=== PATIENT | female | born 1930 | race Caucasian/White ===

== ENCOUNTER 2016-11-05 11:21 | Inpatient (IN) | payer MEDICARE, OTHER ==
[~2016-11-05] VITALS: Ht 157.5 cm; Wt 109.0 kg
[~2016-11-05 11:21] MED LIST: AMLO5TAB2 PO; CITA10TA8 PO; CRESTOR20 MG PO; ETHO250C PO; FERR159T3 PO; FURO-68 PO; GLIP5TAB10 PO; HYDR25TA9 PO; LAMO100T5 PO; LEVE500T56 PO; LEVO250T7 PO; LISI-338 PO; METO50TA2 PO; SERT50TA8 PO
[2016-11-05] MEDS ORDERED: IV NORMAL SALINE 1000ML BAG 1,000 ML IV SCH (11:35)
--- NOTE | 2016-11-05 11:49 | PHYS DOC ---
Past Medical History Past Medical History: High Cholesterol, Hypertension, Other Past Surgical History: Appendectomy, Cholecystectomy, Hysterectomy, Knee Replacement Additional Past Surgical Histo: bilateral knee Alcohol Use: None Drug Use: None Adult General Chief Complaint Chief Complaint: WEAKNESS/GENERALIZED HPI HPI Patient is a 86 year old female who is brought from home by EMS with the complaint of altered mental status and generalized weakness. Patient is not really able to contribute to the history reliably. She states she has been sick since Friday, unclear how reliable that is. She was not able to really offer any specific complaints. Family arrived and stated that the patient had a seizure on Friday before she started getting sick. She does have seizures every few months. PCP Review of Systems Review of Systems Unable to obtain review of systems due to patient's altered level of consciousness. Current Medications Current Medications Current Medications Medications (Trade) Dose Ordered Sig/Malcom Start Time Stop Time Status Last Admin Dose Admin Sodium Chloride (Iv Sodium Chloride 0.9% 1000ml Bag) 1,000 ml @ 200 mls/hr Q5H 11/05/16 11:35 11/05/16 16:34 11/05/16 12:25 200 MLS/HR Allergies Allergies Allergies Coded Allergies Type Severity Reaction Last Updated Verified neomycin Allergy Intermediate 08/07/16 Yes morphine Adverse Reaction Severe 08/07/16 Yes Physical Exam Physical Exam Constitutional: Obese, appears dyspneic, coughing up a thick yellowish swenson sputum, answers to verbal but mostly with one word answers such as "yes", pulse ox on room air 86%, temp 100.1 HENT: Normocephalic, atraumatic, bilateral external ears normal, oral mucous membranes dry but she is mouth breathing, nose normal. [] Eyes: conjunctiva normal, no discharge. [] Neck: Normal range of motion, no stridor. [] Cardiovascular:Heart rate regular mildly tachycardic, no murmur [] Lungs & Thorax: Decreased breath sounds due to effort, wheezy crackles throughout Abdomen: Obese, Bowel sounds normal, soft, no tenderness, no masses, no pulsatile masses. [] Skin: Warm, dry, no erythema, no rash. [] Extremities: No tenderness, no cyanosis, no clubbing, ROM intact, chronic- appearing bilateral lower extremity edema without clinical evidence of cellulitis Neurologic: Level of consciousness is slightly decreased, she sits with her eyes closed but does respond to verbal with 1 or 2 words, she is handling her secretions, coughing and asking for a Kleenex, normal motor function, normal sensory function, no focal deficits noted. [] Current Patient Data Vital Signs Vital Signs Date Time Temp Pulse Resp B/P Pulse Ox O2 Delivery O2 Flow Rate FiO2 11/05/16 12:10 96 24 172/71 92 11/05/16 11:39 Nasal Cannula 2.5 11/05/16 11:25 100.1 100.1 Lab Values Laboratory Tests Test 11/05/16 11:35 11/05/16 12:20 Influenza Type A Antigen Positive (NEGATIVE) Influenza Type B Antigen Negative (NEGATIVE) White Blood Count 9.7x10^3/uL (4.0-11.0) Red Blood Count 3.99x10^6/uL (3.50-5.40) Hemoglobin 12.7g/dL (12.0-15.5) Hematocrit 38.0% (36.0-47.0) Mean Corpuscular Volume 95fL (79-100) Mean Corpuscular Hemoglobin 32pg (25-35) Mean Corpuscular Hemoglobin Concent 33g/dL (31-37) Red Cell Distribution Width 15.9% (11.5-14.5) H Platelet Count 202x10^3/uL (140-400) Neutrophils (%) (Auto) 87% (31-73) H Lymphocytes (%) (Auto) 2% (24-48) L Monocytes (%) (Auto) 10% (0-9) H Eosinophils (%) (Auto) 0% (0-3) Basophils (%) (Auto) 1% (0-3) Neutrophils # (Auto) 8.4x10^3uL (1.8-7.7) H Lymphocytes # (Auto) 0.2x10^3/uL (1.0-4.8) L Monocytes # (Auto) 0.9x10^3/uL (0.0-1.1) Eosinophils # (Auto) 0.0x10^3/uL (0.0-0.7) Basophils # (Auto) 0.0x10^3/uL (0.0-0.2) Segmented Neutrophils % 85% (35-66) H Band Neutrophils % 7% (0-9) Monocytes % 8% (0-10) Platelet Estimate Adequate (ADEQUATE) Prothrombin Time 14.1SEC (11.7-14.0) H Prothrombin Time INR 1.2 (0.8-1.1) H PTT 28SEC (24-38) Sodium Level 141mmol/L (136-145) Potassium Level 2.8mmol/L (3.5-5.1) *L Chloride Level 94mmol/L (98-107) L Carbon Dioxide Level 41mmol/L (21-32) H Anion Gap 6 (6-14) Blood Urea Nitrogen 64mg/dL (7-20) H Creatinine 2.7mg/dL (0.6-1.0) H Estimated GFR (Cockcroft-Gault) 16.8 BUN/Creatinine Ratio 24 (6-20) H Glucose Level 227mg/dL (70-99) H Lactic Acid Level 1.9mmol/L (0.4-2.0) Calcium Level 9.8mg/dL (8.5-10.1) Total Bilirubin 0.6mg/dL (0.2-1.0) Aspartate Amino Transferase (AST) 38U/L (15-37) H Alanine Aminotransferase (ALT) 29U/L (14-59) Alkaline Phosphatase 39U/L (46-116) L Total Protein 8.1g/dL (6.4-8.2) Albumin 3.9g/dL (3.4-5.0) Albumin/Globulin Ratio 0.9 (1.0-1.7) L Laboratory Tests 11/05/16 12:20 Laboratory Tests 11/05/16 12:20 EKG EKG 12-lead EKG read by me. Heart rate 99. Sinus rhythm with PACs and sinus arrhythmia. There are no acute ST or T wave changes indicative of ischemia or infarction. No STEMI. 1156 [] Radiology/Procedures Radiology/Procedures Portable chest x-ray read by the radiologist. No definite infiltrate but there are prominent interstitial markings. [] Course & Med Decision Making Course & Med Decision Making Pertinent Labs and Imaging studies reviewed. (See chart for details) 86-year-old female who is sick with altered mental status, positive for influenza. I started her on Tamiflu. She also reportedly had a seizure right before her symptoms started and has swenson thick sputum, I believe she may have aspiration pneumonia, I started her on antibiotics for that as well. I spoke with Dr. Still who will admit the patient. I wrote bridge orders. [] Dragon Disclaimer Dragon Disclaimer This electronic medical record was generated, in whole or in part, using a voice recognition dictation system. Departure Departure Impression: Primary Impression: Aspiration pneumonia Additional Impression: Influenza Disposition: 09 ADMITTED INPATIENT Admitting Physician: Shayne Melgar Condition: GUARDED Referrals: BAY GALINDO MD (PCP) Problem Qualifiers GASTON SUE MD Nov 05, 2016 11:49
--- NOTE | 2016-11-05 12:02 | RAD ---
INDICATION: fever COMPARISON: 08/09/2016 FINDINGS: Single view of chest obtained. Cardiac silhouette is enlarged. Prominent interstitial markings are again seen bilaterally without a definite new lobar infiltrate. Surgical clips left axillary region. IMPRESSION: No definite new region of focal airspace consolidation. Cardiac silhouette is again enlarged.
[2016-11-05 12:04] LABS: OBC FLU VALID
[2016-11-05] MEDS ORDERED: OSELTAMIVIR 75 MG CAPSULE PO SCH (12:30)
[2016-11-05 12:36] LABS: BASO % 1 % (0-3); EOS % 0 % (0-3); HEMOGLOBIN 12.7 g/dL (12.0-15.5); LYMPH # 0.2 x10^3/uL (1.0-4.8); LYMPH % 2 % (24-48); MEAN CORPUSCULAR HEMOGLOBIN 32 pg (25-35); MEAN CORPUSCULAR HGB CONC 33 g/dL (31-37); MEAN CORPUSCULAR VOLUME 95 fL (79-100); MONO % 10 % (0-9); NEUT % 87 % (31-73); PLATELET COUNT 202 x10^3/uL (140-400); RED BLOOD COUNT 3.99 x10^6/uL (3.50-5.40); RED CELL DISTRIBUTION WIDTH 15.9 % (11.5-14.5); WHITE BLOOD COUNT 9.7 x10^3/uL (4.0-11.0)
[2016-11-05] MEDS ORDERED: PIPERACILLIN/TAZOBACTAM 3.375 GM in IV NORMAL SALINE 50ML 50 ML IV ONE (12:45)
[2016-11-05 12:49] LABS: ALBUMIN 3.9 g/dL (3.4-5.0); ALBUMIN/GLOBULIN RATIO 0.9 (1.0-1.7); CALCIUM 9.8 mg/dL (8.5-10.1); CREATININE 2.7 mg/dL (0.6-1.0); GFR 16.8; TOTAL BILIRUBIN 0.6 mg/dL (0.2-1.0); TOTAL PROTEIN 8.1 g/dL (6.4-8.2)
--- NOTE | 2016-11-05 12:50 | EKG ---
[facility] [address] [place] [address] Test Date: 2016-11-05 Test Time: 11:56:22 Pat Name: YADIRA RAUSCH Department: Room: Gender: F [employer] Station Manager: HILDA : 1930 Requested By: GASTON SUE Order Number: [id number] Reading MD: James Vazquez Measurements Intervals Couch Rate: 99 P: 90 ND: 76 QRS: -10 QRSD: 92 T: 29 QT: 358 QTc: 465 Interpretive Statements SINUS ARRHYTHMIA LEFTWARD AXIS R-S TRANSITION ZONE IN V LEADS DISPLACED TO THE LEFT QRS(T) CONTOUR ABNORMALITY CONSISTENT WITH INFERIOR INFARCT PROBABLY OLD ABNORMAL ECG Electronically Signed On 11-21-2016 14:35:46 [employer] MANAGER by James Vazquez
[2016-11-05 12:51] LABS: BILIRUBIN,URINE NEGATIVE (NEG); GLUCOSE,URINE NEGATIVE (NEG); NITRITE,URINE NEGATIVE (NEG); PH,URINE 5.5; PROTEIN,URINE 100 mg/dL (NEG-TRACE); UROBILINOGEN,URINE 0.2 mg/dL (0.2 mg/dL)
[2016-11-05 12:51] LABS: INR 1.2 (0.8-1.1); PROTHROMBIN TIME PATIENT 14.1 SEC (11.7-14.0)
[2016-11-05 12:55] LABS: POTASSIUM 2.8 mmol/L (3.5-5.1)
[2016-11-05 13:15] LABS: BACTERIA,URINE 0 /HPF (0-FEW); RBC,URINE 0 /HPF (0-2); SQUAMOUS EPITHELIAL CELL,UR MOD /LPF; WBC,URINE 0 /HPF (0-4)
[2016-11-05] MEDS ORDERED: POTASSIUM CHLORIDE 20 MEQ/15 ML ORAL LIQUID. PO ONE (13:15)
[2016-11-05 13:36] LABS: PLT ESTIMATE ADEQUATE (ADEQUATE)
[2016-11-05 15:00] VITALS: BP 150/64
--- NOTE | 2016-11-05 16:00 | ACF ---
Admission Forms Criteria PNEUMONIA DUE TO ASPIRATION Clinical Indications for Admission to Inpatient Care (Place 'X' for any and all applicable criteria): Admission is indicated for ANY ONE of the following(1)(2)(3): [ ]I. Respiratory abnormalities [ ]II. Hemodynamic instability [X]III. Aspiration pneumonitis associated with an acute event (eg, neurologic change, massive emesis, drug overdose) [ ]IV. Patient receives chronic care in a setting (eg, long-term care, [place] [facility] facility) where care for the aspiration has failed or cannot be provided (eg, patient is clinically unstable, and aggressive medical care is desired) (4) Extended stay beyond goal length of stay may be needed for(1)(6): [ ]a) Continued aspiration [ ]b) Empyema, atelectasis, large pleural effusion or lung abscess [ ]c) Severe hypoxemia or respiratory failure [ ]d) Comorbid clinically significant electrolyte disorder or acute renal injury (eg, hypernatremia, hyponatremia) [ ]e) Need for parenteral or tube (enteral) feedings (eg, severe malnutrition) [ ]f) Active comorbidities (eg, heart failure, COPD, renal failure) [ ]g) Comorbid severe neurologic problems(2)(17) The original [employer] content created by [employer] has been revised. The portions of the content which have been revised are identified through the use of italic text or in bold, and [facility] has neither reviewed nor approved the modified material. All other unmodified content is copyright [employer]. Please see references footnoted in the original [facility] edition 2016 Admission Criteria Met?: Yes AYANA RAMIREZ Nov 05, 2016 16:00
[2016-11-05] MEDS ORDERED: DEXTROSE 50% 25 GM / 50ML DISP.SYRIN. IV PRN (16:15)
[2016-11-05] MEDS ORDERED: hydrALAZINE 20 MG/ML VIAL. IVP PRN (16:15)
[2016-11-05] MEDS ORDERED: ALBUTEROL SULFATE 2.5 MG/3 ML NEBU. NEB PRN (16:15)
[2016-11-05] MEDS ORDERED: POTASSIUM CL 20MEQ D5-0.9%NACL 1,000 ML IV SCH (16:15)
[2016-11-05] MEDS ORDERED: ONDANSETRON PF 4 MG/2 ML VIAL. IV PRN (16:15)
--- NOTE | 2016-11-05 16:18 | PDOC1 ---
History and Physical Date of Admission Date of Admission 11/05/16 Identification/Chief Complaint Chief Complaint sob Problems: Source Source: Chart review, Patient History of Present Illness History of Present Illness HPI HPI Patient is a 86 year old female who is brought from home by EMS with the complaint of altered mental status and generalized weakness. Pt is lethargic to me now, only say yes or no when i ask her if she has cough or sob, she said yes. squeeze my hand weak, but not willing to move her body. as per ERP, pt got a seizure on Friday before she started getting sick. She does have seizures every few months. pt denies fever, chills. + flu in ER. Past Medical History Cardiovascular: CAD, CHF, HTN, Hyperlipidemia CENTRAL NERVOUS SYSTEM: Seizure GI: GERD Psych: Depression Renal/: Chronic renal insuff Endocrine: Diabetes Past Surgical History Past Surgical History: Appendectomy, Cholecystectomy, Hysterectomy, Other Family History Family History: Hypertension Social History Smoke: No ALCOHOL: none Drugs: None Current Problem List Problem List Problems Medical Problems: (1) Aspiration pneumonia Status: Acute (2) Aspiration pneumonia Status: Acute (3) Hypoxia Status: Acute (4) Influenza Status: Acute (5) Influenza Status: Acute Current Medications Current Medications Current Medications Medications (Trade) Dose Ordered Sig/Malcom Start Time Stop Time Status Last Admin Dose Admin Oseltamivir Phosphate (Tamiflu) 30 mg BID 11/05/16 21:00 11/10/16 20:59 Oseltamivir Phosphate 75 mg 75 mg DAILY 11/05/16 12:30 11/05/16 12:30 DC 11/05/16 12:24 75 MG Piperacillin Sod/ Tazobactam Sod/ Sodium Chloride (Zosyn/Iv Sodium Chloride 0.9% 50ml) 50 ml @ 100 mls/hr 1X ONCE 11/05/16 12:45 11/05/16 13:14 DC 11/05/16 12:39 100 MLS/HR Potassium Chloride (KCl Oral Soln) 40 meq 1X ONCE 11/05/16 13:15 11/05/16 13:16 DC 11/05/16 13:49 40 MEQ Sodium Chloride (Iv Sodium Chloride 0.9% 1000ml Bag) 1,000 ml @ 200 mls/hr Q5H 11/05/16 11:35 11/05/16 16:34 2/14/17 12:25 200 MLS/HR Allergies Allergies Allergies Coded Allergies Type Severity Reaction Last Updated Verified neomycin Allergy Intermediate 08/07/16 Yes morphine Adverse Reaction Severe 08/07/16 Yes ROS Review of System CONSTITUTIONAL: No fever or chills EYES: No recent changes SKIN: No rash or itching CARDIOVASCULAR: No chest pain, syncope, palpitations, or edema RESPIRATORY: No SOB or cough GASTROINTESTINAL: No nausea, vomiting or abdominal pain NEUROLOGICAL: No headaches or weakness ENDOCRINE: No cold or heat intolerance GENITOURINARY: No urgency or frequency of urination MUSCULOSKELETAL: No back pain or joint pain LYMPHATICS: No enlarged lymph nodes PSYCHIATRIC: No anxiety or depression Physical Exam Physical Exam GEN.: No apparent distress. lethargic, arousable, but fall asleep again HEENT: Head is normocephalic, atraumatic NECK: Supple. LUNGS: Clear to auscultation. HEART: RRR, S1, S2 present. Peripheral pulses intact ABDOMEN: Soft, nontender. Positive bowel sounds. EXTREMITIES: Without any cyanosis. NEUROLOGIC: Normal speech, normal tone PSYCHIATRIC: Normal affect, normal mood. SKIN: No ulcerations Vitals Vitals Vital Signs Date Time Temp Pulse Resp B/P Pulse Ox O2 Delivery O2 Flow Rate FiO2 11/05/16 15:00 100.8 96 22 150/64 94 Nasal Cannula 2.0 100.8 Labs Labs Laboratory Tests Test 11/05/16 11:35 11/05/16 12:20 11/05/16 12:35 Influenza Type A Antigen Positive (NEGATIVE) Influenza Type B Antigen Negative (NEGATIVE) White Blood Count 9.7x10^3/uL (4.0-11.0) Red Blood Count 3.99x10^6/uL (3.50-5.40) Hemoglobin 12.7g/dL (12.0-15.5) Hematocrit 38.0% (36.0-47.0) Mean Corpuscular Volume 95fL (79-100) Mean Corpuscular Hemoglobin 32pg (25-35) Mean Corpuscular Hemoglobin Concent 33g/dL (31-37) Red Cell Distribution Width 15.9% (11.5-14.5) Platelet Count 202x10^3/uL (140-400) Neutrophils (%) (Auto) 87% (31-73) Lymphocytes (%) (Auto) 2% (24-48) Monocytes (%) (Auto) 10% (0-9) Eosinophils (%) (Auto) 0% (0-3) Basophils (%) (Auto) 1% (0-3) Neutrophils # (Auto) 8.4x10^3uL (1.8-7.7) Lymphocytes # (Auto) 0.2x10^3/uL (1.0-4.8) Monocytes # (Auto) 0.9x10^3/uL (0.0-1.1) Eosinophils # (Auto) 0.0x10^3/uL (0.0-0.7) Basophils # (Auto) 0.0x10^3/uL (0.0-0.2) Segmented Neutrophils % 85% (35-66) Band Neutrophils % 7% (0-9) Monocytes % 8% (0-10) Platelet Estimate Adequate (ADEQUATE) Prothrombin Time 14.1SEC (11.7-14.0) Prothromb Time International Ratio 1.2 (0.8-1.1) Activated Partial Thromboplast Time 28SEC (24-38) Sodium Level 141mmol/L (136-145) Potassium Level 2.8mmol/L (3.5-5.1) Chloride Level 94mmol/L (98-107) Carbon Dioxide Level 41mmol/L (21-32) Anion Gap 6 (6-14) Blood Urea Nitrogen 64mg/dL (7-20) Creatinine 2.7mg/dL (0.6-1.0) Estimated GFR (Cockcroft-Gault) 16.8 BUN/Creatinine Ratio 24 (6-20) Glucose Level 227mg/dL (70-99) Lactic Acid Level 1.9mmol/L (0.4-2.0) Calcium Level 9.8mg/dL (8.5-10.1) Total Bilirubin 0.6mg/dL (0.2-1.0) Aspartate Amino Transf (AST/SGOT) 38U/L (15-37) Alanine Aminotransferase (ALT/SGPT) 29U/L (14-59) Alkaline Phosphatase 39U/L (46-116) Total Protein 8.1g/dL (6.4-8.2) Albumin 3.9g/dL (3.4-5.0) Albumin/Globulin Ratio 0.9 (1.0-1.7) Urine Collection Type U cath Urine Color Yellow Urine Clarity Cloudy Urine pH 5.5 Urine Specific [place] 1.015 Urine Protein 100mg/dL (NEG-TRACE) Urine Glucose (UA) Negativemg/dL (NEG) Urine Ketones (Stick) Negativemg/dL (NEG) Urine Blood Large (NEG) Urine Nitrite Negative (NEG) Urine Bilirubin Negative (NEG) Urine Urobilinogen Dipstick 0.2mg/dL (0.2 mg/dL) Urine Leukocyte Esterase Negative (NEG) Urine RBC 0/HPF (0-2) Urine WBC 0/HPF (0-4) Urine Squamous Epithelial Cells Mod/LPF Urine Amorphous Sediment Present/HPF Urine Bacteria 0/HPF (0-FEW) Laboratory Tests Test 11/05/16 11:35 11/05/16 12:20 11/05/16 12:35 Influenza Type A Antigen Positive (NEGATIVE) Influenza Type B Antigen Negative (NEGATIVE) White Blood Count 9.7x10^3/uL (4.0-11.0) Red Blood Count 3.99x10^6/uL (3.50-5.40) Hemoglobin 12.7g/dL (12.0-15.5) Hematocrit 38.0% (36.0-47.0) Mean Corpuscular Volume 95fL (79-100) Mean Corpuscular Hemoglobin 32pg (25-35) Mean Corpuscular Hemoglobin Concent 33g/dL (31-37) Red Cell Distribution Width 15.9% (11.5-14.5) Platelet Count 202x10^3/uL (140-400) Neutrophils (%) (Auto) 87% (31-73) Lymphocytes (%) (Auto) 2% (24-48) Monocytes (%) (Auto) 10% (0-9) Eosinophils (%) (Auto) 0% (0-3) Basophils (%) (Auto) 1% (0-3) Neutrophils # (Auto) 8.4x10^3uL (1.8-7.7) Lymphocytes # (Auto) 0.2x10^3/uL (1.0-4.8) Monocytes # (Auto) 0.9x10^3/uL (0.0-1.1) Eosinophils # (Auto) 0.0x10^3/uL (0.0-0.7) Basophils # (Auto) 0.0x10^3/uL (0.0-0.2) Segmented Neutrophils % 85% (35-66) Band Neutrophils % 7% (0-9) Monocytes % 8% (0-10) Platelet Estimate Adequate (ADEQUATE) Prothrombin Time 14.1SEC (11.7-14.0) Prothromb Time International Ratio 1.2 (0.8-1.1) Activated Partial Thromboplast Time 28SEC (24-38) Sodium Level 141mmol/L (136-145) Potassium Level 2.8mmol/L (3.5-5.1) Chloride Level 94mmol/L (98-107) Carbon Dioxide Level 41mmol/L (21-32) Anion Gap 6 (6-14) Blood Urea Nitrogen 64mg/dL (7-20) Creatinine 2.7mg/dL (0.6-1.0) Estimated GFR (Cockcroft-Gault) 16.8 BUN/Creatinine Ratio 24 (6-20) Glucose Level 227mg/dL (70-99) Lactic Acid Level 1.9mmol/L (0.4-2.0) Calcium Level 9.8mg/dL (8.5-10.1) Total Bilirubin 0.6mg/dL (0.2-1.0) Aspartate Amino Transf (AST/SGOT) 38U/L (15-37) Alanine Aminotransferase (ALT/SGPT) 29U/L (14-59) Alkaline Phosphatase 39U/L (46-116) Total Protein 8.1g/dL (6.4-8.2) Albumin 3.9g/dL (3.4-5.0) Albumin/Globulin Ratio 0.9 (1.0-1.7) Urine Collection Type U cath Urine Color Yellow Urine Clarity Cloudy Urine pH 5.5 Urine Specific [place] 1.015 Urine Protein 100mg/dL (NEG-TRACE) Urine Glucose (UA) Negativemg/dL (NEG) Urine Ketones (Stick) Negativemg/dL (NEG) Urine Blood Large (NEG) Urine Nitrite Negative (NEG) Urine Bilirubin Negative (NEG) Urine Urobilinogen Dipstick 0.2mg/dL (0.2 mg/dL) Urine Leukocyte Esterase Negative (NEG) Urine RBC 0/HPF (0-2) Urine WBC 0/HPF (0-4) Urine Squamous Epithelial Cells Mod/LPF Urine Amorphous Sediment Present/HPF Urine Bacteria 0/HPF (0-FEW) VTE Prophylaxis Ordered VTE Prophylaxis Devices: Yes VTE Pharmacological Prophylaxi: Yes Assessment/Plan Assessment/Plan 1. acute on chronic resp failure, home o2 2L 2. flu + 3. seizure disorder 4. htn 5. dm2 6. copd 7. h/o CHF 8. hld 9. hypokalemia 10 sheyla on ckd3 11. AMS, metabolic encephalopathy with flu,SHEYLA, VS. post ictal plan: 1. npo for now, swallow eval 2. check ckmb, abg stat 3. cont tamiflu 4. need to verify home meds ivf replete k 5. pulm, neuro consult SSI duoneb repeat CXR TMR ativan prn dvt ppx ptot JOANIE DE LUNA MD Nov 05, 2016 16:18
[2016-11-05 16:43] LABS: CKMB INDEX 0.2 % (0-4); CKMB MASS 0.8 ng/mL (0.0-3.6)
[2016-11-05 16:53] LABS: HCO3 ABG 39 mmol/L (21-28); PCO2 ABG 58 mmHg (35-46); PH ABG 7.44 (7.35-7.45); PO2 ABG 64 mmHg (65-108)
[2016-11-05] MEDS: INSULIN ASPART 300 UNITS/3 ML INSULN.PEN SQ SCH (17:00)
--- NOTE | 2016-11-05 17:29 | PDOC2 ---
NEUROLOGY CONSULT Date of Admission Date of Admission DATE: 11/05/16 TIME: 17:15 Reason for Consult Reason for Consult: seizure Referring Physician Referring Physician: Dr. Still Source Source: Chart review, Patient History of Present Illness History of Present Illness The patient is an 84-year-old right-handed female who presents with altered mental status. She is unable to provide history; I saw her 16 months ago and obtained a history that she sees Dr. Sullivan for episodic loss of consciousness with tremulousness, but without tongue biting, incontinence, convulsive activity , or postictal confusion. She has these every 3 weeks. She is on lamotrigine and levetiracetam. She has been found to have influenza positive and is thought to perhaps have aspiration pneumonia. I tried to reach family members, and was unsuccessful. Past Medical History Cardiovascular: CAD, CHF, HTN, Hyperlipidemia Pulmonary: Other (sleep apnea) CENTRAL NERVOUS SYSTEM: Seizure GI: GERD Heme/Onc: Anemia NOS, Cancer (breast) Psych: Depression Musculoskeletal: Osteoarthritis Renal/: Chronic renal insuff, UTI, Urinary Incontinence Endocrine: Diabetes Past Surgical History Past Surgical History: Cholecystectomy, Total knee replacement, Hysterectomy, Other (breast lumps) Family History Family History: Cancer Social History Social History lives alone, denies alcohol or tobacco Current Medications Current Medications Current Medications Sodium Chloride (Iv Sodium Chloride 0.9% 1000ml Bag) 1,000 ml @ 200 mls/hr Q5H IV Last administered on 11/05/16 12:25; Start 11/05/16 at 11:35; Stop at 16:34; Status DC Oseltamivir Phosphate 75 mg 75 mg DAILY PO Last administered on 11/05/16 12:24 ; Start 11/05/16 at 12:30; Stop 11/05/16 at 12:30; Status DC Piperacillin Sod/ Tazobactam Sod/ Sodium Chloride (Zosyn/Iv Sodium Chloride 0.9 % 50ml) 50 ml @ 100 mls/hr 1X ONCE IV Last administered on 11/05/16 12:39; Start 11/05/16 at 12:45; Stop 11/05/16 at 13:14; Status DC Oseltamivir Phosphate (Tamiflu) 30 mg BID PO ; Start 11/05/16 at 21:00; Stop at 20:59 Potassium Chloride (KCl Oral Soln) 40 meq 1X ONCE PO Last administered on 11/05t 13:49; Start 11/05/16 at 13:15; Stop 11/05/16 at 13:16; Status DC Amlodipine Besylate (Norvasc) 5 mg DAILY PO ; Start 11/06/16 at 09:00 Glipizide (Glucotrol) 5 mg DAILY PO ; Start 11/06/16 at 09:00 Lamotrigine (LaMICtal) 100 mg BID PO ; Start 11/05/16 at 21:00 Levetiracetam (Keppra) 250 mg HS PO ; Start 11/05/16 at 21:00 Atorvastatin Calcium (Lipitor) 80 mg QHS PO ; Start 11/05/16 at 21:00 Acetaminophen (Tylenol) 650 mg PRN Q6HRS PRN PO MILD PAIN / TEMP; Start at 16:15 Ondansetron HCl 4 mg 4 mg PRN Q6HRS PRN IV NAUSEA/VOMITING; Start 11/05/16 at 16:15 Potassium Chloride/Dextrose/ Sod Cl (KCl 20 Meq In D5W-NS) 1,000 ml @ 75 mls/ hr [id number] IV ; Start 11/05/16 at 16:15; Stop 11/05/16 at 16:15; Status DC Insulin Aspart (Novolog) 0-9 UNITS TIDWMEALS SQ ; Start 11/05/16 at 17:00 Dextrose 12.5 gm PRN Q15MIN PRN IV SEE COMMENTS; Start 11/05/16 at 16:15 Heparin Sodium (Porcine) 5,000 unit Q8HRS SQ ; Start 11/05/16 at 22:00 Hydralazine HCl (Apresoline) 10 mg PRN Q4HRS PRN IVP ELEVATED BP, SEE COMMENTS ; Start 11/05/16 at 16:15 Albuterol/ Ipratropium (Duoneb) 3 ml RTQID NEB ; Start 11/05/16 at 20:00 Albuterol Sulfate 2.5 mg 2.5 mg PRN Q4HRS PRN NEB SHORTNESS OF BREATH; Start at 16:15 Potassium Chloride/Sodium Chloride (KCl 20 Meq-NS 1,000 ml Iv Soln) 1,000 ml @ 75 mls/hr [id number] IV ; Start 11/05/16 at 17:00 Active Scripts Active Glipizide 5 Mg Tablet 5 Mg PO DAILY Take one-half a tablet daily. Lasix (Furosemide) 40 Mg Tablet 40 Mg PO DAILY Reported Levofloxacin 250 Mg Tablet 250 Mg PO DAILY Amlodipine Besylate 5 Mg Tablet 5 Mg PO DAILY Keppra (Levetiracetam) 500 Mg Tablet 250 Mg PO HS Crestor (Rosuvastatin Calcium) 20 Mg Tablet 20 Mg PO HS Lamictal (Lamotrigine) 100 Mg Tablet 100 Mg PO BID Allergies Allergies: Coded Allergies: neomycin (Verified Allergy, Intermediate, 08/07/16) morphine (Verified Adverse Reaction, Severe, 08/07/16) Pt states that she became severely drowsy with morphine and "woke up in ICU." Doesn't know if she was given too large of dose. Physical Exam Physical Examination PHYSICAL EXAMINATION: Vital signs: see above. General appearance is normal and in no acute distress. HEENT: Normocephalic and nontraumatic. Eyes, nose, ears, and throat are unremarkable. Neck is supple. No lymphadenopathy. No bruits are heard over the carotid artery. No crepitus. NEUROLOGICAL EXAMINATION: Mental Status Examination: Somnolent awakens easily, follows commands, knows location, not date, very poor historian. Pupils are equal round and reactive to light and accommodation. Extraocular movements are intact. Visual field exam shows no defect on the direct confrontation. No motor or sensory deficits on the facial exam. Uvula in the midline and the soft palate elevated symmetrically. No deviation of the tongue to any direction. Gross hearing is normal. Shoulder shrug normal. Muscle tone is normal. Muscle strength is 4/ 5. Deep tendon reflexes are 1+ all around. Plantar reflex is with flexion response bilaterally. Alternative movements are accurate. Gait not tested. Sensory exam shows stocking loss. No cerebellar signs are elicited. Vitals VITALS Vital Signs Date Time Temp Pulse Resp B/P Pulse Ox O2 Delivery O2 Flow Rate FiO2 11/05/16 15:00 100.8 96 22 150/64 94 Nasal Cannula 2.0 100.8 Labs Labs Laboratory Tests Test 11/05/16 11:35 11/05/16 12:20 11/05/16 12:35 11/05/16 16:45 Influenza Type A Antigen Positive (NEGATIVE) Influenza Type B Antigen Negative (NEGATIVE) White Blood Count 9.7x10^3/uL (4.0-11.0) Red Blood Count 3.99x10^6/uL (3.50-5.40) Hemoglobin 12.7g/dL (12.0-15.5) Hematocrit 38.0% (36.0-47.0) Mean Corpuscular Volume 95fL (79-100) Mean Corpuscular Hemoglobin 32pg (25-35) Mean Corpuscular Hemoglobin Concent 33g/dL (31-37) Red Cell Distribution Width 15.9% (11.5-14.5) Platelet Count 202x10^3/uL (140-400) Neutrophils (%) (Auto) 87% (31-73) Lymphocytes (%) (Auto) 2% (24-48) Monocytes (%) (Auto) 10% (0-9) Eosinophils (%) (Auto) 0% (0-3) Basophils (%) (Auto) 1% (0-3) Neutrophils # (Auto) 8.4x10^3uL (1.8-7.7) Lymphocytes # (Auto) 0.2x10^3/uL (1.0-4.8) Monocytes # (Auto) 0.9x10^3/uL (0.0-1.1) Eosinophils # (Auto) 0.0x10^3/uL (0.0-0.7) Basophils # (Auto) 0.0x10^3/uL (0.0-0.2) Segmented Neutrophils % 85% (35-66) Band Neutrophils % 7% (0-9) Monocytes % 8% (0-10) Platelet Estimate Adequate (ADEQUATE) Prothrombin Time 14.1SEC (11.7-14.0) Prothromb Time International Ratio 1.2 (0.8-1.1) Activated Partial Thromboplast Time 28SEC (24-38) Sodium Level 141mmol/L (136-145) Potassium Level 2.8mmol/L (3.5-5.1) Chloride Level 94mmol/L (98-107) Carbon Dioxide Level 41mmol/L (21-32) Anion Gap 6 (6-14) Blood Urea Nitrogen 64mg/dL (7-20) Creatinine 2.7mg/dL (0.6-1.0) Estimated GFR (Cockcroft-Gault) 16.8 BUN/Creatinine Ratio 24 (6-20) Glucose Level 227mg/dL (70-99) Lactic Acid Level 1.9mmol/L (0.4-2.0) Calcium Level 9.8mg/dL (8.5-10.1) Magnesium Level 2.0mg/dL (1.8-2.4) Total Bilirubin 0.6mg/dL (0.2-1.0) Aspartate Amino Transf (AST/SGOT) 38U/L (15-37) Alanine Aminotransferase (ALT/SGPT) 29U/L (14-59) Alkaline Phosphatase 39U/L (46-116) Creatine Kinase 359U/L (26-192) Creatine Kinase MB (Mass) 0.8ng/mL (0.0-3.6) Creatine Kinase MB Relative Index 0.2% (0-4) Total Protein 8.1g/dL (6.4-8.2) Albumin 3.9g/dL (3.4-5.0) Albumin/Globulin Ratio 0.9 (1.0-1.7) Urine Collection Type U cath Urine Color Yellow Urine Clarity Cloudy Urine pH 5.5 Urine Specific [place] 1.015 Urine Protein 100mg/dL (NEG-TRACE) Urine Glucose (UA) Negativemg/dL (NEG) Urine Ketones (Stick) Negativemg/dL (NEG) Urine Blood Large (NEG) Urine Nitrite Negative (NEG) Urine Bilirubin Negative (NEG) Urine Urobilinogen Dipstick 0.2mg/dL (0.2 mg/dL) Urine Leukocyte Esterase Negative (NEG) Urine RBC 0/HPF (0-2) Urine WBC 0/HPF (0-4) Urine Squamous Epithelial Cells Mod/LPF Urine Amorphous Sediment Present/HPF Urine Bacteria 0/HPF (0-FEW) O2 Saturation % (92-99) Arterial Blood pH 7.44 (7.35-7.45) Arterial Blood pCO2 at Patient Temp 58mmHg (35-46) Arterial Blood pO2 at Patient Temp 64mmHg (65-108) Arterial Blood HCO3 39mmol/L (21-28) Arterial Blood Base Excess 12mmol/L (-3-3) FiO2 2 lpm nc Laboratory Tests Test 11/05/16 11:35 11/05/16 12:20 11/05/16 12:35 11/05/16 16:45 Influenza Type A Antigen Positive (NEGATIVE) Influenza Type B Antigen Negative (NEGATIVE) White Blood Count 9.7x10^3/uL (4.0-11.0) Red Blood Count 3.99x10^6/uL (3.50-5.40) Hemoglobin 12.7g/dL (12.0-15.5) Hematocrit 38.0% (36.0-47.0) Mean Corpuscular Volume 95fL (79-100) Mean Corpuscular Hemoglobin 32pg (25-35) Mean Corpuscular Hemoglobin Concent 33g/dL (31-37) Red Cell Distribution Width 15.9% (11.5-14.5) Platelet Count 202x10^3/uL (140-400) Neutrophils (%) (Auto) 87% (31-73) Lymphocytes (%) (Auto) 2% (24-48) Monocytes (%) (Auto) 10% (0-9) Eosinophils (%) (Auto) 0% (0-3) Basophils (%) (Auto) 1% (0-3) Neutrophils # (Auto) 8.4x10^3uL (1.8-7.7) Lymphocytes # (Auto) 0.2x10^3/uL (1.0-4.8) Monocytes # (Auto) 0.9x10^3/uL (0.0-1.1) Eosinophils # (Auto) 0.0x10^3/uL (0.0-0.7) Basophils # (Auto) 0.0x10^3/uL (0.0-0.2) Segmented Neutrophils % 85% (35-66) Band Neutrophils % 7% (0-9) Monocytes % 8% (0-10) Platelet Estimate Adequate (ADEQUATE) Prothrombin Time 14.1SEC (11.7-14.0) Prothromb Time International Ratio 1.2 (0.8-1.1) Activated Partial Thromboplast Time 28SEC (24-38) Sodium Level 141mmol/L (136-145) Potassium Level 2.8mmol/L (3.5-5.1) Chloride Level 94mmol/L (98-107) Carbon Dioxide Level 41mmol/L (21-32) Anion Gap 6 (6-14) Blood Urea Nitrogen 64mg/dL (7-20) Creatinine 2.7mg/dL (0.6-1.0) Estimated GFR (Cockcroft-Gault) 16.8 BUN/Creatinine Ratio 24 (6-20) Glucose Level 227mg/dL (70-99) Lactic Acid Level 1.9mmol/L (0.4-2.0) Calcium Level 9.8mg/dL (8.5-10.1) Magnesium Level 2.0mg/dL (1.8-2.4) Total Bilirubin 0.6mg/dL (0.2-1.0) Aspartate Amino Transf (AST/SGOT) 38U/L (15-37) Alanine Aminotransferase (ALT/SGPT) 29U/L (14-59) Alkaline Phosphatase 39U/L (46-116) Creatine Kinase 359U/L (26-192) Creatine Kinase MB (Mass) 0.8ng/mL (0.0-3.6) Creatine Kinase MB Relative Index 0.2% (0-4) Total Protein 8.1g/dL (6.4-8.2) Albumin 3.9g/dL (3.4-5.0) Albumin/Globulin Ratio 0.9 (1.0-1.7) Urine Collection Type U cath Urine Color Yellow Urine Clarity Cloudy Urine pH 5.5 Urine Specific [place] 1.015 Urine Protein 100mg/dL (NEG-TRACE) Urine Glucose (UA) Negativemg/dL (NEG) Urine Ketones (Stick) Negativemg/dL (NEG) Urine Blood Large (NEG) Urine Nitrite Negative (NEG) Urine Bilirubin Negative (NEG) Urine Urobilinogen Dipstick 0.2mg/dL (0.2 mg/dL) Urine Leukocyte Esterase Negative (NEG) Urine RBC 0/HPF (0-2) Urine WBC 0/HPF (0-4) Urine Squamous Epithelial Cells Mod/LPF Urine Amorphous Sediment Present/HPF Urine Bacteria 0/HPF (0-FEW) O2 Saturation % (92-99) Arterial Blood pH 7.44 (7.35-7.45) Arterial Blood pCO2 at Patient Temp 58mmHg (35-46) Arterial Blood pO2 at Patient Temp 64mmHg (65-108) Arterial Blood HCO3 39mmol/L (21-28) Arterial Blood Base Excess 12mmol/L (-3-3) FiO2 2 lpm nc Assessment/Plan Assessment/Plan Impression: Metabolic encephalopathy History of seizures, but when I last saw her I wondered that she may have nonepileptic seizures or vasovagal syncope. She continues to have frequent seizures despite 2 anticonvulsants. Possible aspiration pneumonia Recommendations: CT of the head I don't see a need to repeat EEG studies, of which she has had several in the past. Continue current anticonvulsants although once a day levetiracetam is unusual. Thank you for letting me help with the patient's care. ALBARO DUKE MD Nov 05, 2016 17:29
--- NOTE | 2016-11-05 18:36 | RAD ---
PROCEDURE CT head without intravenous contrast. HISTORY Altered mental status. TECHNIQUE Axial images are obtained of the head from the skull base through the vertex without IV contrast Exposure: One or more of the following individualized dose reduction techniques were utilized for this examination: 1. Automated exposure control. 2. Adjustment of the mA and/or kV according to patient size. 3. Use of iterative reconstruction technique. COMPARISON CT head May 15, 2015. FINDINGS There is motion artifact at several levels which could obscure subtle abnormalities. Variant anatomy with cavum septi pellucidi et vergae is present. Moderate-severe nonspecific white matter low attenuation is seen, probably from chronic microvascular ischemic disease. The ventricles are appropriate in size, shape, and location for the patient's age.No obvious intracranial mass, mass-effect, midline shift, hemorrhage or obvious acute infarction is identified.Basilar cisterns are patent. Bone windows demonstrate no acute calvarial abnormality.The visualized paranasal sinuses appear clear. IMPRESSION 1. No acute intracranial process. Please note that CT can be relatively insensitive to acute ischemic infarction for up to 24 hours after symptom onset. 2. Nonspecific white matter changes, probably from chronic microvascular ischemic disease. Electronically signed by: Pedro Pablo Covarrubias MD (Nov 05, 2016 18:34:43)
[2016-11-05 19:58] VITALS: BP 144/65
[2016-11-05] MEDS: IPRATRPIUM/ALBUTEROL 0.5/2.5MG 3 ML NEBU. NEB SCH (20:17)
[2016-11-05] MEDS: OSELTAMIVIR 30 MG CAPSULE PO SCH (20:18)
[2016-11-05] MEDS: ATORVASTATIN CALCIUM 40 MG TABLET. PO SCH (20:19)
[2016-11-05] MEDS: lamoTRIgine 100 MG TABLET. PO SCH (20:19)
[2016-11-05] MEDS: HEPARIN PF for SUB-Q USE 5,000 UNIT/0.5 ML VIAL. SQ SCH (20:34)
[2016-11-05] MEDS ORDERED: LEVETIRACETAM 500 MG TABLET PO SCH (21:00)
[2016-11-05 23:55] VITALS: BP 122/50
[2016-11-06 03:58] VITALS: BP 138/55
[2016-11-06] MEDS: HEPARIN PF for SUB-Q USE 5,000 UNIT/0.5 ML VIAL. SQ SCH ×3 (05:28→20:44)
[2016-11-06 07:00] VITALS: BP 142/58
[2016-11-06] MEDS: INSULIN ASPART 300 UNITS/3 ML INSULN.PEN SQ SCH ×3 (08:00→16:47)
[2016-11-06] MEDS: IPRATRPIUM/ALBUTEROL 0.5/2.5MG 3 ML NEBU. NEB SCH ×4 (08:41→20:20)
--- NOTE | 2016-11-06 09:21 | RAD ---
INDICATION: pna COMPARISON: 11/05/2016 FINDINGS: Single view of chest obtained. Enlarged cardiac silhouette. Mild linear opacity right upper lung, likely atelectasis. No new region of airspace consolidation. Surgical clips left axillary region. IMPRESSION: Mild linear opacity right upper lung could be from atelectasis. No definite new infiltrate.
[2016-11-06] MEDS: OSELTAMIVIR 30 MG CAPSULE PO SCH ×2 (09:27→20:43)
[2016-11-06] MEDS: GLIPIZIDE 5 MG TABLET PO SCH (09:28)
[2016-11-06] MEDS: AMLODIPINE BESYLATE 5 MG TABLET PO SCH (09:28)
[2016-11-06] MEDS: lamoTRIgine 100 MG TABLET. PO SCH ×2 (09:28→20:42)
[2016-11-06 09:53] LABS: BASO % 1 % (0-3); EOS % 0 % (0-3); HEMATOCRIT 36.8 % (36.0-47.0); HEMOGLOBIN 12.4 g/dL (12.0-15.5); LYMPH # 0.6 x10^3/uL (1.0-4.8); LYMPH % 11 % (24-48); MEAN CORPUSCULAR HEMOGLOBIN 32 pg (25-35); MEAN CORPUSCULAR HGB CONC 34 g/dL (31-37); MEAN CORPUSCULAR VOLUME 94 fL (79-100); MONO % 15 % (0-9); NEUT % 74 % (31-73); PLATELET COUNT 176 x10^3/uL (140-400); RED BLOOD COUNT 3.91 x10^6/uL (3.50-5.40); RED CELL DISTRIBUTION WIDTH 16.3 % (11.5-14.5); WHITE BLOOD COUNT 5.9 x10^3/uL (4.0-11.0)
[2016-11-06 10:15] LABS: CREATININE 1.9 mg/dL (0.6-1.0); GFR 25.2; POTASSIUM 3.2 mmol/L (3.5-5.1)
--- NOTE | 2016-11-06 10:18 | PDOC ---
PROGRESS NOTES Assessment Problems Medical Problems: (1) Aspiration pneumonia Status: Acute (2) Aspiration pneumonia Status: Acute (3) Hypoxia Status: Acute (4) Influenza Status: Acute (5) Influenza Status: Acute Metabolic encephalopathy History of seizures, but when I last saw her I wondered that she may have nonepileptic seizures or vasovagal syncope. She continues to have frequent seizures despite 2 anticonvulsants. Possible aspiration pneumonia Plan I don't see a need to repeat EEG studies, of which she has had several in the past. Continue current anticonvulsants although once a day levetiracetam is unusual. I left a message with the patient's daughter yesterday Subjective No complaints Objective Vital Signs Date Time Temp Pulse Resp B/P Pulse Ox O2 Delivery O2 Flow Rate FiO2 11/06/16 09:28 83 142/58 11/06/16 08:43 94 Nasal Cannula 3.0 11/06/16 07:00 98.9 20 98.9 Intake and Output 11/06/16 07:00 Intake Total 333 ml Balance 333 ml Intake Oral 0 ml IV Total 50 ml Other 283 ml # Voids 3 PHYSICAL EXAM Alert. Oriented to "Friday," place and person. PERRL. EOMI. CN: no focal findings. Muscle tone: normal. Muscle strength: 4/5 DTR: 1+ Plantar reflex: flexor Gait: not examined in bed. Sensory exam: no abnormal findings. No cerebellar signs elicited. Review of Relevant I have reviewed the following items lucy (where applicable) has been applied. Labs Laboratory Tests Test 11/05/16 11:35 11/05/16 12:20 11/05/16 12:35 11/05/16 16:45 Influenza Type A Antigen Positive (NEGATIVE) Influenza Type B Antigen Negative (NEGATIVE) White Blood Count 9.7x10^3/uL (4.0-11.0) Red Blood Count 3.99x10^6/uL (3.50-5.40) Hemoglobin 12.7g/dL (12.0-15.5) Hematocrit 38.0% (36.0-47.0) Mean Corpuscular Volume 95fL (79-100) Mean Corpuscular Hemoglobin 32pg (25-35) Mean Corpuscular Hemoglobin Concent 33g/dL (31-37) Red Cell Distribution Width 15.9% (11.5-14.5) Platelet Count 202x10^3/uL (140-400) Neutrophils (%) (Auto) 87% (31-73) Lymphocytes (%) (Auto) 2% (24-48) Monocytes (%) (Auto) 10% (0-9) Eosinophils (%) (Auto) 0% (0-3) Basophils (%) (Auto) 1% (0-3) Neutrophils # (Auto) 8.4x10^3uL (1.8-7.7) Lymphocytes # (Auto) 0.2x10^3/uL (1.0-4.8) Monocytes # (Auto) 0.9x10^3/uL (0.0-1.1) Eosinophils # (Auto) 0.0x10^3/uL (0.0-0.7) Basophils # (Auto) 0.0x10^3/uL (0.0-0.2) Segmented Neutrophils % 85% (35-66) Band Neutrophils % 7% (0-9) Monocytes % 8% (0-10) Platelet Estimate Adequate (ADEQUATE) Prothrombin Time 14.1SEC (11.7-14.0) Prothromb Time International Ratio 1.2 (0.8-1.1) Activated Partial Thromboplast Time 28SEC (24-38) Sodium Level 141mmol/L (136-145) Potassium Level 2.8mmol/L (3.5-5.1) Chloride Level 94mmol/L (98-107) Carbon Dioxide Level 41mmol/L (21-32) Anion Gap 6 (6-14) Blood Urea Nitrogen 64mg/dL (7-20) Creatinine 2.7mg/dL (0.6-1.0) Estimated GFR (Cockcroft-Gault) 16.8 BUN/Creatinine Ratio 24 (6-20) Glucose Level 227mg/dL (70-99) Lactic Acid Level 1.9mmol/L (0.4-2.0) Calcium Level 9.8mg/dL (8.5-10.1) Magnesium Level 2.0mg/dL (1.8-2.4) Total Bilirubin 0.6mg/dL (0.2-1.0) Aspartate Amino Transf (AST/SGOT) 38U/L (15-37) Alanine Aminotransferase (ALT/SGPT) 29U/L (14-59) Alkaline Phosphatase 39U/L (46-116) Creatine Kinase 359U/L (26-192) Creatine Kinase MB (Mass) 0.8ng/mL (0.0-3.6) Creatine Kinase MB Relative Index 0.2% (0-4) Total Protein 8.1g/dL (6.4-8.2) Albumin 3.9g/dL (3.4-5.0) Albumin/Globulin Ratio 0.9 (1.0-1.7) Urine Collection Type U cath Urine Color Yellow Urine Clarity Cloudy Urine pH 5.5 Urine Specific [place] 1.015 Urine Protein 100mg/dL (NEG-TRACE) Urine Glucose (UA) Negativemg/dL (NEG) Urine Ketones (Stick) Negativemg/dL (NEG) Urine Blood Large (NEG) Urine Nitrite Negative (NEG) Urine Bilirubin Negative (NEG) Urine Urobilinogen Dipstick 0.2mg/dL (0.2 mg/dL) Urine Leukocyte Esterase Negative (NEG) Urine RBC 0/HPF (0-2) Urine WBC 0/HPF (0-4) Urine Squamous Epithelial Cells Mod/LPF Urine Amorphous Sediment Present/HPF Urine Bacteria 0/HPF (0-FEW) O2 Saturation % (92-99) Arterial Blood pH 7.44 (7.35-7.45) Arterial Blood pCO2 at Patient Temp 58mmHg (35-46) Arterial Blood pO2 at Patient Temp 64mmHg (65-108) Arterial Blood HCO3 39mmol/L (21-28) Arterial Blood Base Excess 12mmol/L (-3-3) FiO2 2 lpm nc Test 11/05/16 21:14 11/06/16 07:39 11/06/16 09:45 Glucose (Fingerstick) 207mg/dL (70-99) 150mg/dL (70-99) White Blood Count 5.9x10^3/uL (4.0-11.0) Red Blood Count 3.91x10^6/uL (3.50-5.40) Hemoglobin 12.4g/dL (12.0-15.5) Hematocrit 36.8% (36.0-47.0) Mean Corpuscular Volume 94fL (79-100) Mean Corpuscular Hemoglobin 32pg (25-35) Mean Corpuscular Hemoglobin Concent 34g/dL (31-37) Red Cell Distribution Width 16.3% (11.5-14.5) Platelet Count 176x10^3/uL (140-400) Neutrophils (%) (Auto) 74% (31-73) Lymphocytes (%) (Auto) 11% (24-48) Monocytes (%) (Auto) 15% (0-9) Eosinophils (%) (Auto) 0% (0-3) Basophils (%) (Auto) 1% (0-3) Neutrophils # (Auto) 4.4x10^3uL (1.8-7.7) Lymphocytes # (Auto) 0.6x10^3/uL (1.0-4.8) Monocytes # (Auto) 0.9x10^3/uL (0.0-1.1) Eosinophils # (Auto) 0.0x10^3/uL (0.0-0.7) Basophils # (Auto) 0.0x10^3/uL (0.0-0.2) Laboratory Tests Test 11/05/16 11:35 11/05/16 12:20 11/05/16 12:35 11/05/16 16:45 Influenza Type A Antigen Positive (NEGATIVE) Influenza Type B Antigen Negative (NEGATIVE) White Blood Count 9.7x10^3/uL (4.0-11.0) Red Blood Count 3.99x10^6/uL (3.50-5.40) Hemoglobin 12.7g/dL (12.0-15.5) Hematocrit 38.0% (36.0-47.0) Mean Corpuscular Volume 95fL (79-100) Mean Corpuscular Hemoglobin 32pg (25-35) Mean Corpuscular Hemoglobin Concent 33g/dL (31-37) Red Cell Distribution Width 15.9% (11.5-14.5) Platelet Count 202x10^3/uL (140-400) Neutrophils (%) (Auto) 87% (31-73) Lymphocytes (%) (Auto) 2% (24-48) Monocytes (%) (Auto) 10% (0-9) Eosinophils (%) (Auto) 0% (0-3) Basophils (%) (Auto) 1% (0-3) Neutrophils # (Auto) 8.4x10^3uL (1.8-7.7) Lymphocytes # (Auto) 0.2x10^3/uL (1.0-4.8) Monocytes # (Auto) 0.9x10^3/uL (0.0-1.1) Eosinophils # (Auto) 0.0x10^3/uL (0.0-0.7) Basophils # (Auto) 0.0x10^3/uL (0.0-0.2) Segmented Neutrophils % 85% (35-66) Band Neutrophils % 7% (0-9) Monocytes % 8% (0-10) Platelet Estimate Adequate (ADEQUATE) Prothrombin Time 14.1SEC (11.7-14.0) Prothromb Time International Ratio 1.2 (0.8-1.1) Activated Partial Thromboplast Time 28SEC (24-38) Sodium Level 141mmol/L (136-145) Potassium Level 2.8mmol/L (3.5-5.1) Chloride Level 94mmol/L (98-107) Carbon Dioxide Level 41mmol/L (21-32) Anion Gap 6 (6-14) Blood Urea Nitrogen 64mg/dL (7-20) Creatinine 2.7mg/dL (0.6-1.0) Estimated GFR (Cockcroft-Gault) 16.8 BUN/Creatinine Ratio 24 (6-20) Glucose Level 227mg/dL (70-99) Lactic Acid Level 1.9mmol/L (0.4-2.0) Calcium Level 9.8mg/dL (8.5-10.1) Magnesium Level 2.0mg/dL (1.8-2.4) Total Bilirubin 0.6mg/dL (0.2-1.0) Aspartate Amino Transf (AST/SGOT) 38U/L (15-37) Alanine Aminotransferase (ALT/SGPT) 29U/L (14-59) Alkaline Phosphatase 39U/L (46-116) Creatine Kinase 359U/L (26-192) Creatine Kinase MB (Mass) 0.8ng/mL (0.0-3.6) Creatine Kinase MB Relative Index 0.2% (0-4) Total Protein 8.1g/dL (6.4-8.2) Albumin 3.9g/dL (3.4-5.0) Albumin/Globulin Ratio 0.9 (1.0-1.7) Urine Collection Type U cath Urine Color Yellow Urine Clarity Cloudy Urine pH 5.5 Urine Specific [place] 1.015 Urine Protein 100mg/dL (NEG-TRACE) Urine Glucose (UA) Negativemg/dL (NEG) Urine Ketones (Stick) Negativemg/dL (NEG) Urine Blood Large (NEG) Urine Nitrite Negative (NEG) Urine Bilirubin Negative (NEG) Urine Urobilinogen Dipstick 0.2mg/dL (0.2 mg/dL) Urine Leukocyte Esterase Negative (NEG) Urine RBC 0/HPF (0-2) Urine WBC 0/HPF (0-4) Urine Squamous Epithelial Cells Mod/LPF Urine Amorphous Sediment Present/HPF Urine Bacteria 0/HPF (0-FEW) O2 Saturation % (92-99) Arterial Blood pH 7.44 (7.35-7.45) Arterial Blood pCO2 at Patient Temp 58mmHg (35-46) Arterial Blood pO2 at Patient Temp 64mmHg (65-108) Arterial Blood HCO3 39mmol/L (21-28) Arterial Blood Base Excess 12mmol/L (-3-3) FiO2 2 lpm nc Test 11/05/16 21:14 11/06/16 07:39 11/06/16 09:45 Glucose (Fingerstick) 207mg/dL (70-99) 150mg/dL (70-99) White Blood Count 5.9x10^3/uL (4.0-11.0) Red Blood Count 3.91x10^6/uL (3.50-5.40) Hemoglobin 12.4g/dL (12.0-15.5) Hematocrit 36.8% (36.0-47.0) Mean Corpuscular Volume 94fL (79-100) Mean Corpuscular Hemoglobin 32pg (25-35) Mean Corpuscular Hemoglobin Concent 34g/dL (31-37) Red Cell Distribution Width 16.3% (11.5-14.5) Platelet Count 176x10^3/uL (140-400) Neutrophils (%) (Auto) 74% (31-73) Lymphocytes (%) (Auto) 11% (24-48) Monocytes (%) (Auto) 15% (0-9) Eosinophils (%) (Auto) 0% (0-3) Basophils (%) (Auto) 1% (0-3) Neutrophils # (Auto) 4.4x10^3uL (1.8-7.7) Lymphocytes # (Auto) 0.6x10^3/uL (1.0-4.8) Monocytes # (Auto) 0.9x10^3/uL (0.0-1.1) Eosinophils # (Auto) 0.0x10^3/uL (0.0-0.7) Basophils # (Auto) 0.0x10^3/uL (0.0-0.2) Medications Current Medications Sodium Chloride (Iv Sodium Chloride 0.9% 1000ml Bag) 1,000 ml @ 200 mls/hr Q5H IV Last administered on 11/05/16 12:25; Start 11/05/16 at 11:35; Stop at 16:34; Status DC Oseltamivir Phosphate 75 mg 75 mg DAILY PO Last administered on 11/05/16 12:24 ; Start 11/05/16 at 12:30; Stop 11/05/16 at 12:30; Status DC Piperacillin Sod/ Tazobactam Sod/ Sodium Chloride (Zosyn/Iv Sodium Chloride 0.9 % 50ml) 50 ml @ 100 mls/hr 1X ONCE IV Last administered on 11/05/16 12:39; Start 11/05/16 at 12:45; Stop 11/05/16 at 13:14; Status DC Oseltamivir Phosphate (Tamiflu) 30 mg BID PO Last administered on 11/06/16 09: 27; Start 11/05/16 at 21:00; Stop 11/10/16 at 20:59 Potassium Chloride (KCl Oral Soln) 40 meq 1X ONCE PO Last administered on 11/05 13:49; Start 11/05/16 at 13:15; Stop 11/05/16 at 13:16; Status DC Amlodipine Besylate (Norvasc) 5 mg DAILY PO Last administered on 11/06/16 09: 28; Start 11/06/16 at 09:00 Glipizide (Glucotrol) 5 mg DAILY PO Last administered on 11/06/16 09:28; Start 11/06/16 at 09:00 Lamotrigine (LaMICtal) 100 mg BID PO Last administered on 11/06/16 09:28; Start 11/05/16 at 21:00 Levetiracetam (Keppra) 250 mg HS PO Last administered on 11/05/16 20:19; Start 11/05/16 at 21:00 Atorvastatin Calcium (Lipitor) 80 mg QHS PO Last administered on 11/05/16 20: 19; Start 11/05/16 at 21:00 Acetaminophen (Tylenol) 650 mg PRN Q6HRS PRN PO MILD PAIN / TEMP; Start at 16:15 Ondansetron HCl 4 mg 4 mg PRN Q6HRS PRN IV NAUSEA/VOMITING; Start 11/05/16 at 16:15 Potassium Chloride/Dextrose/ Sod Cl (KCl 20 Meq In D5W-NS) 1,000 ml @ 75 mls/ hr [id number] IV ; Start 11/05/16 at 16:15; Stop 11/05/16 at 16:15; Status DC Insulin Aspart (Novolog) 0-9 UNITS TIDWMEALS SQ ; Start 11/05/16 at 17:00 Dextrose 12.5 gm PRN Q15MIN PRN IV SEE COMMENTS; Start 11/05/16 at 16:15 Heparin Sodium (Porcine) 5,000 unit Q8HRS SQ Last administered on 11/06/16 05: 28; Start 11/05/16 at 22:00 Hydralazine HCl (Apresoline) 10 mg PRN Q4HRS PRN IVP ELEVATED BP, SEE COMMENTS ; Start 11/05/16 at 16:15 Albuterol/ Ipratropium (Duoneb) 3 ml RTQID NEB Last administered on 11/06/16 08:41; Start 11/05/16 at 20:00 Albuterol Sulfate 2.5 mg 2.5 mg PRN Q4HRS PRN NEB SHORTNESS OF BREATH; Start at 16:15 Potassium Chloride/Sodium Chloride (KCl 20 Meq-NS 1,000 ml Iv Soln) 1,000 ml @ 75 mls/hr [id number] IV Last administered on 11/05/16 20:20; Start 11/05/16 at 17 :00 Active Scripts Active Glipizide 5 Mg Tablet 5 Mg PO DAILY Take one-half a tablet daily. Lasix (Furosemide) 40 Mg Tablet 40 Mg PO DAILY Reported Levofloxacin 250 Mg Tablet 250 Mg PO DAILY Amlodipine Besylate 5 Mg Tablet 5 Mg PO DAILY Keppra (Levetiracetam) 500 Mg Tablet 250 Mg PO HS Crestor (Rosuvastatin Calcium) 20 Mg Tablet 20 Mg PO HS Lamictal (Lamotrigine) 100 Mg Tablet 100 Mg PO BID Vitals/I & O Vital Sign - Last 24 Hours 11/05/16 11/05/16 11/05/16 11/05/16 11:25 11:39 12:10 12:39 Temp 100.1 100.1 Pulse 111 98 96 96 Resp 24 24 20 B/P 190/73 178/70 172/71 184/79 Pulse Ox 93 92 92 93 O2 Delivery Nasal Cannula Nasal Cannula O2 Flow Rate 2.5 2.5 11/05/16 11/05/16 11/05/16 11/05/16 13:09 13:39 14:09 14:30 Pulse 96 94 96 Resp 24 B/P 186/85 187/80 172/74 Pulse Ox 93 94 94 O2 Delivery Nasal Cannula O2 Flow Rate 2.5 2.0 11/05/16 11/05/16 11/05/16 11/05/16 14:51 15:00 19:58 20:00 Temp 100.8 101.1 100.8 101.1 Pulse 96 97 Resp 20 B/P 150/64 144/65 Pulse Ox 94 94 O2 Delivery Nasal Cannula Nasal Cannula Nasal Cannula O2 Flow Rate 2.0 2.0 2.0 2.0 11/05/16 11/05/16 11/06/16 11/06/16 20:18 23:55 03:58 07:00 Temp 100.2 99.8 98.9 100.2 99.8 98.9 Pulse 91 87 83 Resp 20 20 B/P 122/50 138/55 142/58 Pulse Ox 95 91 93 O2 Delivery Nasal Cannula Nasal Cannula Nasal Cannula Nasal Cannula O2 Flow Rate 2.0 2.0 3.0 3.0 11/06/16 11/06/16 08:43 09:28 Pulse 83 B/P 142/58 Pulse Ox 94 O2 Delivery Nasal Cannula O2 Flow Rate 3.0 Intake and Output 11/05/16 11/05/16 11/06/16 15:00 23:00 07:00 Intake Total 50 ml 0 ml 283 ml Balance 50 ml 0 ml [address]: 1. No acute intracranial process. Please note that CT can be relatively insensitive to acute ischemic infarction for up to 24 hours after symptom onset. 2. Nonspecific white matter changes, probably from chronic microvascular ischemic disease. ALBARO DUKE MD Nov 06, 2016 10:18
[2016-11-06 11:06] VITALS: BP 129/63
--- NOTE | 2016-11-06 11:54 | PDOC ---
PULMONARY PROGRESS NOTES Vitals Vital Signs Date Time Temp Pulse Resp B/P Pulse Ox O2 Delivery O2 Flow Rate FiO2 11/06/16 11:06 99.9 80 22 129/63 96 Nasal Cannula 3.0 99.9 General: Alert, Oriented X4, No acute distress Lungs: Clear, Crackles Cardiovascular: S1, S2 Abdomen: Soft, Non-tender Extremities: Other Labs Laboratory Tests Test 11/05/16 11:35 11/05/16 12:20 11/05/16 12:35 11/05/16 16:45 Influenza Type A Antigen Positive (NEGATIVE) Influenza Type B Antigen Negative (NEGATIVE) White Blood Count 9.7x10^3/uL (4.0-11.0) Red Blood Count 3.99x10^6/uL (3.50-5.40) Hemoglobin 12.7g/dL (12.0-15.5) Hematocrit 38.0% (36.0-47.0) Mean Corpuscular Volume 95fL (79-100) Mean Corpuscular Hemoglobin 32pg (25-35) Mean Corpuscular Hemoglobin Concent 33g/dL (31-37) Red Cell Distribution Width 15.9% (11.5-14.5) Platelet Count 202x10^3/uL (140-400) Neutrophils (%) (Auto) 87% (31-73) Lymphocytes (%) (Auto) 2% (24-48) Monocytes (%) (Auto) 10% (0-9) Eosinophils (%) (Auto) 0% (0-3) Basophils (%) (Auto) 1% (0-3) Neutrophils # (Auto) 8.4x10^3uL (1.8-7.7) Lymphocytes # (Auto) 0.2x10^3/uL (1.0-4.8) Monocytes # (Auto) 0.9x10^3/uL (0.0-1.1) Eosinophils # (Auto) 0.0x10^3/uL (0.0-0.7) Basophils # (Auto) 0.0x10^3/uL (0.0-0.2) Segmented Neutrophils % 85% (35-66) Band Neutrophils % 7% (0-9) Monocytes % 8% (0-10) Platelet Estimate Adequate (ADEQUATE) Prothrombin Time 14.1SEC (11.7-14.0) Prothromb Time International Ratio 1.2 (0.8-1.1) Activated Partial Thromboplast Time 28SEC (24-38) Sodium Level 141mmol/L (136-145) Potassium Level 2.8mmol/L (3.5-5.1) Chloride Level 94mmol/L (98-107) Carbon Dioxide Level 41mmol/L (21-32) Anion Gap 6 (6-14) Blood Urea Nitrogen 64mg/dL (7-20) Creatinine 2.7mg/dL (0.6-1.0) Estimated GFR (Cockcroft-Gault) 16.8 BUN/Creatinine Ratio 24 (6-20) Glucose Level 227mg/dL (70-99) Lactic Acid Level 1.9mmol/L (0.4-2.0) Calcium Level 9.8mg/dL (8.5-10.1) Magnesium Level 2.0mg/dL (1.8-2.4) Total Bilirubin 0.6mg/dL (0.2-1.0) Aspartate Amino Transf (AST/SGOT) 38U/L (15-37) Alanine Aminotransferase (ALT/SGPT) 29U/L (14-59) Alkaline Phosphatase 39U/L (46-116) Creatine Kinase 359U/L (26-192) Creatine Kinase MB (Mass) 0.8ng/mL (0.0-3.6) Creatine Kinase MB Relative Index 0.2% (0-4) Total Protein 8.1g/dL (6.4-8.2) Albumin 3.9g/dL (3.4-5.0) Albumin/Globulin Ratio 0.9 (1.0-1.7) Urine Collection Type U cath Urine Color Yellow Urine Clarity Cloudy Urine pH 5.5 Urine Specific [place] 1.015 Urine Protein 100mg/dL (NEG-TRACE) Urine Glucose (UA) Negativemg/dL (NEG) Urine Ketones (Stick) Negativemg/dL (NEG) Urine Blood Large (NEG) Urine Nitrite Negative (NEG) Urine Bilirubin Negative (NEG) Urine Urobilinogen Dipstick 0.2mg/dL (0.2 mg/dL) Urine Leukocyte Esterase Negative (NEG) Urine RBC 0/HPF (0-2) Urine WBC 0/HPF (0-4) Urine Squamous Epithelial Cells Mod/LPF Urine Amorphous Sediment Present/HPF Urine Bacteria 0/HPF (0-FEW) O2 Saturation % (92-99) Arterial Blood pH 7.44 (7.35-7.45) Arterial Blood pCO2 at Patient Temp 58mmHg (35-46) Arterial Blood pO2 at Patient Temp 64mmHg (65-108) Arterial Blood HCO3 39mmol/L (21-28) Arterial Blood Base Excess 12mmol/L (-3-3) FiO2 2 lpm nc Test 11/05/16 21:14 11/06/16 07:39 11/06/16 09:45 11/06/16 11:27 Glucose (Fingerstick) 207mg/dL (70-99) 150mg/dL (70-99) 149mg/dL (70-99) White Blood Count 5.9x10^3/uL (4.0-11.0) Red Blood Count 3.91x10^6/uL (3.50-5.40) Hemoglobin 12.4g/dL (12.0-15.5) Hematocrit 36.8% (36.0-47.0) Mean Corpuscular Volume 94fL (79-100) Mean Corpuscular Hemoglobin 32pg (25-35) Mean Corpuscular Hemoglobin Concent 34g/dL (31-37) Red Cell Distribution Width 16.3% (11.5-14.5) Platelet Count 176x10^3/uL (140-400) Neutrophils (%) (Auto) 74% (31-73) Lymphocytes (%) (Auto) 11% (24-48) Monocytes (%) (Auto) 15% (0-9) Eosinophils (%) (Auto) 0% (0-3) Basophils (%) (Auto) 1% (0-3) Neutrophils # (Auto) 4.4x10^3uL (1.8-7.7) Lymphocytes # (Auto) 0.6x10^3/uL (1.0-4.8) Monocytes # (Auto) 0.9x10^3/uL (0.0-1.1) Eosinophils # (Auto) 0.0x10^3/uL (0.0-0.7) Basophils # (Auto) 0.0x10^3/uL (0.0-0.2) Sodium Level 145mmol/L (136-145) Potassium Level 3.2mmol/L (3.5-5.1) Chloride Level 102mmol/L (98-107) Carbon Dioxide Level 40mmol/L (21-32) Anion Gap 3 (6-14) Blood Urea Nitrogen 39mg/dL (7-20) Creatinine 1.9mg/dL (0.6-1.0) Estimated GFR (Cockcroft-Gault) 25.2 Glucose Level 169mg/dL (70-99) Calcium Level 9.0mg/dL (8.5-10.1) Laboratory Tests Test 11/05/16 12:20 11/05/16 12:35 11/05/16 16:45 11/05/16 21:14 White Blood Count 9.7x10^3/uL (4.0-11.0) Red Blood Count 3.99x10^6/uL (3.50-5.40) Hemoglobin 12.7g/dL (12.0-15.5) Hematocrit 38.0% (36.0-47.0) Mean Corpuscular Volume 95fL (79-100) Mean Corpuscular Hemoglobin 32pg (25-35) Mean Corpuscular Hemoglobin Concent 33g/dL (31-37) Red Cell Distribution Width 15.9% (11.5-14.5) Platelet Count 202x10^3/uL (140-400) Neutrophils (%) (Auto) 87% (31-73) Lymphocytes (%) (Auto) 2% (24-48) Monocytes (%) (Auto) 10% (0-9) Eosinophils (%) (Auto) 0% (0-3) Basophils (%) (Auto) 1% (0-3) Neutrophils # (Auto) 8.4x10^3uL (1.8-7.7) Lymphocytes # (Auto) 0.2x10^3/uL (1.0-4.8) Monocytes # (Auto) 0.9x10^3/uL (0.0-1.1) Eosinophils # (Auto) 0.0x10^3/uL (0.0-0.7) Basophils # (Auto) 0.0x10^3/uL (0.0-0.2) Segmented Neutrophils % 85% (35-66) Band Neutrophils % 7% (0-9) Monocytes % 8% (0-10) Platelet Estimate Adequate (ADEQUATE) Prothrombin Time 14.1SEC (11.7-14.0) Prothromb Time International Ratio 1.2 (0.8-1.1) Activated Partial Thromboplast Time 28SEC (24-38) Sodium Level 141mmol/L (136-145) Potassium Level 2.8mmol/L (3.5-5.1) Chloride Level 94mmol/L (98-107) Carbon Dioxide Level 41mmol/L (21-32) Anion Gap 6 (6-14) Blood Urea Nitrogen 64mg/dL (7-20) Creatinine 2.7mg/dL (0.6-1.0) Estimated GFR (Cockcroft-Gault) 16.8 BUN/Creatinine Ratio 24 (6-20) Glucose Level 227mg/dL (70-99) Lactic Acid Level 1.9mmol/L (0.4-2.0) Calcium Level 9.8mg/dL (8.5-10.1) Magnesium Level 2.0mg/dL (1.8-2.4) Total Bilirubin 0.6mg/dL (0.2-1.0) Aspartate Amino Transf (AST/SGOT) 38U/L (15-37) Alanine Aminotransferase (ALT/SGPT) 29U/L (14-59) Alkaline Phosphatase 39U/L (46-116) Creatine Kinase 359U/L (26-192) Creatine Kinase MB (Mass) 0.8ng/mL (0.0-3.6) Creatine Kinase MB Relative Index 0.2% (0-4) Total Protein 8.1g/dL (6.4-8.2) Albumin 3.9g/dL (3.4-5.0) Albumin/Globulin Ratio 0.9 (1.0-1.7) Urine Collection Type U cath Urine Color Yellow Urine Clarity Cloudy Urine pH 5.5 Urine Specific [place] 1.015 Urine Protein 100mg/dL (NEG-TRACE) Urine Glucose (UA) Negativemg/dL (NEG) Urine Ketones (Stick) Negativemg/dL (NEG) Urine Blood Large (NEG) Urine Nitrite Negative (NEG) Urine Bilirubin Negative (NEG) Urine Urobilinogen Dipstick 0.2mg/dL (0.2 mg/dL) Urine Leukocyte Esterase Negative (NEG) Urine RBC 0/HPF (0-2) Urine WBC 0/HPF (0-4) Urine Squamous Epithelial Cells Mod/LPF Urine Amorphous Sediment Present/HPF Urine Bacteria 0/HPF (0-FEW) O2 Saturation % (92-99) Arterial Blood pH 7.44 (7.35-7.45) Arterial Blood pCO2 at Patient Temp 58mmHg (35-46) Arterial Blood pO2 at Patient Temp 64mmHg (65-108) Arterial Blood HCO3 39mmol/L (21-28) Arterial Blood Base Excess 12mmol/L (-3-3) FiO2 2 lpm nc Glucose (Fingerstick) 207mg/dL (70-99) Test 11/06/16 07:39 11/06/16 09:45 11/06/16 11:27 Glucose (Fingerstick) 150mg/dL (70-99) 149mg/dL (70-99) White Blood Count 5.9x10^3/uL (4.0-11.0) Red Blood Count 3.91x10^6/uL (3.50-5.40) Hemoglobin 12.4g/dL (12.0-15.5) Hematocrit 36.8% (36.0-47.0) Mean Corpuscular Volume 94fL (79-100) Mean Corpuscular Hemoglobin 32pg (25-35) Mean Corpuscular Hemoglobin Concent 34g/dL (31-37) Red Cell Distribution Width 16.3% (11.5-14.5) Platelet Count 176x10^3/uL (140-400) Neutrophils (%) (Auto) 74% (31-73) Lymphocytes (%) (Auto) 11% (24-48) Monocytes (%) (Auto) 15% (0-9) Eosinophils (%) (Auto) 0% (0-3) Basophils (%) (Auto) 1% (0-3) Neutrophils # (Auto) 4.4x10^3uL (1.8-7.7) Lymphocytes # (Auto) 0.6x10^3/uL (1.0-4.8) Monocytes # (Auto) 0.9x10^3/uL (0.0-1.1) Eosinophils # (Auto) 0.0x10^3/uL (0.0-0.7) Basophils # (Auto) 0.0x10^3/uL (0.0-0.2) Sodium Level 145mmol/L (136-145) Potassium Level 3.2mmol/L (3.5-5.1) Chloride Level 102mmol/L (98-107) Carbon Dioxide Level 40mmol/L (21-32) Anion Gap 3 (6-14) Blood Urea Nitrogen 39mg/dL (7-20) Creatinine 1.9mg/dL (0.6-1.0) Estimated GFR (Cockcroft-Gault) 25.2 Glucose Level 169mg/dL (70-99) Calcium Level 9.0mg/dL (8.5-10.1) Medications Active Scripts Medications Dose Route/Sig Days Date Category Dose Instructions Levofloxacin 250 Mg Tablet 250 Mg PO DAILY 08/11/16 Reported Amlodipine Besylate 5 Mg Tablet 5 Mg PO DAILY 08/11/16 Reported Keppra (Levetiracetam) 500 Mg Tablet 250 Mg PO HS 08/08/16 Reported Glipizide 5 Mg Tablet 5 Mg PO DAILY 12/22/13 Rx Take one-half a tablet daily. Lasix (Furosemide) 40 Mg Tablet 40 Mg PO DAILY 12/22/13 Rx Crestor (Rosuvastatin Calcium) 20 Mg Tablet 20 Mg PO HS 10/24/13 Reported Lamictal (Lamotrigine) 100 Mg Tablet 100 Mg PO BID 10/24/13 Reported Impression . [id number] ASPIRATION PNEUMONIA RESP FAILURE SEC TO ABOVE NPO FOR NOW SEE ORDERS THANKS SUPA KURTZ MD Nov 06, 2016 11:54
--- NOTE | 2016-11-06 12:51 | PDOC ---
PROGRESS NOTES Chief Complaint Chief Complaint Sepsis, fever, tachycardia, tachypnea 1. acute on chronic resp failure, home o2 2L 2. flu + 3. seizure disorder 4. htn 5. dm2 6. copd 7. h/o CHF 8. hld 9. hypokalemia 10 sheyla on ckd3 11. AMS, metabolic encephalopathy with flu,SHEYLA, VS. post ictal duoneb repeat CXR TMR ativan prn dvt ppx ptot History of Present Illness History of Present Illness npo , swallow eval tamiflu IV fluid, nutrition consult Vitals Vitals Vital Signs Date Time Temp Pulse Resp B/P Pulse Ox O2 Delivery O2 Flow Rate FiO2 11/06/16 12:00 Nasal Cannula 3.0 11/06/16 11:06 99.9 80 22 129/63 96 99.9 Physical Exam General: Alert, Cooperative, mild distress, Other (lethargic, some confusion, verbal responses) Heart: Regular rate Lungs: Clear, Crackles Abdomen: Normal bowel sounds, Soft (obese) Extremities: No clubbing, No cyanosis, No edema Skin: No rashes Labs LABS Laboratory Tests Test 11/05/16 16:45 11/05/16 21:14 11/06/16 07:39 11/06/16 09:45 O2 Saturation % (92-99) Arterial Blood pH 7.44 (7.35-7.45) Arterial Blood pCO2 at Patient Temp 58mmHg (35-46) Arterial Blood pO2 at Patient Temp 64mmHg (65-108) Arterial Blood HCO3 39mmol/L (21-28) Arterial Blood Base Excess 12mmol/L (-3-3) FiO2 2 lpm nc Glucose (Fingerstick) 207mg/dL (70-99) 150mg/dL (70-99) White Blood Count 5.9x10^3/uL (4.0-11.0) Red Blood Count 3.91x10^6/uL (3.50-5.40) Hemoglobin 12.4g/dL (12.0-15.5) Hematocrit 36.8% (36.0-47.0) Mean Corpuscular Volume 94fL (79-100) Mean Corpuscular Hemoglobin 32pg (25-35) Mean Corpuscular Hemoglobin Concent 34g/dL (31-37) Red Cell Distribution Width 16.3% (11.5-14.5) Platelet Count 176x10^3/uL (140-400) Neutrophils (%) (Auto) 74% (31-73) Lymphocytes (%) (Auto) 11% (24-48) Monocytes (%) (Auto) 15% (0-9) Eosinophils (%) (Auto) 0% (0-3) Basophils (%) (Auto) 1% (0-3) Neutrophils # (Auto) 4.4x10^3uL (1.8-7.7) Lymphocytes # (Auto) 0.6x10^3/uL (1.0-4.8) Monocytes # (Auto) 0.9x10^3/uL (0.0-1.1) Eosinophils # (Auto) 0.0x10^3/uL (0.0-0.7) Basophils # (Auto) 0.0x10^3/uL (0.0-0.2) Sodium Level 145mmol/L (136-145) Potassium Level 3.2mmol/L (3.5-5.1) Chloride Level 102mmol/L (98-107) Carbon Dioxide Level 40mmol/L (21-32) Anion Gap 3 (6-14) Blood Urea Nitrogen 39mg/dL (7-20) Creatinine 1.9mg/dL (0.6-1.0) Estimated GFR (Cockcroft-Gault) 25.2 Glucose Level 169mg/dL (70-99) Calcium Level 9.0mg/dL (8.5-10.1) Test 11/06/16 11:27 Glucose (Fingerstick) 149mg/dL (70-99) Review of Systems Review of Systems non.v.d + lethargy confused Assessment and Plan Assessmemt and Plan Problems Medical Problems: (1) Aspiration pneumonia Status: Acute (2) Aspiration pneumonia Status: Acute (3) Hypoxia Status: Acute (4) Influenza Status: Acute (5) Influenza Status: Acute Problems: Comment Review of Relevant I have reviewed the following items lucy (where applicable) has been applied. Labs Laboratory Tests Test 11/05/16 11:35 11/05/16 12:20 11/05/16 12:35 11/05/16 16:45 Influenza Type A Antigen Positive (NEGATIVE) Influenza Type B Antigen Negative (NEGATIVE) White Blood Count 9.7x10^3/uL (4.0-11.0) Red Blood Count 3.99x10^6/uL (3.50-5.40) Hemoglobin 12.7g/dL (12.0-15.5) Hematocrit 38.0% (36.0-47.0) Mean Corpuscular Volume 95fL (79-100) Mean Corpuscular Hemoglobin 32pg (25-35) Mean Corpuscular Hemoglobin Concent 33g/dL (31-37) Red Cell Distribution Width 15.9% (11.5-14.5) Platelet Count 202x10^3/uL (140-400) Neutrophils (%) (Auto) 87% (31-73) Lymphocytes (%) (Auto) 2% (24-48) Monocytes (%) (Auto) 10% (0-9) Eosinophils (%) (Auto) 0% (0-3) Basophils (%) (Auto) 1% (0-3) Neutrophils # (Auto) 8.4x10^3uL (1.8-7.7) Lymphocytes # (Auto) 0.2x10^3/uL (1.0-4.8) Monocytes # (Auto) 0.9x10^3/uL (0.0-1.1) Eosinophils # (Auto) 0.0x10^3/uL (0.0-0.7) Basophils # (Auto) 0.0x10^3/uL (0.0-0.2) Segmented Neutrophils % 85% (35-66) Band Neutrophils % 7% (0-9) Monocytes % 8% (0-10) Platelet Estimate Adequate (ADEQUATE) Prothrombin Time 14.1SEC (11.7-14.0) Prothromb Time International Ratio 1.2 (0.8-1.1) Activated Partial Thromboplast Time 28SEC (24-38) Sodium Level 141mmol/L (136-145) Potassium Level 2.8mmol/L (3.5-5.1) Chloride Level 94mmol/L (98-107) Carbon Dioxide Level 41mmol/L (21-32) Anion Gap 6 (6-14) Blood Urea Nitrogen 64mg/dL (7-20) Creatinine 2.7mg/dL (0.6-1.0) Estimated GFR (Cockcroft-Gault) 16.8 BUN/Creatinine Ratio 24 (6-20) Glucose Level 227mg/dL (70-99) Lactic Acid Level 1.9mmol/L (0.4-2.0) Calcium Level 9.8mg/dL (8.5-10.1) Magnesium Level 2.0mg/dL (1.8-2.4) Total Bilirubin 0.6mg/dL (0.2-1.0) Aspartate Amino Transf (AST/SGOT) 38U/L (15-37) Alanine Aminotransferase (ALT/SGPT) 29U/L (14-59) Alkaline Phosphatase 39U/L (46-116) Creatine Kinase 359U/L (26-192) Creatine Kinase MB (Mass) 0.8ng/mL (0.0-3.6) Creatine Kinase MB Relative Index 0.2% (0-4) Total Protein 8.1g/dL (6.4-8.2) Albumin 3.9g/dL (3.4-5.0) Albumin/Globulin Ratio 0.9 (1.0-1.7) Urine Collection Type U cath Urine Color Yellow Urine Clarity Cloudy Urine pH 5.5 Urine Specific [place] 1.015 Urine Protein 100mg/dL (NEG-TRACE) Urine Glucose (UA) Negativemg/dL (NEG) Urine Ketones (Stick) Negativemg/dL (NEG) Urine Blood Large (NEG) Urine Nitrite Negative (NEG) Urine Bilirubin Negative (NEG) Urine Urobilinogen Dipstick 0.2mg/dL (0.2 mg/dL) Urine Leukocyte Esterase Negative (NEG) Urine RBC 0/HPF (0-2) Urine WBC 0/HPF (0-4) Urine Squamous Epithelial Cells Mod/LPF Urine Amorphous Sediment Present/HPF Urine Bacteria 0/HPF (0-FEW) O2 Saturation % (92-99) Arterial Blood pH 7.44 (7.35-7.45) Arterial Blood pCO2 at Patient Temp 58mmHg (35-46) Arterial Blood pO2 at Patient Temp 64mmHg (65-108) Arterial Blood HCO3 39mmol/L (21-28) Arterial Blood Base Excess 12mmol/L (-3-3) FiO2 2 lpm nc Test 11/05/16 21:14 11/06/16 07:39 11/06/16 09:45 11/06/16 11:27 Glucose (Fingerstick) 207mg/dL (70-99) 150mg/dL (70-99) 149mg/dL (70-99) White Blood Count 5.9x10^3/uL (4.0-11.0) Red Blood Count 3.91x10^6/uL (3.50-5.40) Hemoglobin 12.4g/dL (12.0-15.5) Hematocrit 36.8% (36.0-47.0) Mean Corpuscular Volume 94fL (79-100) Mean Corpuscular Hemoglobin 32pg (25-35) Mean Corpuscular Hemoglobin Concent 34g/dL (31-37) Red Cell Distribution Width 16.3% (11.5-14.5) Platelet Count 176x10^3/uL (140-400) Neutrophils (%) (Auto) 74% (31-73) Lymphocytes (%) (Auto) 11% (24-48) Monocytes (%) (Auto) 15% (0-9) Eosinophils (%) (Auto) 0% (0-3) Basophils (%) (Auto) 1% (0-3) Neutrophils # (Auto) 4.4x10^3uL (1.8-7.7) Lymphocytes # (Auto) 0.6x10^3/uL (1.0-4.8) Monocytes # (Auto) 0.9x10^3/uL (0.0-1.1) Eosinophils # (Auto) 0.0x10^3/uL (0.0-0.7) Basophils # (Auto) 0.0x10^3/uL (0.0-0.2) Sodium Level 145mmol/L (136-145) Potassium Level 3.2mmol/L (3.5-5.1) Chloride Level 102mmol/L (98-107) Carbon Dioxide Level 40mmol/L (21-32) Anion Gap 3 (6-14) Blood Urea Nitrogen 39mg/dL (7-20) Creatinine 1.9mg/dL (0.6-1.0) Estimated GFR (Cockcroft-Gault) 25.2 Glucose Level 169mg/dL (70-99) Calcium Level 9.0mg/dL (8.5-10.1) Laboratory Tests Test 11/05/16 16:45 11/05/16 21:14 11/06/16 07:39 11/06/16 09:45 O2 Saturation % (92-99) Arterial Blood pH 7.44 (7.35-7.45) Arterial Blood pCO2 at Patient Temp 58mmHg (35-46) Arterial Blood pO2 at Patient Temp 64mmHg (65-108) Arterial Blood HCO3 39mmol/L (21-28) Arterial Blood Base Excess 12mmol/L (-3-3) FiO2 2 lpm nc Glucose (Fingerstick) 207mg/dL (70-99) 150mg/dL (70-99) White Blood Count 5.9x10^3/uL (4.0-11.0) Red Blood Count 3.91x10^6/uL (3.50-5.40) Hemoglobin 12.4g/dL (12.0-15.5) Hematocrit 36.8% (36.0-47.0) Mean Corpuscular Volume 94fL (79-100) Mean Corpuscular Hemoglobin 32pg (25-35) Mean Corpuscular Hemoglobin Concent 34g/dL (31-37) Red Cell Distribution Width 16.3% (11.5-14.5) Platelet Count 176x10^3/uL (140-400) Neutrophils (%) (Auto) 74% (31-73) Lymphocytes (%) (Auto) 11% (24-48) Monocytes (%) (Auto) 15% (0-9) Eosinophils (%) (Auto) 0% (0-3) Basophils (%) (Auto) 1% (0-3) Neutrophils # (Auto) 4.4x10^3uL (1.8-7.7) Lymphocytes # (Auto) 0.6x10^3/uL (1.0-4.8) Monocytes # (Auto) 0.9x10^3/uL (0.0-1.1) Eosinophils # (Auto) 0.0x10^3/uL (0.0-0.7) Basophils # (Auto) 0.0x10^3/uL (0.0-0.2) Sodium Level 145mmol/L (136-145) Potassium Level 3.2mmol/L (3.5-5.1) Chloride Level 102mmol/L (98-107) Carbon Dioxide Level 40mmol/L (21-32) Anion Gap 3 (6-14) Blood Urea Nitrogen 39mg/dL (7-20) Creatinine 1.9mg/dL (0.6-1.0) Estimated GFR (Cockcroft-Gault) 25.2 Glucose Level 169mg/dL (70-99) Calcium Level 9.0mg/dL (8.5-10.1) Test 11/06/16 11:27 Glucose (Fingerstick) 149mg/dL (70-99) Microbiology 11/05/16 Blood Culture - Preliminary, Resulted NO GROWTH AFTER 1 DAY Medications Current Medications Sodium Chloride (Iv Sodium Chloride 0.9% 1000ml Bag) 1,000 ml @ 200 mls/hr Q5H IV Last administered on 11/05/16 12:25; Start 11/05/16 at 11:35; Stop at 16:34; Status DC Oseltamivir Phosphate 75 mg 75 mg DAILY PO Last administered on 11/05/16 12:24 ; Start 11/05/16 at 12:30; Stop 11/05/16 at 12:30; Status DC Piperacillin Sod/ Tazobactam Sod/ Sodium Chloride (Zosyn/Iv Sodium Chloride 0.9 % 50ml) 50 ml @ 100 mls/hr 1X ONCE IV Last administered on 11/05/16 12:39; Start 11/05/16 at 12:45; Stop 11/05/16 at 13:14; Status DC Oseltamivir Phosphate (Tamiflu) 30 mg BID PO Last administered on 11/06/16 09: 27; Start 11/05/16 at 21:00; Stop 11/10/16 at 20:59 Potassium Chloride (KCl Oral Soln) 40 meq 1X ONCE PO Last administered on 11/05 13:49; Start 11/05/16 at 13:15; Stop 11/05/16 at 13:16; Status DC Amlodipine Besylate (Norvasc) 5 mg DAILY PO Last administered on 11/06/16 09: 28; Start 11/06/16 at 09:00 Glipizide (Glucotrol) 5 mg DAILY PO Last administered on 11/06/16 09:28; Start 11/06/16 at 09:00 Lamotrigine (LaMICtal) 100 mg BID PO Last administered on 11/06/16 09:28; Start 11/05/16 at 21:00 Levetiracetam (Keppra) 250 mg HS PO Last administered on 11/05/16 20:19; Start 11/05/16 at 21:00; Stop 11/06/16 at 12:12; Status DC Atorvastatin Calcium (Lipitor) 80 mg QHS PO Last administered on 11/05/16 20: 19; Start 11/05/16 at 21:00 Acetaminophen (Tylenol) 650 mg PRN Q6HRS PRN PO MILD PAIN / TEMP; Start at 16:15 Ondansetron HCl 4 mg 4 mg PRN Q6HRS PRN IV NAUSEA/VOMITING; Start 11/05/16 at 16:15 Potassium Chloride/Dextrose/ Sod Cl (KCl 20 Meq In D5W-NS) 1,000 ml @ 75 mls/ hr [id number] IV ; Start 11/05/16 at 16:15; Stop 11/05/16 at 16:15; Status DC Insulin Aspart (Novolog) 0-9 UNITS TIDWMEALS SQ ; Start 11/05/16 at 17:00 Dextrose 12.5 gm PRN Q15MIN PRN IV SEE COMMENTS; Start 11/05/16 at 16:15 Heparin Sodium (Porcine) 5,000 unit Q8HRS SQ Last administered on 11/06/16 05: 28; Start 11/05/16 at 22:00 Hydralazine HCl (Apresoline) 10 mg PRN Q4HRS PRN IVP ELEVATED BP, SEE COMMENTS ; Start 11/05/16 at 16:15 Albuterol/ Ipratropium (Duoneb) 3 ml RTQID NEB Last administered on 11/06/16 11:59; Start 11/05/16 at 20:00 Albuterol Sulfate 2.5 mg 2.5 mg PRN Q4HRS PRN NEB SHORTNESS OF BREATH; Start at 16:15 Potassium Chloride/Sodium Chloride 1,000 ml @ 75 mls/hr [id number] IV Last administered on 11/05/16 20:20; Start 11/05/16 at 17:00 Levetiracetam/ Sodium Chloride (Keppra/Iv Sodium Chloride 0.9% 100ml) 105 ml @ 400 mls/hr HS IV ; Start 11/06/16 at 21:00 Active Scripts Active Glipizide 5 Mg Tablet 5 Mg PO DAILY Take one-half a tablet daily. Lasix (Furosemide) 40 Mg Tablet 40 Mg PO DAILY Reported Levofloxacin 250 Mg Tablet 250 Mg PO DAILY Amlodipine Besylate 5 Mg Tablet 5 Mg PO DAILY Keppra (Levetiracetam) 500 Mg Tablet 250 Mg PO HS Crestor (Rosuvastatin Calcium) 20 Mg Tablet 20 Mg PO HS Lamictal (Lamotrigine) 100 Mg Tablet 100 Mg PO BID Vitals/I & O Vital Sign - Last 24 Hours 11/05/16 11/05/16 11/05/16 11/05/16 13:09 13:39 14:09 14:30 Pulse 96 94 96 Resp 24 24 B/P 186/85 187/80 172/74 Pulse Ox 93 94 94 O2 Delivery Nasal Cannula O2 Flow Rate 2.5 2.0 11/05/16 11/05/16 11/05/16 11/05/16 14:51 15:00 19:58 20:00 Temp 100.8 101.1 100.8 101.1 Pulse 96 97 Resp 22 20 B/P 150/64 144/65 Pulse Ox 94 94 O2 Delivery Nasal Cannula Nasal Cannula Nasal Cannula O2 Flow Rate 2.0 2.0 2.0 2.0 11/05/16 11/05/16 11/06/16 11/06/16 20:18 23:55 03:58 07:00 Temp 100.2 99.8 98.9 100.2 99.8 98.9 Pulse 91 87 83 Resp 20 20 B/P 122/50 138/55 142/58 Pulse Ox 95 91 93 O2 Delivery Nasal Cannula Nasal Cannula Nasal Cannula Nasal Cannula O2 Flow Rate 2.0 2.0 3.0 3.0 11/06/16 11/06/16 11/06/16 11/06/16 08:15 08:43 09:28 11:06 Temp 99.9 99.9 Pulse 83 80 Resp 22 B/P 142/58 129/63 Pulse Ox 94 96 O2 Delivery Nasal Cannula Nasal Cannula Nasal Cannula O2 Flow Rate 3.0 3.0 3.0 11/06/16 12:00 O2 Delivery Nasal Cannula O2 Flow Rate 3.0 Intake and Output 11/05/16 11/05/16 11/06/16 15:00 23:00 07:00 Intake Total 50 ml 0 ml 283 ml Balance 50 ml 0 ml 283 ml ARTURO VASQUEZ MD Nov 06, 2016 12:51
[2016-11-06] MEDS ORDERED: POTASSIUM CL 20MEQ D5-0.45NACL 1,000 ML IV ONE (13:00)
[2016-11-06 14:43] VITALS: BP 154/62
--- NOTE | 2016-11-06 17:00 | PDOC2 ---
PALLIATIVE CARE Palliative Care Note Palliative Care Consult requested by Dr. Looney to address goals of care. Diagnosis; A/C respiratory failure; Influenza +; seizure disorder; COPD, CHF, CKD III Swallow evaluation pending Spoke with Kim POEPLES Plan: Family meeting tomorrow at 1300. PRAFUL SLAUGHTER Nov 06, 2016 17:00
[2016-11-06] MEDS ORDERED: PIP/TAZO PER PHARMACY MC PRN (18:15)
[2016-11-06] MEDS: PIPERACILLIN/TAZOBACTAM 3.375 GM in IV NORMAL SALINE 50ML 50 ML IV SCH (18:25)
[2016-11-06 19:00] VITALS: BP 124/56
[2016-11-06] MEDS: ATORVASTATIN CALCIUM 40 MG TABLET. PO SCH (20:42)
[2016-11-06] MEDS: LEVETIRACETAM 500 MG in IV NORMAL SALINE 100ML 100 ML IV SCH (20:44)
[2016-11-06 22:44] VITALS: BP 119/53
[2016-11-07] MEDS: PIPERACILLIN/TAZOBACTAM 3.375 GM in IV NORMAL SALINE 50ML 50 ML IV SCH ×3 (01:29→11:17)
[2016-11-07 02:47] VITALS: BP 135/58
[2016-11-07] MEDS: HEPARIN PF for SUB-Q USE 5,000 UNIT/0.5 ML VIAL. SQ SCH ×3 (06:35→21:08)
[2016-11-07 07:00] VITALS: BP 133/68
[2016-11-07] MEDS: IPRATRPIUM/ALBUTEROL 0.5/2.5MG 3 ML NEBU. NEB SCH ×4 (07:38→21:05)
[2016-11-07] MEDS: INSULIN ASPART 300 UNITS/3 ML INSULN.PEN SQ SCH ×3 (08:00→17:00)
--- NOTE | 2016-11-07 08:59 | CONS ---
DATE OF CONSULTATION: 11/06/2016 ATTENDING PHYSICIAN: Dr. Still. REASON FOR CONSULTATION: The patient is seen in pulmonary consultation at the request of Dr. Still for increasing shortness of air, increasing oxygen as requirements. HISTORY OF PRESENT ILLNESS: The patient is an 86-year-old female who was brought to the Emergency Room by EMS, family complaining of altered mental status and generalized weakness. The patient had been sick since Friday, unclear the etiology of the illness. Initially, the patient was somewhat lethargic. She is now awake, alert, but really cannot provide any additional useful information. She is short of breath. She is currently on 3 liters. She did tell me that she is on 2 liters of oxygen supplementation at home. She has a cough productive of discolored sputum. She has difficulty swallowing. She is wheezing. No documented fever. PAST MEDICAL HISTORY: Coronary artery disease, chronic CHF, hypertension, hyperlipidemia, seizure, gastroesophageal reflux, depression, chronic renal insufficiency, diabetes and obesity. PAST SURGICAL HISTORY: Status post appendectomy, cholecystectomy, hysterectomy. ALLERGIES: MORPHINE AND NEOMYCIN. CURRENT MEDICATION: List was reviewed. Please see the MRAD. REVIEW OF SYSTEMS: As indicated above, otherwise, a 10-point system was reviewed and negative. FAMILY HISTORY: Noncontributory in this age group. SOCIAL HISTORY: The patient is currently not smoking. PHYSICAL EXAMINATION: VITAL SIGNS: Stable. O2 saturation was greater than 92% on 4 liters. HEENT: Eyes, the sclerae were nonicteric. NECK: Jugular venous distention was not elevated. No lymphadenopathy. CHEST: Full expansion. LUNGS: Coarse breath sounds with scattered rhonchi along with wheezing, both inspiratory and expiratory wheeze. CARDIOVASCULAR: Regular rate and rhythm with S1 and S2, no S3. ABDOMEN: Soft, obese. EXTREMITIES: No clubbing, cyanosis or edema. NEUROLOGIC: The patient was awake, alert and very weak, unable to lift her legs off the bed. LABORATORY DATA: Labs were reviewed. White count was normal. Hemoglobin and hematocrit were noted. Arterial blood gas; pH of 7.44, PaCO2 of 58, pO2 of 64. Bicarb of 39. Electrolytes were noted the range. BUN was elevated. Creatinine was elevated. Chest x-ray, new infiltrate right upper lobe. IMPRESSION: 1. [id number] respiratory failure. 2. Aspiration pneumonia. 3. Dysphagia. 4. Coronary artery disease. 5. Hypertension. 6. Depression. 7. renal failure. 8. Hyperkalemia. 9. Acute metabolic toxic encephalopathy. PLAN: 1. The patient has been seen by the speech therapist, she will be made n.p.o., further evaluation pending. 2. Continue oxygen supplementation. 3. We will add Zosyn. 4. Nebulized treatments. 5. Continue home medications. I do appreciate the privilege in sharing in the patient's care. SUPA KURTZ MD DR: JIM/paulette JOB#: [id number] / [id number]
[2016-11-07] MEDS: AMLODIPINE BESYLATE 5 MG TABLET PO SCH (09:00)
[2016-11-07] MEDS: lamoTRIgine 100 MG TABLET. PO SCH ×2 (09:00→20:27)
[2016-11-07] MEDS: OSELTAMIVIR 30 MG CAPSULE PO SCH (09:00)
[2016-11-07] MEDS: GLIPIZIDE 5 MG TABLET PO SCH (09:00)
--- NOTE | 2016-11-07 09:44 | PDOC ---
PULMONARY PROGRESS NOTES Subjective better wants to eat Vitals Vital Signs Date Time Temp Pulse Resp B/P Pulse Ox O2 Delivery O2 Flow Rate FiO2 11/07/16 09:00 86 133/68 11/07/16 07:38 95 Nasal Cannula 4.0 11/07/16 07:00 98.3 18 98.3 General: Alert, No acute distress Lungs: Clear, Crackles Cardiovascular: S1, S2 Abdomen: Soft, Non-tender Neuro Exam: Alert Extremities: Other Skin: Warm Labs Laboratory Tests Test 11/05/16 11:35 11/05/16 12:20 11/05/16 12:35 11/05/16 16:45 Influenza Type A Antigen Positive (NEGATIVE) Influenza Type B Antigen Negative (NEGATIVE) White Blood Count 9.7x10^3/uL (4.0-11.0) Red Blood Count 3.99x10^6/uL (3.50-5.40) Hemoglobin 12.7g/dL (12.0-15.5) Hematocrit 38.0% (36.0-47.0) Mean Corpuscular Volume 95fL (79-100) Mean Corpuscular Hemoglobin 32pg (25-35) Mean Corpuscular Hemoglobin Concent 33g/dL (31-37) Red Cell Distribution Width 15.9% (11.5-14.5) Platelet Count 202x10^3/uL (140-400) Neutrophils (%) (Auto) 87% (31-73) Lymphocytes (%) (Auto) 2% (24-48) Monocytes (%) (Auto) 10% (0-9) Eosinophils (%) (Auto) 0% (0-3) Basophils (%) (Auto) 1% (0-3) Neutrophils # (Auto) 8.4x10^3uL (1.8-7.7) Lymphocytes # (Auto) 0.2x10^3/uL (1.0-4.8) Monocytes # (Auto) 0.9x10^3/uL (0.0-1.1) Eosinophils # (Auto) 0.0x10^3/uL (0.0-0.7) Basophils # (Auto) 0.0x10^3/uL (0.0-0.2) Segmented Neutrophils % 85% (35-66) Band Neutrophils % 7% (0-9) Monocytes % 8% (0-10) Platelet Estimate Adequate (ADEQUATE) Prothrombin Time 14.1SEC (11.7-14.0) Prothromb Time International Ratio 1.2 (0.8-1.1) Activated Partial Thromboplast Time 28SEC (24-38) Sodium Level 141mmol/L (136-145) Potassium Level 2.8mmol/L (3.5-5.1) Chloride Level 94mmol/L (98-107) Carbon Dioxide Level 41mmol/L (21-32) Anion Gap 6 (6-14) Blood Urea Nitrogen 64mg/dL (7-20) Creatinine 2.7mg/dL (0.6-1.0) Estimated GFR (Cockcroft-Gault) 16.8 BUN/Creatinine Ratio 24 (6-20) Glucose Level 227mg/dL (70-99) Lactic Acid Level 1.9mmol/L (0.4-2.0) Calcium Level 9.8mg/dL (8.5-10.1) Magnesium Level 2.0mg/dL (1.8-2.4) Total Bilirubin 0.6mg/dL (0.2-1.0) Aspartate Amino Transf (AST/SGOT) 38U/L (15-37) Alanine Aminotransferase (ALT/SGPT) 29U/L (14-59) Alkaline Phosphatase 39U/L (46-116) Creatine Kinase 359U/L (26-192) Creatine Kinase MB (Mass) 0.8ng/mL (0.0-3.6) Creatine Kinase MB Relative Index 0.2% (0-4) Total Protein 8.1g/dL (6.4-8.2) Albumin 3.9g/dL (3.4-5.0) Albumin/Globulin Ratio 0.9 (1.0-1.7) Urine Collection Type U cath Urine Color Yellow Urine Clarity Cloudy Urine pH 5.5 Urine Specific [place] 1.015 Urine Protein 100mg/dL (NEG-TRACE) Urine Glucose (UA) Negativemg/dL (NEG) Urine Ketones (Stick) Negativemg/dL (NEG) Urine Blood Large (NEG) Urine Nitrite Negative (NEG) Urine Bilirubin Negative (NEG) Urine Urobilinogen Dipstick 0.2mg/dL (0.2 mg/dL) Urine Leukocyte Esterase Negative (NEG) Urine RBC 0/HPF (0-2) Urine WBC 0/HPF (0-4) Urine Squamous Epithelial Cells Mod/LPF Urine Amorphous Sediment Present/HPF Urine Bacteria 0/HPF (0-FEW) O2 Saturation % (92-99) Arterial Blood pH 7.44 (7.35-7.45) Arterial Blood pCO2 at Patient Temp 58mmHg (35-46) Arterial Blood pO2 at Patient Temp 64mmHg (65-108) Arterial Blood HCO3 39mmol/L (21-28) Arterial Blood Base Excess 12mmol/L (-3-3) FiO2 2 lpm nc Test 11/05/16 21:14 11/06/16 07:39 11/06/16 09:45 11/06/16 11:27 Glucose (Fingerstick) 207mg/dL (70-99) 150mg/dL (70-99) 149mg/dL (70-99) White Blood Count 5.9x10^3/uL (4.0-11.0) Red Blood Count 3.91x10^6/uL (3.50-5.40) Hemoglobin 12.4g/dL (12.0-15.5) Hematocrit 36.8% (36.0-47.0) Mean Corpuscular Volume 94fL (79-100) Mean Corpuscular Hemoglobin 32pg (25-35) Mean Corpuscular Hemoglobin Concent 34g/dL (31-37) Red Cell Distribution Width 16.3% (11.5-14.5) Platelet Count 176x10^3/uL (140-400) Neutrophils (%) (Auto) 74% (31-73) Lymphocytes (%) (Auto) 11% (24-48) Monocytes (%) (Auto) 15% (0-9) Eosinophils (%) (Auto) 0% (0-3) Basophils (%) (Auto) 1% (0-3) Neutrophils # (Auto) 4.4x10^3uL (1.8-7.7) Lymphocytes # (Auto) 0.6x10^3/uL (1.0-4.8) Monocytes # (Auto) 0.9x10^3/uL (0.0-1.1) Eosinophils # (Auto) 0.0x10^3/uL (0.0-0.7) Basophils # (Auto) 0.0x10^3/uL (0.0-0.2) Sodium Level 145mmol/L (136-145) Potassium Level 3.2mmol/L (3.5-5.1) Chloride Level 102mmol/L (98-107) Carbon Dioxide Level 40mmol/L (21-32) Anion Gap 3 (6-14) Blood Urea Nitrogen 39mg/dL (7-20) Creatinine 1.9mg/dL (0.6-1.0) Estimated GFR (Cockcroft-Gault) 25.2 Glucose Level 169mg/dL (70-99) Calcium Level 9.0mg/dL (8.5-10.1) Test 11/06/16 16:40 11/06/16 20:18 11/07/16 07:40 Glucose (Fingerstick) 77mg/dL (70-99) 137mg/dL (70-99) 143mg/dL (70-99) Laboratory Tests Test 11/06/16 09:45 11/06/16 11:27 11/06/16 16:40 11/06/16 20:18 White Blood Count 5.9x10^3/uL (4.0-11.0) Red Blood Count 3.91x10^6/uL (3.50-5.40) Hemoglobin 12.4g/dL (12.0-15.5) Hematocrit 36.8% (36.0-47.0) Mean Corpuscular Volume 94fL (79-100) Mean Corpuscular Hemoglobin 32pg (25-35) Mean Corpuscular Hemoglobin Concent 34g/dL (31-37) Red Cell Distribution Width 16.3% (11.5-14.5) Platelet Count 176x10^3/uL (140-400) Neutrophils (%) (Auto) 74% (31-73) Lymphocytes (%) (Auto) 11% (24-48) Monocytes (%) (Auto) 15% (0-9) Eosinophils (%) (Auto) 0% (0-3) Basophils (%) (Auto) 1% (0-3) Neutrophils # (Auto) 4.4x10^3uL (1.8-7.7) Lymphocytes # (Auto) 0.6x10^3/uL (1.0-4.8) Monocytes # (Auto) 0.9x10^3/uL (0.0-1.1) Eosinophils # (Auto) 0.0x10^3/uL (0.0-0.7) Basophils # (Auto) 0.0x10^3/uL (0.0-0.2) Sodium Level 145mmol/L (136-145) Potassium Level 3.2mmol/L (3.5-5.1) Chloride Level 102mmol/L (98-107) Carbon Dioxide Level 40mmol/L (21-32) Anion Gap 3 (6-14) Blood Urea Nitrogen 39mg/dL (7-20) Creatinine 1.9mg/dL (0.6-1.0) Estimated GFR (Cockcroft-Gault) 25.2 Glucose Level 169mg/dL (70-99) Calcium Level 9.0mg/dL (8.5-10.1) Glucose (Fingerstick) 149mg/dL (70-99) 77mg/dL (70-99) 137mg/dL (70-99) Test 11/07/16 07:40 Glucose (Fingerstick) 143mg/dL (70-99) Medications Active Scripts Medications Dose Route/Sig Days Date Category Dose Instructions Levofloxacin 250 Mg Tablet 250 Mg PO DAILY 08/11/16 Reported Amlodipine Besylate 5 Mg Tablet 5 Mg PO DAILY 08/11/16 Reported Keppra (Levetiracetam) 500 Mg Tablet 250 Mg PO HS 08/08/16 Reported Glipizide 5 Mg Tablet 5 Mg PO DAILY 12/22/13 Rx Take one-half a tablet daily. Lasix (Furosemide) 40 Mg Tablet 40 Mg PO DAILY 12/22/13 Rx Crestor (Rosuvastatin Calcium) 20 Mg Tablet 20 Mg PO HS 10/24/13 Reported Lamictal (Lamotrigine) 100 Mg Tablet 100 Mg PO BID 10/24/13 Reported Impression . 1. Yhzmp-[id number]-vvcplpt respiratory failure. 2. Aspiration pneumonia. 3. Dysphagia. 4. Coronary artery disease. 5. Hypertension. 6. Depression. 7. Acute renal failure. 8. Hyperkalemia. 9. Acute metabolic toxic encephalopathy. Plan . 1. The patient has been seen by the speech therapist, she will be made n.p.o., further evaluation pending. does not want PEG 2. Continue oxygen supplementation. 3. We will add Zosyn. 4. Nebulized treatments. 5. Continue home medications. SUPA KURTZ MD Nov 07, 2016 09:44
[2016-11-07 10:55] VITALS: BP 131/66
--- NOTE | 2016-11-07 12:09 | PDOC2 ---
CONSULT Date of Consult Date of Consult DATE: 11/07/16 TIME: 12:05 Reason for Consult Reason for Consult: SHEYLA Referring Physician Referring Physician: VICKI Identification/Chief Complaint Chief Complaint THIS IS AN 86 YR OLD ADMITTED WITH SEIZURE IN A POST ICTAL STATE AND THEN DEVELOPED ASPIRATION PNEUMONIA. HER CR IS 1.9. OLD RECORDS SHOWED A CR OF 1.4- 1.7 C/W STAGE 3 CKD. CURRENTLY NPO DUE TO ASPIRATION. SHE IS ALSO SOMEWHAT CONFUSED Source Source: Chart review History of Present Illness Reason for Visit: ABOVE Past Medical History Cardiovascular: CAD, CHF, HTN, Hyperlipidemia Pulmonary: Other (sleep apnea) CENTRAL NERVOUS SYSTEM: Seizure GI: GERD Heme/Onc: Anemia NOS, Cancer (breast) Psych: Depression Musculoskeletal: Osteoarthritis Renal/: Chronic renal insuff, UTI, Urinary Incontinence Endocrine: Diabetes Past Surgical History Past Surgical History: Cholecystectomy, Total knee replacement, Hysterectomy, Other (breast lumps) Family History Family History: Hypertension Social History No ALCOHOL: none Drugs: None Current Problem List Problem List Problems Medical Problems: (1) Aspiration pneumonia Status: Acute (2) Aspiration pneumonia Status: Acute (3) Hypoxia Status: Acute (4) Influenza Status: Acute (5) Influenza Status: Acute Current Medications Current Medications Current Medications Sodium Chloride (Iv Sodium Chloride 0.9% 1000ml Bag) 1,000 ml @ 200 mls/hr Q5H IV Last administered on 11/05/16 12:25; Start 11/05/16 at 11:35; Stop at 16:34; Status DC Oseltamivir Phosphate 75 mg 75 mg DAILY PO Last administered on 11/05/16 12:24 ; Start 11/05/16 at 12:30; Stop 11/05/16 at 12:30; Status DC Piperacillin Sod/ Tazobactam Sod/ Sodium Chloride (Zosyn/Iv Sodium Chloride 0.9 % 50ml) 50 ml @ 100 mls/hr 1X ONCE IV Last administered on 11/05/16 12:39; Start 11/05/16 at 12:45; Stop 11/05/16 at 13:14; Status DC Oseltamivir Phosphate (Tamiflu) 30 mg BID PO Last administered on 11/06/16 09: 27; Start 11/05/16 at 21:00; Stop 11/10/16 at 20:59 Potassium Chloride (KCl Oral Soln) 40 meq 1X ONCE PO Last administered on 11/05 13:49; Start 11/05/16 at 13:15; Stop 11/05/16 at 13:16; Status DC Amlodipine Besylate (Norvasc) 5 mg DAILY PO Last administered on 11/06/16 09: 28; Start 11/06/16 at 09:00 Glipizide (Glucotrol) 5 mg DAILY PO Last administered on 11/06/16 09:28; Start 11/06/16 at 09:00 Lamotrigine (LaMICtal) 100 mg BID PO Last administered on 11/06/16 09:28; Start 11/05/16 at 21:00 Levetiracetam (Keppra) 250 mg HS PO Last administered on 11/05/16 20:19; Start 11/05/16 at 21:00; Stop 11/06/16 at 12:12; Status DC Atorvastatin Calcium (Lipitor) 80 mg QHS PO Last administered on 11/05/16 20: 19; Start 11/05/16 at 21:00 Acetaminophen (Tylenol) 650 mg PRN Q6HRS PRN PO MILD PAIN / TEMP; Start at 16:15 Ondansetron HCl 4 mg 4 mg PRN Q6HRS PRN IV NAUSEA/VOMITING; Start 11/05/16 at 16:15 Potassium Chloride/Dextrose/ Sod Cl (KCl 20 Meq In D5W-NS) 1,000 ml @ 75 mls/ hr [id number] IV ; Start 11/05/16 at 16:15; Stop 11/05/16 at 16:15; Status DC Insulin Aspart (Novolog) 0-9 UNITS TIDWMEALS SQ ; Start 11/05/16 at 17:00 Dextrose 12.5 gm PRN Q15MIN PRN IV SEE COMMENTS; Start 11/05/16 at 16:15 Heparin Sodium (Porcine) 5,000 unit Q8HRS SQ Last administered on 11/07/16 06: 35; Start 11/05/16 at 22:00 Hydralazine HCl (Apresoline) 10 mg PRN Q4HRS PRN IVP ELEVATED BP, SEE COMMENTS ; Start 11/05/16 at 16:15 Albuterol/ Ipratropium (Duoneb) 3 ml RTQID NEB Last administered on 11/07/16 11:39; Start 11/05/16 at 20:00 Albuterol Sulfate 2.5 mg 2.5 mg PRN Q4HRS PRN NEB SHORTNESS OF BREATH; Start at 16:15 Potassium Chloride/Sodium Chloride 1,000 ml @ 75 mls/hr [id number] IV Last administered on 11/07/16 09:00; Start 11/05/16 at 17:00 Levetiracetam 500 mg/Sodium Chloride 105 ml @ 400 mls/hr HS IV Last administered on 11/06/16 20:44; Start 11/06/16 at 21:00 Potassium Chloride/Dextrose/ Sod Cl (KCl 20 Meq In D5W-1/2 NS) 1,000 ml @ 100 mls/hr 1X ONCE IV Last administered on 11/06/16 17:17; Start 11/06/16 at 13: 00; Stop 11/06/16 at 22:59; Status DC Enoxaparin Sodium (Lovenox Per Pharmacy Prophylaxis Dosing) 1 each PRN DAILY PRN MC SEE COMMENTS; Start 11/06/16 at 13:00; Status UNV Piperacillin Sod/ Tazobactam Sod 1 each 1 each PRN DAILY PRN MC SEE COMMENTS; Start 11/06/16 at 18:15 Piperacillin Sod/ Tazobactam Sod/ Sodium Chloride (Zosyn/Iv Sodium Chloride 0.9 % 50ml) 50 ml @ 100 mls/hr Q6HRS IV Last administered on 11/07/16 11:17; Start 11/06/16 at 19:00 Active Scripts Active Glipizide 5 Mg Tablet 5 Mg PO DAILY Take one-half a tablet daily. Lasix (Furosemide) 40 Mg Tablet 40 Mg PO DAILY Reported Levofloxacin 250 Mg Tablet 250 Mg PO DAILY Amlodipine Besylate 5 Mg Tablet 5 Mg PO DAILY Keppra (Levetiracetam) 500 Mg Tablet 250 Mg PO HS Crestor (Rosuvastatin Calcium) 20 Mg Tablet 20 Mg PO HS Lamictal (Lamotrigine) 100 Mg Tablet 100 Mg PO BID Allergies Allergies: Coded Allergies: neomycin (Verified Allergy, Intermediate, 08/07/16) morphine (Verified Adverse Reaction, Severe, 08/07/16) Pt states that she became severely drowsy with morphine and "woke up in ICU." Doesn't know if she was given too large of dose. ROS Review of System CONFUSED Physical Exam General: Cooperative, No acute distress HEENT: Atraumatic, PERRLA Lungs: Clear to auscultation Heart: Regular rate, Normal S1, Normal S2 Abdomen: Normal bowel sounds, Soft, No tenderness Extremities: No clubbing Neuro: Cranial nerves 3-12 NL Psych/Mental Status: Mood NL MUSCULOSKELETAL: No deformity, No swelling Vitals VITALS Vital Signs Date Time Temp Pulse Resp B/P Pulse Ox O2 Delivery O2 Flow Rate FiO2 11/07/16 11:39 Nasal Cannula 3.0 11/07/16 10:55 98.3 90 22 131/66 94 98.3 Labs Labs Laboratory Tests Test 11/05/16 12:20 11/05/16 12:35 11/05/16 16:45 11/05/16 21:14 White Blood Count 9.7x10^3/uL (4.0-11.0) Red Blood Count 3.99x10^6/uL (3.50-5.40) Hemoglobin 12.7g/dL (12.0-15.5) Hematocrit 38.0% (36.0-47.0) Mean Corpuscular Volume 95fL (79-100) Mean Corpuscular Hemoglobin 32pg (25-35) Mean Corpuscular Hemoglobin Concent 33g/dL (31-37) Red Cell Distribution Width 15.9% (11.5-14.5) Platelet Count 202x10^3/uL (140-400) Neutrophils (%) (Auto) 87% (31-73) Lymphocytes (%) (Auto) 2% (24-48) Monocytes (%) (Auto) 10% (0-9) Eosinophils (%) (Auto) 0% (0-3) Basophils (%) (Auto) 1% (0-3) Neutrophils # (Auto) 8.4x10^3uL (1.8-7.7) Lymphocytes # (Auto) 0.2x10^3/uL (1.0-4.8) Monocytes # (Auto) 0.9x10^3/uL (0.0-1.1) Eosinophils # (Auto) 0.0x10^3/uL (0.0-0.7) Basophils # (Auto) 0.0x10^3/uL (0.0-0.2) Segmented Neutrophils % 85% (35-66) Band Neutrophils % 7% (0-9) Monocytes % 8% (0-10) Platelet Estimate Adequate (ADEQUATE) Prothrombin Time 14.1SEC (11.7-14.0) Prothromb Time International Ratio 1.2 (0.8-1.1) Activated Partial Thromboplast Time 28SEC (24-38) Sodium Level 141mmol/L (136-145) Potassium Level 2.8mmol/L (3.5-5.1) Chloride Level 94mmol/L (98-107) Carbon Dioxide Level 41mmol/L (21-32) Anion Gap 6 (6-14) Blood Urea Nitrogen 64mg/dL (7-20) Creatinine 2.7mg/dL (0.6-1.0) Estimated GFR (Cockcroft-Gault) 16.8 BUN/Creatinine Ratio 24 (6-20) Glucose Level 227mg/dL (70-99) Lactic Acid Level 1.9mmol/L (0.4-2.0) Calcium Level 9.8mg/dL (8.5-10.1) Magnesium Level 2.0mg/dL (1.8-2.4) Total Bilirubin 0.6mg/dL (0.2-1.0) Aspartate Amino Transf (AST/SGOT) 38U/L (15-37) Alanine Aminotransferase (ALT/SGPT) 29U/L (14-59) Alkaline Phosphatase 39U/L (46-116) Creatine Kinase 359U/L (26-192) Creatine Kinase MB (Mass) 0.8ng/mL (0.0-3.6) Creatine Kinase MB Relative Index 0.2% (0-4) Total Protein 8.1g/dL (6.4-8.2) Albumin 3.9g/dL (3.4-5.0) Albumin/Globulin Ratio 0.9 (1.0-1.7) Urine Collection Type U cath Urine Color Yellow Urine Clarity Cloudy Urine pH 5.5 Urine Specific [place] 1.015 Urine Protein 100mg/dL (NEG-TRACE) Urine Glucose (UA) Negativemg/dL (NEG) Urine Ketones (Stick) Negativemg/dL (NEG) Urine Blood Large (NEG) Urine Nitrite Negative (NEG) Urine Bilirubin Negative (NEG) Urine Urobilinogen Dipstick 0.2mg/dL (0.2 mg/dL) Urine Leukocyte Esterase Negative (NEG) Urine RBC 0/HPF (0-2) Urine WBC 0/HPF (0-4) Urine Squamous Epithelial Cells Mod/LPF Urine Amorphous Sediment Present/HPF Urine Bacteria 0/HPF (0-FEW) O2 Saturation % (92-99) Arterial Blood pH 7.44 (7.35-7.45) Arterial Blood pCO2 at Patient Temp 58mmHg (35-46) Arterial Blood pO2 at Patient Temp 64mmHg (65-108) Arterial Blood HCO3 39mmol/L (21-28) Arterial Blood Base Excess 12mmol/L (-3-3) FiO2 2 lpm nc Glucose (Fingerstick) 207mg/dL (70-99) Test 11/06/16 07:39 11/06/16 09:45 11/06/16 11:27 11/06/16 16:40 Glucose (Fingerstick) 150mg/dL (70-99) 149mg/dL (70-99) 77mg/dL (70-99) White Blood Count 5.9x10^3/uL (4.0-11.0) Red Blood Count 3.91x10^6/uL (3.50-5.40) Hemoglobin 12.4g/dL (12.0-15.5) Hematocrit 36.8% (36.0-47.0) Mean Corpuscular Volume 94fL (79-100) Mean Corpuscular Hemoglobin 32pg (25-35) Mean Corpuscular Hemoglobin Concent 34g/dL (31-37) Red Cell Distribution Width 16.3% (11.5-14.5) Platelet Count 176x10^3/uL (140-400) Neutrophils (%) (Auto) 74% (31-73) Lymphocytes (%) (Auto) 11% (24-48) Monocytes (%) (Auto) 15% (0-9) Eosinophils (%) (Auto) 0% (0-3) Basophils (%) (Auto) 1% (0-3) Neutrophils # (Auto) 4.4x10^3uL (1.8-7.7) Lymphocytes # (Auto) 0.6x10^3/uL (1.0-4.8) Monocytes # (Auto) 0.9x10^3/uL (0.0-1.1) Eosinophils # (Auto) 0.0x10^3/uL (0.0-0.7) Basophils # (Auto) 0.0x10^3/uL (0.0-0.2) Sodium Level 145mmol/L (136-145) Potassium Level 3.2mmol/L (3.5-5.1) Chloride Level 102mmol/L (98-107) Carbon Dioxide Level 40mmol/L (21-32) Anion Gap 3 (6-14) Blood Urea Nitrogen 39mg/dL (7-20) Creatinine 1.9mg/dL (0.6-1.0) Estimated GFR (Cockcroft-Gault) 25.2 Glucose Level 169mg/dL (70-99) Calcium Level 9.0mg/dL (8.5-10.1) Test 11/06/16 20:18 11/07/16 07:40 11/07/16 11:29 Glucose (Fingerstick) 137mg/dL (70-99) 143mg/dL (70-99) 115mg/dL (70-99) Laboratory Tests Test 11/06/16 16:40 11/06/16 20:18 11/07/16 07:40 11/07/16 11:29 Glucose (Fingerstick) 77mg/dL (70-99) 137mg/dL (70-99) 143mg/dL (70-99) 115mg/dL (70-99) Assessment/Plan Assessment/Plan IMP SEIZURE ASPIRATION PNEUMONIA CKD STAGE 4 WITH CR OF 1.4-1.7 IN THE PAST MILD SHEYLA WITH CR OF 1.9 PLAN CHANGE IVF TO PPN ANTIBIOTICS NEURO EVAL AND TX WILL FOLLOW SCOT MARCELINO MD Nov 07, 2016 12:09
--- NOTE | 2016-11-07 12:29 | PDOC ---
PROGRESS NOTES Chief Complaint Chief Complaint 1. acute on chronic resp failure, home o2 2L 2. flu + 3. seizure disorder 4. htn 5. dm2 6. copd 7. h/o CHF 8. hld 9. hypokalemia 10 sheyla on ckd3 11. AMS, metabolic encephalopathy with flu,SHEYLA, VS. post ictal 12. Sepsis 13. Dysphagia History of Present Illness History of Present Illness Not confused Able to tell me she does not want PEG or gilbert Wheezy, rales on auscultation Came from home Planned for fam mtg later 1 PM Dw palliative - hospice remains an option Remains nPO PLAn: Await fam mtg So far full code No SNU will take TPN Pt does not want PEG or gilbert Cont supportive meds Dw pt and palliative Vitals Vitals Vital Signs Date Time Temp Pulse Resp B/P Pulse Ox O2 Delivery O2 Flow Rate FiO2 11/07/16 11:39 Nasal Cannula 3.0 11/07/16 10:55 98.3 90 22 131/66 94 98.3 Physical Exam General: Cooperative, No acute distress Heart: Regular rate, Normal S1, Normal S2 Lungs: Clear, Crackles Abdomen: Normal bowel sounds, Soft, No tenderness Extremities: No clubbing Skin: No rashes Labs LABS Laboratory Tests Test 11/06/16 16:40 11/06/16 20:18 11/07/16 07:40 11/07/16 11:29 Glucose (Fingerstick) 77mg/dL (70-99) 137mg/dL (70-99) 143mg/dL (70-99) 115mg/dL (70-99) Review of Systems Review of Systems limited, soa Assessment and Plan Assessmemt and Plan Problems Medical Problems: (1) Aspiration pneumonia Status: Acute (2) Aspiration pneumonia Status: Acute (3) Hypoxia Status: Acute (4) Influenza Status: Acute (5) Influenza Status: Acute Problems: Comment Review of Relevant I have reviewed the following items lucy (where applicable) has been applied. Labs Laboratory Tests Test 11/05/16 12:35 11/05/16 16:45 11/05/16 21:14 11/06/16 07:39 Urine Collection Type U cath Urine Color Yellow Urine Clarity Cloudy Urine pH 5.5 Urine Specific [place] 1.015 Urine Protein 100mg/dL (NEG-TRACE) Urine Glucose (UA) Negativemg/dL (NEG) Urine Ketones (Stick) Negativemg/dL (NEG) Urine Blood Large (NEG) Urine Nitrite Negative (NEG) Urine Bilirubin Negative (NEG) Urine Urobilinogen Dipstick 0.2mg/dL (0.2 mg/dL) Urine Leukocyte Esterase Negative (NEG) Urine RBC 0/HPF (0-2) Urine WBC 0/HPF (0-4) Urine Squamous Epithelial Cells Mod/LPF Urine Amorphous Sediment Present/HPF Urine Bacteria 0/HPF (0-FEW) O2 Saturation % (92-99) Arterial Blood pH 7.44 (7.35-7.45) Arterial Blood pCO2 at Patient Temp 58mmHg (35-46) Arterial Blood pO2 at Patient Temp 64mmHg (65-108) Arterial Blood HCO3 39mmol/L (21-28) Arterial Blood Base Excess 12mmol/L (-3-3) FiO2 2 lpm nc Glucose (Fingerstick) 207mg/dL (70-99) 150mg/dL (70-99) Test 11/06/16 09:45 11/06/16 11:27 11/06/16 16:40 11/06/16 20:18 White Blood Count 5.9x10^3/uL (4.0-11.0) Red Blood Count 3.91x10^6/uL (3.50-5.40) Hemoglobin 12.4g/dL (12.0-15.5) Hematocrit 36.8% (36.0-47.0) Mean Corpuscular Volume 94fL (79-100) Mean Corpuscular Hemoglobin 32pg (25-35) Mean Corpuscular Hemoglobin Concent 34g/dL (31-37) Red Cell Distribution Width 16.3% (11.5-14.5) Platelet Count 176x10^3/uL (140-400) Neutrophils (%) (Auto) 74% (31-73) Lymphocytes (%) (Auto) 11% (24-48) Monocytes (%) (Auto) 15% (0-9) Eosinophils (%) (Auto) 0% (0-3) Basophils (%) (Auto) 1% (0-3) Neutrophils # (Auto) 4.4x10^3uL (1.8-7.7) Lymphocytes # (Auto) 0.6x10^3/uL (1.0-4.8) Monocytes # (Auto) 0.9x10^3/uL (0.0-1.1) Eosinophils # (Auto) 0.0x10^3/uL (0.0-0.7) Basophils # (Auto) 0.0x10^3/uL (0.0-0.2) Sodium Level 145mmol/L (136-145) Potassium Level 3.2mmol/L (3.5-5.1) Chloride Level 102mmol/L (98-107) Carbon Dioxide Level 40mmol/L (21-32) Anion Gap 3 (6-14) Blood Urea Nitrogen 39mg/dL (7-20) Creatinine 1.9mg/dL (0.6-1.0) Estimated GFR (Cockcroft-Gault) 25.2 Glucose Level 169mg/dL (70-99) Calcium Level 9.0mg/dL (8.5-10.1) Glucose (Fingerstick) 149mg/dL (70-99) 77mg/dL (70-99) 137mg/dL (70-99) Test 11/07/16 07:40 11/07/16 11:29 Glucose (Fingerstick) 143mg/dL (70-99) 115mg/dL (70-99) Laboratory Tests Test 11/06/16 16:40 11/06/16 20:18 11/07/16 07:40 11/07/16 11:29 Glucose (Fingerstick) 77mg/dL (70-99) 137mg/dL (70-99) 143mg/dL (70-99) 115mg/dL (70-99) Microbiology 11/05/16 Blood Culture - Preliminary, Resulted NO GROWTH AFTER 1 DAY Medications Current Medications Sodium Chloride (Iv Sodium Chloride 0.9% 1000ml Bag) 1,000 ml @ 200 mls/hr Q5H IV Last administered on 11/05/16 12:25; Start 11/05/16 at 11:35; Stop at 16:34; Status DC Oseltamivir Phosphate 75 mg 75 mg DAILY PO Last administered on 11/05/16 12:24 ; Start 11/05/16 at 12:30; Stop 11/05/16 at 12:30; Status DC Piperacillin Sod/ Tazobactam Sod/ Sodium Chloride (Zosyn/Iv Sodium Chloride 0.9 % 50ml) 50 ml @ 100 mls/hr 1X ONCE IV Last administered on 11/05/16 12:39; Start 11/05/16 at 12:45; Stop 11/05/16 at 13:14; Status DC Oseltamivir Phosphate (Tamiflu) 30 mg BID PO Last administered on 11/06/16 09: 27; Start 11/05/16 at 21:00; Stop 11/10/16 at 20:59 Potassium Chloride (KCl Oral Soln) 40 meq 1X ONCE PO Last administered on 11/05 13:49; Start 11/05/16 at 13:15; Stop 11/05/16 at 13:16; Status DC Amlodipine Besylate (Norvasc) 5 mg DAILY PO Last administered on 11/06/16 09: 28; Start 11/06/16 at 09:00 Glipizide (Glucotrol) 5 mg DAILY PO Last administered on 11/06/16 09:28; Start 11/06/16 at 09:00 Lamotrigine (LaMICtal) 100 mg BID PO Last administered on 11/06/16 09:28; Start 11/05/16 at 21:00 Levetiracetam (Keppra) 250 mg HS PO Last administered on 11/05/16 20:19; Start 11/05/16 at 21:00; Stop 11/06/16 at 12:12; Status DC Atorvastatin Calcium (Lipitor) 80 mg QHS PO Last administered on 11/05/16 20: 19; Start 11/05/16 at 21:00 Acetaminophen (Tylenol) 650 mg PRN Q6HRS PRN PO MILD PAIN / TEMP; Start at 16:15 Ondansetron HCl 4 mg 4 mg PRN Q6HRS PRN IV NAUSEA/VOMITING; Start 11/05/16 at 16:15 Potassium Chloride/Dextrose/ Sod Cl (KCl 20 Meq In D5W-NS) 1,000 ml @ 75 mls/ hr [id number] IV ; Start 11/05/16 at 16:15; Stop 11/05/16 at 16:15; Status DC Insulin Aspart (Novolog) 0-9 UNITS TIDWMEALS SQ ; Start 11/05/16 at 17:00 Dextrose 12.5 gm PRN Q15MIN PRN IV SEE COMMENTS; Start 11/05/16 at 16:15 Heparin Sodium (Porcine) 5,000 unit Q8HRS SQ Last administered on 11/07/16 06: 35; Start 11/05/16 at 22:00 Hydralazine HCl (Apresoline) 10 mg PRN Q4HRS PRN IVP ELEVATED BP, SEE COMMENTS ; Start 11/05/16 at 16:15 Albuterol/ Ipratropium (Duoneb) 3 ml RTQID NEB Last administered on 11/07/16 11:39; Start 11/05/16 at 20:00 Albuterol Sulfate 2.5 mg 2.5 mg PRN Q4HRS PRN NEB SHORTNESS OF BREATH; Start at 16:15 Potassium Chloride/Sodium Chloride 1,000 ml @ 75 mls/hr [id number] IV Last administered on 11/07/16 09:00; Start 11/05/16 at 17:00; Stop 11/07/16 at 12:10 ; Status DC Levetiracetam 500 mg/Sodium Chloride 105 ml @ 400 mls/hr HS IV Last administered on 11/06/16 20:44; Start 11/06/16 at 21:00 Potassium Chloride/Dextrose/ Sod Cl (KCl 20 Meq In D5W-1/2 NS) 1,000 ml @ 100 mls/hr 1X ONCE IV Last administered on 11/06/16 17:17; Start 11/06/16 at 13: 00; Stop 11/06/16 at 22:59; Status DC Enoxaparin Sodium (Lovenox Per Pharmacy Prophylaxis Dosing) 1 each PRN DAILY PRN MC SEE COMMENTS; Start 11/06/16 at 13:00; Status UNV Piperacillin Sod/ Tazobactam Sod 1 each 1 each PRN DAILY PRN MC SEE COMMENTS; Start 11/06/16 at 18:15 Piperacillin Sod/ Tazobactam Sod 3.375 gm/Sodium Chloride 50 ml @ 100 mls/hr Q6HRS IV Last administered on 11/07/16 11:17; Start 11/06/16 at 19:00 Amino Acids/ Glycerin/ Electrolytes (Procalamine) 1,000 ml @ 80 mls/hr [id number] IV ; Start 11/07/16 at 12:15 Active Scripts Active Glipizide 5 Mg Tablet 5 Mg PO DAILY Take one-half a tablet daily. Lasix (Furosemide) 40 Mg Tablet 40 Mg PO DAILY Reported Levofloxacin 250 Mg Tablet 250 Mg PO DAILY Amlodipine Besylate 5 Mg Tablet 5 Mg PO DAILY Keppra (Levetiracetam) 500 Mg Tablet 250 Mg PO HS Crestor (Rosuvastatin Calcium) 20 Mg Tablet 20 Mg PO HS Lamictal (Lamotrigine) 100 Mg Tablet 100 Mg PO BID Vitals/I & O Vital Sign - Last 24 Hours 11/06/16 11/06/16 11/06/16 11/06/16 14:43 15:56 19:00 20:00 Temp 98.8 100.3 98.8 100.3 Pulse 83 81 Resp 18 22 B/P 154/62 124/56 Pulse Ox 92 93 O2 Delivery Nasal Cannula Nasal Cannula Nasal Cannula Nasal Cannula O2 Flow Rate 3.0 4.0 2.0 4.0 11/06/16 11/06/16 11/07/16 11/07/16 20:22 22:44 02:47 07:00 Temp 99.5 100.5 98.3 99.5 100.5 98.3 Pulse 85 87 86 Resp 20 18 B/P 119/53 135/58 133/68 Pulse Ox 93 94 94 O2 Delivery Nasal Cannula Nasal Cannula Simple Mask Simple Mask O2 Flow Rate 4.0 2.0 4.0 4.0 11/07/16 11/07/16 11/07/16 11/07/16 07:38 08:00 09:00 10:55 Temp 98.3 98.3 Pulse 86 90 Resp 22 B/P 133/68 131/66 Pulse Ox 95 94 O2 Delivery Nasal Cannula Nasal Cannula Nasal Cannula O2 Flow Rate 4.0 2.0 3.0 11/07/16 11:39 O2 Delivery Nasal Cannula O2 Flow Rate 3.0 Intake and Output 11/06/16 11/06/16 11/07/16 15:00 23:00 07:00 Intake Total 0 ml 1155 ml Balance 0 ml 1155 ml BALJEET RAMOS MD Nov 07, 2016 12:29
[2016-11-07] MEDS ORDERED: GUAIFENESIN DM 200MG/20MG 10 ML SYRUP. PO PRN (12:30)
[2016-11-07] MEDS: AA 3%/ELECTROLYTE-TPN SOLN/GLY 1,000 ML IV SCH ×2 (12:50→21:03)
[2016-11-07 14:49] VITALS: BP 138/63
--- NOTE | 2016-11-07 15:32 | PDOC2 ---
PALLIATIVE CARE Palliative Care Note Palliative Care Patient more alert today. Has indicated to Dr. Reyes that she would not want a feeding tube. Met with sister- Rama and DPOA daughter Kim. Patient has 1 son and 2 other daughters. Reviewed medical condition: A/C respiratory failure; +Influenza; CKD III; history of COPD , seizures, dysphagia. Patient was walking with a walker at most--10 meet at home. Feeding herself; Needing help with dressing and bathing. Social: Homemaker ; enjoyed watching TV; Andreea: Member of [employer] Discussed options for care: Aggressive care including feeding tube; comfort care with hospice and allow natural ; trial of limited care including dobhoff tube. Patient adamant with daughter /DPOA William that she did not want a feeding tube. Patient lives with Grandson Zac and his . With comfort care discussed options for care: Home with Hospice; vs Detention with Hospice. Family would like [facility] with Hospice. No preference of Hospice agency Discussed Code Status; Kim and Rama request DNR/DNI. Understand without this attempt she likely would . PRAFUL SLAUGHTER Nov 07, 2016 15:32
[2016-11-07] MEDS: PIPERACILLIN/TAZOBACTAM 2.25 GM in IV NORMAL SALINE 50ML 50 ML IV SCH ×2 (17:58→22:03)
[2016-11-07 19:00] VITALS: BP 132/54
[2016-11-07] MEDS: ATORVASTATIN CALCIUM 40 MG TABLET. PO SCH (20:27)
[2016-11-07] MEDS: LEVETIRACETAM 500 MG in IV NORMAL SALINE 100ML 100 ML IV SCH (21:00)
[2016-11-07] MEDS: FENTANYL PF 100 MCG/2 ML VIAL. IV PRN (21:03)
[2016-11-07 23:00] VITALS: BP 134/57
[2016-11-08 02:34] VITALS: BP 177/75
[2016-11-08 05:43] LABS: CALCIUM 8.6 mg/dL (8.5-10.1); CREATININE 1.7 mg/dL (0.6-1.0); GFR 28.6; POTASSIUM 3.8 mmol/L (3.5-5.1)
[2016-11-08] MEDS: PIPERACILLIN/TAZOBACTAM 2.25 GM in IV NORMAL SALINE 50ML 50 ML IV SCH ×4 (05:45→23:22)
[2016-11-08] MEDS: HEPARIN PF for SUB-Q USE 5,000 UNIT/0.5 ML VIAL. SQ SCH ×3 (05:46→21:25)
[2016-11-08 07:00] VITALS: BP 152/73
[2016-11-08] MEDS: IPRATRPIUM/ALBUTEROL 0.5/2.5MG 3 ML NEBU. NEB SCH ×4 (07:14→20:33)
[2016-11-08] MEDS: OSELTAMIVIR 30 MG CAPSULE PO SCH (08:08)
[2016-11-08] MEDS: lamoTRIgine 100 MG TABLET. PO SCH ×2 (08:08→21:21)
[2016-11-08] MEDS: GLIPIZIDE 5 MG TABLET PO SCH (08:08)
[2016-11-08] MEDS: AMLODIPINE BESYLATE 5 MG TABLET PO SCH (08:08)
[2016-11-08] MEDS: INSULIN ASPART 300 UNITS/3 ML INSULN.PEN SQ SCH ×3 (08:26→16:50)
--- NOTE | 2016-11-08 08:32 | PDOC ---
PROGRESS NOTES Assessment Problems Medical Problems: (1) Aspiration pneumonia Status: Acute (2) Aspiration pneumonia Status: Acute (3) Hypoxia Status: Acute (4) Influenza Status: Acute (5) Influenza Status: Acute Metabolic encephalopathy History of seizures, consider nonepileptic seizures or vasovagal syncope. She continues to have frequent seizures despite 2 anticonvulsants. Dysphagia, she told Dr. Reyes she does not want a PEG or NG tube Plan I don't see a need to repeat EEG studies, of which she has had several in the past. Continue current anticonvulsants, note getting IV levetiracetam and lamotrigine is on hold Subjective no complaints Objective Vital Signs Date Time Temp Pulse Resp B/P Pulse Ox O2 Delivery O2 Flow Rate FiO2 11/08/16 07:15 89 Room Air 11/08/16 02:34 97.5 77 18 177/75 3.0 97.5 Intake and Output 11/08/16 07:00 Intake Total 1260 ml Balance 1260 ml Intake Oral 0 ml Other 1260 ml # Voids 5 # Bowel Movements 2 PHYSICAL EXAM Alert. Oriented to place and person, not date. PERRL. EOMI. CN: no focal findings. Muscle tone: normal. Muscle strength: 4/5 DTR: 1+ Plantar reflex: flexor Gait: not examined in bed. Sensory exam: no abnormal findings. No cerebellar signs elicited. Review of Relevant I have reviewed the following items lucy (where applicable) has been applied. Labs Laboratory Tests Test 11/06/16 09:45 11/06/16 11:27 11/06/16 16:40 11/06/16 20:18 White Blood Count 5.9x10^3/uL (4.0-11.0) Red Blood Count 3.91x10^6/uL (3.50-5.40) Hemoglobin 12.4g/dL (12.0-15.5) Hematocrit 36.8% (36.0-47.0) Mean Corpuscular Volume 94fL (79-100) Mean Corpuscular Hemoglobin 32pg (25-35) Mean Corpuscular Hemoglobin Concent 34g/dL (31-37) Red Cell Distribution Width 16.3% (11.5-14.5) Platelet Count 176x10^3/uL (140-400) Neutrophils (%) (Auto) 74% (31-73) Lymphocytes (%) (Auto) 11% (24-48) Monocytes (%) (Auto) 15% (0-9) Eosinophils (%) (Auto) 0% (0-3) Basophils (%) (Auto) 1% (0-3) Neutrophils # (Auto) 4.4x10^3uL (1.8-7.7) Lymphocytes # (Auto) 0.6x10^3/uL (1.0-4.8) Monocytes # (Auto) 0.9x10^3/uL (0.0-1.1) Eosinophils # (Auto) 0.0x10^3/uL (0.0-0.7) Basophils # (Auto) 0.0x10^3/uL (0.0-0.2) Sodium Level 145mmol/L (136-145) Potassium Level 3.2mmol/L (3.5-5.1) Chloride Level 102mmol/L (98-107) Carbon Dioxide Level 40mmol/L (21-32) Anion Gap 3 (6-14) Blood Urea Nitrogen 39mg/dL (7-20) Creatinine 1.9mg/dL (0.6-1.0) Estimated GFR (Cockcroft-Gault) 25.2 Glucose Level 169mg/dL (70-99) Calcium Level 9.0mg/dL (8.5-10.1) Glucose (Fingerstick) 149mg/dL (70-99) 77mg/dL (70-99) 137mg/dL (70-99) Test 11/07/16 07:40 11/07/16 11:29 11/07/16 16:45 11/07/16 20:24 Glucose (Fingerstick) 143mg/dL (70-99) 115mg/dL (70-99) 142mg/dL (70-99) 150mg/dL (70-99) Test 11/08/16 05:00 Sodium Level 144mmol/L (136-145) Potassium Level 3.8mmol/L (3.5-5.1) Chloride Level 105mmol/L (98-107) Carbon Dioxide Level 38mmol/L (21-32) Anion Gap 1 (6-14) Blood Urea Nitrogen 29mg/dL (7-20) Creatinine 1.7mg/dL (0.6-1.0) Estimated GFR (Cockcroft-Gault) 28.6 Glucose Level 195mg/dL (70-99) Calcium Level 8.6mg/dL (8.5-10.1) Laboratory Tests Test 11/07/16 11:29 11/07/16 16:45 11/07/16 20:24 11/08/16 05:00 Glucose (Fingerstick) 115mg/dL (70-99) 142mg/dL (70-99) 150mg/dL (70-99) Sodium Level 144mmol/L (136-145) Potassium Level 3.8mmol/L (3.5-5.1) Chloride Level 105mmol/L (98-107) Carbon Dioxide Level 38mmol/L (21-32) Anion Gap 1 (6-14) Blood Urea Nitrogen 29mg/dL (7-20) Creatinine 1.7mg/dL (0.6-1.0) Estimated GFR (Cockcroft-Gault) 28.6 Glucose Level 195mg/dL (70-99) Calcium Level 8.6mg/dL (8.5-10.1) Microbiology 11/05/16 Blood Culture - Preliminary, Resulted NO GROWTH AFTER 2 DAYS Medications Current Medications Sodium Chloride (Iv Sodium Chloride 0.9% 1000ml Bag) 1,000 ml @ 200 mls/hr Q5H IV Last administered on 11/05/16 12:25; Start 11/05/16 at 11:35; Stop at 16:34; Status DC Oseltamivir Phosphate 75 mg 75 mg DAILY PO Last administered on 11/05/16 12:24 ; Start 11/05/16 at 12:30; Stop 11/05/16 at 12:30; Status DC Piperacillin Sod/ Tazobactam Sod/ Sodium Chloride (Zosyn/Iv Sodium Chloride 0.9 % 50ml) 50 ml @ 100 mls/hr 1X ONCE IV Last administered on 11/05/16 12:39; Start 11/05/16 at 12:45; Stop 11/05/16 at 13:14; Status DC Oseltamivir Phosphate (Tamiflu) 30 mg BID PO Last administered on 11/06/16 09: 27; Start 11/05/16 at 21:00; Stop 11/07/16 at 14:19; Status DC Potassium Chloride (KCl Oral Soln) 40 meq 1X ONCE PO Last administered on 11/05 13:49; Start 11/05/16 at 13:15; Stop 11/05/16 at 13:16; Status DC Amlodipine Besylate (Norvasc) 5 mg DAILY PO Last administered on 11/06/16 09: 28; Start 11/06/16 at 09:00 Glipizide (Glucotrol) 5 mg DAILY PO Last administered on 11/06/16 09:28; Start 11/06/16 at 09:00 Lamotrigine (LaMICtal) 100 mg BID PO Last administered on 11/06/16 09:28; Start 11/05/16 at 21:00 Levetiracetam (Keppra) 250 mg HS PO Last administered on 11/05/16 20:19; Start 11/05/16 at 21:00; Stop 11/06/16 at 12:12; Status DC Atorvastatin Calcium (Lipitor) 80 mg QHS PO Last administered on 11/05/16 20: 19; Start 11/05/16 at 21:00 Acetaminophen (Tylenol) 650 mg PRN Q6HRS PRN PO MILD PAIN / TEMP; Start at 16:15 Ondansetron HCl 4 mg 4 mg PRN Q6HRS PRN IV NAUSEA/VOMITING; Start 11/05/16 at 16:15 Potassium Chloride/Dextrose/ Sod Cl (KCl 20 Meq In D5W-NS) 1,000 ml @ 75 mls/ hr [id number] IV ; Start 11/05/16 at 16:15; Stop 11/05/16 at 16:15; Status DC Insulin Aspart (Novolog) 0-9 UNITS TIDWMEALS SQ Last administered on 11/08/16 08:26; Start 11/05/16 at 17:00 Dextrose 12.5 gm PRN Q15MIN PRN IV SEE COMMENTS; Start 11/05/16 at 16:15 Heparin Sodium (Porcine) 5,000 unit Q8HRS SQ Last administered on 11/08/16 05: 46; Start 11/05/16 at 22:00 Hydralazine HCl (Apresoline) 10 mg PRN Q4HRS PRN IVP ELEVATED BP, SEE COMMENTS ; Start 11/05/16 at 16:15 Albuterol/ Ipratropium (Duoneb) 3 ml RTQID NEB Last administered on 11/08/16 07:14; Start 11/05/16 at 20:00 Albuterol Sulfate 2.5 mg 2.5 mg PRN Q4HRS PRN NEB SHORTNESS OF BREATH; Start at 16:15 Potassium Chloride/Sodium Chloride 1,000 ml @ 75 mls/hr [id number] IV Last administered on 11/07/16 09:00; Start 11/05/16 at 17:00; Stop 11/07/16 at 12:10 ; Status DC Levetiracetam 500 mg/Sodium Chloride 105 ml @ 400 mls/hr HS IV Last administered on 11/07/16 21:00; Start 11/06/16 at 21:00 Potassium Chloride/Dextrose/ Sod Cl (KCl 20 Meq In D5W-1/2 NS) 1,000 ml @ 100 mls/hr 1X ONCE IV Last administered on 11/06/16 17:17; Start 11/06/16 at 13: 00; Stop 11/06/16 at 22:59; Status DC Enoxaparin Sodium (Lovenox Per Pharmacy Prophylaxis Dosing) 1 each PRN DAILY PRN MC SEE COMMENTS; Start 11/06/16 at 13:00; Status UNV Piperacillin Sod/ Tazobactam Sod 1 each 1 each PRN DAILY PRN MC SEE COMMENTS; Start 11/06/16 at 18:15 Piperacillin Sod/ Tazobactam Sod 3.375 gm/Sodium Chloride 50 ml @ 100 mls/hr Q6HRS IV Last administered on 11/07/16 11:17; Start 11/06/16 at 19:00; Stop at 14:21; Status DC Amino Acids/ Glycerin/ Electrolytes (Procalamine) 1,000 ml @ 80 mls/hr [id number] IV Last administered on 11/07/16 21:03; Start 11/07/16 at 12:15 Guaifenesin (Robitussin Dm) 10 ml PRN Q6HRS PRN PO COUGH; Start 11/07/16 at 12: 30 Oseltamivir Phosphate 30 mg 30 mg DAILY PO ; Start 11/08/16 at 09:00; Stop 11/10 at 20:59 Piperacillin Sod/ Tazobactam Sod/ Sodium Chloride (Zosyn/Iv Sodium Chloride 0.9 % 50ml) 50 ml @ 100 mls/hr Q6HRS IV Last administered on 11/08/16 05:45; Start 11/07/16 at 18:00 Fentanyl Citrate (Fentanyl 2ml Vial) 25 mcg PRN Q2HR PRN IV PAIN Last administered on 11/07/16 21:03; Start 11/07/16 at 20:00 Active Scripts Active Glipizide 5 Mg Tablet 5 Mg PO DAILY Take one-half a tablet daily. Lasix (Furosemide) 40 Mg Tablet 40 Mg PO DAILY Reported Levofloxacin 250 Mg Tablet 250 Mg PO DAILY Amlodipine Besylate 5 Mg Tablet 5 Mg PO DAILY Keppra (Levetiracetam) 500 Mg Tablet 250 Mg PO HS Crestor (Rosuvastatin Calcium) 20 Mg Tablet 20 Mg PO HS Lamictal (Lamotrigine) 100 Mg Tablet 100 Mg PO BID Vitals/I & O Vital Sign - Last 24 Hours 11/07/16 11/07/16 11/07/16 11/07/16 09:00 10:55 11:39 14:49 Temp 98.3 99.1 98.3 99.1 Pulse 86 90 105 Resp 22 36 B/P 133/68 131/66 138/63 Pulse Ox 94 93 O2 Delivery Nasal Cannula Nasal Cannula Nasal Cannula O2 Flow Rate 3.0 3.0 3.0 11/07/16 11/07/16 11/07/16 11/07/16 15:18 19:00 20:00 21:03 Temp 97.9 97.9 Pulse 101 Resp 20 22 B/P 132/54 Pulse Ox 95 O2 Delivery Nasal Cannula Nasal Cannula Nasal Cannula Nasal Cannula O2 Flow Rate 3.0 3.0 3.0 3.0 11/07/16 11/07/16 11/07/16 11/08/16 21:06 22:03 23:00 02:34 Temp 97.5 97.5 97.5 97.5 Pulse 105 77 Resp 20 20 18 B/P 134/57 177/75 Pulse Ox 96 94 94 O2 Delivery Nasal Cannula Nasal Cannula Nasal Cannula Nasal Cannula O2 Flow Rate 3.0 3.0 3.0 3.0 11/08/16 07:15 Pulse Ox 89 O2 Delivery Room Air Intake and Output 11/07/16 11/07/16 11/08/16 15:00 23:00 07:00 Intake Total 0 ml 1260 ml Balance 0 ml 1260 ml ALBARO DUKE MD Nov 08, 2016 08:32
[2016-11-08 11:00] VITALS: BP 113/55
--- NOTE | 2016-11-08 11:06 | PDOC ---
Renal-Progress Notes Subjective Notes Notes NONE History of Present Illness Hx of present illness NO CHANGE Vitals Vitals Vital Signs Date Time Temp Pulse Resp B/P Pulse Ox O2 Delivery O2 Flow Rate FiO2 11/08/16 08:20 Nasal Cannula 3.0 11/08/16 07:15 89 11/08/16 07:00 100.1 96 22 152/73 100.1 Weight Weight [ ] I.O. Intake and Output Intake and Output 11/08/16 07:00 Intake Total 1260 ml Balance 1260 ml Intake Oral 0 ml Other 1260 ml # Voids 5 # Bowel Movements 2 Labs Labs Laboratory Tests Test 11/07/16 11:29 11/07/16 16:45 11/07/16 20:24 11/08/16 05:00 Glucose (Fingerstick) 115mg/dL (70-99) 142mg/dL (70-99) 150mg/dL (70-99) Sodium Level 144mmol/L (136-145) Potassium Level 3.8mmol/L (3.5-5.1) Chloride Level 105mmol/L (98-107) Carbon Dioxide Level 38mmol/L (21-32) Anion Gap 1 (6-14) Blood Urea Nitrogen 29mg/dL (7-20) Creatinine 1.7mg/dL (0.6-1.0) Estimated GFR (Cockcroft-Gault) 28.6 Glucose Level 195mg/dL (70-99) Calcium Level 8.6mg/dL (8.5-10.1) Micro Micro Microbiology 11/05/16 Blood Culture - Preliminary, Resulted NO GROWTH AFTER 2 DAYS Review of Systems Constitutional: yes: no symptom reported Physical Exam General Appearance: no apparent distress Skin: warm Heart: S1S2, RRR Abdomen: soft, bowel sounds present Genitourinary: bladder flat Extremities: pulses present Neurology: alert Musculoskeletal: Osteoarthritis Assessment Assessment IMP SHEYLA-BETTER WITH CR 2.9 TO 1.7 CKD STAGE 3 - CR OF 1.4-1.7 AT BASELINE SEIZURE ASP PNEUMONIA PLAN CONT PPN CONT ANTIBIOTICS WILL FOLLOW SCOT MARCELINO MD Nov 08, 2016 11:06
[2016-11-08] MEDS: AA 3%/ELECTROLYTE-TPN SOLN/GLY 1,000 ML IV SCH ×2 (11:39→21:26)
--- NOTE | 2016-11-08 11:47 | PDOC ---
PROGRESS NOTES Chief Complaint Chief Complaint 1. acute on chronic resp failure, home o2 2L 2. flu + 3. seizure disorder 4. htn 5. dm2 6. copd 7. h/o CHF 8. hld 9. hypokalemia 10 sheyla on ckd3 11. AMS, metabolic encephalopathy with flu,SHEYLA, VS. post ictal 12. Sepsis 13. Dysphagia 14, New onset atrial fib, intermittent RVR 15. ASPIRATION PNEUMONITIS History of Present Illness History of Present Illness NOw going to new atrial fib RVR sometimes SBP 120s HR 130s Pt now cleared to try dysphagia 1 with honey thickened No PEG and [place] Family changed minds now, does not wnat [place] [facility] with hospice, trying to aggressively manage here first and if no improvement over robbi weekend then home hospice o[facility] Jane 1,.7 PLAN: Start cardizem PO for rate control -0 sbp now 1teens and HR 80s May consult cardsWOuld go conservative in tx this atrial fib Hospice in [place] Dysphagia1 with honey thickened - dw rn and [employer] and RN sup Vitals Vitals Vital Signs Date Time Temp Pulse Resp B/P Pulse Ox O2 Delivery O2 Flow Rate FiO2 11/08/16 11:00 99.7 87 22 113/55 92 Nasal Cannula 3.0 99.7 Physical Exam General: Cooperative, No acute distress Heart: Regular rate, Normal S1, Normal S2 Lungs: Clear, Crackles Abdomen: Normal bowel sounds, Soft, No tenderness Extremities: No clubbing Skin: No rashes Labs LABS Laboratory Tests Test 11/07/16 16:45 11/07/16 20:24 11/08/16 05:00 Glucose (Fingerstick) 142mg/dL (70-99) 150mg/dL (70-99) Sodium Level 144mmol/L (136-145) Potassium Level 3.8mmol/L (3.5-5.1) Chloride Level 105mmol/L (98-107) Carbon Dioxide Level 38mmol/L (21-32) Anion Gap 1 (6-14) Blood Urea Nitrogen 29mg/dL (7-20) Creatinine 1.7mg/dL (0.6-1.0) Estimated GFR (Cockcroft-Gault) 28.6 Glucose Level 195mg/dL (70-99) Calcium Level 8.6mg/dL (8.5-10.1) Review of Systems Review of Systems SOA, no cp, limited ROS - weak, soa Assessment and Plan Assessmemt and Plan Problems Medical Problems: (1) Aspiration pneumonia Status: Acute (2) Aspiration pneumonia Status: Acute (3) Hypoxia Status: Acute (4) Influenza Status: Acute (5) Influenza Status: Acute Problems: Comment Review of Relevant I have reviewed the following items lucy (where applicable) has been applied. Labs Laboratory Tests Test 11/06/16 16:40 11/06/16 20:18 11/07/16 07:40 11/07/16 11:29 Glucose (Fingerstick) 77mg/dL (70-99) 137mg/dL (70-99) 143mg/dL (70-99) 115mg/dL (70-99) Test 11/07/16 16:45 11/07/16 20:24 11/08/16 05:00 Glucose (Fingerstick) 142mg/dL (70-99) 150mg/dL (70-99) Sodium Level 144mmol/L (136-145) Potassium Level 3.8mmol/L (3.5-5.1) Chloride Level 105mmol/L (98-107) Carbon Dioxide Level 38mmol/L (21-32) Anion Gap 1 (6-14) Blood Urea Nitrogen 29mg/dL (7-20) Creatinine 1.7mg/dL (0.6-1.0) Estimated GFR (Cockcroft-Gault) 28.6 Glucose Level 195mg/dL (70-99) Calcium Level 8.6mg/dL (8.5-10.1) Laboratory Tests Test 11/07/16 16:45 11/07/16 20:24 11/08/16 05:00 Glucose (Fingerstick) 142mg/dL (70-99) 150mg/dL (70-99) Sodium Level 144mmol/L (136-145) Potassium Level 3.8mmol/L (3.5-5.1) Chloride Level 105mmol/L (98-107) Carbon Dioxide Level 38mmol/L (21-32) Anion Gap 1 (6-14) Blood Urea Nitrogen 29mg/dL (7-20) Creatinine 1.7mg/dL (0.6-1.0) Estimated GFR (Cockcroft-Gault) 28.6 Glucose Level 195mg/dL (70-99) Calcium Level 8.6mg/dL (8.5-10.1) Microbiology 11/05/16 Blood Culture - Preliminary, Resulted NO GROWTH AFTER 2 DAYS Medications Current Medications Sodium Chloride (Iv Sodium Chloride 0.9% 1000ml Bag) 1,000 ml @ 200 mls/hr Q5H IV Last administered on 11/05/16 12:25; Start 11/05/16 at 11:35; Stop at 16:34; Status DC Oseltamivir Phosphate 75 mg 75 mg DAILY PO Last administered on 11/05/16 12:24 ; Start 11/05/16 at 12:30; Stop 11/05/16 at 12:30; Status DC Piperacillin Sod/ Tazobactam Sod/ Sodium Chloride (Zosyn/Iv Sodium Chloride 0.9 % 50ml) 50 ml @ 100 mls/hr 1X ONCE IV Last administered on 11/05/16 12:39; Start 11/05/16 at 12:45; Stop 11/05/16 at 13:14; Status DC Oseltamivir Phosphate (Tamiflu) 30 mg BID PO Last administered on 11/06/16 09: 27; Start 11/05/16 at 21:00; Stop 11/07/16 at 14:19; Status DC Potassium Chloride (KCl Oral Soln) 40 meq 1X ONCE PO Last administered on 11/05 13:49; Start 11/05/16 at 13:15; Stop 11/05/16 at 13:16; Status DC Amlodipine Besylate (Norvasc) 5 mg DAILY PO Last administered on 11/06/16 09: 28; Start 11/06/16 at 09:00 Glipizide (Glucotrol) 5 mg DAILY PO Last administered on 11/06/16 09:28; Start 11/06/16 at 09:00 Lamotrigine (LaMICtal) 100 mg BID PO Last administered on 11/06/16 09:28; Start 11/05/16 at 21:00 Levetiracetam (Keppra) 250 mg HS PO Last administered on 11/05/16 20:19; Start 11/05/16 at 21:00; Stop 11/06/16 at 12:12; Status DC Atorvastatin Calcium (Lipitor) 80 mg QHS PO Last administered on 11/05/16 20: 19; Start 11/05/16 at 21:00 Acetaminophen (Tylenol) 650 mg PRN Q6HRS PRN PO MILD PAIN / TEMP; Start at 16:15 Ondansetron HCl 4 mg 4 mg PRN Q6HRS PRN IV NAUSEA/VOMITING; Start 11/05/16 at 16:15 Potassium Chloride/Dextrose/ Sod Cl (KCl 20 Meq In D5W-NS) 1,000 ml @ 75 mls/ hr [id number] IV ; Start 11/05/16 at 16:15; Stop 11/05/16 at 16:15; Status DC Insulin Aspart (Novolog) 0-9 UNITS TIDWMEALS SQ Last administered on 11/08/16 08:26; Start 11/05/16 at 17:00 Dextrose 12.5 gm PRN Q15MIN PRN IV SEE COMMENTS; Start 11/05/16 at 16:15 Heparin Sodium (Porcine) 5,000 unit Q8HRS SQ Last administered on 11/08/16 05: 46; Start 11/05/16 at 22:00 Hydralazine HCl (Apresoline) 10 mg PRN Q4HRS PRN IVP ELEVATED BP, SEE COMMENTS ; Start 11/05/16 at 16:15 Albuterol/ Ipratropium (Duoneb) 3 ml RTQID NEB Last administered on 11/08/16 07:14; Start 11/05/16 at 20:00 Albuterol Sulfate 2.5 mg 2.5 mg PRN Q4HRS PRN NEB SHORTNESS OF BREATH; Start at 16:15 Potassium Chloride/Sodium Chloride 1,000 ml @ 75 mls/hr [id number] IV Last administered on 11/07/16 09:00; Start 11/05/16 at 17:00; Stop 11/07/16 at 12:10 ; Status DC Levetiracetam 500 mg/Sodium Chloride 105 ml @ 400 mls/hr HS IV Last administered on 11/07/16 21:00; Start 11/06/16 at 21:00 Potassium Chloride/Dextrose/ Sod Cl (KCl 20 Meq In D5W-1/2 NS) 1,000 ml @ 100 mls/hr 1X ONCE IV Last administered on 11/06/16 17:17; Start 11/06/16 at 13: 00; Stop 11/06/16 at 22:59; Status DC Enoxaparin Sodium (Lovenox Per Pharmacy Prophylaxis Dosing) 1 each PRN DAILY PRN MC SEE COMMENTS; Start 11/06/16 at 13:00; Status UNV Piperacillin Sod/ Tazobactam Sod 1 each 1 each PRN DAILY PRN MC SEE COMMENTS; Start 11/06/16 at 18:15 Piperacillin Sod/ Tazobactam Sod 3.375 gm/Sodium Chloride 50 ml @ 100 mls/hr Q6HRS IV Last administered on 11/07/16 11:17; Start 11/06/16 at 19:00; Stop at 14:21; Status DC Amino Acids/ Glycerin/ Electrolytes (Procalamine) 1,000 ml @ 80 mls/hr [id number] IV Last administered on 11/07/16 21:03; Start 11/07/16 at 12:15 Guaifenesin (Robitussin Dm) 10 ml PRN Q6HRS PRN PO COUGH; Start 11/07/16 at 12: 30 Oseltamivir Phosphate 30 mg 30 mg DAILY PO ; Start 11/08/16 at 09:00; Stop 11/10 at 20:59 Piperacillin Sod/ Tazobactam Sod/ Sodium Chloride (Zosyn/Iv Sodium Chloride 0.9 % 50ml) 50 ml @ 100 mls/hr Q6HRS IV Last administered on 11/08/16 05:45; Start 11/07/16 at 18:00 Fentanyl Citrate (Fentanyl 2ml Vial) 25 mcg PRN Q2HR PRN IV PAIN Last administered on 11/07/16 21:03; Start 11/07/16 at 20:00 Active Scripts Active Glipizide 5 Mg Tablet 5 Mg PO DAILY Take one-half a tablet daily. Lasix (Furosemide) 40 Mg Tablet 40 Mg PO DAILY Reported Levofloxacin 250 Mg Tablet 250 Mg PO DAILY Amlodipine Besylate 5 Mg Tablet 5 Mg PO DAILY Keppra (Levetiracetam) 500 Mg Tablet 250 Mg PO HS Crestor (Rosuvastatin Calcium) 20 Mg Tablet 20 Mg PO HS Lamictal (Lamotrigine) 100 Mg Tablet 100 Mg PO BID Vitals/I & O Vital Sign - Last 24 Hours 11/07/16 11/07/16 11/07/16 11/07/16 14:49 15:18 19:00 20:00 Temp 99.1 97.9 99.1 97.9 Pulse 105 101 Resp 36 20 B/P 138/63 132/54 Pulse Ox 93 95 O2 Delivery Nasal Cannula Nasal Cannula Nasal Cannula Nasal Cannula O2 Flow Rate 3.0 3.0 3.0 3.0 11/07/16 11/07/16 11/07/16 11/07/16 21:03 21:06 22:03 23:00 Temp 97.5 97.5 Pulse 105 Resp 22 20 20 B/P 134/57 Pulse Ox 96 94 O2 Delivery Nasal Cannula Nasal Cannula Nasal Cannula Nasal Cannula O2 Flow Rate 3.0 3.0 3.0 3.0 11/08/16 11/08/16 11/08/16 11/08/16 02:34 07:00 07:15 08:20 Temp 97.5 100.1 97.5 100.1 Pulse 77 96 Resp 18 22 B/P 177/75 152/73 Pulse Ox 94 97 89 O2 Delivery Nasal Cannula Nasal Cannula Room Air Nasal Cannula O2 Flow Rate 3.0 3.0 3.0 11/08/16 11:00 Temp 99.7 99.7 Pulse 87 Resp 22 B/P 113/55 Pulse Ox 92 O2 Delivery Nasal Cannula O2 Flow Rate 3.0 Intake and Output 11/07/16 11/07/16 11/08/16 15:00 23:00 07:00 Intake Total 0 ml 1260 ml Balance 0 ml 1260 ml BALJEET RAMOS MD Nov 08, 2016 11:47
[2016-11-08] MEDS: DILTIAZEM HCL 30 MG TABLET PO SCH ×2 (11:55→21:21)
[2016-11-08] MEDS ORDERED: DIGOXIN 500 MCG/2 ML AMPUL. IV ONE (12:15)
--- NOTE | 2016-11-08 13:22 | PDOC2 ---
CONSULT Date of Consult Date of Consult DATE: 11/08/16 TIME: 13:11 Reason for Consult Reason for Consult: New onset Afib with intermittent RVR Referring Physician Referring Physician: Amy Identification/Chief Complaint Chief Complaint Dyspnea History of Present Illness Reason for Visit: In brief patient admitted to [facility] for AMS with generalized weakness found to be Flu+. She developed aspiration pneumonitis secondary to dysphagia and also had a new onset of Afib with intermittent RVR which cardiology for which cardiology was consulted. Past Medical History Cardiovascular: CAD, CHF, HTN, Hyperlipidemia Pulmonary: Other (sleep apnea) CENTRAL NERVOUS SYSTEM: Seizure GI: GERD Heme/Onc: Anemia NOS, Cancer (breast) Psych: Depression Musculoskeletal: Osteoarthritis Renal/: Chronic renal insuff, UTI, Urinary Incontinence Endocrine: Diabetes Past Surgical History Past Surgical History: Cholecystectomy, Total knee replacement, Hysterectomy, Other (breast lumps) Family History Family History: Hypertension Social History No ALCOHOL: none Drugs: None Current Problem List Problem List Problems Medical Problems: (1) Aspiration pneumonia Status: Acute (2) Aspiration pneumonia Status: Acute (3) Hypoxia Status: Acute (4) Influenza Status: Acute (5) Influenza Status: Acute Current Medications Current Medications Current Medications Sodium Chloride (Iv Sodium Chloride 0.9% 1000ml Bag) 1,000 ml @ 200 mls/hr Q5H IV Last administered on 11/05/16 12:25; Start 11/05/16 at 11:35; Stop at 16:34; Status DC Oseltamivir Phosphate 75 mg 75 mg DAILY PO Last administered on 11/05/16 12:24 ; Start 11/05/16 at 12:30; Stop 11/05/16 at 12:30; Status DC Piperacillin Sod/ Tazobactam Sod/ Sodium Chloride (Zosyn/Iv Sodium Chloride 0.9 % 50ml) 50 ml @ 100 mls/hr 1X ONCE IV Last administered on 11/05/16 12:39; Start 11/05/16 at 12:45; Stop 11/05/16 at 13:14; Status DC Oseltamivir Phosphate (Tamiflu) 30 mg BID PO Last administered on 11/06/16 09: 27; Start 11/05/16 at 21:00; Stop 11/07/16 at 14:19; Status DC Potassium Chloride (KCl Oral Soln) 40 meq 1X ONCE PO Last administered on 11/05 13:49; Start 11/05/16 at 13:15; Stop 11/05/16 at 13:16; Status DC Amlodipine Besylate (Norvasc) 5 mg DAILY PO Last administered on 11/06/16 09: 28; Start 11/06/16 at 09:00; Stop 11/08/16 at 12:18; Status DC Glipizide (Glucotrol) 5 mg DAILY PO Last administered on 11/06/16 09:28; Start 11/06/16 at 09:00 Lamotrigine (LaMICtal) 100 mg BID PO Last administered on 11/06/16 09:28; Start 11/05/16 at 21:00 Levetiracetam (Keppra) 250 mg HS PO Last administered on 11/05/16 20:19; Start 11/05/16 at 21:00; Stop 11/06/16 at 12:12; Status DC Atorvastatin Calcium (Lipitor) 80 mg QHS PO Last administered on 11/05/16 20: 19; Start 11/05/16 at 21:00 Acetaminophen (Tylenol) 650 mg PRN Q6HRS PRN PO MILD PAIN / TEMP; Start at 16:15 Ondansetron HCl 4 mg 4 mg PRN Q6HRS PRN IV NAUSEA/VOMITING; Start 11/05/16 at 16:15 Potassium Chloride/Dextrose/ Sod Cl (KCl 20 Meq In D5W-NS) 1,000 ml @ 75 mls/ hr [id number] IV ; Start 11/05/16 at 16:15; Stop 11/05/16 at 16:15; Status DC Insulin Aspart (Novolog) 0-9 UNITS TIDWMEALS SQ Last administered on 11/08/16 08:26; Start 11/05/16 at 17:00 Dextrose 12.5 gm PRN Q15MIN PRN IV SEE COMMENTS; Start 11/05/16 at 16:15 Heparin Sodium (Porcine) 5,000 unit Q8HRS SQ Last administered on 11/08/16 05: 46; Start 11/05/16 at 22:00 Hydralazine HCl (Apresoline) 10 mg PRN Q4HRS PRN IVP ELEVATED BP, SEE COMMENTS ; Start 11/05/16 at 16:15 Albuterol/ Ipratropium (Duoneb) 3 ml RTQID NEB Last administered on 11/08/16 07:14; Start 11/05/16 at 20:00 Albuterol Sulfate 2.5 mg 2.5 mg PRN Q4HRS PRN NEB SHORTNESS OF BREATH; Start at 16:15 Potassium Chloride/Sodium Chloride 1,000 ml @ 75 mls/hr [id number] IV Last administered on 11/07/16 09:00; Start 11/05/16 at 17:00; Stop 11/07/16 at 12:10 ; Status DC Levetiracetam 500 mg/Sodium Chloride 105 ml @ 400 mls/hr HS IV Last administered on 11/07/16 21:00; Start 11/06/16 at 21:00 Potassium Chloride/Dextrose/ Sod Cl (KCl 20 Meq In D5W-1/2 NS) 1,000 ml @ 100 mls/hr 1X ONCE IV Last administered on 11/06/16 17:17; Start 11/06/16 at 13: 00; Stop 11/06/16 at 22:59; Status DC Enoxaparin Sodium (Lovenox Per Pharmacy Prophylaxis Dosing) 1 each PRN DAILY PRN MC SEE COMMENTS; Start 11/06/16 at 13:00; Status UNV Piperacillin Sod/ Tazobactam Sod 1 each 1 each PRN DAILY PRN MC SEE COMMENTS; Start 11/06/16 at 18:15; Stop 11/08/16 at 12:53; Status DC Piperacillin Sod/ Tazobactam Sod 3.375 gm/Sodium Chloride 50 ml @ 100 mls/hr Q6HRS IV Last administered on 11/07/16 11:17; Start 11/06/16 at 19:00; Stop at 14:21; Status DC Amino Acids/ Glycerin/ Electrolytes (Procalamine) 1,000 ml @ 80 mls/hr [id number] IV Last administered on 11/08/16 11:39; Start 11/07/16 at 12:15 Guaifenesin (Robitussin Dm) 10 ml PRN Q6HRS PRN PO COUGH; Start 11/07/16 at 12: 30 Oseltamivir Phosphate 30 mg 30 mg DAILY PO ; Start 11/08/16 at 09:00; Stop 11/10 at 20:59 Piperacillin Sod/ Tazobactam Sod/ Sodium Chloride (Zosyn/Iv Sodium Chloride 0.9 % 50ml) 50 ml @ 100 mls/hr Q6HRS IV Last administered on 11/08/16 11:39; Start 11/07/16 at 18:00 Fentanyl Citrate (Fentanyl 2ml Vial) 25 mcg PRN Q2HR PRN IV PAIN Last administered on 11/07/16 21:03; Start 11/07/16 at 20:00 Diltiazem HCl (Cardizem) 30 mg Q8HRS PO ; Start 11/08/16 at 12:00 Digoxin (Lanoxin) 500 mcg 1X ONCE IV Last administered on 11/08/16 12:28; Start 11/08/16 at 12:15; Stop 11/08/16 at 12:19; Status DC Digoxin (Lanoxin) 125 mcg DAILY PO ; Start 11/09/16 at 09:00 Active Scripts Active Glipizide 5 Mg Tablet 5 Mg PO DAILY Take one-half a tablet daily. Lasix (Furosemide) 40 Mg Tablet 40 Mg PO DAILY Reported Levofloxacin 250 Mg Tablet 250 Mg PO DAILY Amlodipine Besylate 5 Mg Tablet 5 Mg PO DAILY Keppra (Levetiracetam) 500 Mg Tablet 250 Mg PO HS Crestor (Rosuvastatin Calcium) 20 Mg Tablet 20 Mg PO HS Lamictal (Lamotrigine) 100 Mg Tablet 100 Mg PO BID Allergies Allergies: Coded Allergies: neomycin (Verified Allergy, Intermediate, 08/07/16) morphine (Verified Adverse Reaction, Severe, 08/07/16) Pt states that she became severely drowsy with morphine and "woke up in ICU." Doesn't know if she was given too large of dose. Physical Exam General: Alert, Cooperative, No acute distress HEENT: Atraumatic Lungs: Other (diffuse rhonchi with bilateral expiratory wheezes) Heart: Other (Rate in the 60s-70s with normal S1/S2, muffled heart sounds secondary to labored breathing and body habitus. Patient in Afib on telemetry) Extremities: No clubbing, No cyanosis, Other (mild chronic peripheral edema of upper and lower extremity) Neuro: Other (no gross focal deficits) Vitals VITALS Vital Signs Date Time Temp Pulse Resp B/P Pulse Ox O2 Delivery O2 Flow Rate FiO2 11/08/16 12:28 94 113/55 11/08/16 11:00 99.7 22 92 Nasal Cannula 3.0 99.7 Labs Labs Laboratory Tests Test 11/06/16 16:40 11/06/16 20:18 11/07/16 07:40 11/07/16 11:29 Glucose (Fingerstick) 77mg/dL (70-99) 137mg/dL (70-99) 143mg/dL (70-99) 115mg/dL (70-99) Test 11/07/16 16:45 11/07/16 20:24 11/08/16 05:00 Glucose (Fingerstick) 142mg/dL (70-99) 150mg/dL (70-99) Sodium Level 144mmol/L (136-145) Potassium Level 3.8mmol/L (3.5-5.1) Chloride Level 105mmol/L (98-107) Carbon Dioxide Level 38mmol/L (21-32) Anion Gap 1 (6-14) Blood Urea Nitrogen 29mg/dL (7-20) Creatinine 1.7mg/dL (0.6-1.0) Estimated GFR (Cockcroft-Gault) 28.6 Glucose Level 195mg/dL (70-99) Calcium Level 8.6mg/dL (8.5-10.1) Laboratory Tests Test 11/07/16 16:45 11/07/16 20:24 11/08/16 05:00 Glucose (Fingerstick) 142mg/dL (70-99) 150mg/dL (70-99) Sodium Level 144mmol/L (136-145) Potassium Level 3.8mmol/L (3.5-5.1) Chloride Level 105mmol/L (98-107) Carbon Dioxide Level 38mmol/L (21-32) Anion Gap 1 (6-14) Blood Urea Nitrogen 29mg/dL (7-20) Creatinine 1.7mg/dL (0.6-1.0) Estimated GFR (Cockcroft-Gault) 28.6 Glucose Level 195mg/dL (70-99) Calcium Level 8.6mg/dL (8.5-10.1) Assessment/Plan Assessment/Plan Patient is a 86 year old female admitted for AMS and generalized weakness found to be Flu+; subsequently developed aspiration pneumonitis secondary to dysphagia. She has developed a new onset Afib with intermittent RVR. At this point she will be managed medically,agree with starting Cardizem and recommend discontinuing Amlodipine. Will give a single dose of Digoxin IV 0.5 mg now and then 0.125 mg PO daily and continue conservative symptomatic treatment at this time. Thank you for the consult. WINTER WALL MD Nov 08, 2016 13:22
--- NOTE | 2016-11-08 13:34 | PDOC ---
PULMONARY PROGRESS NOTES Subjective PT FEELS BETTER Vitals Vital Signs Date Time Temp Pulse Resp B/P Pulse Ox O2 Delivery O2 Flow Rate FiO2 11/08/16 12:28 94 113/55 11/08/16 11:00 99.7 22 92 Nasal Cannula 3.0 99.7 General: Alert Lungs: Crackles Cardiovascular: S1, S2 Abdomen: Soft, Non-tender Neuro Exam: Alert Extremities: Other Skin: Warm Labs Laboratory Tests Test 11/06/16 16:40 11/06/16 20:18 11/07/16 07:40 11/07/16 11:29 Glucose (Fingerstick) 77mg/dL (70-99) 137mg/dL (70-99) 143mg/dL (70-99) 115mg/dL (70-99) Test 11/07/16 16:45 11/07/16 20:24 11/08/16 05:00 Glucose (Fingerstick) 142mg/dL (70-99) 150mg/dL (70-99) Sodium Level 144mmol/L (136-145) Potassium Level 3.8mmol/L (3.5-5.1) Chloride Level 105mmol/L (98-107) Carbon Dioxide Level 38mmol/L (21-32) Anion Gap 1 (6-14) Blood Urea Nitrogen 29mg/dL (7-20) Creatinine 1.7mg/dL (0.6-1.0) Estimated GFR (Cockcroft-Gault) 28.6 Glucose Level 195mg/dL (70-99) Calcium Level 8.6mg/dL (8.5-10.1) Laboratory Tests Test 11/07/16 16:45 11/07/16 20:24 11/08/16 05:00 Glucose (Fingerstick) 142mg/dL (70-99) 150mg/dL (70-99) Sodium Level 144mmol/L (136-145) Potassium Level 3.8mmol/L (3.5-5.1) Chloride Level 105mmol/L (98-107) Carbon Dioxide Level 38mmol/L (21-32) Anion Gap 1 (6-14) Blood Urea Nitrogen 29mg/dL (7-20) Creatinine 1.7mg/dL (0.6-1.0) Estimated GFR (Cockcroft-Gault) 28.6 Glucose Level 195mg/dL (70-99) Calcium Level 8.6mg/dL (8.5-10.1) Medications Active Scripts Medications Dose Route/Sig Days Date Category Dose Instructions Levofloxacin 250 Mg Tablet 250 Mg PO DAILY 08/11/16 Reported Amlodipine Besylate 5 Mg Tablet 5 Mg PO DAILY 08/11/16 Reported Keppra (Levetiracetam) 500 Mg Tablet 250 Mg PO HS 08/08/16 Reported Glipizide 5 Mg Tablet 5 Mg PO DAILY 12/22/13 Rx Take one-half a tablet daily. Lasix (Furosemide) 40 Mg Tablet 40 Mg PO DAILY 12/22/13 Rx Crestor (Rosuvastatin Calcium) 20 Mg Tablet 20 Mg PO HS 10/24/13 Reported Lamictal (Lamotrigine) 100 Mg Tablet 100 Mg PO BID 10/24/13 Reported Impression . 1. [id number]-[id number] respiratory failure. 2. Aspiration pneumonia. 3. Dysphagia. 4. Coronary artery disease. 5. Hypertension. 6. Depression. 7. acute renal failure. 8. Hyperkalemia. 9. Acute metabolic toxic encephalopathy. Plan . 1. The patient has been seen by the speech therapist, on dysphagia diet 2. Continue oxygen supplementation. 3. We will add Zosyn. 4. Nebulized treatments. 5. Continue home medications. SUPA KURTZ MD Nov 08, 2016 13:34
[2016-11-08 14:58] VITALS: BP 139/63
[2016-11-08 19:00] VITALS: BP 138/70
[2016-11-08] MEDS: LEVETIRACETAM 500 MG in IV NORMAL SALINE 100ML 100 ML IV SCH (21:00)
[2016-11-08] MEDS: ATORVASTATIN CALCIUM 40 MG TABLET. PO SCH (21:21)
[2016-11-08 23:00] VITALS: BP 132/65
[2016-11-09 04:48] LABS: CALCIUM 8.8 mg/dL (8.5-10.1); CREATININE 1.6 mg/dL (0.6-1.0); GFR 30.7; POTASSIUM 3.9 mmol/L (3.5-5.1)
[2016-11-09] MEDS: PIPERACILLIN/TAZOBACTAM 2.25 GM in IV NORMAL SALINE 50ML 50 ML IV SCH ×3 (05:29→17:25)
[2016-11-09] MEDS: DILTIAZEM HCL 30 MG TABLET PO SCH (06:00)
[2016-11-09] MEDS: HEPARIN PF for SUB-Q USE 5,000 UNIT/0.5 ML VIAL. SQ SCH ×3 (06:00→21:34)
[2016-11-09 07:00] VITALS: BP 159/63
[2016-11-09] MEDS: IPRATRPIUM/ALBUTEROL 0.5/2.5MG 3 ML NEBU. NEB SCH ×3 (07:28→15:22)
[2016-11-09] MEDS: lamoTRIgine 100 MG TABLET. PO SCH ×2 (08:37→21:29)
[2016-11-09] MEDS: OSELTAMIVIR 30 MG CAPSULE PO SCH (08:37)
[2016-11-09] MEDS: GLIPIZIDE 5 MG TABLET PO SCH (08:37)
[2016-11-09] MEDS: DIGOXIN 125 MCG TABLET PO SCH (08:37)
[2016-11-09] MEDS: INSULIN ASPART 300 UNITS/3 ML INSULN.PEN SQ SCH ×3 (08:47→17:00)
--- NOTE | 2016-11-09 08:51 | PDOC ---
PULMONARY PROGRESS NOTES Subjective is tired, has sob, cough, no pain Vitals Vital Signs Date Time Temp Pulse Resp B/P Pulse Ox O2 Delivery O2 Flow Rate FiO2 11/09/16 08:37 79 132/65 11/09/16 07:30 95 Nasal Cannula 3.0 11/09/16 07:00 98.2 24 98.2 Comments ros as mentioned as above other sys otherwise neg ROS: No Nausea General: Alert, No acute distress HEENT: Other (nc at perrl throat is clear) Lungs: Wheezing, Crackles Cardiovascular: S1, S2 Abdomen: Soft, Non-tender Neuro Exam: Alert Extremities: Other Skin: Warm Labs Laboratory Tests Test 11/07/16 11:29 11/07/16 16:45 11/07/16 20:24 11/08/16 05:00 Glucose (Fingerstick) 115mg/dL (70-99) 142mg/dL (70-99) 150mg/dL (70-99) Sodium Level 144mmol/L (136-145) Potassium Level 3.8mmol/L (3.5-5.1) Chloride Level 105mmol/L (98-107) Carbon Dioxide Level 38mmol/L (21-32) Anion Gap 1 (6-14) Blood Urea Nitrogen 29mg/dL (7-20) Creatinine 1.7mg/dL (0.6-1.0) Estimated GFR (Cockcroft-Gault) 28.6 Glucose Level 195mg/dL (70-99) Calcium Level 8.6mg/dL (8.5-10.1) Test 11/08/16 08:15 11/08/16 11:00 11/08/16 16:37 11/08/16 21:23 Glucose (Fingerstick) 168mg/dL (70-99) 145mg/dL (70-99) 204mg/dL (70-99) 248mg/dL (70-99) Test 11/09/16 03:50 11/09/16 07:02 Sodium Level 147mmol/L (136-145) Potassium Level 3.9mmol/L (3.5-5.1) Chloride Level 105mmol/L (98-107) Carbon Dioxide Level 35mmol/L (21-32) Anion Gap 7 (6-14) Blood Urea Nitrogen 31mg/dL (7-20) Creatinine 1.6mg/dL (0.6-1.0) Estimated GFR (Cockcroft-Gault) 30.7 Glucose Level 233mg/dL (70-99) Calcium Level 8.8mg/dL (8.5-10.1) Glucose (Fingerstick) 187mg/dL (70-99) Laboratory Tests Test 11/08/16 11:00 11/08/16 16:37 11/08/16 21:23 11/09/16 03:50 Glucose (Fingerstick) 145mg/dL (70-99) 204mg/dL (70-99) 248mg/dL (70-99) Sodium Level 147mmol/L (136-145) Potassium Level 3.9mmol/L (3.5-5.1) Chloride Level 105mmol/L (98-107) Carbon Dioxide Level 35mmol/L (21-32) Anion Gap 7 (6-14) Blood Urea Nitrogen 31mg/dL (7-20) Creatinine 1.6mg/dL (0.6-1.0) Estimated GFR (Cockcroft-Gault) 30.7 Glucose Level 233mg/dL (70-99) Calcium Level 8.8mg/dL (8.5-10.1) Test 11/09/16 07:02 Glucose (Fingerstick) 187mg/dL (70-99) Medications Active Scripts Medications Dose Route/Sig Days Date Category Dose Instructions Levofloxacin 250 Mg Tablet 250 Mg PO DAILY 08/11/16 Reported Amlodipine Besylate 5 Mg Tablet 5 Mg PO DAILY 08/11/16 Reported Keppra (Levetiracetam) 500 Mg Tablet 250 Mg PO HS 08/08/16 Reported Glipizide 5 Mg Tablet 5 Mg PO DAILY 12/22/13 Rx Take one-half a tablet daily. Lasix (Furosemide) 40 Mg Tablet 40 Mg PO DAILY 12/22/13 Rx Crestor (Rosuvastatin Calcium) 20 Mg Tablet 20 Mg PO HS 10/24/13 Reported Lamictal (Lamotrigine) 100 Mg Tablet 100 Mg PO BID 10/24/13 Reported Comments cxr reviewed, Cardiomegaly, similar. Mild congestive heart failure. Superimposed pneumonia in the right upper lobe is not entirely excluded. Small bilateral pleural effusions Impression . 1. [id number] respiratory failure. 2. Aspiration pneumonia. 3. Dysphagia. 4. Coronary artery disease. 5. Hypertension. 6. Depression. 7. Acute renal failure. 8. Hyperkalemia. 9. Acute metabolic toxic encephalopathy. 10. wheezing Plan . 1. The patient has been seen by the speech therapist, n.p.o., further evaluation pending. does not want PEG 2. Continue oxygen supplementation. 3. Zosyn. 4. Nebulized treatments. 5. Continue home medications. 6. add pulmicort discussed w pt and LUIS Peguero MD Nov 09, 2016 08:51
[2016-11-09] MEDS: BUDESONIDE 0.5 MG/2 ML NEBU NEB SCH (09:00)
[2016-11-09] MEDS: AA 3%/ELECTROLYTE-TPN SOLN/GLY 1,000 ML IV SCH ×2 (10:50→23:02)
[2016-11-09 11:00] VITALS: BP 142/79
--- NOTE | 2016-11-09 11:48 | RAD ---
Indication shortness of breath and wheezing. A single view of the chest was obtained. Comparison is made to a study 3 days earlier. There is unchanged cardiomegaly. There are now pulmonary infiltrates suggesting congestive heart failure. There is a possible patchy infiltrate in the right upper lobe. Superimposed pneumonia is not entirely excluded. There may be small pleural effusions. IMPRESSION: Cardiomegaly, similar. Mild congestive heart failure. Superimposed pneumonia in the right upper lobe is not entirely excluded. Small bilateral pleural effusions
[2016-11-09] MEDS: DILTIAZEM HCL 120 MG CAP.ER.24H PO SCH (12:15)
--- NOTE | 2016-11-09 12:53 | PDOC ---
PROGRESS NOTES Chief Complaint Chief Complaint 1. acute on chronic resp failure, home o2 2L 2. flu + 3. seizure disorder 4. htn 5. dm2 6. copd 7. h/o CHF 8. hld 9. hypokalemia 10 sheyla on ckd3 11. AMS, metabolic encephalopathy with flu,SHEYLA, VS. post ictal 12. Sepsis 13. Dysphagia 14, New onset atrial fib, intermittent RVR 15. ASPIRATION PNEUMONITIS History of Present Illness History of Present Illness CAlm, now CRackles on auscultation Afib yesterday RVR new - dw cards Seemed to have tolerated my PO cardizem 80 TID On dysphagia 1 per [facility]- dw [facility] PLAn: Recheck interval CXR today Scopolamine patch Roxanol and intensol - hospice packet - family open to hospice if no improvement over the weekend - which is highly likely Change pO cardizem to long acting 120 ER today Will stay here over the weekend Vitals Vitals Vital Signs Date Time Temp Pulse Resp B/P Pulse Ox O2 Delivery O2 Flow Rate FiO2 11/09/16 12:15 86 142/79 11/09/16 11:20 97 Nasal Cannula 3.0 11/09/16 11:00 98.2 20 98.2 Physical Exam General: Alert, Cooperative, No acute distress Heart: Other (Rate in the 60s-70s with normal S1/S2, muffled heart sounds secondary to labored breathing and body habitus. Patient in Afib on telemetry) Lungs: Wheezing, Crackles Abdomen: Normal bowel sounds, Soft, No tenderness Extremities: No clubbing, No cyanosis, Other (mild chronic peripheral edema of upper and lower extremity) Skin: No rashes Labs LABS Laboratory Tests Test 11/08/16 16:37 11/08/16 21:23 11/09/16 03:50 11/09/16 07:02 Glucose (Fingerstick) 204mg/dL (70-99) 248mg/dL (70-99) 187mg/dL (70-99) Sodium Level 147mmol/L (136-145) Potassium Level 3.9mmol/L (3.5-5.1) Chloride Level 105mmol/L (98-107) Carbon Dioxide Level 35mmol/L (21-32) Anion Gap 7 (6-14) Blood Urea Nitrogen 31mg/dL (7-20) Creatinine 1.6mg/dL (0.6-1.0) Estimated GFR (Cockcroft-Gault) 30.7 Glucose Level 233mg/dL (70-99) Calcium Level 8.8mg/dL (8.5-10.1) Test 11/09/16 11:23 Glucose (Fingerstick) 182mg/dL (70-99) Review of Systems Review of Systems cant be obtained in respi distress Assessment and Plan Assessmemt and Plan Problems Medical Problems: (1) Aspiration pneumonia Status: Acute (2) Aspiration pneumonia Status: Acute (3) Hypoxia Status: Acute (4) Influenza Status: Acute (5) Influenza Status: Acute Problems: Comment Review of Relevant I have reviewed the following items lucy (where applicable) has been applied. Labs Laboratory Tests Test 11/07/16 16:45 11/07/16 20:24 11/08/16 05:00 11/08/16 08:15 Glucose (Fingerstick) 142mg/dL (70-99) 150mg/dL (70-99) 168mg/dL (70-99) Sodium Level 144mmol/L (136-145) Potassium Level 3.8mmol/L (3.5-5.1) Chloride Level 105mmol/L (98-107) Carbon Dioxide Level 38mmol/L (21-32) Anion Gap 1 (6-14) Blood Urea Nitrogen 29mg/dL (7-20) Creatinine 1.7mg/dL (0.6-1.0) Estimated GFR (Cockcroft-Gault) 28.6 Glucose Level 195mg/dL (70-99) Calcium Level 8.6mg/dL (8.5-10.1) Test 11/08/16 11:00 11/08/16 16:37 11/08/16 21:23 11/09/16 03:50 Glucose (Fingerstick) 145mg/dL (70-99) 204mg/dL (70-99) 248mg/dL (70-99) Sodium Level 147mmol/L (136-145) Potassium Level 3.9mmol/L (3.5-5.1) Chloride Level 105mmol/L (98-107) Carbon Dioxide Level 35mmol/L (21-32) Anion Gap 7 (6-14) Blood Urea Nitrogen 31mg/dL (7-20) Creatinine 1.6mg/dL (0.6-1.0) Estimated GFR (Cockcroft-Gault) 30.7 Glucose Level 233mg/dL (70-99) Calcium Level 8.8mg/dL (8.5-10.1) Test 11/09/16 07:02 11/09/16 11:23 Glucose (Fingerstick) 187mg/dL (70-99) 182mg/dL (70-99) Laboratory Tests Test 11/08/16 16:37 11/08/16 21:23 11/09/16 03:50 11/09/16 07:02 Glucose (Fingerstick) 204mg/dL (70-99) 248mg/dL (70-99) 187mg/dL (70-99) Sodium Level 147mmol/L (136-145) Potassium Level 3.9mmol/L (3.5-5.1) Chloride Level 105mmol/L (98-107) Carbon Dioxide Level 35mmol/L (21-32) Anion Gap 7 (6-14) Blood Urea Nitrogen 31mg/dL (7-20) Creatinine 1.6mg/dL (0.6-1.0) Estimated GFR (Cockcroft-Gault) 30.7 Glucose Level 233mg/dL (70-99) Calcium Level 8.8mg/dL (8.5-10.1) Test 11/09/16 11:23 Glucose (Fingerstick) 182mg/dL (70-99) Microbiology 11/05/16 Blood Culture - Preliminary, Resulted NO GROWTH AFTER 4 DAYS Medications Current Medications Sodium Chloride (Iv Sodium Chloride 0.9% 1000ml Bag) 1,000 ml @ 200 mls/hr Q5H IV Last administered on 11/05/16 12:25; Start 11/05/16 at 11:35; Stop at 16:34; Status DC Oseltamivir Phosphate 75 mg 75 mg DAILY PO Last administered on 11/05/16 12:24 ; Start 11/05/16 at 12:30; Stop 11/05/16 at 12:30; Status DC Piperacillin Sod/ Tazobactam Sod/ Sodium Chloride (Zosyn/Iv Sodium Chloride 0.9 % 50ml) 50 ml @ 100 mls/hr 1X ONCE IV Last administered on 11/05/16 12:39; Start 11/05/16 at 12:45; Stop 11/05/16 at 13:14; Status DC Oseltamivir Phosphate (Tamiflu) 30 mg BID PO Last administered on 11/06/16 09: 27; Start 11/05/16 at 21:00; Stop 11/07/16 at 14:19; Status DC Potassium Chloride (KCl Oral Soln) 40 meq 1X ONCE PO Last administered on 11/05 13:49; Start 11/05/16 at 13:15; Stop 11/05/16 at 13:16; Status DC Amlodipine Besylate (Norvasc) 5 mg DAILY PO Last administered on 11/06/16 09: 28; Start 11/06/16 at 09:00; Stop 11/08/16 at 12:18; Status DC Glipizide (Glucotrol) 5 mg DAILY PO Last administered on 11/09/16 08:37; Start 11/06/16 at 09:00 Lamotrigine (LaMICtal) 100 mg BID PO Last administered on 11/09/16 08:37; Start 11/05/16 at 21:00 Levetiracetam (Keppra) 250 mg HS PO Last administered on 11/05/16 20:19; Start 11/05/16 at 21:00; Stop 11/06/16 at 12:12; Status DC Atorvastatin Calcium (Lipitor) 80 mg QHS PO Last administered on 11/08/16 21: 21; Start 11/05/16 at 21:00 Acetaminophen (Tylenol) 650 mg PRN Q6HRS PRN PO MILD PAIN / TEMP; Start at 16:15 Ondansetron HCl 4 mg 4 mg PRN Q6HRS PRN IV NAUSEA/VOMITING; Start 11/05/16 at 16:15 Potassium Chloride/Dextrose/ Sod Cl (KCl 20 Meq In D5W-NS) 1,000 ml @ 75 mls/ hr [id number] IV ; Start 11/05/16 at 16:15; Stop 11/05/16 at 16:15; Status DC Insulin Aspart (Novolog) 0-9 UNITS TIDWMEALS SQ Last administered on 11/09/16 12:21; Start 11/05/16 at 17:00 Dextrose 12.5 gm PRN Q15MIN PRN IV SEE COMMENTS; Start 11/05/16 at 16:15 Heparin Sodium (Porcine) 5,000 unit Q8HRS SQ Last administered on 11/09/16 06: 00; Start 11/05/16 at 22:00 Hydralazine HCl (Apresoline) 10 mg PRN Q4HRS PRN IVP ELEVATED BP, SEE COMMENTS ; Start 11/05/16 at 16:15 Albuterol/ Ipratropium (Duoneb) 3 ml RTQID NEB Last administered on 11/09/16 11:17; Start 11/05/16 at 20:00 Albuterol Sulfate 2.5 mg 2.5 mg PRN Q4HRS PRN NEB SHORTNESS OF BREATH; Start at 16:15 Potassium Chloride/Sodium Chloride 1,000 ml @ 75 mls/hr [id number] IV Last administered on 11/07/16 09:00; Start 11/05/16 at 17:00; Stop 11/07/16 at 12:10 ; Status DC Levetiracetam 500 mg/Sodium Chloride 105 ml @ 400 mls/hr HS IV Last administered on 11/08/16 21:00; Start 11/06/16 at 21:00 Potassium Chloride/Dextrose/ Sod Cl (KCl 20 Meq In D5W-1/2 NS) 1,000 ml @ 100 mls/hr 1X ONCE IV Last administered on 11/06/16 17:17; Start 11/06/16 at 13: 00; Stop 11/06/16 at 22:59; Status DC Enoxaparin Sodium (Lovenox Per Pharmacy Prophylaxis Dosing) 1 each PRN DAILY PRN MC SEE COMMENTS; Start 11/06/16 at 13:00; Status UNV Piperacillin Sod/ Tazobactam Sod 1 each 1 each PRN DAILY PRN MC SEE COMMENTS; Start 11/06/16 at 18:15; Stop 11/08/16 at 12:53; Status DC Piperacillin Sod/ Tazobactam Sod 3.375 gm/Sodium Chloride 50 ml @ 100 mls/hr Q6HRS IV Last administered on 11/07/16 11:17; Start 11/06/16 at 19:00; Stop at 14:21; Status DC Amino Acids/ Glycerin/ Electrolytes (Procalamine) 1,000 ml @ 80 mls/hr [id number] IV Last administered on 11/09/16 10:50; Start 11/07/16 at 12:15 Guaifenesin (Robitussin Dm) 10 ml PRN Q6HRS PRN PO COUGH; Start 11/07/16 at 12: 30 Oseltamivir Phosphate 30 mg 30 mg DAILY PO Last administered on 11/09/16 08:37 ; Start 11/08/16 at 09:00; Stop 11/10/16 at 20:59 Piperacillin Sod/ Tazobactam Sod/ Sodium Chloride (Zosyn/Iv Sodium Chloride 0.9 % 50ml) 50 ml @ 100 mls/hr Q6HRS IV Last administered on 11/09/16 12:09; Start 11/07/16 at 18:00 Fentanyl Citrate (Fentanyl 2ml Vial) 25 mcg PRN Q2HR PRN IV PAIN Last administered on 11/07/16 21:03; Start 11/07/16 at 20:00 Diltiazem HCl (Cardizem) 30 mg Q8HRS PO Last administered on 11/08/16 21:21; Start 11/08/16 at 12:00; Stop 11/09/16 at 10:39; Status DC Digoxin (Lanoxin) 500 mcg 1X ONCE IV Last administered on 11/08/16 12:28; Start 11/08/16 at 12:15; Stop 11/08/16 at 12:19; Status DC Digoxin (Lanoxin) 125 mcg DAILY PO Last administered on 11/09/16 08:37; Start 11/09/16 at 09:00 Budesonide (Pulmicort) 0.5 mg RTBID NEB ; Start 11/09/16 at 09:00 Diltiazem HCl (Cardizem 24hr Cd) 120 mg DAILY PO Last administered on 12:15; Start 11/09/16 at 11:00 Active Scripts Active Glipizide 5 Mg Tablet 5 Mg PO DAILY Take one-half a tablet daily. Lasix (Furosemide) 40 Mg Tablet 40 Mg PO DAILY Reported Levofloxacin 250 Mg Tablet 250 Mg PO DAILY Amlodipine Besylate 5 Mg Tablet 5 Mg PO DAILY Keppra (Levetiracetam) 500 Mg Tablet 250 Mg PO HS Crestor (Rosuvastatin Calcium) 20 Mg Tablet 20 Mg PO HS Lamictal (Lamotrigine) 100 Mg Tablet 100 Mg PO BID Vitals/I & O Vital Sign - Last 24 Hours 11/08/16 11/08/16 11/08/16 11/08/16 14:55 14:58 19:00 20:00 Temp 100.4 97.8 100.4 97.8 Pulse 94 79 Resp 22 24 B/P 139/63 138/70 Pulse Ox 96 91 O2 Delivery Nasal Cannula Nasal Cannula Nasal Cannula O2 Flow Rate 3.0 3.0 3.0 11/08/16 11/08/16 11/08/16 11/09/16 20:36 21:21 23:00 06:00 Temp 97.8 97.8 Pulse 79 79 79 Resp 24 B/P 138/70 132/65 132/65 Pulse Ox 93 O2 Delivery Nasal Cannula O2 Flow Rate 3.0 11/09/16 11/09/16 11/09/16 11/09/16 07:00 07:30 08:37 10:28 Temp 98.2 98.2 Pulse 68 79 Resp 24 B/P 159/63 132/65 Pulse Ox 96 95 O2 Delivery Nasal Cannula Nasal Cannula Nasal Cannula O2 Flow Rate 2.0 3.0 3.0 11/09/16 11/09/16 11/09/16 11:00 11:20 12:15 Temp 98.2 98.2 Pulse 86 86 Resp 20 B/P 142/79 142/79 Pulse Ox 98 97 O2 Delivery Room Air Nasal Cannula O2 Flow Rate 3.0 Intake and Output 11/08/16 11/08/16 11/09/16 15:00 23:00 07:00 Intake Total 220 ml 1360 ml Balance 220 ml 1360 ml BALJEET RAMOS MD Nov 09, 2016 12:53
[2016-11-09 15:00] VITALS: BP 150/88
--- NOTE | 2016-11-09 15:31 | PDOC ---
SUBJECTIVE ROS SHEYLA/ CKD III doign and feeling well overall too drowsy to answer ROS Qs OBJECTIVE Vital Signs Vital Signs Date Time Temp Pulse Resp B/P Pulse Ox O2 Delivery O2 Flow Rate FiO2 11/09/16 12:15 86 142/79 11/09/16 11:20 97 Nasal Cannula 3.0 11/09/16 11:00 98.2 20 98.2 I & 0 Intake and Output 11/09/16 07:00 Intake Total 1580 ml Balance 1580 ml Intake Oral 320 ml Other 1260 ml # Voids 1 PHYSICAL EXAM Physical Exam GEN: Awake, Oriented x ?1 , In no distress; getting NEBS EYES: Vision Unchanged, Conjunctiva Normal EN: No EN Drainage, Mucous Membranes drysih NECK: no JVD, no JVP, Supple, no Thyromegaly; double chin and thickish neck CVS: S1S2, no Murmur, No Gallop, No Rub,tr Edema RESP: no Rales, no Rhonchi,no Acc. Muscle Use GI: BS + ve, NO Bruit, Non Tender, Non Distended - obese : no CVA tenderness, no Suprapubic Tenderness DIAGNOSIS/ASSESSMENT Assessment & Plan SHEYLA - resolved CKD III with abseline creat of 1.4-1.7ish: Current fluid and E-lyte status does not necessitate emergent need for dialysis. Will re-evaluate for dialysis in the am . ^Na - PPN for now ^ed FSBS - defer to Primary team No UO recorded due to lack of [place] Problems: COMMENT/RELEVANT DATA Meds Current Medications Medications (Trade) Dose Ordered Sig/Malcom Start Time Stop Time Status Last Admin Dose Admin Acetaminophen (Tylenol) 650 mg PRN Q6HRS PRN 11/05/16 16:15 Albuterol Sulfate 2.5 mg 2.5 mg PRN Q4HRS PRN 11/05/16 16:15 Albuterol/ Ipratropium (Duoneb) 3 ml RTQID 11/05/16 20:00 11/09/16 15:22 3 ML Amino Acids/ Glycerin/ Electrolytes (Procalamine) 1,000 ml @ 80 mls/hr [id number] 11/07/16 12:15 11/09/16 10:50 80 MLS/HR Amlodipine Besylate (Norvasc) 5 mg DAILY 11/06/16 09:00 11/08/16 12:18 DC 11/06/16 09:28 5 MG Atorvastatin Calcium (Lipitor) 80 mg QHS 11/05/16 21:00 11/08/16 21:21 80 MG Budesonide (Pulmicort) 0.5 mg RTBID 11/09/16 09:00 Dextrose 12.5 gm PRN Q15MIN PRN 11/05/16 16:15 Digoxin (Lanoxin) 125 mcg DAILY 11/09/16 09:00 11/09/16 08:37 125 MCG Diltiazem HCl (Cardizem 24hr Cd) 120 mg DAILY 11/09/16 11:00 11/09/16 12:15 120 MG Diltiazem HCl (Cardizem) 30 mg Q8HRS 11/08/16 12:00 11/09/16 10:39 DC 11/08/16 21:21 30 MG Enoxaparin Sodium (Lovenox Per Pharmacy Prophylaxis Dosing) 1 each PRN DAILY PRN 11/06/16 13:00 UNV Fentanyl Citrate (Fentanyl 2ml Vial) 25 mcg PRN Q2HR PRN 11/07/16 20:00 11/07/16 21:03 25 MCG Glipizide (Glucotrol) 5 mg DAILY 11/06/16 09:00 11/09/16 08:37 5 MG Guaifenesin (Robitussin Dm) 10 ml PRN Q6HRS PRN 11/07/16 12:30 Heparin Sodium (Porcine) 5,000 unit Q8HRS 11/05/16 22:00 11/09/16 14:20 5,000 UNIT Hydralazine HCl (Apresoline) 10 mg PRN Q4HRS PRN 11/05/16 16:15 Insulin Aspart (Novolog) 0-9 UNITS TIDWMEALS 11/05/16 17:00 11/09/16 12:21 4 UNITS Lamotrigine (LaMICtal) 100 mg BID 11/05/16 21:00 11/09/16 08:37 100 MG Levetiracetam (Keppra) 250 mg HS 11/05/16 21:00 11/06/16 12:12 DC 11/05/16 20:19 250 MG Levetiracetam 500 mg/Sodium Chloride 105 ml @ 400 mls/hr HS 11/06/16 21:00 11/08/16 21:00 400 MLS/HR Ondansetron HCl 4 mg 4 mg PRN Q6HRS PRN 11/05/16 16:15 Oseltamivir Phosphate (Tamiflu) 30 mg BID 11/05/16 21:00 11/07/16 14:19 DC 11/06/16 09:27 30 MG Oseltamivir Phosphate 30 mg 30 mg DAILY 11/08/16 09:00 11/10/16 20:59 11/09/16 08:37 30 MG Piperacillin Sod/ Tazobactam Sod 3.375 gm/Sodium Chloride 50 ml @ 100 mls/hr Q6HRS 11/06/16 19:00 11/07/16 14:21 DC 11/07/16 11:17 100 MLS/HR Piperacillin Sod/ Tazobactam Sod 1 each 1 each PRN DAILY PRN 11/06/16 18:15 11/08/16 12:53 DC Piperacillin Sod/ Tazobactam Sod/ Sodium Chloride (Zosyn/Iv Sodium Chloride 0.9% 50ml) 50 ml @ 100 mls/hr Q6HRS 11/07/16 18:00 11/09/16 12:09 100 MLS/HR Potassium Chloride/Dextrose/ Sod Cl (KCl 20 Meq In D5W-1/2 NS) 1,000 ml @ 100 mls/hr 1X ONCE 11/06/16 13:00 11/06/16 22:59 DC 11/06/16 17:17 100 MLS/HR Potassium Chloride/Dextrose/ Sod Cl (KCl 20 Meq In D5W-NS) 1,000 ml @ 75 mls/hr [id number] 11/05/16 16:15 11/05/16 16:15 DC Potassium Chloride/Sodium Chloride 1,000 ml @ 75 mls/hr [id number] 11/05/16 17:00 11/07/16 12:10 DC 11/07/16 09:00 75 MLS/HR Potassium Chloride (KCl Oral Soln) 40 meq 1X ONCE 11/05/16 13:15 11/05/16 13:16 DC 11/05/16 13:49 40 MEQ Sodium Chloride (Iv Sodium Chloride 0.9% 1000ml Bag) 1,000 ml @ 200 mls/hr Q5H 11/05/16 11:35 11/05/16 16:34 DC 11/05/16 12:25 200 MLS/HR Lab Laboratory Tests Test 11/08/16 16:37 11/08/16 21:23 11/09/16 03:50 11/09/16 07:02 Glucose (Fingerstick) 204mg/dL (70-99) 248mg/dL (70-99) 187mg/dL (70-99) Sodium Level 147mmol/L (136-145) Potassium Level 3.9mmol/L (3.5-5.1) Chloride Level 105mmol/L (98-107) Carbon Dioxide Level 35mmol/L (21-32) Anion Gap 7 (6-14) Blood Urea Nitrogen 31mg/dL (7-20) Creatinine 1.6mg/dL (0.6-1.0) Estimated GFR (Cockcroft-Gault) 30.7 Glucose Level 233mg/dL (70-99) Calcium Level 8.8mg/dL (8.5-10.1) Test 11/09/16 11:23 Glucose (Fingerstick) 182mg/dL (70-99) ORALIA TAVERA MD Nov 09, 2016 15:31
--- NOTE | 2016-11-09 15:42 | PDOC ---
PROGRESS NOTES Subjective Subjective Pt is being discharged home with conservative treatment Objective Objective Vital Signs Date Time Temp Pulse Resp B/P Pulse Ox O2 Delivery O2 Flow Rate FiO2 11/09/16 12:15 86 142/79 11/09/16 11:20 97 Nasal Cannula 3.0 11/09/16 11:00 98.2 20 98.2 Intake and Output 11/09/16 07:00 Intake Total 1580 ml Balance 1580 ml Intake Oral 320 ml Other 1260 ml # Voids 1 Assessment Assessment I agree with present plan Will sign off Thank you. Problems Medical Problems: (1) Aspiration pneumonia Status: Acute (2) Aspiration pneumonia Status: Acute (3) Hypoxia Status: Acute (4) Influenza Status: Acute (5) Influenza Status: Acute Comment Review of Relevant I have reviewed the following items lucy (where applicable) has been applied. Labs Laboratory Tests Test 11/07/16 16:45 11/07/16 20:24 11/08/16 05:00 11/08/16 08:15 Glucose (Fingerstick) 142mg/dL (70-99) 150mg/dL (70-99) 168mg/dL (70-99) Sodium Level 144mmol/L (136-145) Potassium Level 3.8mmol/L (3.5-5.1) Chloride Level 105mmol/L (98-107) Carbon Dioxide Level 38mmol/L (21-32) Anion Gap 1 (6-14) Blood Urea Nitrogen 29mg/dL (7-20) Creatinine 1.7mg/dL (0.6-1.0) Estimated GFR (Cockcroft-Gault) 28.6 Glucose Level 195mg/dL (70-99) Calcium Level 8.6mg/dL (8.5-10.1) Test 11/08/16 11:00 11/08/16 16:37 11/08/16 21:23 11/09/16 03:50 Glucose (Fingerstick) 145mg/dL (70-99) 204mg/dL (70-99) 248mg/dL (70-99) Sodium Level 147mmol/L (136-145) Potassium Level 3.9mmol/L (3.5-5.1) Chloride Level 105mmol/L (98-107) Carbon Dioxide Level 35mmol/L (21-32) Anion Gap 7 (6-14) Blood Urea Nitrogen 31mg/dL (7-20) Creatinine 1.6mg/dL (0.6-1.0) Estimated GFR (Cockcroft-Gault) 30.7 Glucose Level 233mg/dL (70-99) Calcium Level 8.8mg/dL (8.5-10.1) Test 11/09/16 07:02 11/09/16 11:23 Glucose (Fingerstick) 187mg/dL (70-99) 182mg/dL (70-99) Laboratory Tests Test 11/08/16 16:37 11/08/16 21:23 11/09/16 03:50 11/09/16 07:02 Glucose (Fingerstick) 204mg/dL (70-99) 248mg/dL (70-99) 187mg/dL (70-99) Sodium Level 147mmol/L (136-145) Potassium Level 3.9mmol/L (3.5-5.1) Chloride Level 105mmol/L (98-107) Carbon Dioxide Level 35mmol/L (21-32) Anion Gap 7 (6-14) Blood Urea Nitrogen 31mg/dL (7-20) Creatinine 1.6mg/dL (0.6-1.0) Estimated GFR (Cockcroft-Gault) 30.7 Glucose Level 233mg/dL (70-99) Calcium Level 8.8mg/dL (8.5-10.1) Test 11/09/16 11:23 Glucose (Fingerstick) 182mg/dL (70-99) Microbiology 11/05/16 Blood Culture - Preliminary, Resulted NO GROWTH AFTER 4 DAYS Medications Current Medications Sodium Chloride (Iv Sodium Chloride 0.9% 1000ml Bag) 1,000 ml @ 200 mls/hr Q5H IV Last administered on 11/05/16 12:25; Start 11/05/16 at 11:35; Stop at 16:34; Status DC Oseltamivir Phosphate 75 mg 75 mg DAILY PO Last administered on 11/05/16 12:24 ; Start 11/05/16 at 12:30; Stop 11/05/16 at 12:30; Status DC Piperacillin Sod/ Tazobactam Sod/ Sodium Chloride (Zosyn/Iv Sodium Chloride 0.9 % 50ml) 50 ml @ 100 mls/hr 1X ONCE IV Last administered on 11/05/16 12:39; Start 11/05/16 at 12:45; Stop 11/05/16 at 13:14; Status DC Oseltamivir Phosphate (Tamiflu) 30 mg BID PO Last administered on 11/06/16 09: 27; Start 11/05/16 at 21:00; Stop 11/07/16 at 14:19; Status DC Potassium Chloride (KCl Oral Soln) 40 meq 1X ONCE PO Last administered on 11/05 13:49; Start 11/05/16 at 13:15; Stop 11/05/16 at 13:16; Status DC Amlodipine Besylate (Norvasc) 5 mg DAILY PO Last administered on 11/06/16 09: 28; Start 11/06/16 at 09:00; Stop 11/08/16 at 12:18; Status DC Glipizide (Glucotrol) 5 mg DAILY PO Last administered on 11/09/16 08:37; Start 11/06/16 at 09:00 Lamotrigine (LaMICtal) 100 mg BID PO Last administered on 11/09/16 08:37; Start 11/05/16 at 21:00 Levetiracetam (Keppra) 250 mg HS PO Last administered on 11/05/16 20:19; Start 11/05/16 at 21:00; Stop 11/06/16 at 12:12; Status DC Atorvastatin Calcium (Lipitor) 80 mg QHS PO Last administered on 11/08/16 21: 21; Start 11/05/16 at 21:00 Acetaminophen (Tylenol) 650 mg PRN Q6HRS PRN PO MILD PAIN / TEMP; Start at 16:15 Ondansetron HCl 4 mg 4 mg PRN Q6HRS PRN IV NAUSEA/VOMITING; Start 11/05/16 at 16:15 Potassium Chloride/Dextrose/ Sod Cl (KCl 20 Meq In D5W-NS) 1,000 ml @ 75 mls/ hr [id number] IV ; Start 11/05/16 at 16:15; Stop 11/05/16 at 16:15; Status DC Insulin Aspart (Novolog) 0-9 UNITS TIDWMEALS SQ Last administered on 11/09/16 12:21; Start 11/05/16 at 17:00 Dextrose 12.5 gm PRN Q15MIN PRN IV SEE COMMENTS; Start 11/05/16 at 16:15 Heparin Sodium (Porcine) 5,000 unit Q8HRS SQ Last administered on 11/09/16 14: 20; Start 11/05/16 at 22:00 Hydralazine HCl (Apresoline) 10 mg PRN Q4HRS PRN IVP ELEVATED BP, SEE COMMENTS ; Start 11/05/16 at 16:15 Albuterol/ Ipratropium (Duoneb) 3 ml RTQID NEB Last administered on 11/09/16 15:22; Start 11/05/16 at 20:00 Albuterol Sulfate 2.5 mg 2.5 mg PRN Q4HRS PRN NEB SHORTNESS OF BREATH; Start at 16:15 Potassium Chloride/Sodium Chloride 1,000 ml @ 75 mls/hr [id number] IV Last administered on 11/07/16 09:00; Start 11/05/16 at 17:00; Stop 11/07/16 at 12:10 ; Status DC Levetiracetam 500 mg/Sodium Chloride 105 ml @ 400 mls/hr HS IV Last administered on 11/08/16 21:00; Start 11/06/16 at 21:00 Potassium Chloride/Dextrose/ Sod Cl (KCl 20 Meq In D5W-1/2 NS) 1,000 ml @ 100 mls/hr 1X ONCE IV Last administered on 11/06/16 17:17; Start 11/06/16 at 13: 00; Stop 11/06/16 at 22:59; Status DC Enoxaparin Sodium (Lovenox Per Pharmacy Prophylaxis Dosing) 1 each PRN DAILY PRN MC SEE COMMENTS; Start 11/06/16 at 13:00; Status UNV Piperacillin Sod/ Tazobactam Sod 1 each 1 each PRN DAILY PRN MC SEE COMMENTS; Start 11/06/16 at 18:15; Stop 11/08/16 at 12:53; Status DC Piperacillin Sod/ Tazobactam Sod 3.375 gm/Sodium Chloride 50 ml @ 100 mls/hr Q6HRS IV Last administered on 11/07/16 11:17; Start 11/06/16 at 19:00; Stop at 14:21; Status DC Amino Acids/ Glycerin/ Electrolytes (Procalamine) 1,000 ml @ 80 mls/hr [id number] IV Last administered on 11/09/16 10:50; Start 11/07/16 at 12:15 Guaifenesin (Robitussin Dm) 10 ml PRN Q6HRS PRN PO COUGH; Start 11/07/16 at 12: 30 Oseltamivir Phosphate 30 mg 30 mg DAILY PO Last administered on 11/09/16 08:37 ; Start 11/08/16 at 09:00; Stop 11/10/16 at 20:59 Piperacillin Sod/ Tazobactam Sod/ Sodium Chloride (Zosyn/Iv Sodium Chloride 0.9 % 50ml) 50 ml @ 100 mls/hr Q6HRS IV Last administered on 11/09/16 12:09; Start 11/07/16 at 18:00 Fentanyl Citrate (Fentanyl 2ml Vial) 25 mcg PRN Q2HR PRN IV PAIN Last administered on 11/07/16 21:03; Start 11/07/16 at 20:00 Diltiazem HCl (Cardizem) 30 mg Q8HRS PO Last administered on 11/08/16 21:21; Start 11/08/16 at 12:00; Stop 11/09/16 at 10:39; Status DC Digoxin (Lanoxin) 500 mcg 1X ONCE IV Last administered on 11/08/16 12:28; Start 11/08/16 at 12:15; Stop 11/08/16 at 12:19; Status DC Digoxin (Lanoxin) 125 mcg DAILY PO Last administered on 11/09/16 08:37; Start 11/09/16 at 09:00 Budesonide (Pulmicort) 0.5 mg RTBID NEB ; Start 11/09/16 at 09:00 Diltiazem HCl 120 mg 120 mg DAILY PO Last administered on 11/09/16 12:15; Start 11/09/16 at 11:00 Magnesium Sulfate/ Dextrose (Magnesium Sulfate PREMIX 2GM) 50 ml @ 25 mls/hr PRN DAILY PRN IV for Mag < 1.7 on am labs; Start 11/09/16 at 15:45 Active Scripts Active Glipizide 5 Mg Tablet 5 Mg PO DAILY Take one-half a tablet daily. Lasix (Furosemide) 40 Mg Tablet 40 Mg PO DAILY Reported Levofloxacin 250 Mg Tablet 250 Mg PO DAILY Amlodipine Besylate 5 Mg Tablet 5 Mg PO DAILY Keppra (Levetiracetam) 500 Mg Tablet 250 Mg PO HS Crestor (Rosuvastatin Calcium) 20 Mg Tablet 20 Mg PO HS Lamictal (Lamotrigine) 100 Mg Tablet 100 Mg PO BID Vitals/I & O Vital Sign - Last 24 Hours 11/08/16 11/08/16 11/08/16 11/08/16 19:00 20:00 20:36 21:21 Temp 97.8 97.8 Pulse 79 79 Resp 24 B/P 138/70 138/70 Pulse Ox 91 O2 Delivery Nasal Cannula Nasal Cannula O2 Flow Rate 3.0 3.0 11/08/16 11/09/16 11/09/16 11/09/16 23:00 06:00 07:00 07:30 Temp 97.8 98.2 97.8 98.2 Pulse 79 79 68 Resp 24 24 B/P 132/65 132/65 159/63 Pulse Ox 93 96 95 O2 Delivery Nasal Cannula Nasal Cannula O2 Flow Rate 2.0 3.0 11/09/16 11/09/16 11/09/16 11/09/16 08:37 10:28 11:00 11:20 Temp 98.2 98.2 Pulse 79 86 Resp 20 B/P 132/65 142/79 Pulse Ox 98 97 O2 Delivery Nasal Cannula Room Air Nasal Cannula O2 Flow Rate 3.0 3.0 11/09/16 12:15 Pulse 86 B/P 142/79 Intake and Output 11/08/16 11/08/16 11/09/16 15:00 23:00 07:00 Intake Total 220 ml 1360 ml Balance 220 ml 1360 ml WINTER WALL MD Nov 09, 2016 15:42
[2016-11-09] MEDS ORDERED: MAGNESIUM SULFATE 2GM 50 ML IV PRN (15:45)
[2016-11-09 19:00] VITALS: BP 137/53
[2016-11-09] MEDS: LEVETIRACETAM 500 MG in IV NORMAL SALINE 100ML 100 ML IV SCH (21:28)
[2016-11-09] MEDS: ATORVASTATIN CALCIUM 40 MG TABLET. PO SCH (21:29)
[2016-11-09] MEDS: NYSTATIN TOPICAL POWDER 15GM BOTTLE. TP SCH (21:29)
[2016-11-09 22:40] VITALS: BP 163/59
[2016-11-10] MEDS: PIPERACILLIN/TAZOBACTAM 2.25 GM in IV NORMAL SALINE 50ML 50 ML IV SCH ×4 (00:22→18:02)
[2016-11-10] MEDS: BUDESONIDE 0.5 MG/2 ML NEBU NEB SCH ×3 (01:42→21:26)
[2016-11-10] MEDS: IPRATRPIUM/ALBUTEROL 0.5/2.5MG 3 ML NEBU. NEB SCH ×5 (01:42→21:26)
[2016-11-10 03:22] VITALS: BP 155/46
[2016-11-10] MEDS: HEPARIN PF for SUB-Q USE 5,000 UNIT/0.5 ML VIAL. SQ SCH ×3 (06:17→20:22)
[2016-11-10 07:00] VITALS: BP 180/59
[2016-11-10 07:19] LABS: ALBUMIN 2.6 g/dL (3.4-5.0); CALCIUM 8.9 mg/dL (8.5-10.1); CREATININE 1.5 mg/dL (0.6-1.0); GFR 33.1; PHOSPHORUS 2.1 mg/dL (2.6-4.7); POTASSIUM 3.9 mmol/L (3.5-5.1)
[2016-11-10] MEDS: INSULIN ASPART 300 UNITS/3 ML INSULN.PEN SQ SCH ×3 (08:00→17:00)
[2016-11-10] MEDS: lamoTRIgine 100 MG TABLET. PO SCH ×2 (08:50→20:14)
[2016-11-10] MEDS: OSELTAMIVIR 30 MG CAPSULE PO SCH (08:50)
[2016-11-10] MEDS: GLIPIZIDE 5 MG TABLET PO SCH (08:50)
[2016-11-10] MEDS: DILTIAZEM HCL 120 MG CAP.ER.24H PO SCH (08:51)
[2016-11-10] MEDS: DIGOXIN 125 MCG TABLET PO SCH (08:52)
[2016-11-10] MEDS: NYSTATIN TOPICAL POWDER 15GM BOTTLE. TP SCH ×3 (08:52→20:14)
[2016-11-10] MEDS: ACETAMINOPHEN 325 MG TABLET. PO PRN (08:54)
--- NOTE | 2016-11-10 09:00 | PDOC ---
PULMONARY PROGRESS NOTES Subjective more alert, has thorpe, has sob, occ cough, no chest pain Vitals Vital Signs Date Time Temp Pulse Resp B/P Pulse Ox O2 Delivery O2 Flow Rate FiO2 11/10/16 07:30 82 Nasal Cannula 3.0 11/10/16 07:00 98.9 65 22 180/59 98.9 Comments ros as mentioned as above other sys otherwise neg ROS: No Nausea General: Alert, No acute distress HEENT: Other (nc at perrl throat is clear) Lungs: Wheezing, Crackles Cardiovascular: S1, S2 Abdomen: Soft, Non-tender Neuro Exam: Alert, Oriented Extremities: Other Skin: Warm Labs Laboratory Tests Test 11/08/16 11:00 11/08/16 16:37 11/08/16 21:23 11/09/16 03:50 Glucose (Fingerstick) 145mg/dL (70-99) 204mg/dL (70-99) 248mg/dL (70-99) Sodium Level 147mmol/L (136-145) Potassium Level 3.9mmol/L (3.5-5.1) Chloride Level 105mmol/L (98-107) Carbon Dioxide Level 35mmol/L (21-32) Anion Gap 7 (6-14) Blood Urea Nitrogen 31mg/dL (7-20) Creatinine 1.6mg/dL (0.6-1.0) Estimated GFR (Cockcroft-Gault) 30.7 Glucose Level 233mg/dL (70-99) Calcium Level 8.8mg/dL (8.5-10.1) Test 11/09/16 07:02 11/09/16 11:23 11/09/16 16:27 11/09/16 20:28 Glucose (Fingerstick) 187mg/dL (70-99) 182mg/dL (70-99) 172mg/dL (70-99) 172mg/dL (70-99) Test 11/10/16 06:38 11/10/16 06:51 Hemoglobin 11.0g/dL (12.0-15.5) Sodium Level 145mmol/L (136-145) Potassium Level 3.9mmol/L (3.5-5.1) Chloride Level 106mmol/L (98-107) Carbon Dioxide Level 37mmol/L (21-32) Anion Gap 2 (6-14) Blood Urea Nitrogen 32mg/dL (7-20) Creatinine 1.5mg/dL (0.6-1.0) Estimated GFR (Cockcroft-Gault) 33.1 Glucose Level 192mg/dL (70-99) Calcium Level 8.9mg/dL (8.5-10.1) Phosphorus Level 2.1mg/dL (2.6-4.7) Magnesium Level 2.2mg/dL (1.8-2.4) Albumin 2.6g/dL (3.4-5.0) Glucose (Fingerstick) 127mg/dL (70-99) Laboratory Tests Test 11/09/16 11:23 11/09/16 16:27 11/09/16 20:28 11/10/16 06:38 Glucose (Fingerstick) 182mg/dL (70-99) 172mg/dL (70-99) 172mg/dL (70-99) Hemoglobin 11.0g/dL (12.0-15.5) Sodium Level 145mmol/L (136-145) Potassium Level 3.9mmol/L (3.5-5.1) Chloride Level 106mmol/L (98-107) Carbon Dioxide Level 37mmol/L (21-32) Anion Gap 2 (6-14) Blood Urea Nitrogen 32mg/dL (7-20) Creatinine 1.5mg/dL (0.6-1.0) Estimated GFR (Cockcroft-Gault) 33.1 Glucose Level 192mg/dL (70-99) Calcium Level 8.9mg/dL (8.5-10.1) Phosphorus Level 2.1mg/dL (2.6-4.7) Magnesium Level 2.2mg/dL (1.8-2.4) Albumin 2.6g/dL (3.4-5.0) Test 11/10/16 06:51 Glucose (Fingerstick) 127mg/dL (70-99) Medications Active Scripts Medications Dose Route/Sig Days Date Category Dose Instructions Levofloxacin 250 Mg Tablet 250 Mg PO DAILY 08/11/16 Reported Amlodipine Besylate 5 Mg Tablet 5 Mg PO DAILY 08/11/16 Reported Keppra (Levetiracetam) 500 Mg Tablet 250 Mg PO HS 08/08/16 Reported Glipizide 5 Mg Tablet 5 Mg PO DAILY 12/22/13 Rx Take one-half a tablet daily. Lasix (Furosemide) 40 Mg Tablet 40 Mg PO DAILY 12/22/13 Rx Crestor (Rosuvastatin Calcium) 20 Mg Tablet 20 Mg PO HS 10/24/13 Reported Lamictal (Lamotrigine) 100 Mg Tablet 100 Mg PO BID 10/24/13 Reported Comments cxr reviewed, Cardiomegaly, similar. Mild congestive heart failure. Superimposed pneumonia in the right upper lobe is not entirely excluded. Small bilateral pleural effusions Impression . 1. [id number]-[id number] respiratory failure. 2. Aspiration pneumonia. 3. Dysphagia. 4. Coronary artery disease. 5. Hypertension. 6. Depression. 7. Acute renal failure. 8. Hyperkalemia. 9. Acute metabolic toxic encephalopathy. 10. wheezing Plan . 1. follow speech therapist rec. 2. Continue oxygen supplementation. 3. Zosyn. 4. Nebulized treatments. 5. Continue home medications. 6. pulmicort 7. keep I<O, 8. am cxr 9. hep for dvt prophylaxis discussed w pt and rn LUIS GARCIA MD Nov 10, 2016 08:59
[2016-11-10] MEDS ORDERED: LABETALOL 20 MG/4 ML DISP.SYRIN. IVP PRN (09:45)
[2016-11-10 11:00] VITALS: BP 98/69
[2016-11-10] MEDS: AA 3%/ELECTROLYTE-TPN SOLN/GLY 1,000 ML IV SCH (12:42)
[2016-11-10] MEDS ORDERED: SODIUM PHOSPHATE 20 MMOL in IV DEXTROSE 5% 250 ML IV ONE (14:00)
[2016-11-10 14:36] VITALS: BP 145/87
--- NOTE | 2016-11-10 14:37 | PDOC ---
PROGRESS NOTES Chief Complaint Chief Complaint 1. acute on chronic resp failure, home o2 2L 2. flu + 3. seizure disorder 4. htn 5. dm2 6. copd 7. h/o CHF 8. hld 9. hypokalemia 10 sheyla on ckd3 11. AMS, metabolic encephalopathy with flu,SHEYLA, VS. post ictal 12. Sepsis 13. Dysphagia 14, New onset atrial fib, intermittent RVR 15. ASPIRATION PNEUMONITIS History of Present Illness History of Present Illness Good day today She actually walked to the bathroom with assistance She is able to relay to me she feels good today CXR 11/09: IMPRESSION: Cardiomegaly, similar. Mild congestive heart failure. Superimposed pneumonia in the right upper lobe is not entirely excluded. Small bilateral pleural effusions BP high-luma PLAN: FAm mtg pradeep CPM Supprotive care LAbetolol prn Vitals Vitals Vital Signs Date Time Temp Pulse Resp B/P Pulse Ox O2 Delivery O2 Flow Rate FiO2 11/10/16 11:39 94 Venturi Mask 9.0 11/10/16 11:00 97.4 69 24 98/69 97.4 Physical Exam General: Alert, Cooperative, No acute distress Heart: Other (Rate in the 60s-70s with normal S1/S2, muffled heart sounds secondary to labored breathing and body habitus. Patient in Afib on telemetry) Lungs: Wheezing, Crackles Abdomen: Normal bowel sounds, Soft, No tenderness Extremities: No clubbing, No cyanosis, Other (mild chronic peripheral edema of upper and lower extremity) Skin: No rashes Labs LABS Laboratory Tests Test 11/09/16 16:27 11/09/16 20:28 11/10/16 06:38 11/10/16 06:51 Glucose (Fingerstick) 172mg/dL (70-99) 172mg/dL (70-99) 127mg/dL (70-99) Hemoglobin 11.0g/dL (12.0-15.5) Sodium Level 145mmol/L (136-145) Potassium Level 3.9mmol/L (3.5-5.1) Chloride Level 106mmol/L (98-107) Carbon Dioxide Level 37mmol/L (21-32) Anion Gap 2 (6-14) Blood Urea Nitrogen 32mg/dL (7-20) Creatinine 1.5mg/dL (0.6-1.0) Estimated GFR (Cockcroft-Gault) 33.1 Glucose Level 192mg/dL (70-99) Calcium Level 8.9mg/dL (8.5-10.1) Phosphorus Level 2.1mg/dL (2.6-4.7) Magnesium Level 2.2mg/dL (1.8-2.4) Albumin 2.6g/dL (3.4-5.0) Test 11/10/16 11:13 Glucose (Fingerstick) 242mg/dL (70-99) Review of Systems Review of Systems denies, though very limited in this elderly Assessment and Plan Assessmemt and Plan Problems Medical Problems: (1) Aspiration pneumonia Status: Acute (2) Aspiration pneumonia Status: Acute (3) Hypoxia Status: Acute (4) Influenza Status: Acute (5) Influenza Status: Acute Problems: Comment Review of Relevant I have reviewed the following items lucy (where applicable) has been applied. Labs Laboratory Tests Test 11/08/16 16:37 11/08/16 21:23 11/09/16 03:50 11/09/16 07:02 Glucose (Fingerstick) 204mg/dL (70-99) 248mg/dL (70-99) 187mg/dL (70-99) Sodium Level 147mmol/L (136-145) Potassium Level 3.9mmol/L (3.5-5.1) Chloride Level 105mmol/L (98-107) Carbon Dioxide Level 35mmol/L (21-32) Anion Gap 7 (6-14) Blood Urea Nitrogen 31mg/dL (7-20) Creatinine 1.6mg/dL (0.6-1.0) Estimated GFR (Cockcroft-Gault) 30.7 Glucose Level 233mg/dL (70-99) Calcium Level 8.8mg/dL (8.5-10.1) Test 11/09/16 11:23 11/09/16 16:27 11/09/16 20:28 11/10/16 06:38 Glucose (Fingerstick) 182mg/dL (70-99) 172mg/dL (70-99) 172mg/dL (70-99) Hemoglobin 11.0g/dL (12.0-15.5) Sodium Level 145mmol/L (136-145) Potassium Level 3.9mmol/L (3.5-5.1) Chloride Level 106mmol/L (98-107) Carbon Dioxide Level 37mmol/L (21-32) Anion Gap 2 (6-14) Blood Urea Nitrogen 32mg/dL (7-20) Creatinine 1.5mg/dL (0.6-1.0) Estimated GFR (Cockcroft-Gault) 33.1 Glucose Level 192mg/dL (70-99) Calcium Level 8.9mg/dL (8.5-10.1) Phosphorus Level 2.1mg/dL (2.6-4.7) Magnesium Level 2.2mg/dL (1.8-2.4) Albumin 2.6g/dL (3.4-5.0) Test 11/10/16 06:51 11/10/16 11:13 Glucose (Fingerstick) 127mg/dL (70-99) 242mg/dL (70-99) Laboratory Tests Test 11/09/16 16:27 11/09/16 20:28 11/10/16 06:38 11/10/16 06:51 Glucose (Fingerstick) 172mg/dL (70-99) 172mg/dL (70-99) 127mg/dL (70-99) Hemoglobin 11.0g/dL (12.0-15.5) Sodium Level 145mmol/L (136-145) Potassium Level 3.9mmol/L (3.5-5.1) Chloride Level 106mmol/L (98-107) Carbon Dioxide Level 37mmol/L (21-32) Anion Gap 2 (6-14) Blood Urea Nitrogen 32mg/dL (7-20) Creatinine 1.5mg/dL (0.6-1.0) Estimated GFR (Cockcroft-Gault) 33.1 Glucose Level 192mg/dL (70-99) Calcium Level 8.9mg/dL (8.5-10.1) Phosphorus Level 2.1mg/dL (2.6-4.7) Magnesium Level 2.2mg/dL (1.8-2.4) Albumin 2.6g/dL (3.4-5.0) Test 11/10/16 11:13 Glucose (Fingerstick) 242mg/dL (70-99) Microbiology 11/05/16 Blood Culture - Final, Complete NO GROWTH AFTER 5 DAYS Medications Current Medications Sodium Chloride (Iv Sodium Chloride 0.9% 1000ml Bag) 1,000 ml @ 200 mls/hr Q5H IV Last administered on 11/05/16 12:25; Start 11/05/16 at 11:35; Stop at 16:34; Status DC Oseltamivir Phosphate 75 mg 75 mg DAILY PO Last administered on 11/05/16 12:24 ; Start 11/05/16 at 12:30; Stop 11/05/16 at 12:30; Status DC Piperacillin Sod/ Tazobactam Sod/ Sodium Chloride (Zosyn/Iv Sodium Chloride 0.9 % 50ml) 50 ml @ 100 mls/hr 1X ONCE IV Last administered on 11/05/16 12:39; Start 11/05/16 at 12:45; Stop 11/05/16 at 13:14; Status DC Oseltamivir Phosphate (Tamiflu) 30 mg BID PO Last administered on 11/06/16 09: 27; Start 11/05/16 at 21:00; Stop 11/07/16 at 14:19; Status DC Potassium Chloride (KCl Oral Soln) 40 meq 1X ONCE PO Last administered on 11/05 13:49; Start 11/05/16 at 13:15; Stop 11/05/16 at 13:16; Status DC Amlodipine Besylate (Norvasc) 5 mg DAILY PO Last administered on 11/06/16 09: 28; Start 11/06/16 at 09:00; Stop 11/08/16 at 12:18; Status DC Glipizide (Glucotrol) 5 mg DAILY PO Last administered on 11/10/16 08:50; Start 11/06/16 at 09:00 Lamotrigine (LaMICtal) 100 mg BID PO Last administered on 11/10/16 08:50; Start 11/05/16 at 21:00 Levetiracetam (Keppra) 250 mg HS PO Last administered on 11/05/16 20:19; Start 11/05/16 at 21:00; Stop 11/06/16 at 12:12; Status DC Atorvastatin Calcium (Lipitor) 80 mg QHS PO Last administered on 11/09/16 21: 29; Start 11/05/16 at 21:00 Acetaminophen (Tylenol) 650 mg PRN Q6HRS PRN PO MILD PAIN / TEMP Last administered on 11/10/16 08:54; Start 11/05/16 at 16:15 Ondansetron HCl 4 mg 4 mg PRN Q6HRS PRN IV NAUSEA/VOMITING; Start 11/05/16 at 16:15 Potassium Chloride/Dextrose/ Sod Cl (KCl 20 Meq In D5W-NS) 1,000 ml @ 75 mls/ hr [id number] IV ; Start 11/05/16 at 16:15; Stop 11/05/16 at 16:15; Status DC Insulin Aspart (Novolog) 0-9 UNITS TIDWMEALS SQ Last administered on 11/10/16 11:55; Start 11/05/16 at 17:00 Dextrose 12.5 gm PRN Q15MIN PRN IV SEE COMMENTS; Start 11/05/16 at 16:15 Heparin Sodium (Porcine) 5,000 unit Q8HRS SQ Last administered on 11/10/16 06: 17; Start 11/05/16 at 22:00 Hydralazine HCl (Apresoline) 10 mg PRN Q4HRS PRN IVP ELEVATED BP, SEE COMMENTS ; Start 11/05/16 at 16:15 Albuterol/ Ipratropium (Duoneb) 3 ml RTQID NEB Last administered on 11/10/16 11:37; Start 11/05/16 at 20:00 Albuterol Sulfate 2.5 mg 2.5 mg PRN Q4HRS PRN NEB SHORTNESS OF BREATH; Start at 16:15 Potassium Chloride/Sodium Chloride 1,000 ml @ 75 mls/hr [id number] IV Last administered on 11/07/16 09:00; Start 11/05/16 at 17:00; Stop 11/07/16 at 12:10 ; Status DC Levetiracetam 500 mg/Sodium Chloride 105 ml @ 400 mls/hr HS IV Last administered on 11/09/16 21:28; Start 11/06/16 at 21:00; Stop 11/10/16 at 09:24 ; Status DC Potassium Chloride/Dextrose/ Sod Cl (KCl 20 Meq In D5W-1/2 NS) 1,000 ml @ 100 mls/hr 1X ONCE IV Last administered on 11/06/16 17:17; Start 11/06/16 at 13: 00; Stop 11/06/16 at 22:59; Status DC Enoxaparin Sodium (Lovenox Per Pharmacy Prophylaxis Dosing) 1 each PRN DAILY PRN MC SEE COMMENTS; Start 11/06/16 at 13:00; Status UNV Piperacillin Sod/ Tazobactam Sod 1 each 1 each PRN DAILY PRN MC SEE COMMENTS; Start 11/06/16 at 18:15; Stop 11/08/16 at 12:53; Status DC Piperacillin Sod/ Tazobactam Sod 3.375 gm/Sodium Chloride 50 ml @ 100 mls/hr Q6HRS IV Last administered on 11/07/16 11:17; Start 11/06/16 at 19:00; Stop at 14:21; Status DC Amino Acids/ Glycerin/ Electrolytes (Procalamine) 1,000 ml @ 80 mls/hr [id number] IV Last administered on 11/10/16 12:42; Start 11/07/16 at 12:15 Guaifenesin (Robitussin Dm) 10 ml PRN Q6HRS PRN PO COUGH; Start 11/07/16 at 12: 30 Oseltamivir Phosphate 30 mg 30 mg DAILY PO Last administered on 11/10/16 08:50 ; Start 11/08/16 at 09:00; Stop 11/10/16 at 20:59 Piperacillin Sod/ Tazobactam Sod/ Sodium Chloride (Zosyn/Iv Sodium Chloride 0.9 % 50ml) 50 ml @ 100 mls/hr Q6HRS IV Last administered on 11/10/16 12:43; Start 11/07/16 at 18:00 Fentanyl Citrate (Fentanyl 2ml Vial) 25 mcg PRN Q2HR PRN IV PAIN Last administered on 11/07/16 21:03; Start 11/07/16 at 20:00 Diltiazem HCl (Cardizem) 30 mg Q8HRS PO Last administered on 11/08/16 21:21; Start 11/08/16 at 12:00; Stop 11/09/16 at 10:39; Status DC Digoxin (Lanoxin) 500 mcg 1X ONCE IV Last administered on 11/08/16 12:28; Start 11/08/16 at 12:15; Stop 11/08/16 at 12:19; Status DC Digoxin (Lanoxin) 125 mcg DAILY PO Last administered on 11/10/16 08:52; Start 11/09/16 at 09:00 Budesonide (Pulmicort) 0.5 mg RTBID NEB Last administered on 11/10/16 07:29; Start 11/09/16 at 09:00 Diltiazem HCl 120 mg 120 mg DAILY PO Last administered on 11/10/16 08:51; Start 11/09/16 at 11:00 Magnesium Sulfate/ Dextrose (Magnesium Sulfate PREMIX 2GM) 50 ml @ 25 mls/hr PRN DAILY PRN IV for Mag < 1.7 on am labs; Start 11/09/16 at 15:45 Nystatin (Nystop) 1 hong TID TP Last administered on 11/10/16 08:52; Start at 21:00 Levetiracetam (Keppra) 500 mg QHS PO ; Start 11/10/16 at 21:00 Labetalol HCl 10 mg 10 mg PRN Q2HR PRN IVP HYPERTENSION, SEE COMMENTS; Start at 09:45 Sodium Phosphate/ Dextrose 256.6667 ml @ 64.167 m... 1X ONCE IV Last administered on 11/10/16 13:49; Start 11/10/16 at 14:00; Stop 11/10/16 at 17:59 Active Scripts Active Glipizide 5 Mg Tablet 5 Mg PO DAILY Take one-half a tablet daily. Lasix (Furosemide) 40 Mg Tablet 40 Mg PO DAILY Reported Levofloxacin 250 Mg Tablet 250 Mg PO DAILY Amlodipine Besylate 5 Mg Tablet 5 Mg PO DAILY Keppra (Levetiracetam) 500 Mg Tablet 250 Mg PO HS Crestor (Rosuvastatin Calcium) 20 Mg Tablet 20 Mg PO HS Lamictal (Lamotrigine) 100 Mg Tablet 100 Mg PO BID Vitals/I & O Vital Sign - Last 24 Hours 11/09/16 11/09/16 11/09/16 11/09/16 15:00 15:30 19:00 20:30 Temp 97.9 97.7 97.9 97.7 Pulse 89 61 Resp 24 21 B/P 150/88 137/53 Pulse Ox 99 97 O2 Delivery Room Air Nasal Cannula Nasal Cannula Nasal Cannula O2 Flow Rate 3.0 3.0 3.0 11/09/16 11/10/16 11/10/16 11/10/16 22:40 01:44 01:46 03:22 Temp 97.7 97.5 97.7 97.5 Pulse 67 77 Resp 20 20 B/P 163/59 155/46 Pulse Ox 99 96 96 92 O2 Delivery Nasal Cannula Nasal Cannula Nasal Cannula Nasal Cannula O2 Flow Rate 3.0 3.0 3.0 3.0 11/10/16 11/10/16 11/10/16 11/10/16 07:00 07:30 08:00 08:51 Temp 98.9 98.9 Pulse 65 65 Resp 22 B/P 180/59 180/59 Pulse Ox 98 82 O2 Delivery Room Air Nasal Cannula Venturi Mask O2 Flow Rate 3.0 9.0 11/10/16 11/10/16 11/10/16 08:52 11:00 11:39 Temp 97.4 97.4 Pulse 65 69 Resp 24 B/P 180/59 98/69 Pulse Ox 97 94 O2 Delivery Room Air Venturi Mask O2 Flow Rate 3.0 9.0 Intake and Output 11/09/16 11/09/16 11/10/16 15:00 23:00 07:00 Intake Total 400 ml 200 ml Balance 400 ml 200 ml BALJEET RAMOS MD Nov 10, 2016 14:37
[2016-11-10 19:00] VITALS: BP 134/57
[2016-11-10] MEDS: LEVETIRACETAM 500 MG TABLET PO SCH (20:13)
[2016-11-10] MEDS: FENTANYL PF 100 MCG/2 ML VIAL. IV PRN (20:13)
[2016-11-10] MEDS: ATORVASTATIN CALCIUM 40 MG TABLET. PO SCH (20:14)
[2016-11-10 23:00] VITALS: BP 141/62
[2016-11-11] MEDS: PIPERACILLIN/TAZOBACTAM 2.25 GM in IV NORMAL SALINE 50ML 50 ML IV SCH ×4 (01:06→17:44)
[2016-11-11] MEDS: AA 3%/ELECTROLYTE-TPN SOLN/GLY 1,000 ML IV SCH ×2 (01:09→02:20)
[2016-11-11] MEDS: FENTANYL PF 100 MCG/2 ML VIAL. IV PRN ×3 (03:55→23:51)
[2016-11-11 04:06] VITALS: BP 130/67
[2016-11-11 05:43] LABS: ALBUMIN 2.9 g/dL (3.4-5.0); CALCIUM 9.3 mg/dL (8.5-10.1); CREATININE 1.4 mg/dL (0.6-1.0); GFR 35.8; MAGNESIUM 2.2 mg/dL (1.8-2.4); PHOSPHORUS 2.9 mg/dL (2.6-4.7); POTASSIUM 4.2 mmol/L (3.5-5.1)
[2016-11-11] MEDS: HEPARIN PF for SUB-Q USE 5,000 UNIT/0.5 ML VIAL. SQ SCH ×3 (05:59→22:01)
[2016-11-11 07:44] VITALS: BP 177/87
[2016-11-11] MEDS: DILTIAZEM HCL 120 MG CAP.ER.24H PO SCH (08:57)
[2016-11-11] MEDS: lamoTRIgine 100 MG TABLET. PO SCH ×2 (08:57→21:51)
[2016-11-11] MEDS: GLIPIZIDE 5 MG TABLET PO SCH (08:57)
[2016-11-11] MEDS: DIGOXIN 125 MCG TABLET PO SCH (08:58)
[2016-11-11] MEDS: NYSTATIN TOPICAL POWDER 15GM BOTTLE. TP SCH ×3 (09:00→21:51)
[2016-11-11] MEDS: INSULIN ASPART 300 UNITS/3 ML INSULN.PEN SQ SCH ×3 (09:09→16:38)
[2016-11-11] MEDS: BUDESONIDE 0.5 MG/2 ML NEBU NEB SCH (09:32)
[2016-11-11] MEDS: IPRATRPIUM/ALBUTEROL 0.5/2.5MG 3 ML NEBU. NEB SCH ×4 (09:32→20:41)
--- NOTE | 2016-11-11 10:04 | RAD ---
Portable chest, 11/11/2016: History: Aspiration Comparison is made to a study from 11/09/2016. A right PICC remains in place extending to the level of the atriocaval junction. The heart is mildly enlarged. The pulmonary vascularity is at the upper limits of normal. A minimal streaky opacity in the right upper lobe is unchanged. The lungs are otherwise clear. There is no evidence of pleural fluid. IMPRESSION: No significant change since 11/09/2016.
[2016-11-11 11:04] VITALS: BP 167/76
--- NOTE | 2016-11-11 11:24 | PDOC ---
PROGRESS NOTES Chief Complaint Chief Complaint 1. acute on chronic resp failure, home o2 2L 2. flu + 3. seizure disorder 4. htn 5. dm2 6. copd 7. h/o CHF 8. hld 9. hypokalemia 10 sheyla on ckd3 11. AMS, metabolic encephalopathy with flu,SHEYLA, VS. post ictal 12. Sepsis 13. Dysphagia 14, New onset atrial fib, intermittent RVR 15. ASPIRATION PNEUMONITIS History of Present Illness History of Present Illness CRackles today Also bit wheezy SOA today PRocalamine running at 80cc,on dysphagia diet CXR 11/09: IMPRESSION: Cardiomegaly, similar. Mild congestive heart failure. Superimposed pneumonia in the right upper lobe is not entirely excluded. Small bilateral pleural effusions PLAN: dc procalamine Lasix 40 IV x 1 now Start scopolamine patch Start duonebs QID Dw RN Planned for fam mtg today Vitals Vitals Vital Signs Date Time Temp Pulse Resp B/P Pulse Ox O2 Delivery O2 Flow Rate FiO2 11/11/16 11:04 97.6 83 22 167/76 95 Nasal Cannula 4.0 97.6 Physical Exam General: Alert, Cooperative, No acute distress Heart: Other (Rate in the 60s-70s with normal S1/S2, muffled heart sounds secondary to labored breathing and body habitus. Patient in Afib on telemetry) Lungs: Wheezing, Crackles Abdomen: Normal bowel sounds, Soft, No tenderness Extremities: No clubbing, No cyanosis, Other (mild chronic peripheral edema of upper and lower extremity) Skin: No rashes Labs LABS Laboratory Tests Test 11/10/16 16:08 11/10/16 20:24 11/11/16 04:05 11/11/16 07:45 Glucose (Fingerstick) 141mg/dL (70-99) 176mg/dL (70-99) 278mg/dL (70-99) Sodium Level 145mmol/L (136-145) Potassium Level 4.2mmol/L (3.5-5.1) Chloride Level 105mmol/L (98-107) Carbon Dioxide Level 33mmol/L (21-32) Anion Gap 7 (6-14) Blood Urea Nitrogen 29mg/dL (7-20) Creatinine 1.4mg/dL (0.6-1.0) Estimated GFR (Cockcroft-Gault) 35.8 Glucose Level 248mg/dL (70-99) Calcium Level 9.3mg/dL (8.5-10.1) Phosphorus Level 2.9mg/dL (2.6-4.7) Magnesium Level 2.2mg/dL (1.8-2.4) Albumin 2.9g/dL (3.4-5.0) Review of Systems Review of Systems cant obtain, soa Assessment and Plan Assessmemt and Plan Problems Medical Problems: (1) Aspiration pneumonia Status: Acute (2) Aspiration pneumonia Status: Acute (3) Hypoxia Status: Acute (4) Influenza Status: Acute (5) Influenza Status: Acute Problems: Comment Review of Relevant I have reviewed the following items lucy (where applicable) has been applied. Labs Laboratory Tests Test 11/09/16 11:23 11/09/16 16:27 11/09/16 20:28 11/10/16 06:38 Glucose (Fingerstick) 182mg/dL (70-99) 172mg/dL (70-99) 172mg/dL (70-99) Hemoglobin 11.0g/dL (12.0-15.5) Sodium Level 145mmol/L (136-145) Potassium Level 3.9mmol/L (3.5-5.1) Chloride Level 106mmol/L (98-107) Carbon Dioxide Level 37mmol/L (21-32) Anion Gap 2 (6-14) Blood Urea Nitrogen 32mg/dL (7-20) Creatinine 1.5mg/dL (0.6-1.0) Estimated GFR (Cockcroft-Gault) 33.1 Glucose Level 192mg/dL (70-99) Calcium Level 8.9mg/dL (8.5-10.1) Phosphorus Level 2.1mg/dL (2.6-4.7) Magnesium Level 2.2mg/dL (1.8-2.4) Albumin 2.6g/dL (3.4-5.0) Test 11/10/16 06:51 11/10/16 11:13 11/10/16 16:08 11/10/16 20:24 Glucose (Fingerstick) 127mg/dL (70-99) 242mg/dL (70-99) 141mg/dL (70-99) 176mg/dL (70-99) Test 11/11/16 04:05 11/11/16 07:45 Sodium Level 145mmol/L (136-145) Potassium Level 4.2mmol/L (3.5-5.1) Chloride Level 105mmol/L (98-107) Carbon Dioxide Level 33mmol/L (21-32) Anion Gap 7 (6-14) Blood Urea Nitrogen 29mg/dL (7-20) Creatinine 1.4mg/dL (0.6-1.0) Estimated GFR (Cockcroft-Gault) 35.8 Glucose Level 248mg/dL (70-99) Calcium Level 9.3mg/dL (8.5-10.1) Phosphorus Level 2.9mg/dL (2.6-4.7) Magnesium Level 2.2mg/dL (1.8-2.4) Albumin 2.9g/dL (3.4-5.0) Glucose (Fingerstick) 278mg/dL (70-99) Laboratory Tests Test 11/10/16 16:08 11/10/16 20:24 11/11/16 04:05 11/11/16 07:45 Glucose (Fingerstick) 141mg/dL (70-99) 176mg/dL (70-99) 278mg/dL (70-99) Sodium Level 145mmol/L (136-145) Potassium Level 4.2mmol/L (3.5-5.1) Chloride Level 105mmol/L (98-107) Carbon Dioxide Level 33mmol/L (21-32) Anion Gap 7 (6-14) Blood Urea Nitrogen 29mg/dL (7-20) Creatinine 1.4mg/dL (0.6-1.0) Estimated GFR (Cockcroft-Gault) 35.8 Glucose Level 248mg/dL (70-99) Calcium Level 9.3mg/dL (8.5-10.1) Phosphorus Level 2.9mg/dL (2.6-4.7) Magnesium Level 2.2mg/dL (1.8-2.4) Albumin 2.9g/dL (3.4-5.0) Microbiology 11/05/16 Blood Culture - Final, Complete NO GROWTH AFTER 5 DAYS Medications Current Medications Sodium Chloride (Iv Sodium Chloride 0.9% 1000ml Bag) 1,000 ml @ 200 mls/hr Q5H IV Last administered on 11/05/16 12:25; Start 11/05/16 at 11:35; Stop at 16:34; Status DC Oseltamivir Phosphate 75 mg 75 mg DAILY PO Last administered on 11/05/16 12:24 ; Start 11/05/16 at 12:30; Stop 11/05/16 at 12:30; Status DC Piperacillin Sod/ Tazobactam Sod/ Sodium Chloride (Zosyn/Iv Sodium Chloride 0.9 % 50ml) 50 ml @ 100 mls/hr 1X ONCE IV Last administered on 11/05/16 12:39; Start 11/05/16 at 12:45; Stop 11/05/16 at 13:14; Status DC Oseltamivir Phosphate (Tamiflu) 30 mg BID PO Last administered on 11/06/16 09: 27; Start 11/05/16 at 21:00; Stop 11/07/16 at 14:19; Status DC Potassium Chloride (KCl Oral Soln) 40 meq 1X ONCE PO Last administered on 11/05 13:49; Start 11/05/16 at 13:15; Stop 11/05/16 at 13:16; Status DC Amlodipine Besylate (Norvasc) 5 mg DAILY PO Last administered on 11/06/16 09: 28; Start 11/06/16 at 09:00; Stop 11/08/16 at 12:18; Status DC Glipizide (Glucotrol) 5 mg DAILY PO Last administered on 11/11/16 08:57; Start 11/06/16 at 09:00 Lamotrigine (LaMICtal) 100 mg BID PO Last administered on 11/11/16 08:57; Start 11/05/16 at 21:00 Levetiracetam (Keppra) 250 mg HS PO Last administered on 11/05/16 20:19; Start 11/05/16 at 21:00; Stop 11/06/16 at 12:12; Status DC Atorvastatin Calcium (Lipitor) 80 mg QHS PO Last administered on 11/10/16 20: 14; Start 11/05/16 at 21:00 Acetaminophen (Tylenol) 650 mg PRN Q6HRS PRN PO MILD PAIN / TEMP Last administered on 11/10/16 08:54; Start 11/05/16 at 16:15 Ondansetron HCl 4 mg 4 mg PRN Q6HRS PRN IV NAUSEA/VOMITING; Start 11/05/16 at 16:15 Potassium Chloride/Dextrose/ Sod Cl (KCl 20 Meq In D5W-NS) 1,000 ml @ 75 mls/ hr [id number] IV ; Start 11/05/16 at 16:15; Stop 11/05/16 at 16:15; Status DC Insulin Aspart (Novolog) 0-9 UNITS TIDWMEALS SQ Last administered on 11/11/16 09:09; Start 11/05/16 at 17:00 Dextrose 12.5 gm PRN Q15MIN PRN IV SEE COMMENTS; Start 11/05/16 at 16:15 Heparin Sodium (Porcine) 5,000 unit Q8HRS SQ Last administered on 11/11/16 05: 59; Start 11/05/16 at 22:00 Hydralazine HCl (Apresoline) 10 mg PRN Q4HRS PRN IVP ELEVATED BP, SEE COMMENTS ; Start 11/05/16 at 16:15 Albuterol/ Ipratropium (Duoneb) 3 ml RTQID NEB Last administered on 11/11/16 09:32; Start 11/05/16 at 20:00 Albuterol Sulfate 2.5 mg 2.5 mg PRN Q4HRS PRN NEB SHORTNESS OF BREATH; Start at 16:15 Potassium Chloride/Sodium Chloride 1,000 ml @ 75 mls/hr [id number] IV Last administered on 11/07/16 09:00; Start 11/05/16 at 17:00; Stop 11/07/16 at 12:10 ; Status DC Levetiracetam 500 mg/Sodium Chloride 105 ml @ 400 mls/hr HS IV Last administered on 11/09/16 21:28; Start 11/06/16 at 21:00; Stop 11/10/16 at 09:24 ; Status DC Potassium Chloride/Dextrose/ Sod Cl (KCl 20 Meq In D5W-1/2 NS) 1,000 ml @ 100 mls/hr 1X ONCE IV Last administered on 11/06/16 17:17; Start 11/06/16 at 13: 00; Stop 11/06/16 at 22:59; Status DC Enoxaparin Sodium (Lovenox Per Pharmacy Prophylaxis Dosing) 1 each PRN DAILY PRN MC SEE COMMENTS; Start 11/06/16 at 13:00; Status UNV Piperacillin Sod/ Tazobactam Sod 1 each 1 each PRN DAILY PRN MC SEE COMMENTS; Start 11/06/16 at 18:15; Stop 11/08/16 at 12:53; Status DC Piperacillin Sod/ Tazobactam Sod 3.375 gm/Sodium Chloride 50 ml @ 100 mls/hr Q6HRS IV Last administered on 11/07/16 11:17; Start 11/06/16 at 19:00; Stop at 14:21; Status DC Amino Acids/ Glycerin/ Electrolytes (Procalamine) 1,000 ml @ 80 mls/hr [id number] IV Last administered on 11/11/16 02:20; Start 11/07/16 at 12:15 Guaifenesin (Robitussin Dm) 10 ml PRN Q6HRS PRN PO COUGH; Start 11/07/16 at 12: 30 Oseltamivir Phosphate 30 mg 30 mg DAILY PO Last administered on 11/10/16 08:50 ; Start 11/08/16 at 09:00; Stop 11/10/16 at 20:59; Status DC Piperacillin Sod/ Tazobactam Sod/ Sodium Chloride (Zosyn/Iv Sodium Chloride 0.9 % 50ml) 50 ml @ 100 mls/hr Q6HRS IV Last administered on 11/11/16 05:55; Start 11/07/16 at 18:00 Fentanyl Citrate (Fentanyl 2ml Vial) 25 mcg PRN Q2HR PRN IV PAIN Last administered on 11/11/16 08:59; Start 11/07/16 at 20:00 Diltiazem HCl (Cardizem) 30 mg Q8HRS PO Last administered on 11/08/16 21:21; Start 11/08/16 at 12:00; Stop 11/09/16 at 10:39; Status DC Digoxin (Lanoxin) 500 mcg 1X ONCE IV Last administered on 11/08/16 12:28; Start 11/08/16 at 12:15; Stop 11/08/16 at 12:19; Status DC Digoxin (Lanoxin) 125 mcg DAILY PO Last administered on 11/11/16 08:58; Start 11/09/16 at 09:00 Budesonide (Pulmicort) 0.5 mg RTBID NEB Last administered on 11/11/16 09:32; Start 11/09/16 at 09:00 Diltiazem HCl 120 mg 120 mg DAILY PO Last administered on 11/11/16 08:57; Start 11/09/16 at 11:00 Magnesium Sulfate/ Dextrose (Magnesium Sulfate PREMIX 2GM) 50 ml @ 25 mls/hr PRN DAILY PRN IV for Mag < 1.7 on am labs; Start 11/09/16 at 15:45 Nystatin (Nystop) 1 hong TID TP Last administered on 11/11/16 09:00; Start at 21:00 Levetiracetam (Keppra) 500 mg QHS PO Last administered on 11/10/16 20:13; Start 11/10/16 at 21:00 Labetalol HCl 10 mg 10 mg PRN Q2HR PRN IVP HYPERTENSION, SEE COMMENTS; Start at 09:45 Sodium Phosphate/ Dextrose 256.6667 ml @ 64.167 m... 1X ONCE IV Last administered on 11/10/16 13:49; Start 11/10/16 at 14:00; Stop 11/10/16 at 17:59 ; Status DC Active Scripts Active Glipizide 5 Mg Tablet 5 Mg PO DAILY Take one-half a tablet daily. Lasix (Furosemide) 40 Mg Tablet 40 Mg PO DAILY Reported Levofloxacin 250 Mg Tablet 250 Mg PO DAILY Amlodipine Besylate 5 Mg Tablet 5 Mg PO DAILY Keppra (Levetiracetam) 500 Mg Tablet 250 Mg PO HS Crestor (Rosuvastatin Calcium) 20 Mg Tablet 20 Mg PO HS Lamictal (Lamotrigine) 100 Mg Tablet 100 Mg PO BID Vitals/I & O Vital Sign - Last 24 Hours 11/10/16 11/10/16 11/10/16 11/10/16 11:39 14:36 15:39 19:00 Temp 98.1 97.9 98.1 97.9 Pulse 65 77 Resp 22 21 B/P 145/87 134/57 Pulse Ox 94 96 95 O2 Delivery Venturi Mask Room Air Nasal Cannula Nasal Cannula O2 Flow Rate 9.0 4.0 4.0 11/10/16 11/10/16 11/10/16 11/10/16 20:13 20:27 21:29 21:31 Resp 20 Pulse Ox 95 96 96 O2 Delivery Venturi Mask Nasal Cannula Nasal Cannula Nasal Cannula O2 Flow Rate 4.0 3.0 4.0 4.0 11/11/16 11/11/16 11/11/16 11/11/16 03:55 04:06 04:24 07:44 Temp 98.1 98.4 98.1 98.4 Pulse 64 91 Resp 20 B/P 130/67 177/87 Pulse Ox 96 94 94 90 O2 Delivery Nasal Cannula Nasal Cannula Nasal Cannula Nasal Cannula O2 Flow Rate 4.0 4.0 4.0 4.0 11/11/16 11/11/16 11/11/16 11/11/16 08:57 08:58 08:59 09:35 Pulse 91 91 Resp 21 B/P 177/87 177/87 Pulse Ox 92 90 O2 Delivery Nasal Cannula Nasal Cannula O2 Flow Rate 4.0 4.0 11/11/16 11/11/16 09:36 11:04 Temp 97.6 97.6 Pulse 83 Resp 22 B/P 167/76 Pulse Ox 90 95 O2 Delivery Nasal Cannula Nasal Cannula O2 Flow Rate 4.0 4.0 Intake and Output 11/10/16 11/10/16 11/11/16 15:00 23:00 07:00 Intake Total 720 ml 420 ml 1260 ml Output Total 2 ml Balance 720 ml 418 ml 1260 ml BALJEET RAMOS MD Nov 11, 2016 11:24
[2016-11-11] MEDS ORDERED: FUROSEMIDE 40 MG/4 ML VIAL IVP ONE (11:30)
[2016-11-11] MEDS: SCOPOLAMINE 1.5MG PATCH. TD SCH (11:42)
--- NOTE | 2016-11-11 11:49 | PDOC2 ---
PALLIATIVE CARE Palliative Care Note Palliative Care Patient lethargic. Attempts to open eyes. Expiratory wheezes Spoke to daughter/Kim. Reviewed medical condition Discussed options for care: Home with hired caregiver assistance vs home with caregivers and hospice vs SNU if patient is able to participate in therapy. Patient is to receive Lasix today. Will monitor for response and address accordingly. PRAFUL SLAUGHTER Nov 11, 2016 11:49
--- NOTE | 2016-11-11 11:59 | PDOC ---
SUBJECTIVE ROS SHEYLA/ elyte ABN look sbetter OBJECTIVE Vital Signs Vital Signs Date Time Temp Pulse Resp B/P Pulse Ox O2 Delivery O2 Flow Rate FiO2 11/11/16 11:40 95 Nasal Cannula 5.0 11/11/16 11:04 97.6 83 22 167/76 97.6 I & 0 Intake and Output 11/11/16 07:00 Intake Total 2400 ml Output Total 2 ml Balance 2398 ml Intake Oral 1340 ml IV Total 1060 ml Output Stool Total 2 ml # Voids 6 # Bowel Movements 3 PHYSICAL EXAM Physical Exam General Appearance: Drowsy (? from pain meds) Neck: No JVD or JVP Chest: CTA [place] Heart: S1 S2 Abdomen - Soft NTND Extremities - No Edema DIAGNOSIS/ASSESSMENT Assessment & Plan CKD III with abseline creat of 1.4-1.7ish: Current fluid and E-lyte status does not necessitate emergent need for dialysis. Will re-evaluate for dialysis in the am . ^Na - betterw tih PPN - watch off of same. Got lasix too will see on MWF basis Problems: COMMENT/RELEVANT DATA Meds Current Medications Medications (Trade) Dose Ordered Sig/Malcom Start Time Stop Time Status Last Admin Dose Admin Acetaminophen (Tylenol) 650 mg PRN Q6HRS PRN 11/05/16 16:15 11/10/16 08:54 650 MG Albuterol Sulfate 2.5 mg 2.5 mg PRN Q4HRS PRN 11/05/16 16:15 Albuterol/ Ipratropium (Duoneb) 3 ml RTQID 11/11/16 12:00 11/11/16 11:38 3 ML Amino Acids/ Glycerin/ Electrolytes (Procalamine) 1,000 ml @ 80 mls/hr [id number] 11/07/16 12:15 11/11/16 11:22 DC 11/11/16 02:20 80 MLS/HR Amlodipine Besylate (Norvasc) 5 mg DAILY 11/06/16 09:00 11/08/16 12:18 DC 11/06/16 09:28 5 MG Atorvastatin Calcium (Lipitor) 80 mg QHS 11/05/16 21:00 11/10/16 20:14 80 MG Budesonide (Pulmicort) 0.5 mg RTBID 11/09/16 09:00 11/11/16 09:32 0.5 MG Dextrose 12.5 gm PRN Q15MIN PRN 11/05/16 16:15 Digoxin (Lanoxin) 125 mcg DAILY 11/09/16 09:00 11/11/16 08:58 125 MCG Diltiazem HCl (Cardizem) 30 mg Q8HRS 11/08/16 12:00 11/09/16 10:39 DC 11/08/16 21:21 30 MG Diltiazem HCl 120 mg 120 mg DAILY 11/09/16 11:00 11/11/16 08:57 120 MG Enoxaparin Sodium (Lovenox Per Pharmacy Prophylaxis Dosing) 1 each PRN DAILY PRN 11/06/16 13:00 UNV Fentanyl Citrate (Fentanyl 2ml Vial) 25 mcg PRN Q2HR PRN 11/07/16 20:00 11/11/16 08:59 25 MCG Furosemide (Lasix) 40 mg 1X ONCE 11/11/16 11:30 11/11/16 11:31 DC Glipizide (Glucotrol) 5 mg DAILY 11/06/16 09:00 11/11/16 08:57 5 MG Guaifenesin (Robitussin Dm) 10 ml PRN Q6HRS PRN 11/07/16 12:30 Heparin Sodium (Porcine) 5,000 unit Q8HRS 11/05/16 22:00 11/11/16 05:59 5,000 UNIT Hydralazine HCl (Apresoline) 10 mg PRN Q4HRS PRN 11/05/16 16:15 Insulin Aspart (Novolog) 0-9 UNITS TIDWMEALS 11/05/16 17:00 11/11/16 09:09 7 UNITS Labetalol HCl 10 mg 10 mg PRN Q2HR PRN 11/10/16 09:45 Lamotrigine (LaMICtal) 100 mg BID 11/05/16 21:00 11/11/16 08:57 100 MG Levetiracetam (Keppra) 500 mg QHS 11/10/16 21:00 11/10/16 20:13 500 MG Levetiracetam 500 mg/Sodium Chloride 105 ml @ 400 mls/hr HS 11/06/16 21:00 11/10/16 09:24 DC 11/09/16 21:28 400 MLS/HR Magnesium Sulfate/ Dextrose (Magnesium Sulfate PREMIX 2GM) 50 ml @ 25 mls/hr PRN DAILY PRN 11/09/16 15:45 Nystatin (Nystop) 1 hong TID 11/09/16 21:00 11/11/16 09:00 1 HONG Ondansetron HCl 4 mg 4 mg PRN Q6HRS PRN 11/05/16 16:15 Oseltamivir Phosphate (Tamiflu) 30 mg BID 11/05/16 21:00 11/07/16 14:19 DC 11/06/16 09:27 30 MG Oseltamivir Phosphate 30 mg 30 mg DAILY 11/08/16 09:00 11/10/16 20:59 DC 11/10/16 08:50 30 MG Piperacillin Sod/ Tazobactam Sod 3.375 gm/Sodium Chloride 50 ml @ 100 mls/hr Q6HRS 11/06/16 19:00 11/07/16 14:21 DC 11/07/16 11:17 100 MLS/HR Piperacillin Sod/ Tazobactam Sod 1 each 1 each PRN DAILY PRN 11/06/16 18:15 11/08/16 12:53 DC Piperacillin Sod/ Tazobactam Sod/ Sodium Chloride (Zosyn/Iv Sodium Chloride 0.9% 50ml) 50 ml @ 100 mls/hr Q6HRS 11/07/16 18:00 11/11/16 05:55 100 MLS/HR Potassium Chloride/Dextrose/ Sod Cl (KCl 20 Meq In D5W-1/2 NS) 1,000 ml @ 100 mls/hr 1X ONCE 11/06/16 13:00 11/06/16 22:59 DC 11/06/16 17:17 100 MLS/HR Potassium Chloride/Dextrose/ Sod Cl (KCl 20 Meq In D5W-NS) 1,000 ml @ 75 mls/hr [id number] 11/05/16 16:15 11/05/16 16:15 DC Potassium Chloride/Sodium Chloride 1,000 ml @ 75 mls/hr [id number] 11/05/16 17:00 11/07/16 12:10 DC 11/07/16 09:00 75 MLS/HR Potassium Chloride (KCl Oral Soln) 40 meq 1X ONCE 11/05/16 13:15 11/05/16 13:16 DC 11/05/16 13:49 40 MEQ Scopolamine (Transderm-Scop) 1 patch Q3DAYS 11/11/16 11:30 Sodium Chloride (Iv Sodium Chloride 0.9% 1000ml Bag) 1,000 ml @ 200 mls/hr Q5H 11/05/16 11:35 11/05/16 16:34 DC 11/05/16 12:25 200 MLS/HR Sodium Phosphate/ Dextrose 256.6667 ml @ 64.167 m... 1X ONCE 11/10/16 14:00 11/10/16 17:59 DC 11/10/16 13:49 64.167 MLS/HR Lab Laboratory Tests Test 11/10/16 16:08 11/10/16 20:24 11/11/16 04:05 11/11/16 07:45 Glucose (Fingerstick) 141mg/dL (70-99) 176mg/dL (70-99) 278mg/dL (70-99) Sodium Level 145mmol/L (136-145) Potassium Level 4.2mmol/L (3.5-5.1) Chloride Level 105mmol/L (98-107) Carbon Dioxide Level 33mmol/L (21-32) Anion Gap 7 (6-14) Blood Urea Nitrogen 29mg/dL (7-20) Creatinine 1.4mg/dL (0.6-1.0) Estimated GFR (Cockcroft-Gault) 35.8 Glucose Level 248mg/dL (70-99) Calcium Level 9.3mg/dL (8.5-10.1) Phosphorus Level 2.9mg/dL (2.6-4.7) Magnesium Level 2.2mg/dL (1.8-2.4) Albumin 2.9g/dL (3.4-5.0) Test 11/11/16 11:41 Glucose (Fingerstick) 241mg/dL (70-99) ORALIA TAVERA MD Nov 11, 2016 11:59
[2016-11-11 15:00] VITALS: BP 144/68
--- NOTE | 2016-11-11 15:18 | PDOC ---
PROGRESS NOTES Assessment Assessment IMPRESSION: Metabolic encephalopathy. Respiratory failure, acute on chronic. Hypoxia. New onset AFib with RVR. Aspiration pneumonia. Hyperglycemia. DM HTN HLD COPD CHF Obesity RECOMMENDATIONS/PLAN: Continue Keppra. Continue medical treatment at the present time. Palliative care consulted, and palliative care discussed. PAST MEDICAL AND SURGICAL HISTORY: Please see H&P ALLERGY: Unknown MEDICATIONS: Refer to MAR REVIEW OF SYSTEMS: Constitutional: No malnutrition, weight loss, cachexia. Head: No traumatic brain or head injury. Skin: No edema, or rash. Ear: No infection, tinnitus. Eyes: No vision loss, or diplopia. Nose: No bleeding or purulent discharges. Hearing: No hearing decrease. Neck: No injury. Cardiac: New onset AFib, HTN, HLD Pulmonary: COPD. GI: No GI Ulcer, GI bleeding Urinary/genital: UTI. Endocrine: Diabetes Mellitus, obesity. Skeletomuscular: generalized weakness. Neurological: see HP. Psychiatric: Denies drug use/abuse. Otherwise, not [id number] review of systems. PHYSICAL EXAMINATION: General appearance in no acute distress. HEENT: Normocephalic and nontraumatic. Eyes, nose, ears, and throat are unremarkable. Hearing decrease. Neck is supple. No lymphadenopathy. No Crepitus. Cardiovascular: S1, S2, irregular rate and rhythm. Pulmonary: breathing sounds decreased to auscultation bilaterally. Abdomen: Bowel sounds are positive. Extremities: edema noted. No restriction of range of motion NEUROLOGICAL EXAMINATION: Lethargic. Not oriented to time, place and person. PERRL. EOMI not elicited. CN: no acute focal findings. Muscle tone: decreased Muscle strength: minimal movements noted. DTR: 1+ UE, 0 at knee Plantar reflex: Neutral response bilaterally Gait: Unable to walk. Sensory exam: Minimal response to stimuli. Not able to access cerebellar signs. Unable to perform F-T-N test. Objective Objective Vital Signs Date Time Temp Pulse Resp B/P Pulse Ox O2 Delivery O2 Flow Rate FiO2 11/11/16 11:40 95 Nasal Cannula 5.0 11/11/16 11:04 97.6 83 22 167/76 97.6 Intake and Output 11/11/16 07:00 Intake Total 2400 ml Output Total 2 ml Balance 2398 ml Intake Oral 1340 ml IV Total 1060 ml Output Stool Total 2 ml # Voids 6 # Bowel Movements 3 Vitals Signs Vitals VS - Last 72 Hours, by Label Date Time Temp Pulse Resp B/P Pulse Ox O2 Delivery O2 Flow Rate FiO2 11/11/16 11:40 95 Nasal Cannula 5.0 11/11/16 11:04 97.6 83 22 167/76 95 Nasal Cannula 4.0 97.6 11/11/16 09:36 90 Nasal Cannula 4.0 11/11/16 09:35 90 Nasal Cannula 4.0 11/11/16 09:30 21 90 Nasal Cannula 4.0 11/11/16 08:59 21 92 Nasal Cannula 4.0 11/11/16 08:58 91 177/87 11/11/16 08:57 91 177/87 11/11/16 08:10 Nasal Cannula 4.0 11/11/16 07:44 98.4 91 22 177/87 90 Nasal Cannula 4.0 98.4 11/11/16 04:06 98.1 64 22 130/67 94 Nasal Cannula 4.0 98.1 11/11/16 03:55 20 96 Nasal Cannula 4.0 11/10/16 21:31 96 Nasal Cannula 4.0 11/10/16 21:29 96 Nasal Cannula 4.0 11/10/16 20:27 Nasal Cannula 3.0 11/10/16 20:13 20 95 Venturi Mask 4.0 11/10/16 19:00 97.9 77 21 134/57 95 Nasal Cannula 4.0 97.9 11/10/16 15:39 Nasal Cannula 4.0 11/10/16 14:36 98.1 65 22 145/87 96 Room Air 98.1 11/10/16 11:39 94 Venturi Mask 9.0 11/10/16 11:00 97.4 69 24 98/69 97 Room Air 3.0 97.4 11/10/16 08:52 65 180/59 11/10/16 08:51 65 180/59 11/10/16 08:00 Venturi Mask 9.0 11/10/16 07:30 82 Nasal Cannula 3.0 11/10/16 07:00 98.9 65 22 180/59 98 Room Air 98.9 Laboratory Laboratory Laboratory Tests Test 11/10/16 16:08 11/10/16 20:24 11/11/16 04:05 11/11/16 07:45 Glucose (Fingerstick) 141mg/dL (70-99) 176mg/dL (70-99) 278mg/dL (70-99) Sodium Level 145mmol/L (136-145) Potassium Level 4.2mmol/L (3.5-5.1) Chloride Level 105mmol/L (98-107) Carbon Dioxide Level 33mmol/L (21-32) Anion Gap 7 (6-14) Blood Urea Nitrogen 29mg/dL (7-20) Creatinine 1.4mg/dL (0.6-1.0) Estimated GFR (Cockcroft-Gault) 35.8 Glucose Level 248mg/dL (70-99) Calcium Level 9.3mg/dL (8.5-10.1) Phosphorus Level 2.9mg/dL (2.6-4.7) Magnesium Level 2.2mg/dL (1.8-2.4) Albumin 2.9g/dL (3.4-5.0) Test 11/11/16 11:41 Glucose (Fingerstick) 241mg/dL (70-99) Microbiology 11/05/16 Blood Culture - Final, Complete NO GROWTH AFTER 5 DAYS Medication Medications Current Medications Albuterol/ Ipratropium (Duoneb) 3 ml RTQID NEB Last administered on 11/11/16 11:38; Start 11/11/16 at 12:00 Furosemide (Lasix) 40 mg 1X ONCE IVP Last administered on 11/11/16 11:43; Start 11/11/16 at 11:30; Stop 11/11/16 at 11:31; Status DC Levetiracetam (Keppra) 500 mg QHS PO Last administered on 11/10/16 20:13; Start 11/10/16 at 21:00 Scopolamine (Transderm-Scop) 1 patch Q3DAYS TD Last administered on 11/11/16 11:42; Start 11/11/16 at 11:30 Comment Review of Relevant I have reviewed the following items lucy (where applicable) has been applied. JOSSELYN TURK MD Nov 11, 2016 15:18
--- NOTE | 2016-11-11 18:49 | PDOC ---
PULMONARY PROGRESS NOTES Subjective NOT MORE SOA Vitals Vital Signs Date Time Temp Pulse Resp B/P Pulse Ox O2 Delivery O2 Flow Rate FiO2 11/11/16 16:10 93 Nasal Cannula 5.0 11/11/16 15:00 98.0 81 22 144/68 98.0 ROS: No Nausea, No Chest Pain, No Abdominal Pain, No Increase Cough General: Alert Lungs: Crackles Cardiovascular: S1, S2 Abdomen: Soft, Non-tender Neuro Exam: Alert, Oriented Extremities: Other Skin: Warm Labs Laboratory Tests Test 11/09/16 20:28 11/10/16 06:38 11/10/16 06:51 11/10/16 11:13 Glucose (Fingerstick) 172mg/dL (70-99) 127mg/dL (70-99) 242mg/dL (70-99) Hemoglobin 11.0g/dL (12.0-15.5) Sodium Level 145mmol/L (136-145) Potassium Level 3.9mmol/L (3.5-5.1) Chloride Level 106mmol/L (98-107) Carbon Dioxide Level 37mmol/L (21-32) Anion Gap 2 (6-14) Blood Urea Nitrogen 32mg/dL (7-20) Creatinine 1.5mg/dL (0.6-1.0) Estimated GFR (Cockcroft-Gault) 33.1 Glucose Level 192mg/dL (70-99) Calcium Level 8.9mg/dL (8.5-10.1) Phosphorus Level 2.1mg/dL (2.6-4.7) Magnesium Level 2.2mg/dL (1.8-2.4) Albumin 2.6g/dL (3.4-5.0) Test 11/10/16 16:08 11/10/16 20:24 11/11/16 04:05 11/11/16 07:45 Glucose (Fingerstick) 141mg/dL (70-99) 176mg/dL (70-99) 278mg/dL (70-99) Sodium Level 145mmol/L (136-145) Potassium Level 4.2mmol/L (3.5-5.1) Chloride Level 105mmol/L (98-107) Carbon Dioxide Level 33mmol/L (21-32) Anion Gap 7 (6-14) Blood Urea Nitrogen 29mg/dL (7-20) Creatinine 1.4mg/dL (0.6-1.0) Estimated GFR (Cockcroft-Gault) 35.8 Glucose Level 248mg/dL (70-99) Calcium Level 9.3mg/dL (8.5-10.1) Phosphorus Level 2.9mg/dL (2.6-4.7) Magnesium Level 2.2mg/dL (1.8-2.4) Albumin 2.9g/dL (3.4-5.0) Test 11/11/16 11:41 Glucose (Fingerstick) 241mg/dL (70-99) Laboratory Tests Test 11/10/16 20:24 11/11/16 04:05 11/11/16 07:45 11/11/16 11:41 Glucose (Fingerstick) 176mg/dL (70-99) 278mg/dL (70-99) 241mg/dL (70-99) Sodium Level 145mmol/L (136-145) Potassium Level 4.2mmol/L (3.5-5.1) Chloride Level 105mmol/L (98-107) Carbon Dioxide Level 33mmol/L (21-32) Anion Gap 7 (6-14) Blood Urea Nitrogen 29mg/dL (7-20) Creatinine 1.4mg/dL (0.6-1.0) Estimated GFR (Cockcroft-Gault) 35.8 Glucose Level 248mg/dL (70-99) Calcium Level 9.3mg/dL (8.5-10.1) Phosphorus Level 2.9mg/dL (2.6-4.7) Magnesium Level 2.2mg/dL (1.8-2.4) Albumin 2.9g/dL (3.4-5.0) Medications Active Scripts Medications Dose Route/Sig Days Date Category Dose Instructions Levofloxacin 250 Mg Tablet 250 Mg PO DAILY 08/11/16 Reported Amlodipine Besylate 5 Mg Tablet 5 Mg PO DAILY 08/11/16 Reported Keppra (Levetiracetam) 500 Mg Tablet 250 Mg PO HS 08/08/16 Reported Glipizide 5 Mg Tablet 5 Mg PO DAILY 12/22/13 Rx Take one-half a tablet daily. Lasix (Furosemide) 40 Mg Tablet 40 Mg PO DAILY 12/22/13 Rx Crestor (Rosuvastatin Calcium) 20 Mg Tablet 20 Mg PO HS 10/24/13 Reported Lamictal (Lamotrigine) 100 Mg Tablet 100 Mg PO BID 10/24/13 Reported Comments cxr reviewed, Cardiomegaly, similar. Mild congestive heart failure. Superimposed pneumonia in the right upper lobe is not entirely excluded. Small bilateral pleural effusions Impression . 1. Fuexy-dy-ixrttcf respiratory failure. 2. Aspiration pneumonia. 3. Dysphagia. 4. Coronary artery disease. 5. Hypertension. 6. Depression. 7. Acute renal failure. 8. Hyperkalemia. 9. Acute metabolic toxic encephalopathy. Plan . TRANSFER SOON OK BY [place] CXR NO CHANGE 1. POSSIBLE FAMILY MEETING 2. Continue oxygen supplementation. 3. ORAL ANTIBX 4. Nebulized treatments. 5. Continue home medications. 6. DYPSHGIA DIET 7. keep I<O, 9. hep for dvt prophylaxis SUPA KURTZ MD Nov 11, 2016 18:49
[2016-11-11 19:00] VITALS: BP 156/98
[2016-11-11] MEDS: ATORVASTATIN CALCIUM 40 MG TABLET. PO SCH (21:51)
[2016-11-11] MEDS: LEVETIRACETAM 500 MG TABLET PO SCH (21:51)
[2016-11-11] MEDS: ACETAMINOPHEN 325 MG TABLET. PO PRN (21:51)
[2016-11-11 23:00] VITALS: BP 141/62
[2016-11-12] VITALS (7 sets, daily range): BP systolic 97–146; BP diastolic 41–88
[2016-11-12] MEDS: HEPARIN PF for SUB-Q USE 5,000 UNIT/0.5 ML VIAL. SQ SCH ×3 (06:46→22:00)
[2016-11-12 07:03] LABS: ALBUMIN 2.8 g/dL (3.4-5.0); CREATININE 1.8 mg/dL (0.6-1.0); GFR 26.8; PHOSPHORUS 5.6 mg/dL (2.6-4.7); POTASSIUM 4.6 mmol/L (3.5-5.1)
[2016-11-12] MEDS: IPRATRPIUM/ALBUTEROL 0.5/2.5MG 3 ML NEBU. NEB SCH ×4 (07:10→17:57)
[2016-11-12] MEDS: INSULIN ASPART 300 UNITS/3 ML INSULN.PEN SQ SCH ×3 (08:59→17:00)
[2016-11-12] MEDS: DIGOXIN 125 MCG TABLET PO SCH (09:00)
[2016-11-12] MEDS: DILTIAZEM HCL 120 MG CAP.ER.24H PO SCH (09:00)
[2016-11-12] MEDS: NYSTATIN TOPICAL POWDER 15GM BOTTLE. TP SCH ×3 (09:00→21:00)
[2016-11-12] MEDS: lamoTRIgine 100 MG TABLET. PO SCH ×2 (09:00→21:00)
[2016-11-12] MEDS: GLIPIZIDE 5 MG TABLET PO SCH (09:00)
--- NOTE | 2016-11-12 09:35 | PDOC ---
PULMONARY PROGRESS NOTES Subjective NOT RESPONSIVE , 100%fio2 Vitals Vital Signs Date Time Temp Pulse Resp B/P Pulse Ox O2 Delivery O2 Flow Rate FiO2 11/12/16 07:10 98 NonRebreather Mask 7.0 11/12/16 07:00 97.6 93 24 131/48 97.6 Lungs: Other (few rhonchi) Cardiovascular: S1, S2 Abdomen: Soft, Non-tender Neuro Exam: Oriented Extremities: Other Skin: Warm Labs Laboratory Tests Test 11/10/16 11:13 11/10/16 16:08 11/10/16 20:24 11/11/16 04:05 Glucose (Fingerstick) 242mg/dL (70-99) 141mg/dL (70-99) 176mg/dL (70-99) Sodium Level 145mmol/L (136-145) Potassium Level 4.2mmol/L (3.5-5.1) Chloride Level 105mmol/L (98-107) Carbon Dioxide Level 33mmol/L (21-32) Anion Gap 7 (6-14) Blood Urea Nitrogen 29mg/dL (7-20) Creatinine 1.4mg/dL (0.6-1.0) Estimated GFR (Cockcroft-Gault) 35.8 Glucose Level 248mg/dL (70-99) Calcium Level 9.3mg/dL (8.5-10.1) Phosphorus Level 2.9mg/dL (2.6-4.7) Magnesium Level 2.2mg/dL (1.8-2.4) Albumin 2.9g/dL (3.4-5.0) Test 11/11/16 07:45 11/11/16 11:41 11/11/16 21:26 11/12/16 06:34 Glucose (Fingerstick) 278mg/dL (70-99) 241mg/dL (70-99) 125mg/dL (70-99) Sodium Level 148mmol/L (136-145) Potassium Level 4.6mmol/L (3.5-5.1) Chloride Level 106mmol/L (98-107) Carbon Dioxide Level 40mmol/L (21-32) Anion Gap 2 (6-14) Blood Urea Nitrogen 30mg/dL (7-20) Creatinine 1.8mg/dL (0.6-1.0) Estimated GFR (Cockcroft-Gault) 26.8 Glucose Level 266mg/dL (70-99) Calcium Level 9.0mg/dL (8.5-10.1) Phosphorus Level 5.6mg/dL (2.6-4.7) Magnesium Level 1.9mg/dL (1.8-2.4) Albumin 2.8g/dL (3.4-5.0) Test 11/12/16 07:45 Glucose (Fingerstick) 255mg/dL (70-99) Laboratory Tests Test 11/11/16 11:41 11/11/16 21:26 11/12/16 06:34 11/12/16 07:45 Glucose (Fingerstick) 241mg/dL (70-99) 125mg/dL (70-99) 255mg/dL (70-99) Sodium Level 148mmol/L (136-145) Potassium Level 4.6mmol/L (3.5-5.1) Chloride Level 106mmol/L (98-107) Carbon Dioxide Level 40mmol/L (21-32) Anion Gap 2 (6-14) Blood Urea Nitrogen 30mg/dL (7-20) Creatinine 1.8mg/dL (0.6-1.0) Estimated GFR (Cockcroft-Gault) 26.8 Glucose Level 266mg/dL (70-99) Calcium Level 9.0mg/dL (8.5-10.1) Phosphorus Level 5.6mg/dL (2.6-4.7) Magnesium Level 1.9mg/dL (1.8-2.4) Albumin 2.8g/dL (3.4-5.0) Medications Active Scripts Medications Dose Route/Sig Days Date Category Dose Instructions Levofloxacin 250 Mg Tablet 250 Mg PO DAILY 08/11/16 Reported Amlodipine Besylate 5 Mg Tablet 5 Mg PO DAILY 08/11/16 Reported Keppra (Levetiracetam) 500 Mg Tablet 250 Mg PO HS 08/08/16 Reported Glipizide 5 Mg Tablet 5 Mg PO DAILY 12/22/13 Rx Take one-half a tablet daily. Lasix (Furosemide) 40 Mg Tablet 40 Mg PO DAILY 12/22/13 Rx Crestor (Rosuvastatin Calcium) 20 Mg Tablet 20 Mg PO HS 10/24/13 Reported Lamictal (Lamotrigine) 100 Mg Tablet 100 Mg PO BID 10/24/13 Reported Comments cxr reviewed, Cardiomegaly, similar. Mild congestive heart failure. Superimposed pneumonia in the right upper lobe is not entirely excluded. Small bilateral pleural effusions Impression . 1. Qnzbr-zv-algecyk respiratory failure. 2. Aspiration pneumonia. 3. Dysphagia. 4. Coronary artery disease. 5. Hypertension. 6. Depression. 7. Acute renal failure. 8. Hyperkalemia. 9. Acute metabolic toxic encephalopathy. Plan . 1. Follow palliative care recommendations per family meeting 2. Continue oxygen supplementation. 3. Nebulized treatments. 4. supportive care will sign off SHIMON DE LA CRUZ MD Nov 12, 2016 09:35
[2016-11-12] MEDS ORDERED: FUROSEMIDE 40 MG/4 ML VIAL IVP ONE (12:00)
[2016-11-12 12:31] LABS: HCO3 ABG 46 mmol/L (21-28); PO2 ABG 88 mmHg (65-108); SAT O2 ABG 95 % (92-99)
[2016-11-12 12:33] LABS: PCO2 ABG 136 mmHg (35-46); PH ABG 7.15 (7.35-7.45)
[2016-11-12 12:34] LABS: FIO2 ABG 99
--- NOTE | 2016-11-12 12:37 | PDOC ---
PROGRESS NOTES Chief Complaint Chief Complaint 1. acute on chronic resp failure, home o2 2L 2. flu + 3. seizure disorder 4. htn 5. dm2 6. copd 7. h/o CHF 8. hld 9. hypokalemia 10 sheyla on ckd3 11. AMS, metabolic encephalopathy with flu,SHEYLA, VS. post ictal 12. Sepsis 13. Dysphagia 14, New onset atrial fib, intermittent RVR 15. ASPIRATION PNEUMONITIS History of Present Illness History of Present Illness Not much improvement with respiration despite lasix x 1 yesterday LEthargic today On venti mask Wheezy and crackles all over. I had a family mtg with palliative today Dtr wishes aggressive tx bec patient wishes aggressive tx too She does not want hospice - familiar with it ( was on hospice) PLAn: LAsix now ABG now BIPAP Transfer to ICU NPO for now Dr. Tang updated Dw family, RN and palliative Cc 30 Vitals Vitals Vital Signs Date Time Temp Pulse Resp B/P Pulse Ox O2 Delivery O2 Flow Rate FiO2 11/12/16 10:59 97 Nasal Cannula 6.0 11/12/16 10:44 97.4 59 20 116/41 97.4 Physical Exam General: Alert, Cooperative, No acute distress Heart: Other (Rate in the 60s-70s with normal S1/S2, muffled heart sounds secondary to labored breathing and body habitus. Patient in Afib on telemetry) Lungs: Other (few rhonchi) Abdomen: Normal bowel sounds, Soft, No tenderness Extremities: No clubbing, No cyanosis, Other (mild chronic peripheral edema of upper and lower extremity) Skin: No rashes Labs LABS Laboratory Tests Test 11/11/16 21:26 11/12/16 06:34 11/12/16 07:45 11/12/16 10:58 Glucose (Fingerstick) 125mg/dL (70-99) 255mg/dL (70-99) 219mg/dL (70-99) Sodium Level 148mmol/L (136-145) Potassium Level 4.6mmol/L (3.5-5.1) Chloride Level 106mmol/L (98-107) Carbon Dioxide Level 40mmol/L (21-32) Anion Gap 2 (6-14) Blood Urea Nitrogen 30mg/dL (7-20) Creatinine 1.8mg/dL (0.6-1.0) Estimated GFR (Cockcroft-Gault) 26.8 Glucose Level 266mg/dL (70-99) Calcium Level 9.0mg/dL (8.5-10.1) Phosphorus Level 5.6mg/dL (2.6-4.7) Magnesium Level 1.9mg/dL (1.8-2.4) Albumin 2.8g/dL (3.4-5.0) Review of Systems Review of Systems lethargic unable to obtain Assessment and Plan Assessmemt and Plan Problems Medical Problems: (1) Aspiration pneumonia Status: Acute (2) Aspiration pneumonia Status: Acute (3) Hypoxia Status: Acute (4) Influenza Status: Acute (5) Influenza Status: Acute Problems: Comment Review of Relevant I have reviewed the following items lucy (where applicable) has been applied. Labs Laboratory Tests Test 11/10/16 16:08 11/10/16 20:24 11/11/16 04:05 11/11/16 07:45 Glucose (Fingerstick) 141mg/dL (70-99) 176mg/dL (70-99) 278mg/dL (70-99) Sodium Level 145mmol/L (136-145) Potassium Level 4.2mmol/L (3.5-5.1) Chloride Level 105mmol/L (98-107) Carbon Dioxide Level 33mmol/L (21-32) Anion Gap 7 (6-14) Blood Urea Nitrogen 29mg/dL (7-20) Creatinine 1.4mg/dL (0.6-1.0) Estimated GFR (Cockcroft-Gault) 35.8 Glucose Level 248mg/dL (70-99) Calcium Level 9.3mg/dL (8.5-10.1) Phosphorus Level 2.9mg/dL (2.6-4.7) Magnesium Level 2.2mg/dL (1.8-2.4) Albumin 2.9g/dL (3.4-5.0) Test 11/11/16 11:41 11/11/16 21:26 11/12/16 06:34 11/12/16 07:45 Glucose (Fingerstick) 241mg/dL (70-99) 125mg/dL (70-99) 255mg/dL (70-99) Sodium Level 148mmol/L (136-145) Potassium Level 4.6mmol/L (3.5-5.1) Chloride Level 106mmol/L (98-107) Carbon Dioxide Level 40mmol/L (21-32) Anion Gap 2 (6-14) Blood Urea Nitrogen 30mg/dL (7-20) Creatinine 1.8mg/dL (0.6-1.0) Estimated GFR (Cockcroft-Gault) 26.8 Glucose Level 266mg/dL (70-99) Calcium Level 9.0mg/dL (8.5-10.1) Phosphorus Level 5.6mg/dL (2.6-4.7) Magnesium Level 1.9mg/dL (1.8-2.4) Albumin 2.8g/dL (3.4-5.0) Test 11/12/16 10:58 Glucose (Fingerstick) 219mg/dL (70-99) Laboratory Tests Test 11/11/16 21:26 11/12/16 06:34 11/12/16 07:45 11/12/16 10:58 Glucose (Fingerstick) 125mg/dL (70-99) 255mg/dL (70-99) 219mg/dL (70-99) Sodium Level 148mmol/L (136-145) Potassium Level 4.6mmol/L (3.5-5.1) Chloride Level 106mmol/L (98-107) Carbon Dioxide Level 40mmol/L (21-32) Anion Gap 2 (6-14) Blood Urea Nitrogen 30mg/dL (7-20) Creatinine 1.8mg/dL (0.6-1.0) Estimated GFR (Cockcroft-Gault) 26.8 Glucose Level 266mg/dL (70-99) Calcium Level 9.0mg/dL (8.5-10.1) Phosphorus Level 5.6mg/dL (2.6-4.7) Magnesium Level 1.9mg/dL (1.8-2.4) Albumin 2.8g/dL (3.4-5.0) Microbiology 11/05/16 Blood Culture - Final, Complete NO GROWTH AFTER 5 DAYS Medications Current Medications Sodium Chloride (Iv Sodium Chloride 0.9% 1000ml Bag) 1,000 ml @ 200 mls/hr Q5H IV Last administered on 11/05/16 12:25; Start 11/05/16 at 11:35; Stop at 16:34; Status DC Oseltamivir Phosphate 75 mg 75 mg DAILY PO Last administered on 11/05/16 12:24 ; Start 11/05/16 at 12:30; Stop 11/05/16 at 12:30; Status DC Piperacillin Sod/ Tazobactam Sod/ Sodium Chloride (Zosyn/Iv Sodium Chloride 0.9 % 50ml) 50 ml @ 100 mls/hr 1X ONCE IV Last administered on 11/05/16 12:39; Start 11/05/16 at 12:45; Stop 11/05/16 at 13:14; Status DC Oseltamivir Phosphate (Tamiflu) 30 mg BID PO Last administered on 11/06/16 09: 27; Start 11/05/16 at 21:00; Stop 11/07/16 at 14:19; Status DC Potassium Chloride (KCl Oral Soln) 40 meq 1X ONCE PO Last administered on 11/05 13:49; Start 11/05/16 at 13:15; Stop 11/05/16 at 13:16; Status DC Amlodipine Besylate (Norvasc) 5 mg DAILY PO Last administered on 11/06/16 09: 28; Start 11/06/16 at 09:00; Stop 11/08/16 at 12:18; Status DC Glipizide (Glucotrol) 5 mg DAILY PO Last administered on 11/11/16 08:57; Start 11/06/16 at 09:00 Lamotrigine (LaMICtal) 100 mg BID PO Last administered on 11/11/16 21:51; Start 11/05/16 at 21:00 Levetiracetam (Keppra) 250 mg HS PO Last administered on 11/05/16 20:19; Start 11/05/16 at 21:00; Stop 11/06/16 at 12:12; Status DC Atorvastatin Calcium (Lipitor) 80 mg QHS PO Last administered on 11/11/16 21: 51; Start 11/05/16 at 21:00 Acetaminophen (Tylenol) 650 mg PRN Q6HRS PRN PO MILD PAIN / TEMP Last administered on 11/11/16 21:51; Start 11/05/16 at 16:15 Ondansetron HCl 4 mg 4 mg PRN Q6HRS PRN IV NAUSEA/VOMITING; Start 11/05/16 at 16:15 Potassium Chloride/Dextrose/ Sod Cl (KCl 20 Meq In D5W-NS) 1,000 ml @ 75 mls/ hr [id number] IV ; Start 11/05/16 at 16:15; Stop 11/05/16 at 16:15; Status DC Insulin Aspart (Novolog) 0-9 UNITS TIDWMEALS SQ Last administered on 11/12/16 08:59; Start 11/05/16 at 17:00 Dextrose 12.5 gm PRN Q15MIN PRN IV SEE COMMENTS; Start 11/05/16 at 16:15 Heparin Sodium (Porcine) 5,000 unit Q8HRS SQ Last administered on 11/12/16 06: 46; Start 11/05/16 at 22:00 Hydralazine HCl (Apresoline) 10 mg PRN Q4HRS PRN IVP ELEVATED BP, SEE COMMENTS ; Start 11/05/16 at 16:15 Albuterol/ Ipratropium (Duoneb) 3 ml RTQID NEB Last administered on 11/11/16 09:32; Start 11/05/16 at 20:00; Stop 11/11/16 at 11:29; Status DC Albuterol Sulfate 2.5 mg 2.5 mg PRN Q4HRS PRN NEB SHORTNESS OF BREATH; Start at 16:15 Potassium Chloride/Sodium Chloride 1,000 ml @ 75 mls/hr [id number] IV Last administered on 11/07/16 09:00; Start 11/05/16 at 17:00; Stop 11/07/16 at 12:10 ; Status DC Levetiracetam 500 mg/Sodium Chloride 105 ml @ 400 mls/hr HS IV Last administered on 11/09/16 21:28; Start 11/06/16 at 21:00; Stop 11/10/16 at 09:24 ; Status DC Potassium Chloride/Dextrose/ Sod Cl (KCl 20 Meq In D5W-1/2 NS) 1,000 ml @ 100 mls/hr 1X ONCE IV Last administered on 11/06/16 17:17; Start 11/06/16 at 13: 00; Stop 11/06/16 at 22:59; Status DC Enoxaparin Sodium (Lovenox Per Pharmacy Prophylaxis Dosing) 1 each PRN DAILY PRN MC SEE COMMENTS; Start 11/06/16 at 13:00; Status UNV Piperacillin Sod/ Tazobactam Sod 1 each 1 each PRN DAILY PRN MC SEE COMMENTS; Start 11/06/16 at 18:15; Stop 11/08/16 at 12:53; Status DC Piperacillin Sod/ Tazobactam Sod 3.375 gm/Sodium Chloride 50 ml @ 100 mls/hr Q6HRS IV Last administered on 11/07/16 11:17; Start 11/06/16 at 19:00; Stop at 14:21; Status DC Amino Acids/ Glycerin/ Electrolytes (Procalamine) 1,000 ml @ 80 mls/hr [id number] IV Last administered on 11/11/16 02:20; Start 11/07/16 at 12:15; Stop at 11:22; Status DC Guaifenesin (Robitussin Dm) 10 ml PRN Q6HRS PRN PO COUGH; Start 11/07/16 at 12: 30 Oseltamivir Phosphate 30 mg 30 mg DAILY PO Last administered on 11/10/16 08:50 ; Start 11/08/16 at 09:00; Stop 11/10/16 at 20:59; Status DC Piperacillin Sod/ Tazobactam Sod/ Sodium Chloride (Zosyn/Iv Sodium Chloride 0.9 % 50ml) 50 ml @ 100 mls/hr Q6HRS IV Last administered on 11/11/16 17:44; Start 11/07/16 at 18:00; Stop 11/11/16 at 18:50; Status DC Fentanyl Citrate (Fentanyl 2ml Vial) 25 mcg PRN Q2HR PRN IV PAIN Last administered on 11/11/16 23:51; Start 11/07/16 at 20:00 Diltiazem HCl (Cardizem) 30 mg Q8HRS PO Last administered on 11/08/16 21:21; Start 11/08/16 at 12:00; Stop 11/09/16 at 10:39; Status DC Digoxin (Lanoxin) 500 mcg 1X ONCE IV Last administered on 11/08/16 12:28; Start 11/08/16 at 12:15; Stop 11/08/16 at 12:19; Status DC Digoxin (Lanoxin) 125 mcg DAILY PO Last administered on 11/11/16 08:58; Start 11/09/16 at 09:00 Budesonide (Pulmicort) 0.5 mg RTBID NEB Last administered on 11/11/16 09:32; Start 11/09/16 at 09:00; Stop 11/11/16 at 18:50; Status DC Diltiazem HCl 120 mg 120 mg DAILY PO Last administered on 11/11/16 08:57; Start 11/09/16 at 11:00 Magnesium Sulfate/ Dextrose (Magnesium Sulfate PREMIX 2GM) 50 ml @ 25 mls/hr PRN DAILY PRN IV for Mag < 1.7 on am labs; Start 11/09/16 at 15:45 Nystatin (Nystop) 1 hong TID TP Last administered on 11/11/16 21:51; Start at 21:00 Levetiracetam (Keppra) 500 mg QHS PO Last administered on 11/11/16 21:51; Start 11/10/16 at 21:00 Labetalol HCl 10 mg 10 mg PRN Q2HR PRN IVP HYPERTENSION, SEE COMMENTS; Start at 09:45 Sodium Phosphate/ Dextrose 256.6667 ml @ 64.167 m... 1X ONCE IV Last administered on 11/10/16 13:49; Start 11/10/16 at 14:00; Stop 11/10/16 at 17:59 ; Status DC Scopolamine (Transderm-Scop) 1 patch Q3DAYS TD Last administered on 11/11/16 11:42; Start 11/11/16 at 11:30 Furosemide (Lasix) 40 mg 1X ONCE IVP Last administered on 11/11/16 11:43; Start 11/11/16 at 11:30; Stop 11/11/16 at 11:31; Status DC Albuterol/ Ipratropium (Duoneb) 3 ml RTQID NEB Last administered on 11/12/16 07:10; Start 11/11/16 at 12:00 Furosemide (Lasix) 40 mg 1X ONCE IVP ; Start 11/12/16 at 12:00; Stop 11/12/16 at 12:01; Status DC Active Scripts Active Glipizide 5 Mg Tablet 5 Mg PO DAILY Take one-half a tablet daily. Lasix (Furosemide) 40 Mg Tablet 40 Mg PO DAILY Reported Levofloxacin 250 Mg Tablet 250 Mg PO DAILY Amlodipine Besylate 5 Mg Tablet 5 Mg PO DAILY Keppra (Levetiracetam) 500 Mg Tablet 250 Mg PO HS Crestor (Rosuvastatin Calcium) 20 Mg Tablet 20 Mg PO HS Lamictal (Lamotrigine) 100 Mg Tablet 100 Mg PO BID Vitals/I & O Vital Sign - Last 24 Hours 11/11/16 11/11/16 11/11/16 11/11/16 15:00 16:10 19:00 20:05 Temp 98.0 99.0 98.0 99.0 Pulse 81 76 Resp B/P 144/68 156/98 Pulse Ox 94 93 95 O2 Delivery Nasal Cannula Nasal Cannula Venturi Mask Nasal Cannula O2 Flow Rate 5.0 5.0 4.0 11/11/16 11/11/16 11/12/16 11/12/16 20:43 23:00 00:21 03:00 Temp 97.9 97.8 97.9 97.8 Pulse 89 80 Resp B/P 141/62 140/55 Pulse Ox 94 99 97 O2 Delivery Nasal Cannula NonRebreather Mask O2 Flow Rate 5.0 11/12/16 11/12/16 11/12/16 11/12/16 07:00 07:10 08:00 10:44 Temp 97.6 97.4 97.6 97.4 Pulse 93 59 Resp B/P 131/48 116/41 Pulse Ox 96 98 93 O2 Delivery Venturi Mask NonRebreather Mask Nasal Cannula Nasal Cannula O2 Flow Rate 6.0 7.0 6.0 6.0 11/12/16 10:59 Pulse Ox 97 O2 Delivery Nasal Cannula O2 Flow Rate 6.0 Intake and Output 11/11/16 11/11/16 11/12/16 15:00 23:00 07:00 Intake Total 0 ml Balance 0 ml BALJEET RAMOS MD Nov 12, 2016 12:37
[2016-11-12 12:41] LABS: BASO % 0 % (0-3); EOS % 0 % (0-3); HEMATOCRIT 34.4 % (36.0-47.0); HEMOGLOBIN 11.3 g/dL (12.0-15.5); LYMPH # 0.9 x10^3/uL (1.0-4.8); LYMPH % 8 % (24-48); MEAN CORPUSCULAR HEMOGLOBIN 32 pg (25-35); MEAN CORPUSCULAR HGB CONC 33 g/dL (31-37); MEAN CORPUSCULAR VOLUME 96 fL (79-100); MONO % 9 % (0-9); NEUT % 83 % (31-73); PLATELET COUNT 184 x10^3/uL (140-400); RED BLOOD COUNT 3.59 x10^6/uL (3.50-5.40); RED CELL DISTRIBUTION WIDTH 16.7 % (11.5-14.5); WHITE BLOOD COUNT 10.4 x10^3/uL (4.0-11.0)
[2016-11-12 12:43] LABS: CALCIUM 8.9 mg/dL (8.5-10.1); CREATININE 1.9 mg/dL (0.6-1.0); GFR 25.2; POTASSIUM 4.8 mmol/L (3.5-5.1)
[2016-11-12 14:38] LABS: PLT ESTIMATE ADEQUATE (ADEQUATE)
[2016-11-12 14:40] LABS: STOMATOCYTES OCC
--- NOTE | 2016-11-12 15:15 | PDOC ---
PROGRESS NOTES Assessment Assessment Metabolic encephalopathy. Respiratory failure, acute on chronic. Hypoxia. Influenza A New onset AFib with RVR. Aspiration pneumonia. Hyperglycemia. DM HTN HLD COPD CHF Obesity RECOMMENDATIONS/PLAN: Continue Keppra. Repeat HCT w/o contrast. Lab: see orders. Continue medical treatment at the present time. Palliative care team consulted, and palliative care discussed. Family requested resume full range aggressive care and not hospice. PAST MEDICAL AND SURGICAL HISTORY: Please see H&P ALLERGY: Unknown MEDICATIONS: Refer to MAR REVIEW OF SYSTEMS: Constitutional: No malnutrition, weight loss, cachexia. Head: No traumatic brain or head injury. Skin: No edema, or rash. Ear: No infection, tinnitus. Eyes: No vision loss, or diplopia. Nose: No bleeding or purulent discharges. Hearing: No hearing decrease. Neck: No injury. Cardiac: New onset AFib, HTN, HLD Pulmonary: COPD. GI: No GI Ulcer, GI bleeding Urinary/genital: UTI. Endocrine: Diabetes Mellitus, obesity. Skeletomuscular: generalized weakness. Neurological: see HP. Psychiatric: Denies drug use/abuse. Otherwise, not [id number] review of systems. PHYSICAL EXAMINATION: General appearance in subacute distress. HEENT: Normocephalic and nontraumatic. Eyes, nose, ears, and throat are unremarkable. Hearing decrease. Neck is supple. No lymphadenopathy. No Crepitus. Cardiovascular: S1, S2, irregular rate and rhythm. Pulmonary: breathing sounds decreased to auscultation bilaterally. Abdomen: Bowel sounds are positive. Extremities: edema noted. No restriction of range of motion NEUROLOGICAL EXAMINATION: Lethargic. Unable to follow commands. Not oriented to time, place and person. PERRL. EOMI not elicited. CN: no acute focal findings. Muscle tone: decreased Muscle strength: minimal movements noted. DTR: 1+ UE, 0 at knee Plantar reflex: Neutral response bilaterally Gait: Unable to walk. Sensory exam: Minimal response to stimuli. Not able to access cerebellar signs. Unable to perform F-T-N test. Objective Objective Vital Signs Date Time Temp Pulse Resp B/P Pulse Ox O2 Delivery O2 Flow Rate FiO2 11/12/16 14:46 100 BiPAP/CPAP 11/12/16 10:59 6.0 11/12/16 10:44 97.4 59 20 116/41 97.4 Intake and Output 11/12/16 07:00 Intake Total 0 ml Balance 0 ml Intake Oral 0 ml # Voids 7 Vitals Signs Vitals VS - Last 72 Hours, by Label Date Time Temp Pulse Resp B/P Pulse Ox O2 Delivery O2 Flow Rate FiO2 11/12/16 14:46 100 BiPAP/CPAP 11/12/16 12:58 89 BiPAP/CPAP 11/12/16 10:59 97 Nasal Cannula 6.0 11/12/16 10:44 97.4 59 20 116/41 93 Nasal Cannula 6.0 97.4 11/12/16 09:00 59 116/41 11/12/16 09:00 59 116/41 11/12/16 08:00 Nasal Cannula 6.0 11/12/16 07:10 98 NonRebreather Mask 7.0 11/12/16 07:00 97.6 93 24 131/48 96 Venturi Mask 6.0 97.6 11/12/16 03:00 97.8 80 22 140/55 97 97.8 11/12/16 00:21 22 NonRebreather Mask 11/11/16 23:00 97.9 89 26 141/62 99 97.9 11/11/16 20:43 94 Nasal Cannula 5.0 11/11/16 20:05 Nasal Cannula 4.0 11/11/16 19:00 99.0 76 26 156/98 95 Venturi Mask 99.0 11/11/16 16:10 93 Nasal Cannula 5.0 11/11/16 15:00 98.0 81 22 144/68 94 Nasal Cannula 5.0 98.0 11/11/16 11:40 95 Nasal Cannula 5.0 11/11/16 11:04 97.6 83 22 167/76 95 Nasal Cannula 4.0 97.6 11/11/16 09:36 90 Nasal Cannula 4.0 11/11/16 09:35 90 Nasal Cannula 4.0 11/11/16 09:30 90 4.0 11/11/16 08:59 21 92 Nasal Cannula 4.0 11/11/16 08:58 91 177/87 11/11/16 08:57 91 177/87 11/11/16 08:10 Nasal Cannula 4.0 11/11/16 07:44 98.4 91 22 177/87 90 Nasal Cannula 4.0 98.4 Laboratory Laboratory Laboratory Tests Test 11/11/16 21:26 2/21/17 06:34 11/12/16 07:45 11/12/16 10:58 Glucose (Fingerstick) 125mg/dL (70-99) 255mg/dL (70-99) 219mg/dL (70-99) Sodium Level 148mmol/L (136-145) Potassium Level 4.6mmol/L (3.5-5.1) Chloride Level 106mmol/L (98-107) Carbon Dioxide Level 40mmol/L (21-32) Anion Gap 2 (6-14) Blood Urea Nitrogen 30mg/dL (7-20) Creatinine 1.8mg/dL (0.6-1.0) Estimated GFR (Cockcroft-Gault) 26.8 Glucose Level 266mg/dL (70-99) Calcium Level 9.0mg/dL (8.5-10.1) Phosphorus Level 5.6mg/dL (2.6-4.7) Magnesium Level 1.9mg/dL (1.8-2.4) Albumin 2.8g/dL (3.4-5.0) Test 11/12/16 12:00 11/12/16 12:20 O2 Saturation 95% (92-99) Arterial Blood pH 7.15 (7.35-7.45) Arterial Blood pCO2 at Patient Temp 136mmHg (35-46) Arterial Blood pO2 at Patient Temp 88mmHg (65-108) Arterial Blood HCO3 46mmol/L (21-28) Arterial Blood Base Excess 12mmol/L (-3-3) FiO2 99 White Blood Count 10.4x10^3/uL (4.0-11.0) Red Blood Count 3.59x10^6/uL (3.50-5.40) Hemoglobin 11.3g/dL (12.0-15.5) Hematocrit 34.4% (36.0-47.0) Mean Corpuscular Volume 96fL (79-100) Mean Corpuscular Hemoglobin 32pg (25-35) Mean Corpuscular Hemoglobin Concent 33g/dL (31-37) Red Cell Distribution Width 16.7% (11.5-14.5) Platelet Count 184x10^3/uL (140-400) Neutrophils (%) (Auto) 83% (31-73) Lymphocytes (%) (Auto) 8% (24-48) Monocytes (%) (Auto) 9% (0-9) Eosinophils (%) (Auto) 0% (0-3) Basophils (%) (Auto) 0% (0-3) Neutrophils # (Auto) 8.6x10^3uL (1.8-7.7) Lymphocytes # (Auto) 0.9x10^3/uL (1.0-4.8) Monocytes # (Auto) 0.9x10^3/uL (0.0-1.1) Eosinophils # (Auto) 0.0x10^3/uL (0.0-0.7) Basophils # (Auto) 0.0x10^3/uL (0.0-0.2) Segmented Neutrophils % 82% (35-66) Lymphocytes % 10% (24-48) Monocytes % 6% (0-10) Metamyelocytes % 2% (0-0) Platelet Estimate Adequate (ADEQUATE) Basophilic Stippling Present Stomatocytes Occ Sodium Level 146mmol/L (136-145) Potassium Level 4.8mmol/L (3.5-5.1) Chloride Level 104mmol/L (98-107) Carbon Dioxide Level 41mmol/L (21-32) Anion Gap 1 (6-14) Blood Urea Nitrogen 33mg/dL (7-20) Creatinine 1.9mg/dL (0.6-1.0) Estimated GFR (Cockcroft-Gault) 25.2 Glucose Level 254mg/dL (70-99) Lactic Acid Level 0.8mmol/L (0.4-2.0) Calcium Level 8.9mg/dL (8.5-10.1) Microbiology 11/05/16 Blood Culture - Final, Complete NO GROWTH AFTER 5 DAYS Medication Medications Current Medications Furosemide (Lasix) 40 mg 1X ONCE IVP Last administered on 11/12/16t 12:41; Start 11/12/16 at 12:00; Stop 11/12/16 at 12:01; Status DC Comment Review of Relevant I have reviewed the following items lucy (where applicable) has been applied. JOSSELYN TURK MD Nov 12, 2016 15:15
--- NOTE | 2016-11-12 15:39 | PDOC2 ---
PALLIATIVE CARE Palliative Care Note Palliative Care Patient does not respond to verbal stimuli. Spoke with daughter Kim on phone and again when she arrived. Patient has not responded to aggressive treatment. Hypoxic last night. Oxygen increased. Daughter wants to continue treating aggressively. States her mother adamant about no hospice. Dr. Reyes discussed with Kim also Code Status: Continue current code status: DNR/DNI. BiPap as needed. PRAFUL SLAUGHTER Nov 12, 2016 15:39
[2016-11-12] MEDS: ATORVASTATIN CALCIUM 40 MG TABLET. PO SCH (21:00)
[2016-11-12] MEDS: LEVETIRACETAM 500 MG TABLET PO SCH (21:00)
[2016-11-13] MEDS: FENTANYL PF 100 MCG/2 ML VIAL. IV PRN ×4 (00:09→14:47)
[2016-11-13 03:00] VITALS: BP 151/73
[2016-11-13 04:40] LABS: ALBUMIN 2.9 g/dL (3.4-5.0); CALCIUM 9.6 mg/dL (8.5-10.1); CREATININE 2.1 mg/dL (0.6-1.0); GFR 22.4; PHOSPHORUS 2.3 mg/dL (2.6-4.7); POTASSIUM 3.8 mmol/L (3.5-5.1)
[2016-11-13] MEDS: HALOPERIDOL LACT 5 MG/ML VIAL. IVP PRN (04:50)
[2016-11-13] MEDS: HEPARIN PF for SUB-Q USE 5,000 UNIT/0.5 ML VIAL. SQ SCH ×3 (06:00→20:57)
[2016-11-13 07:00] VITALS: BP 150/74
[2016-11-13] MEDS: IPRATRPIUM/ALBUTEROL 0.5/2.5MG 3 ML NEBU. NEB SCH ×4 (07:32→19:21)
[2016-11-13] MEDS: INSULIN ASPART 300 UNITS/3 ML INSULN.PEN SQ SCH ×3 (08:00→17:00)
--- NOTE | 2016-11-13 08:19 | PDOC ---
PULMONARY PROGRESS NOTES Subjective clinically much better with BIPAP/ PCO was 130 yesterday awake, following commands Vitals Vital Signs Date Time Temp Pulse Resp B/P Pulse Ox O2 Delivery O2 Flow Rate FiO2 11/13/16 07:32 90 BiPAP/CPAP 11/13/16 03:00 98.4 101 26 151/73 98.4 11/12/16 20:00 6.0 General: Alert Lungs: Other (few rhonchi) Cardiovascular: S1, S2 Abdomen: Soft, Non-tender Neuro Exam: Alert, Oriented Extremities: Other Skin: Warm Labs Laboratory Tests Test 11/11/16 11:41 11/11/16 21:26 11/12/16 06:34 11/12/16 07:45 Glucose (Fingerstick) 241mg/dL (70-99) 125mg/dL (70-99) 255mg/dL (70-99) Sodium Level 148mmol/L (136-145) Potassium Level 4.6mmol/L (3.5-5.1) Chloride Level 106mmol/L (98-107) Carbon Dioxide Level 40mmol/L (21-32) Anion Gap 2 (6-14) Blood Urea Nitrogen 30mg/dL (7-20) Creatinine 1.8mg/dL (0.6-1.0) Estimated GFR (Cockcroft-Gault) 26.8 Glucose Level 266mg/dL (70-99) Calcium Level 9.0mg/dL (8.5-10.1) Phosphorus Level 5.6mg/dL (2.6-4.7) Magnesium Level 1.9mg/dL (1.8-2.4) Albumin 2.8g/dL (3.4-5.0) Test 11/12/16 10:58 11/12/16 12:00 11/12/16 12:20 11/12/16 16:36 Glucose (Fingerstick) 219mg/dL (70-99) 197mg/dL (70-99) O2 Saturation 95% (92-99) Arterial Blood pH 7.15 (7.35-7.45) Arterial Blood pCO2 at Patient Temp 136mmHg (35-46) Arterial Blood pO2 at Patient Temp 88mmHg (65-108) Arterial Blood HCO3 46mmol/L (21-28) Arterial Blood Base Excess 12mmol/L (-3-3) FiO2 99 White Blood Count 10.4x10^3/uL (4.0-11.0) Red Blood Count 3.59x10^6/uL (3.50-5.40) Hemoglobin 11.3g/dL (12.0-15.5) Hematocrit 34.4% (36.0-47.0) Mean Corpuscular Volume 96fL (79-100) Mean Corpuscular Hemoglobin 32pg (25-35) Mean Corpuscular Hemoglobin Concent 33g/dL (31-37) Red Cell Distribution Width 16.7% (11.5-14.5) Platelet Count 184x10^3/uL (140-400) Neutrophils (%) (Auto) 83% (31-73) Lymphocytes (%) (Auto) 8% (24-48) Monocytes (%) (Auto) 9% (0-9) Eosinophils (%) (Auto) 0% (0-3) Basophils (%) (Auto) 0% (0-3) Neutrophils # (Auto) 8.6x10^3uL (1.8-7.7) Lymphocytes # (Auto) 0.9x10^3/uL (1.0-4.8) Monocytes # (Auto) 0.9x10^3/uL (0.0-1.1) Eosinophils # (Auto) 0.0x10^3/uL (0.0-0.7) Basophils # (Auto) 0.0x10^3/uL (0.0-0.2) Segmented Neutrophils % 82% (35-66) Lymphocytes % 10% (24-48) Monocytes % 6% (0-10) Metamyelocytes % 2% (0-0) Platelet Estimate Adequate (ADEQUATE) Basophilic Stippling Present Stomatocytes Occ Sodium Level 146mmol/L (136-145) Potassium Level 4.8mmol/L (3.5-5.1) Chloride Level 104mmol/L (98-107) Carbon Dioxide Level 41mmol/L (21-32) Anion Gap 1 (6-14) Blood Urea Nitrogen 33mg/dL (7-20) Creatinine 1.9mg/dL (0.6-1.0) Estimated GFR (Cockcroft-Gault) 25.2 Glucose Level 254mg/dL (70-99) Lactic Acid Level 0.8mmol/L (0.4-2.0) Calcium Level 8.9mg/dL (8.5-10.1) Test 11/12/16 21:23 11/13/16 04:20 Glucose (Fingerstick) 134mg/dL (70-99) Sodium Level 149mmol/L (136-145) Potassium Level 3.8mmol/L (3.5-5.1) Chloride Level 106mmol/L (98-107) Carbon Dioxide Level 36mmol/L (21-32) Anion Gap 7 (6-14) Blood Urea Nitrogen 37mg/dL (7-20) Creatinine 2.1mg/dL (0.6-1.0) Estimated GFR (Cockcroft-Gault) 22.4 Glucose Level 192mg/dL (70-99) Calcium Level 9.6mg/dL (8.5-10.1) Phosphorus Level 2.3mg/dL (2.6-4.7) Magnesium Level 2.0mg/dL (1.8-2.4) Albumin 2.9g/dL (3.4-5.0) Laboratory Tests Test 11/12/16 10:58 11/12/16 12:00 11/12/16 12:20 11/12/16 16:36 Glucose (Fingerstick) 219mg/dL (70-99) 197mg/dL (70-99) O2 Saturation 95% (92-99) Arterial Blood pH 7.15 (7.35-7.45) Arterial Blood pCO2 at Patient Temp 136mmHg (35-46) Arterial Blood pO2 at Patient Temp 88mmHg (65-108) Arterial Blood HCO3 46mmol/L (21-28) Arterial Blood Base Excess 12mmol/L (-3-3) FiO2 99 White Blood Count 10.4x10^3/uL (4.0-11.0) Red Blood Count 3.59x10^6/uL (3.50-5.40) Hemoglobin 11.3g/dL (12.0-15.5) Hematocrit 34.4% (36.0-47.0) Mean Corpuscular Volume 96fL (79-100) Mean Corpuscular Hemoglobin 32pg (25-35) Mean Corpuscular Hemoglobin Concent 33g/dL (31-37) Red Cell Distribution Width 16.7% (11.5-14.5) Platelet Count 184x10^3/uL (140-400) Neutrophils (%) (Auto) 83% (31-73) Lymphocytes (%) (Auto) 8% (24-48) Monocytes (%) (Auto) 9% (0-9) Eosinophils (%) (Auto) 0% (0-3) Basophils (%) (Auto) 0% (0-3) Neutrophils # (Auto) 8.6x10^3uL (1.8-7.7) Lymphocytes # (Auto) 0.9x10^3/uL (1.0-4.8) Monocytes # (Auto) 0.9x10^3/uL (0.0-1.1) Eosinophils # (Auto) 0.0x10^3/uL (0.0-0.7) Basophils # (Auto) 0.0x10^3/uL (0.0-0.2) Segmented Neutrophils % 82% (35-66) Lymphocytes % 10% (24-48) Monocytes % 6% (0-10) Metamyelocytes % 2% (0-0) Platelet Estimate Adequate (ADEQUATE) Basophilic Stippling Present Stomatocytes Occ Sodium Level 146mmol/L (136-145) Potassium Level 4.8mmol/L (3.5-5.1) Chloride Level 104mmol/L (98-107) Carbon Dioxide Level 41mmol/L (21-32) Anion Gap 1 (6-14) Blood Urea Nitrogen 33mg/dL (7-20) Creatinine 1.9mg/dL (0.6-1.0) Estimated GFR (Cockcroft-Gault) 25.2 Glucose Level 254mg/dL (70-99) Lactic Acid Level 0.8mmol/L (0.4-2.0) Calcium Level 8.9mg/dL (8.5-10.1) Test 11/12/16 21:23 11/13/16 04:20 Glucose (Fingerstick) 134mg/dL (70-99) Sodium Level 149mmol/L (136-145) Potassium Level 3.8mmol/L (3.5-5.1) Chloride Level 106mmol/L (98-107) Carbon Dioxide Level 36mmol/L (21-32) Anion Gap 7 (6-14) Blood Urea Nitrogen 37mg/dL (7-20) Creatinine 2.1mg/dL (0.6-1.0) Estimated GFR (Cockcroft-Gault) 22.4 Glucose Level 192mg/dL (70-99) Calcium Level 9.6mg/dL (8.5-10.1) Phosphorus Level 2.3mg/dL (2.6-4.7) Magnesium Level 2.0mg/dL (1.8-2.4) Albumin 2.9g/dL (3.4-5.0) Medications Active Scripts Medications Dose Route/Sig Days Date Category Dose Instructions Levofloxacin 250 Mg Tablet 250 Mg PO DAILY 08/11/16 Reported Amlodipine Besylate 5 Mg Tablet 5 Mg PO DAILY 08/11/16 Reported Keppra (Levetiracetam) 500 Mg Tablet 250 Mg PO HS 08/08/16 Reported Glipizide 5 Mg Tablet 5 Mg PO DAILY 12/22/13 Rx Take one-half a tablet daily. Lasix (Furosemide) 40 Mg Tablet 40 Mg PO DAILY 12/22/13 Rx Crestor (Rosuvastatin Calcium) 20 Mg Tablet 20 Mg PO HS 10/24/13 Reported Lamictal (Lamotrigine) 100 Mg Tablet 100 Mg PO BID 10/24/13 Reported Comments cxr reviewed, Cardiomegaly, similar. Mild congestive heart failure. Superimposed pneumonia in the right upper lobe is not entirely excluded. Small bilateral pleural effusions Impression . 1. [id number] hypercapnic respiratory failure./multi-factorial 2. Aspiration pneumonia./?diastolic HF 3. Dysphagia. 4. Coronary artery disease. 5. Hypertension. 6. Depression. 7. Acute renal failure. 8. Hyperkalemia. 9. Acute metabolic toxic encephalopathy. 10. underlying DELANEY/OHS Plan . 1. Had a long discussion with family yesterday. see my addend. note. They wanted her to give a try with BIPAP but continue with DNR/DNI/ clinically better with BIPAP 2. Continue oxygen supplementation./ prn BIPAP/ follow up [facility] today 3. Nebulized treatments. 4. supportive care 5. d/w RT/SHIMON Moreno MD Nov 13, 2016 08:19
[2016-11-13 08:43] LABS: HCO3 ABG 32 mmol/L (21-28); PCO2 ABG 59 mmHg (35-46); PH ABG 7.35 (7.35-7.45)
[2016-11-13 08:49] LABS: PO2 ABG < 42 mmHg (65-108); SAT O2 ABG 62 % (92-99)
[2016-11-13 08:50] LABS: FIO2 ABG 35%
--- NOTE | 2016-11-13 08:54 | PN ---
DATE: 11/05/2016 ADDENDUM I spoke with Dr. Reyes and there has been a change in patient's status where the patient's family wants to give her a trial on aggressive care, but without CPR and intubation. The patient has been unresponsive and lethargic, on 100% oxygen. Arterial blood gases revealed a pH of 7.15, pCO2 of 136, and a pO2 of 88. The patient's bicarb was 46. At this time, I talked to the family again and they preferred to keep her DNR/DNI, but they would like to give her a trial on BiPAP. The patient's family does want her to be on pain medications as well for comfort, and I did inform them that while giving pain medications, CO2 may not get better quickly. They understand that and their priority is comfort. I did discuss with them that there is no need to transfer to the ICU as the goal is comfort care, and they are agreeable with that and I have spoken with Dr. Reyes as well. We will follow along with you, we will then repeat gas. SHIMON DE LA CRUZ MD DR: OK/paulette JOB#: [id number] / [id number]
[2016-11-13] MEDS: NYSTATIN TOPICAL POWDER 15GM BOTTLE. TP SCH ×3 (09:00→20:21)
[2016-11-13] MEDS: lamoTRIgine 100 MG TABLET. PO SCH (09:00)
[2016-11-13] MEDS: DIGOXIN 125 MCG TABLET PO SCH (09:00)
[2016-11-13] MEDS: GLIPIZIDE 5 MG TABLET PO SCH (09:00)
[2016-11-13] MEDS: DILTIAZEM HCL 120 MG CAP.ER.24H PO SCH (09:00)
[2016-11-13] MEDS: LEVETIRACETAM 500 MG in IV NORMAL SALINE 100ML 100 ML IV SCH ×2 (10:30→20:56)
[2016-11-13 11:00] VITALS: BP 162/82
[2016-11-13] MEDS ORDERED: FUROSEMIDE 20 MG/2 ML VIAL IVP ONE (11:30)
--- NOTE | 2016-11-13 11:53 | PDOC ---
PROGRESS NOTES Assessment Problems Medical Problems: (1) Aspiration pneumonia Status: Acute (2) Aspiration pneumonia Status: Acute (3) Hypoxia Status: Acute (4) Influenza Status: Acute (5) Influenza Status: Acute Metabolic encephalopathy. Respiratory failure, acute on chronic. Hypoxia. Influenza A New onset AFib with RVR. Aspiration pneumonia. Hyperglycemia. DM HTN HLD COPD CHF Obesity Plan Await head CT results Continue Keppra IV Discussed with family Subjective none Objective Vital Signs Date Time Temp Pulse Resp B/P Pulse Ox O2 Delivery O2 Flow Rate FiO2 11/13/16 11:24 92 BiPAP/CPAP 11/13/16 07:00 99.8 110 34 150/74 99.8 11/12/16 20:00 6.0 Intake and Output 11/13/16 07:00 Intake Total 0 ml Balance 0 ml Intake Oral 0 ml # Voids 2 PHYSICAL EXAM On BiPAP, eyes closed, does not follow commands PERRL. EOMI. CN: no focal findings. Muscle tone: decreased Muscle strength: moves all extremities spontaneously DTR: 1+ Plantar reflex: silent Gait: not examined in bed. Sensory exam: not tested Cerebellar: not tested Review of Relevant I have reviewed the following items lucy (where applicable) has been applied. Labs Laboratory Tests Test 11/11/16 21:26 11/12/16 06:34 11/12/16 07:45 11/12/16 10:58 Glucose (Fingerstick) 125mg/dL (70-99) 255mg/dL (70-99) 219mg/dL (70-99) Sodium Level 148mmol/L (136-145) Potassium Level 4.6mmol/L (3.5-5.1) Chloride Level 106mmol/L (98-107) Carbon Dioxide Level 40mmol/L (21-32) Anion Gap 2 (6-14) Blood Urea Nitrogen 30mg/dL (7-20) Creatinine 1.8mg/dL (0.6-1.0) Estimated GFR (Cockcroft-Gault) 26.8 Glucose Level 266mg/dL (70-99) Calcium Level 9.0mg/dL (8.5-10.1) Phosphorus Level 5.6mg/dL (2.6-4.7) Magnesium Level 1.9mg/dL (1.8-2.4) Albumin 2.8g/dL (3.4-5.0) Test 11/12/16 12:00 11/12/16 12:20 11/12/16 16:36 11/12/16 21:23 O2 Saturation 95% (92-99) Arterial Blood pH 7.15 (7.35-7.45) Arterial Blood pCO2 at Patient Temp 136mmHg (35-46) Arterial Blood pO2 at Patient Temp 88mmHg (65-108) Arterial Blood HCO3 46mmol/L (21-28) Arterial Blood Base Excess 12mmol/L (-3-3) FiO2 99 White Blood Count 10.4x10^3/uL (4.0-11.0) Red Blood Count 3.59x10^6/uL (3.50-5.40) Hemoglobin 11.3g/dL (12.0-15.5) Hematocrit 34.4% (36.0-47.0) Mean Corpuscular Volume 96fL (79-100) Mean Corpuscular Hemoglobin 32pg (25-35) Mean Corpuscular Hemoglobin Concent 33g/dL (31-37) Red Cell Distribution Width 16.7% (11.5-14.5) Platelet Count 184x10^3/uL (140-400) Neutrophils (%) (Auto) 83% (31-73) Lymphocytes (%) (Auto) 8% (24-48) Monocytes (%) (Auto) 9% (0-9) Eosinophils (%) (Auto) 0% (0-3) Basophils (%) (Auto) 0% (0-3) Neutrophils # (Auto) 8.6x10^3uL (1.8-7.7) Lymphocytes # (Auto) 0.9x10^3/uL (1.0-4.8) Monocytes # (Auto) 0.9x10^3/uL (0.0-1.1) Eosinophils # (Auto) 0.0x10^3/uL (0.0-0.7) Basophils # (Auto) 0.0x10^3/uL (0.0-0.2) Segmented Neutrophils % 82% (35-66) Lymphocytes % 10% (24-48) Monocytes % 6% (0-10) Metamyelocytes % 2% (0-0) Platelet Estimate Adequate (ADEQUATE) Basophilic Stippling Present Stomatocytes Occ Sodium Level 146mmol/L (136-145) Potassium Level 4.8mmol/L (3.5-5.1) Chloride Level 104mmol/L (98-107) Carbon Dioxide Level 41mmol/L (21-32) Anion Gap 1 (6-14) Blood Urea Nitrogen 33mg/dL (7-20) Creatinine 1.9mg/dL (0.6-1.0) Estimated GFR (Cockcroft-Gault) 25.2 Glucose Level 254mg/dL (70-99) Lactic Acid Level 0.8mmol/L (0.4-2.0) Calcium Level 8.9mg/dL (8.5-10.1) Glucose (Fingerstick) 197mg/dL (70-99) 134mg/dL (70-99) Test 11/13/16 04:20 11/13/16 07:15 11/13/16 08:35 11/13/16 11:03 Sodium Level 149mmol/L (136-145) Potassium Level 3.8mmol/L (3.5-5.1) Chloride Level 106mmol/L (98-107) Carbon Dioxide Level 36mmol/L (21-32) Anion Gap 7 (6-14) Blood Urea Nitrogen 37mg/dL (7-20) Creatinine 2.1mg/dL (0.6-1.0) Estimated GFR (Cockcroft-Gault) 22.4 Glucose Level 192mg/dL (70-99) Calcium Level 9.6mg/dL (8.5-10.1) Phosphorus Level 2.3mg/dL (2.6-4.7) Magnesium Level 2.0mg/dL (1.8-2.4) Albumin 2.9g/dL (3.4-5.0) Thyroid Stimulating Hormone (TSH) 1.761uIU/mL (0.358-3.74) Glucose (Fingerstick) 173mg/dL (70-99) 211mg/dL (70-99) O2 Saturation 62% (92-99) Arterial Blood pH 7.35 (7.35-7.45) Arterial Blood pCO2 at Patient Temp 59mmHg (35-46) Arterial Blood pO2 at Patient Temp < 42mmHg (65-108) Arterial Blood HCO3 32mmol/L (21-28) Arterial Blood Base Excess 5mmol/L (-3-3) FiO2 35% Laboratory Tests Test 11/12/16 12:00 11/12/16 12:20 11/12/16 16:36 11/12/16 21:23 O2 Saturation 95% (92-99) Arterial Blood pH 7.15 (7.35-7.45) Arterial Blood pCO2 at Patient Temp 136mmHg (35-46) Arterial Blood pO2 at Patient Temp 88mmHg (65-108) Arterial Blood HCO3 46mmol/L (21-28) Arterial Blood Base Excess 12mmol/L (-3-3) FiO2 99 White Blood Count 10.4x10^3/uL (4.0-11.0) Red Blood Count 3.59x10^6/uL (3.50-5.40) Hemoglobin 11.3g/dL (12.0-15.5) Hematocrit 34.4% (36.0-47.0) Mean Corpuscular Volume 96fL (79-100) Mean Corpuscular Hemoglobin 32pg (25-35) Mean Corpuscular Hemoglobin Concent 33g/dL (31-37) Red Cell Distribution Width 16.7% (11.5-14.5) Platelet Count 184x10^3/uL (140-400) Neutrophils (%) (Auto) 83% (31-73) Lymphocytes (%) (Auto) 8% (24-48) Monocytes (%) (Auto) 9% (0-9) Eosinophils (%) (Auto) 0% (0-3) Basophils (%) (Auto) 0% (0-3) Neutrophils # (Auto) 8.6x10^3uL (1.8-7.7) Lymphocytes # (Auto) 0.9x10^3/uL (1.0-4.8) Monocytes # (Auto) 0.9x10^3/uL (0.0-1.1) Eosinophils # (Auto) 0.0x10^3/uL (0.0-0.7) Basophils # (Auto) 0.0x10^3/uL (0.0-0.2) Segmented Neutrophils % 82% (35-66) Lymphocytes % 10% (24-48) Monocytes % 6% (0-10) Metamyelocytes % 2% (0-0) Platelet Estimate Adequate (ADEQUATE) Basophilic Stippling Present Stomatocytes Occ Sodium Level 146mmol/L (136-145) Potassium Level 4.8mmol/L (3.5-5.1) Chloride Level 104mmol/L (98-107) Carbon Dioxide Level 41mmol/L (21-32) Anion Gap 1 (6-14) Blood Urea Nitrogen 33mg/dL (7-20) Creatinine 1.9mg/dL (0.6-1.0) Estimated GFR (Cockcroft-Gault) 25.2 Glucose Level 254mg/dL (70-99) Lactic Acid Level 0.8mmol/L (0.4-2.0) Calcium Level 8.9mg/dL (8.5-10.1) Glucose (Fingerstick) 197mg/dL (70-99) 134mg/dL (70-99) Test 11/13/16 04:20 11/13/16 07:15 11/13/16 08:35 11/13/16 11:03 Sodium Level 149mmol/L (136-145) Potassium Level 3.8mmol/L (3.5-5.1) Chloride Level 106mmol/L (98-107) Carbon Dioxide Level 36mmol/L (21-32) Anion Gap 7 (6-14) Blood Urea Nitrogen 37mg/dL (7-20) Creatinine 2.1mg/dL (0.6-1.0) Estimated GFR (Cockcroft-Gault) 22.4 Glucose Level 192mg/dL (70-99) Calcium Level 9.6mg/dL (8.5-10.1) Phosphorus Level 2.3mg/dL (2.6-4.7) Magnesium Level 2.0mg/dL (1.8-2.4) Albumin 2.9g/dL (3.4-5.0) Thyroid Stimulating Hormone (TSH) 1.761uIU/mL (0.358-3.74) Glucose (Fingerstick) 173mg/dL (70-99) 211mg/dL (70-99) O2 Saturation 62% (92-99) Arterial Blood pH 7.35 (7.35-7.45) Arterial Blood pCO2 at Patient Temp 59mmHg (35-46) Arterial Blood pO2 at Patient Temp < 42mmHg (65-108) Arterial Blood HCO3 32mmol/L (21-28) Arterial Blood Base Excess 5mmol/L (-3-3) FiO2 35% Microbiology 11/05/16 Blood Culture - Final, Complete NO GROWTH AFTER 5 DAYS Medications Current Medications Sodium Chloride (Iv Sodium Chloride 0.9% 1000ml Bag) 1,000 ml @ 200 mls/hr Q5H IV Last administered on 11/05/16 12:25; Start 11/05/16 at 11:35; Stop at 16:34; Status DC Oseltamivir Phosphate 75 mg 75 mg DAILY PO Last administered on 11/05/16 12:24 ; Start 11/05/16 at 12:30; Stop 11/05/16 at 12:30; Status DC Piperacillin Sod/ Tazobactam Sod/ Sodium Chloride (Zosyn/Iv Sodium Chloride 0.9 % 50ml) 50 ml @ 100 mls/hr 1X ONCE IV Last administered on 11/05/16 12:39; Start 11/05/16 at 12:45; Stop 11/05/16 at 13:14; Status DC Oseltamivir Phosphate (Tamiflu) 30 mg BID PO Last administered on 11/06/16 09: 27; Start 11/05/16 at 21:00; Stop 11/07/16 at 14:19; Status DC Potassium Chloride (KCl Oral Soln) 40 meq 1X ONCE PO Last administered on 11/05 13:49; Start 11/05/16 at 13:15; Stop 11/05/16 at 13:16; Status DC Amlodipine Besylate (Norvasc) 5 mg DAILY PO Last administered on 11/06/16 09: 28; Start 11/06/16 at 09:00; Stop 11/08/16 at 12:18; Status DC Glipizide (Glucotrol) 5 mg DAILY PO Last administered on 11/11/16 08:57; Start 11/06/16 at 09:00 Lamotrigine (LaMICtal) 100 mg BID PO Last administered on 11/11/16 21:51; Start 11/05/16 at 21:00 Levetiracetam (Keppra) 250 mg HS PO Last administered on 11/05/16 20:19; Start 11/05/16 at 21:00; Stop 11/06/16 at 12:12; Status DC Atorvastatin Calcium (Lipitor) 80 mg QHS PO Last administered on 11/11/16 21: 51; Start 11/05/16 at 21:00 Acetaminophen (Tylenol) 650 mg PRN Q6HRS PRN PO MILD PAIN / TEMP Last administered on 11/11/16 21:51; Start 11/05/16 at 16:15 Ondansetron HCl 4 mg 4 mg PRN Q6HRS PRN IV NAUSEA/VOMITING; Start 11/05/16 at 16:15 Potassium Chloride/Dextrose/ Sod Cl (KCl 20 Meq In D5W-NS) 1,000 ml @ 75 mls/ hr [id number] IV ; Start 11/05/16 at 16:15; Stop 11/05/16 at 16:15; Status DC Insulin Aspart (Novolog) 0-9 UNITS TIDWMEALS SQ Last administered on 11/12/16 12:00; Start 11/05/16 at 17:00 Dextrose 12.5 gm PRN Q15MIN PRN IV SEE COMMENTS; Start 11/05/16 at 16:15 Heparin Sodium (Porcine) 5,000 unit Q8HRS SQ Last administered on 11/12/16 14: 49; Start 11/05/16 at 22:00 Hydralazine HCl (Apresoline) 10 mg PRN Q4HRS PRN IVP ELEVATED BP, SEE COMMENTS ; Start 11/05/16 at 16:15 Albuterol/ Ipratropium (Duoneb) 3 ml RTQID NEB Last administered on 11/11/16 09:32; Start 11/05/16 at 20:00; Stop 11/11/16 at 11:29; Status DC Albuterol Sulfate 2.5 mg 2.5 mg PRN Q4HRS PRN NEB SHORTNESS OF BREATH; Start at 16:15 Potassium Chloride/Sodium Chloride 1,000 ml @ 75 mls/hr [id number] IV Last administered on 11/07/16 09:00; Start 11/05/16 at 17:00; Stop 11/07/16 at 12:10 ; Status DC Levetiracetam 500 mg/Sodium Chloride 105 ml @ 400 mls/hr HS IV Last administered on 11/09/16 21:28; Start 11/06/16 at 21:00; Stop 11/10/16 at 09:24 ; Status DC Potassium Chloride/Dextrose/ Sod Cl (KCl 20 Meq In D5W-1/2 NS) 1,000 ml @ 100 mls/hr 1X ONCE IV Last administered on 11/06/16 17:17; Start 11/06/16 at 13: 00; Stop 11/06/16 at 22:59; Status DC Enoxaparin Sodium (Lovenox Per Pharmacy Prophylaxis Dosing) 1 each PRN DAILY PRN MC SEE COMMENTS; Start 11/06/16 at 13:00; Status UNV Piperacillin Sod/ Tazobactam Sod 1 each 1 each PRN DAILY PRN MC SEE COMMENTS; Start 11/06/16 at 18:15; Stop 11/08/16 at 12:53; Status DC Piperacillin Sod/ Tazobactam Sod 3.375 gm/Sodium Chloride 50 ml @ 100 mls/hr Q6HRS IV Last administered on 11/07/16 11:17; Start 11/06/16 at 19:00; Stop at 14:21; Status DC Amino Acids/ Glycerin/ Electrolytes (Procalamine) 1,000 ml @ 80 mls/hr [id number] IV Last administered on 11/11/16 02:20; Start 11/07/16 at 12:15; Stop at 11:22; Status DC Guaifenesin (Robitussin Dm) 10 ml PRN Q6HRS PRN PO COUGH; Start 11/07/16 at 12: 30 Oseltamivir Phosphate 30 mg 30 mg DAILY PO Last administered on 11/10/16 08:50 ; Start 11/08/16 at 09:00; Stop 11/10/16 at 20:59; Status DC Piperacillin Sod/ Tazobactam Sod/ Sodium Chloride (Zosyn/Iv Sodium Chloride 0.9 % 50ml) 50 ml @ 100 mls/hr Q6HRS IV Last administered on 11/11/16 17:44; Start 11/07/16 at 18:00; Stop 11/11/16 at 18:50; Status DC Fentanyl Citrate (Fentanyl 2ml Vial) 25 mcg PRN Q2HR PRN IV PAIN Last administered on 11/13/16 09:33; Start 11/07/16 at 20:00 Diltiazem HCl (Cardizem) 30 mg Q8HRS PO Last administered on 11/08/16 21:21; Start 11/08/16 at 12:00; Stop 11/09/16 at 10:39; Status DC Digoxin (Lanoxin) 500 mcg 1X ONCE IV Last administered on 11/08/16 12:28; Start 11/08/16 at 12:15; Stop 11/08/16 at 12:19; Status DC Digoxin (Lanoxin) 125 mcg DAILY PO Last administered on 11/11/16 08:58; Start 11/09/16 at 09:00 Budesonide (Pulmicort) 0.5 mg RTBID NEB Last administered on 11/11/16 09:32; Start 11/09/16 at 09:00; Stop 11/11/16 at 18:50; Status DC Diltiazem HCl 120 mg 120 mg DAILY PO Last administered on 11/11/16 08:57; Start 11/09/16 at 11:00 Magnesium Sulfate/ Dextrose (Magnesium Sulfate PREMIX 2GM) 50 ml @ 25 mls/hr PRN DAILY PRN IV for Mag < 1.7 on am labs; Start 11/09/16 at 15:45 Nystatin (Nystop) 1 hong TID TP Last administered on 11/12/16 14:00; Start at 21:00 Levetiracetam (Keppra) 500 mg QHS PO Last administered on 11/11/16 21:51; Start 11/10/16 at 21:00 Labetalol HCl 10 mg 10 mg PRN Q2HR PRN IVP HYPERTENSION, SEE COMMENTS; Start at 09:45 Sodium Phosphate/ Dextrose 256.6667 ml @ 64.167 m... 1X ONCE IV Last administered on 11/10/16 13:49; Start 11/10/16 at 14:00; Stop 11/10/16 at 17:59 ; Status DC Scopolamine (Transderm-Scop) 1 patch Q3DAYS TD Last administered on 11/11/16 11:42; Start 11/11/16 at 11:30 Furosemide (Lasix) 40 mg 1X ONCE IVP Last administered on 11/11/16 11:43; Start 11/11/16 at 11:30; Stop 11/11/16 at 11:31; Status DC Albuterol/ Ipratropium (Duoneb) 3 ml RTQID NEB Last administered on 11/13/16 11:24; Start 11/11/16 at 12:00 Furosemide (Lasix) 40 mg 1X ONCE IVP Last administered on 11/12/16 12:41; Start 11/12/16 at 12:00; Stop 11/12/16 at 12:01; Status DC Haloperidol Lactate 1 mg 1 mg PRN TID PRN IVP AGITATION Last administered on 04:50; Start 11/13/16 at 04:45 Levetiracetam/ Sodium Chloride (Keppra/Iv Sodium Chloride 0.9% 100ml) 105 ml @ 400 mls/hr Q12HR IV ; Start 11/13/16 at 10:30 Furosemide (Lasix) 20 mg 1X ONCE IVP ; Start 11/13/16 at 11:30; Stop 11/13/16 at 11:31; Status DC Active Scripts Active Glipizide 5 Mg Tablet 5 Mg PO DAILY Take one-half a tablet daily. Lasix (Furosemide) 40 Mg Tablet 40 Mg PO DAILY Reported Levofloxacin 250 Mg Tablet 250 Mg PO DAILY Amlodipine Besylate 5 Mg Tablet 5 Mg PO DAILY Keppra (Levetiracetam) 500 Mg Tablet 250 Mg PO HS Crestor (Rosuvastatin Calcium) 20 Mg Tablet 20 Mg PO HS Lamictal (Lamotrigine) 100 Mg Tablet 100 Mg PO BID Vitals/I & O Vital Sign - Last 24 Hours 11/12/16 11/12/16 11/12/16 11/12/16 12:58 14:46 15:09 15:14 Temp 97.9 97.9 Pulse 40 Resp 26 B/P 146/42 Pulse Ox 89 100 100 91 O2 Delivery BiPAP/CPAP BiPAP/CPAP BiPAP/CPAP BiPAP/CPAP 11/12/16 11/12/16 11/12/16 11/12/16 17:09 17:57 18:24 19:00 Temp 97.7 97.7 Pulse 63 69 Resp 22 B/P 97/43 135/88 Pulse Ox 99 99 92 O2 Delivery BiPAP/CPAP BiPAP/CPAP 11/12/16 11/12/16 11/12/16 11/13/16 20:00 22:32 23:00 00:09 Temp 98.9 98.9 Pulse 76 Resp 22 22 B/P 146/73 Pulse Ox 98 92 O2 Delivery Bi-pap BiPAP/CPAP BiPAP/CPAP O2 Flow Rate 6.0 11/13/16 11/13/16 11/13/16 11/13/16 01:00 02:50 03:00 05:43 Temp 98.4 98.4 Pulse 101 Resp 26 B/P 151/73 Pulse Ox 95 90 O2 Delivery BiPAP/CPAP BiPAP/CPAP BiPAP/CPAP BiPAP/CPAP 11/13/16 11/13/16 11/13/16 11/13/16 07:00 07:32 10:56 11:24 Temp 99.8 99.8 Pulse 110 Resp 34 B/P 150/74 Pulse Ox 90 90 90 92 O2 Delivery BiPAP/CPAP BiPAP/CPAP BiPAP/CPAP BiPAP/CPAP Intake and Output 11/12/16 11/12/16 11/13/16 15:00 23:00 07:00 Intake Total 0 ml 0 ml Balance 0 ml 0 ml ALBARO DUKE MD Nov 13, 2016 11:53
--- NOTE | 2016-11-13 12:21 | PDOC ---
PROGRESS NOTES Chief Complaint Chief Complaint 1. acute on chronic resp failure, home o2 2L 2. flu + 3. seizure disorder 4. htn 5. dm2 6. copd 7. h/o CHF 8. hld 9. hypokalemia 10 sheyla on ckd3 11. AMS, metabolic encephalopathy with flu,SHEYLA, VS. post ictal 12. Sepsis 13. Dysphagia 14, New onset atrial fib, intermittent RVR 15. ASPIRATION PNEUMONITIS History of Present Illness History of Present Illness Not much improvement with respiration despite lasix x 1 yesterday LEthargic still On BIPAP CONTINUOUS NOW CXR and CT HEAD PENDING Wheezy and crackles all over. HAs been NPO, even pills bec of breathing issues\ ABG Co2 60s, O2 60s I had a family mtg with palliative today Dtr wishes aggressive tx bec patient wishes aggressive tx too She does not want hospice - familiar with it ( was on hospice) PLAn: LAsix now Insert hicks for accurate Output Await CXR and CT head ABG still shows hypoxic and hypercapneic respi failure ABG pradeep BIPAP cont Transfer to CVC if can to push IV cardizem NPO for now Dr. Tang updated Dw family, RN and palliative Vitals Vitals Vital Signs Date Time Temp Pulse Resp B/P Pulse Ox O2 Delivery O2 Flow Rate FiO2 11/13/16 11:24 92 BiPAP/CPAP 11/13/16 11:00 99.0 105 22 162/82 99.0 11/12/16 20:00 6.0 Physical Exam General: Alert, Cooperative, No acute distress Heart: Other (Rate in the 60s-70s with normal S1/S2, muffled heart sounds secondary to labored breathing and body habitus. Patient in Afib on telemetry) Lungs: Other (few rhonchi) Abdomen: Normal bowel sounds, Soft, No tenderness Extremities: No clubbing, No cyanosis, Other (mild chronic peripheral edema of upper and lower extremity) Skin: No rashes Labs LABS Laboratory Tests Test 11/12/16 12:20 11/12/16 16:36 11/12/16 21:23 11/13/16 04:20 White Blood Count 10.4x10^3/uL (4.0-11.0) Red Blood Count 3.59x10^6/uL (3.50-5.40) Hemoglobin 11.3g/dL (12.0-15.5) Hematocrit 34.4% (36.0-47.0) Mean Corpuscular Volume 96fL (79-100) Mean Corpuscular Hemoglobin 32pg (25-35) Mean Corpuscular Hemoglobin Concent 33g/dL (31-37) Red Cell Distribution Width 16.7% (11.5-14.5) Platelet Count 184x10^3/uL (140-400) Neutrophils (%) (Auto) 83% (31-73) Lymphocytes (%) (Auto) 8% (24-48) Monocytes (%) (Auto) 9% (0-9) Eosinophils (%) (Auto) 0% (0-3) Basophils (%) (Auto) 0% (0-3) Neutrophils # (Auto) 8.6x10^3uL (1.8-7.7) Lymphocytes # (Auto) 0.9x10^3/uL (1.0-4.8) Monocytes # (Auto) 0.9x10^3/uL (0.0-1.1) Eosinophils # (Auto) 0.0x10^3/uL (0.0-0.7) Basophils # (Auto) 0.0x10^3/uL (0.0-0.2) Segmented Neutrophils % 82% (35-66) Lymphocytes % 10% (24-48) Monocytes % 6% (0-10) Metamyelocytes % 2% (0-0) Platelet Estimate Adequate (ADEQUATE) Basophilic Stippling Present Stomatocytes Occ Sodium Level 146mmol/L (136-145) 149mmol/L (136-145) Potassium Level 4.8mmol/L (3.5-5.1) 3.8mmol/L (3.5-5.1) Chloride Level 104mmol/L (98-107) 106mmol/L (98-107) Carbon Dioxide Level 41mmol/L (21-32) 36mmol/L (21-32) Anion Gap 1 (6-14) 7 (6-14) Blood Urea Nitrogen 33mg/dL (7-20) 37mg/dL (7-20) Creatinine 1.9mg/dL (0.6-1.0) 2.1mg/dL (0.6-1.0) Estimated GFR (Cockcroft-Gault) 25.2 22.4 Glucose Level 254mg/dL (70-99) 192mg/dL (70-99) Lactic Acid Level 0.8mmol/L (0.4-2.0) Calcium Level 8.9mg/dL (8.5-10.1) 9.6mg/dL (8.5-10.1) Glucose (Fingerstick) 197mg/dL (70-99) 134mg/dL (70-99) Phosphorus Level 2.3mg/dL (2.6-4.7) Magnesium Level 2.0mg/dL (1.8-2.4) Albumin 2.9g/dL (3.4-5.0) Thyroid Stimulating Hormone (TSH) 1.761uIU/mL (0.358-3.74) Test 11/13/16 07:15 11/13/16 08:35 11/13/16 11:03 Glucose (Fingerstick) 173mg/dL (70-99) 211mg/dL (70-99) O2 Saturation 62% (92-99) Arterial Blood pH 7.35 (7.35-7.45) Arterial Blood pCO2 at Patient Temp 59mmHg (35-46) Arterial Blood pO2 at Patient Temp < 42mmHg (65-108) Arterial Blood HCO3 32mmol/L (21-28) Arterial Blood Base Excess 5mmol/L (-3-3) FiO2 35% Review of Systems Review of Systems cant be obtained Assessment and Plan Assessmemt and Plan Problems Medical Problems: (1) Aspiration pneumonia Status: Acute (2) Aspiration pneumonia Status: Acute (3) Hypoxia Status: Acute (4) Influenza Status: Acute (5) Influenza Status: Acute Problems: Comment Review of Relevant I have reviewed the following items lucy (where applicable) has been applied. Labs Laboratory Tests Test 11/11/16 21:26 11/12/16 06:34 11/12/16 07:45 11/12/16 10:58 Glucose (Fingerstick) 125mg/dL (70-99) 255mg/dL (70-99) 219mg/dL (70-99) Sodium Level 148mmol/L (136-145) Potassium Level 4.6mmol/L (3.5-5.1) Chloride Level 106mmol/L (98-107) Carbon Dioxide Level 40mmol/L (21-32) Anion Gap 2 (6-14) Blood Urea Nitrogen 30mg/dL (7-20) Creatinine 1.8mg/dL (0.6-1.0) Estimated GFR (Cockcroft-Gault) 26.8 Glucose Level 266mg/dL (70-99) Calcium Level 9.0mg/dL (8.5-10.1) Phosphorus Level 5.6mg/dL (2.6-4.7) Magnesium Level 1.9mg/dL (1.8-2.4) Albumin 2.8g/dL (3.4-5.0) Test 11/12/16 12:00 11/12/16 12:20 11/12/16 16:36 11/12/16 21:23 O2 Saturation 95% (92-99) Arterial Blood pH 7.15 (7.35-7.45) Arterial Blood pCO2 at Patient Temp 136mmHg (35-46) Arterial Blood pO2 at Patient Temp 88mmHg (65-108) Arterial Blood HCO3 46mmol/L (21-28) Arterial Blood Base Excess 12mmol/L (-3-3) FiO2 99 White Blood Count 10.4x10^3/uL (4.0-11.0) Red Blood Count 3.59x10^6/uL (3.50-5.40) Hemoglobin 11.3g/dL (12.0-15.5) Hematocrit 34.4% (36.0-47.0) Mean Corpuscular Volume 96fL (79-100) Mean Corpuscular Hemoglobin 32pg (25-35) Mean Corpuscular Hemoglobin Concent 33g/dL (31-37) Red Cell Distribution Width 16.7% (11.5-14.5) Platelet Count 184x10^3/uL (140-400) Neutrophils (%) (Auto) 83% (31-73) Lymphocytes (%) (Auto) 8% (24-48) Monocytes (%) (Auto) 9% (0-9) Eosinophils (%) (Auto) 0% (0-3) Basophils (%) (Auto) 0% (0-3) Neutrophils # (Auto) 8.6x10^3uL (1.8-7.7) Lymphocytes # (Auto) 0.9x10^3/uL (1.0-4.8) Monocytes # (Auto) 0.9x10^3/uL (0.0-1.1) Eosinophils # (Auto) 0.0x10^3/uL (0.0-0.7) Basophils # (Auto) 0.0x10^3/uL (0.0-0.2) Segmented Neutrophils % 82% (35-66) Lymphocytes % 10% (24-48) Monocytes % 6% (0-10) Metamyelocytes % 2% (0-0) Platelet Estimate Adequate (ADEQUATE) Basophilic Stippling Present Stomatocytes Occ Sodium Level 146mmol/L (136-145) Potassium Level 4.8mmol/L (3.5-5.1) Chloride Level 104mmol/L (98-107) Carbon Dioxide Level 41mmol/L (21-32) Anion Gap 1 (6-14) Blood Urea Nitrogen 33mg/dL (7-20) Creatinine 1.9mg/dL (0.6-1.0) Estimated GFR (Cockcroft-Gault) 25.2 Glucose Level 254mg/dL (70-99) Lactic Acid Level 0.8mmol/L (0.4-2.0) Calcium Level 8.9mg/dL (8.5-10.1) Glucose (Fingerstick) 197mg/dL (70-99) 134mg/dL (70-99) Test 11/13/16 04:20 11/13/16 07:15 11/13/16 08:35 11/13/16 11:03 Sodium Level 149mmol/L (136-145) Potassium Level 3.8mmol/L (3.5-5.1) Chloride Level 106mmol/L (98-107) Carbon Dioxide Level 36mmol/L (21-32) Anion Gap 7 (6-14) Blood Urea Nitrogen 37mg/dL (7-20) Creatinine 2.1mg/dL (0.6-1.0) Estimated GFR (Cockcroft-Gault) 22.4 Glucose Level 192mg/dL (70-99) Calcium Level 9.6mg/dL (8.5-10.1) Phosphorus Level 2.3mg/dL (2.6-4.7) Magnesium Level 2.0mg/dL (1.8-2.4) Albumin 2.9g/dL (3.4-5.0) Thyroid Stimulating Hormone (TSH) 1.761uIU/mL (0.358-3.74) Glucose (Fingerstick) 173mg/dL (70-99) 211mg/dL (70-99) O2 Saturation 62% (92-99) Arterial Blood pH 7.35 (7.35-7.45) Arterial Blood pCO2 at Patient Temp 59mmHg (35-46) Arterial Blood pO2 at Patient Temp < 42mmHg (65-108) Arterial Blood HCO3 32mmol/L (21-28) Arterial Blood Base Excess 5mmol/L (-3-3) FiO2 35% Laboratory Tests Test 11/12/16 12:20 11/12/16 16:36 11/12/16 21:23 11/13/16 04:20 White Blood Count 10.4x10^3/uL (4.0-11.0) Red Blood Count 3.59x10^6/uL (3.50-5.40) Hemoglobin 11.3g/dL (12.0-15.5) Hematocrit 34.4% (36.0-47.0) Mean Corpuscular Volume 96fL (79-100) Mean Corpuscular Hemoglobin 32pg (25-35) Mean Corpuscular Hemoglobin Concent 33g/dL (31-37) Red Cell Distribution Width 16.7% (11.5-14.5) Platelet Count 184x10^3/uL (140-400) Neutrophils (%) (Auto) 83% (31-73) Lymphocytes (%) (Auto) 8% (24-48) Monocytes (%) (Auto) 9% (0-9) Eosinophils (%) (Auto) 0% (0-3) Basophils (%) (Auto) 0% (0-3) Neutrophils # (Auto) 8.6x10^3uL (1.8-7.7) Lymphocytes # (Auto) 0.9x10^3/uL (1.0-4.8) Monocytes # (Auto) 0.9x10^3/uL (0.0-1.1) Eosinophils # (Auto) 0.0x10^3/uL (0.0-0.7) Basophils # (Auto) 0.0x10^3/uL (0.0-0.2) Segmented Neutrophils % 82% (35-66) Lymphocytes % 10% (24-48) Monocytes % 6% (0-10) Metamyelocytes % 2% (0-0) Platelet Estimate Adequate (ADEQUATE) Basophilic Stippling Present Stomatocytes Occ Sodium Level 146mmol/L (136-145) 149mmol/L (136-145) Potassium Level 4.8mmol/L (3.5-5.1) 3.8mmol/L (3.5-5.1) Chloride Level 104mmol/L (98-107) 106mmol/L (98-107) Carbon Dioxide Level 41mmol/L (21-32) 36mmol/L (21-32) Anion Gap 1 (6-14) 7 (6-14) Blood Urea Nitrogen 33mg/dL (7-20) 37mg/dL (7-20) Creatinine 1.9mg/dL (0.6-1.0) 2.1mg/dL (0.6-1.0) Estimated GFR (Cockcroft-Gault) 25.2 22.4 Glucose Level 254mg/dL (70-99) 192mg/dL (70-99) Lactic Acid Level 0.8mmol/L (0.4-2.0) Calcium Level 8.9mg/dL (8.5-10.1) 9.6mg/dL (8.5-10.1) Glucose (Fingerstick) 197mg/dL (70-99) 134mg/dL (70-99) Phosphorus Level 2.3mg/dL (2.6-4.7) Magnesium Level 2.0mg/dL (1.8-2.4) Albumin 2.9g/dL (3.4-5.0) Thyroid Stimulating Hormone (TSH) 1.761uIU/mL (0.358-3.74) Test 11/13/16 07:15 11/13/16 08:35 11/13/16 11:03 Glucose (Fingerstick) 173mg/dL (70-99) 211mg/dL (70-99) O2 Saturation 62% (92-99) Arterial Blood pH 7.35 (7.35-7.45) Arterial Blood pCO2 at Patient Temp 59mmHg (35-46) Arterial Blood pO2 at Patient Temp < 42mmHg (65-108) Arterial Blood HCO3 32mmol/L (21-28) Arterial Blood Base Excess 5mmol/L (-3-3) FiO2 35% Microbiology 11/05/16 Blood Culture - Final, Complete NO GROWTH AFTER 5 DAYS Medications Current Medications Sodium Chloride (Iv Sodium Chloride 0.9% 1000ml Bag) 1,000 ml @ 200 mls/hr Q5H IV Last administered on 11/05/16 12:25; Start 11/05/16 at 11:35; Stop at 16:34; Status DC Oseltamivir Phosphate 75 mg 75 mg DAILY PO Last administered on 11/05/16 12:24 ; Start 11/05/16 at 12:30; Stop 11/05/16 at 12:30; Status DC Piperacillin Sod/ Tazobactam Sod/ Sodium Chloride (Zosyn/Iv Sodium Chloride 0.9 % 50ml) 50 ml @ 100 mls/hr 1X ONCE IV Last administered on 11/05/16 12:39; Start 11/05/16 at 12:45; Stop 11/05/16 at 13:14; Status DC Oseltamivir Phosphate (Tamiflu) 30 mg BID PO Last administered on 11/06/16 09: 27; Start 11/05/16 at 21:00; Stop 11/07/16 at 14:19; Status DC Potassium Chloride (KCl Oral Soln) 40 meq 1X ONCE PO Last administered on 11/05 13:49; Start 11/05/16 at 13:15; Stop 11/05/16 at 13:16; Status DC Amlodipine Besylate (Norvasc) 5 mg DAILY PO Last administered on 11/06/16 09: 28; Start 11/06/16 at 09:00; Stop 11/08/16 at 12:18; Status DC Glipizide (Glucotrol) 5 mg DAILY PO Last administered on 11/11/16 08:57; Start 11/06/16 at 09:00 Lamotrigine (LaMICtal) 100 mg BID PO Last administered on 11/11/16 21:51; Start 11/05/16 at 21:00 Levetiracetam (Keppra) 250 mg HS PO Last administered on 11/05/16 20:19; Start 11/05/16 at 21:00; Stop 11/06/16 at 12:12; Status DC Atorvastatin Calcium (Lipitor) 80 mg QHS PO Last administered on 11/11/16 21: 51; Start 11/05/16 at 21:00 Acetaminophen (Tylenol) 650 mg PRN Q6HRS PRN PO MILD PAIN / TEMP Last administered on 11/11/16 21:51; Start 11/05/16 at 16:15 Ondansetron HCl 4 mg 4 mg PRN Q6HRS PRN IV NAUSEA/VOMITING; Start 11/05/16 at 16:15 Potassium Chloride/Dextrose/ Sod Cl (KCl 20 Meq In D5W-NS) 1,000 ml @ 75 mls/ hr [id number] IV ; Start 11/05/16 at 16:15; Stop 11/05/16 at 16:15; Status DC Insulin Aspart (Novolog) 0-9 UNITS TIDWMEALS SQ Last administered on 11/12/16 12:00; Start 11/05/16 at 17:00 Dextrose 12.5 gm PRN Q15MIN PRN IV SEE COMMENTS; Start 11/05/16 at 16:15 Heparin Sodium (Porcine) 5,000 unit Q8HRS SQ Last administered on 11/12/16 14: 49; Start 11/05/16 at 22:00 Hydralazine HCl (Apresoline) 10 mg PRN Q4HRS PRN IVP ELEVATED BP, SEE COMMENTS ; Start 11/05/16 at 16:15 Albuterol/ Ipratropium (Duoneb) 3 ml RTQID NEB Last administered on 11/11/16 09:32; Start 11/05/16 at 20:00; Stop 11/11/16 at 11:29; Status DC Albuterol Sulfate 2.5 mg 2.5 mg PRN Q4HRS PRN NEB SHORTNESS OF BREATH; Start at 16:15 Potassium Chloride/Sodium Chloride 1,000 ml @ 75 mls/hr [id number] IV Last administered on 2/16/17at 09:00; Start 11/05/16 at 17:00; Stop 11/07/16 at 12:10 ; Status DC Levetiracetam 500 mg/Sodium Chloride 105 ml @ 400 mls/hr HS IV Last administered on 11/09/16 21:28; Start 11/06/16 at 21:00; Stop 11/10/16 at 09:24 ; Status DC Potassium Chloride/Dextrose/ Sod Cl (KCl 20 Meq In D5W-1/2 NS) 1,000 ml @ 100 mls/hr 1X ONCE IV Last administered on 11/06/16 17:17; Start 11/06/16 at 13: 00; Stop 11/06/16 at 22:59; Status DC Enoxaparin Sodium (Lovenox Per Pharmacy Prophylaxis Dosing) 1 each PRN DAILY PRN MC SEE COMMENTS; Start 11/06/16 at 13:00; Status UNV Piperacillin Sod/ Tazobactam Sod 1 each 1 each PRN DAILY PRN MC SEE COMMENTS; Start 11/06/16 at 18:15; Stop 11/08/16 at 12:53; Status DC Piperacillin Sod/ Tazobactam Sod 3.375 gm/Sodium Chloride 50 ml @ 100 mls/hr Q6HRS IV Last administered on 11/07/16 11:17; Start 11/06/16 at 19:00; Stop at 14:21; Status DC Amino Acids/ Glycerin/ Electrolytes (Procalamine) 1,000 ml @ 80 mls/hr [id number] IV Last administered on 11/11/16 02:20; Start 11/07/16 at 12:15; Stop at 11:22; Status DC Guaifenesin (Robitussin Dm) 10 ml PRN Q6HRS PRN PO COUGH; Start 11/07/16 at 12: 30 Oseltamivir Phosphate 30 mg 30 mg DAILY PO Last administered on 11/10/16 08:50 ; Start 11/08/16 at 09:00; Stop 11/10/16 at 20:59; Status DC Piperacillin Sod/ Tazobactam Sod/ Sodium Chloride (Zosyn/Iv Sodium Chloride 0.9 % 50ml) 50 ml @ 100 mls/hr Q6HRS IV Last administered on 11/11/16 17:44; Start 11/07/16 at 18:00; Stop 11/11/16 at 18:50; Status DC Fentanyl Citrate (Fentanyl 2ml Vial) 25 mcg PRN Q2HR PRN IV PAIN Last administered on 11/13/16 09:33; Start 11/07/16 at 20:00 Diltiazem HCl (Cardizem) 30 mg Q8HRS PO Last administered on 11/08/16 21:21; Start 11/08/16 at 12:00; Stop 11/09/16 at 10:39; Status DC Digoxin (Lanoxin) 500 mcg 1X ONCE IV Last administered on 11/08/16 12:28; Start 11/08/16 at 12:15; Stop 11/08/16 at 12:19; Status DC Digoxin (Lanoxin) 125 mcg DAILY PO Last administered on 11/11/16 08:58; Start 11/09/16 at 09:00 Budesonide (Pulmicort) 0.5 mg RTBID NEB Last administered on 11/11/16 09:32; Start 11/09/16 at 09:00; Stop 11/11/16 at 18:50; Status DC Diltiazem HCl 120 mg 120 mg DAILY PO Last administered on 11/11/16 08:57; Start 11/09/16 at 11:00 Magnesium Sulfate/ Dextrose (Magnesium Sulfate PREMIX 2GM) 50 ml @ 25 mls/hr PRN DAILY PRN IV for Mag < 1.7 on am labs; Start 11/09/16 at 15:45 Nystatin (Nystop) 1 hong TID TP Last administered on 11/12/16 14:00; Start at 21:00 Levetiracetam (Keppra) 500 mg QHS PO Last administered on 11/11/16 21:51; Start 11/10/16 at 21:00 Labetalol HCl 10 mg 10 mg PRN Q2HR PRN IVP HYPERTENSION, SEE COMMENTS; Start at 09:45 Sodium Phosphate/ Dextrose 256.6667 ml @ 64.167 m... 1X ONCE IV Last administered on 11/10/16 13:49; Start 11/10/16 at 14:00; Stop 11/10/16 at 17:59 ; Status DC Scopolamine (Transderm-Scop) 1 patch Q3DAYS TD Last administered on 11/11/16 11:42; Start 11/11/16 at 11:30 Furosemide (Lasix) 40 mg 1X ONCE IVP Last administered on 11/11/16 11:43; Start 11/11/16 at 11:30; Stop 11/11/16 at 11:31; Status DC Albuterol/ Ipratropium (Duoneb) 3 ml RTQID NEB Last administered on 11/13/16 11:24; Start 11/11/16 at 12:00 Furosemide (Lasix) 40 mg 1X ONCE IVP Last administered on 11/12/16 12:41; Start 11/12/16 at 12:00; Stop 11/12/16 at 12:01; Status DC Haloperidol Lactate 1 mg 1 mg PRN TID PRN IVP AGITATION Last administered on 04:50; Start 11/13/16 at 04:45 Levetiracetam/ Sodium Chloride (Keppra/Iv Sodium Chloride 0.9% 100ml) 105 ml @ 400 mls/hr Q12HR IV ; Start 11/13/16 at 10:30 Furosemide (Lasix) 20 mg 1X ONCE IVP ; Start 11/13/16 at 11:30; Stop 11/13/16 at 11:31; Status DC Active Scripts Active Glipizide 5 Mg Tablet 5 Mg PO DAILY Take one-half a tablet daily. Lasix (Furosemide) 40 Mg Tablet 40 Mg PO DAILY Reported Levofloxacin 250 Mg Tablet 250 Mg PO DAILY Amlodipine Besylate 5 Mg Tablet 5 Mg PO DAILY Keppra (Levetiracetam) 500 Mg Tablet 250 Mg PO HS Crestor (Rosuvastatin Calcium) 20 Mg Tablet 20 Mg PO HS Lamictal (Lamotrigine) 100 Mg Tablet 100 Mg PO BID Vitals/I & O Vital Sign - Last 24 Hours 11/12/16 11/12/16 11/12/16 11/12/16 12:58 14:46 15:09 15:14 Temp 97.9 97.9 Pulse 40 Resp 26 B/P 146/42 Pulse Ox 89 100 100 91 O2 Delivery BiPAP/CPAP BiPAP/CPAP BiPAP/CPAP BiPAP/CPAP 11/12/16 11/12/16 11/12/16 11/12/16 17:09 17:57 18:24 19:00 Temp 97.7 97.7 Pulse 63 69 Resp 22 B/P 97/43 135/88 Pulse Ox 99 99 92 O2 Delivery BiPAP/CPAP BiPAP/CPAP 11/12/16 11/12/16 11/12/16 11/13/16 20:00 22:32 23:00 00:09 Temp 98.9 98.9 Pulse 76 Resp 22 22 B/P 146/73 Pulse Ox 98 92 O2 Delivery Bi-pap BiPAP/CPAP BiPAP/CPAP O2 Flow Rate 6.0 11/13/16 11/13/16 11/13/16 11/13/16 01:00 02:50 03:00 05:43 Temp 98.4 98.4 Pulse 101 Resp 26 B/P 151/73 Pulse Ox 95 90 O2 Delivery BiPAP/CPAP BiPAP/CPAP BiPAP/CPAP BiPAP/CPAP 11/13/16 11/13/16 11/13/16 11/13/16 07:00 07:32 10:56 11:00 Temp 99.8 99.0 99.8 99.0 Pulse 110 105 Resp 34 22 B/P 150/74 162/82 Pulse Ox 90 90 90 90 O2 Delivery BiPAP/CPAP BiPAP/CPAP BiPAP/CPAP BiPAP/CPAP 11/13/16 11:24 Pulse Ox 92 O2 Delivery BiPAP/CPAP Intake and Output 11/12/16 11/12/16 11/13/16 15:00 23:00 07:00 Intake Total 0 ml 0 ml Balance 0 ml 0 ml BALJEET RAMOS MD Nov 13, 2016 12:21
--- NOTE | 2016-11-13 12:28 | RAD ---
EXAM: CT head without contrast. HISTORY: Altered mental status. TECHNIQUE: Computed tomography of the head was performed without intravenous contrast. COMPARISON: 11/05/2016. FINDINGS: There is no intracranial hemorrhage. Hypoattenuation within the periventricular white matter indicates moderate to severe chronic small vessel ischemic change. Prominence of the lateral ventricles and hemispheric sulci indicate moderate atrophy. The visualized paranasal sinuses appear clear. There are changes of bilateral cataract surgery. The temporal bones are unremarkable. The calvarium reveals no suspicious lesions. There are atherosclerotic calcifications of the internal carotid and vertebral arteries. IMPRESSION: 1. No acute intracranial findings. 2. Moderate to severe atrophy and chronic small vessel ischemic white matter change. *One or more of the following individualized dose reduction techniques were utilized for this examination: 1. Automated exposure control. 2. Adjustment of the mA and/or kV according to patient size. 3. Use of iterative reconstruction technique.
--- NOTE | 2016-11-13 12:33 | RAD ---
EXAM: Chest one view. HISTORY: Hypoxia. COMPARISON: 11/11/2016. FINDINGS: A frontal view of the chest is obtained. A right arm PICC line has its tip in the superior cavoatrial junction. There are surgical clips in the left axilla. Bibasilar interstitial and airspace opacities have increased since the prior study. A small right pleural effusion is likely present. There is no pneumothorax. The heart is moderately enlarged. There are atherosclerotic calcifications of the aorta. IMPRESSION: 1. Interstitial and airspace opacities likely reflect pulmonary edema. These are increased since the prior study. 2. Moderate cardiomegaly.
[2016-11-13] MEDS ORDERED: DILTIAZEM IV PUSH 25 MG/5 ML VIAL. IVP ONE (13:00)
[2016-11-13] MEDS: PANTOPRAZOLE IV PUSH 40 MG VIAL. IVP SCH (14:55)
--- NOTE | 2016-11-13 14:56 | RAD ---
Renal ultrasound, 11/13/2016: History: Acute renal injury The right kidney measures 11.8 cm in length while the left kidney measures 12.4 cm. There is moderate bilateral renal cortical scarring. A 2.7 cm cyst is noted in the lower pole of the left kidney. The kidneys show no evidence of obstruction. The partially filled urinary bladder is unremarkable. IMPRESSION: 1. Moderate bilateral renal cortical scarring. 2. Small left renal cyst. 3. No evidence of renal obstruction.
[2016-11-13 15:00] VITALS: BP 147/94
--- NOTE | 2016-11-13 16:03 | RAD ---
EXAM: Chest one view. HISTORY: PICC line placement. COMPARISON: 11/13/2016, 0957. FINDINGS: A frontal view of the chest is obtained. A right arm PICC line has its tip in the superior cavoatrial junction. There are small bilateral pleural effusions. Mild pulmonary edema is suspected. There is no pneumothorax. The heart is moderately enlarged. There are atherosclerotic calcifications of the aorta. IMPRESSION: 1. Right arm PICC line tip in the superior cavoatrial junction. 2. Small pleural effusions with mild pulmonary edema. 3. Moderate cardiomegaly.
--- NOTE | 2016-11-13 16:26 | PDOC ---
SUBJECTIVE ROS SHEYLA/ CKD III Pt Currently on BiPAP due to resp insufficiency Unable to reliably get ROS due to underlying AMS OBJECTIVE Vital Signs Vital Signs Date Time Temp Pulse Resp B/P Pulse Ox O2 Delivery O2 Flow Rate FiO2 11/13/16 15:46 96 BiPAP/CPAP 11/13/16 15:00 81 24 147/94 11/13/16 11:00 99.0 99.0 11/12/16 20:00 6.0 I & 0 Intake and Output 11/13/16 07:00 Intake Total 0 ml Balance 0 ml Intake Oral 0 ml # Voids 2 PHYSICAL EXAM Physical Exam GEN: barely Awake, Oriented x 0, In mod resp distress EYES: Vision Unchanged, Conjunctiva Normal EN: No EN Drainage, Mucous Membranes dryish NECK: no JVD, no JVP, Supple, no Thyromegaly; thick neck CVS: S1S2, ? Murmur, No Gallop, No Rub,no Edema RESP: few Rales, occ Rhonchi,min Acc. Muscle Use GI: BS + ve, NO Bruit, Non Tender, Non Distended : no CVA tenderness, no Suprapubic Tenderness DIAGNOSIS/ASSESSMENT Assessment & Plan SHEYLA - ? ATN. slight worsening of Creat today. UO is not well recorded currently. ^Na - Some free water deficiet, will not use IVF currently due to Tenous Resp status. low Phos - IV K Phos Resp Failure - on Bipap for now Discussed Plan of Care with family (bre) at bedside Problems: COMMENT/RELEVANT DATA Meds Current Medications Medications (Trade) Dose Ordered Sig/Malcom Start Time Stop Time Status Last Admin Dose Admin Acetaminophen (Tylenol) 650 mg PRN Q6HRS PRN 11/05/16 16:15 11/11/16 21:51 650 MG Albuterol Sulfate 2.5 mg 2.5 mg PRN Q4HRS PRN 11/05/16 16:15 Albuterol/ Ipratropium (Duoneb) 3 ml RTQID 11/11/16 12:00 11/13/16 15:45 3 ML Amino Acids/ Glycerin/ Electrolytes (Procalamine) 1,000 ml @ 80 mls/hr [id number] 11/07/16 12:15 11/11/16 11:22 DC 11/11/16 02:20 80 MLS/HR Amlodipine Besylate (Norvasc) 5 mg DAILY 11/06/16 09:00 11/08/16 12:18 DC 11/06/16 09:28 5 MG Atorvastatin Calcium (Lipitor) 80 mg QHS 11/05/16 21:00 11/13/16 12:18 DC 11/11/16 21:51 80 MG Budesonide (Pulmicort) 0.5 mg RTBID 11/09/16 09:00 11/11/16 18:50 DC 11/11/16 09:32 0.5 MG Dextrose 12.5 gm PRN Q15MIN PRN 11/05/16 16:15 Digoxin (Lanoxin) 125 mcg DAILY 11/14/16 09:00 Diltiazem HCl (Cardizem) 10 mg 1X ONCE 11/13/16 13:00 11/13/16 13:01 DC 11/13/16 14:51 10 MG Diltiazem HCl 120 mg 120 mg DAILY 11/09/16 11:00 11/13/16 12:48 DC 11/11/16 08:57 120 MG Enoxaparin Sodium (Lovenox Per Pharmacy Prophylaxis Dosing) 1 each PRN DAILY PRN 11/06/16 13:00 UNV Fentanyl Citrate (Fentanyl 2ml Vial) 25 mcg PRN Q2HR PRN 11/07/16 20:00 11/13/16 14:47 25 MCG Furosemide (Lasix) 40 mg 1X ONCE 11/12/16 12:00 11/12/16 12:01 DC 11/12/16 12:41 40 MG Furosemide 20 mg 20 mg 1X ONCE 11/13/16 11:30 11/13/16 11:31 DC Glipizide (Glucotrol) 5 mg DAILY 11/06/16 09:00 11/13/16 12:18 DC 11/11/16 08:57 5 MG Guaifenesin (Robitussin Dm) 10 ml PRN Q6HRS PRN 11/07/16 12:30 Haloperidol Lactate (Haldol) 1 mg PRN TID PRN 11/13/16 04:45 11/13/16 04:50 1 MG Heparin Sodium (Porcine) 5,000 unit Q8HRS 11/05/16 22:00 11/13/16 15:26 5,000 UNIT Hydralazine HCl (Apresoline) 10 mg PRN Q4HRS PRN 11/05/16 16:15 Insulin Aspart (Novolog) 0-9 UNITS TIDWMEALS 11/05/16 17:00 11/13/16 12:00 3 UNITS Labetalol HCl 10 mg 10 mg PRN Q2HR PRN 11/10/16 09:45 Lamotrigine (LaMICtal) 100 mg BID 11/05/16 21:00 11/13/16 12:18 DC 11/11/16 21:51 100 MG Levetiracetam (Keppra) 500 mg QHS 11/10/16 21:00 11/13/16 12:32 DC 11/11/16 21:51 500 MG Levetiracetam 500 mg/Sodium Chloride 105 ml @ 400 mls/hr HS 11/06/16 21:00 11/10/16 09:24 DC 11/09/16 21:28 400 MLS/HR Levetiracetam/ Sodium Chloride (Keppra/Iv Sodium Chloride 0.9% 100ml) 105 ml @ 400 mls/hr QHS 11/13/16 21:00 11/13/16 21:00 DC Magnesium Sulfate/ Dextrose (Magnesium Sulfate PREMIX 2GM) 50 ml @ 25 mls/hr PRN DAILY PRN 11/09/16 15:45 Nystatin (Nystop) 1 hong TID 11/09/16 21:00 11/12/16 14:00 1 HONG Ondansetron HCl 4 mg 4 mg PRN Q6HRS PRN 11/05/16 16:15 Oseltamivir Phosphate (Tamiflu) 30 mg BID 11/05/16 21:00 11/07/16 14:19 DC 11/06/16 09:27 30 MG Oseltamivir Phosphate 30 mg 30 mg DAILY 11/08/16 09:00 11/10/16 20:59 DC 11/10/16 08:50 30 MG Pantoprazole Sodium (Protonix Vial) 40 mg DAILYAC 11/13/16 13:00 11/13/16 14:55 40 MG Piperacillin Sod/ Tazobactam Sod 3.375 gm/Sodium Chloride 50 ml @ 100 mls/hr Q6HRS 11/06/16 19:00 11/07/16 14:21 DC 11/07/16 11:17 100 MLS/HR Piperacillin Sod/ Tazobactam Sod 1 each 1 each PRN DAILY PRN 11/06/16 18:15 11/08/16 12:53 DC Piperacillin Sod/ Tazobactam Sod/ Sodium Chloride (Zosyn/Iv Sodium Chloride 0.9% 50ml) 50 ml @ 100 mls/hr Q6HRS 11/07/16 18:00 11/11/16 18:50 DC 11/11/16 17:44 100 MLS/HR Potassium Chloride/Dextrose/ Sod Cl (KCl 20 Meq In D5W-1/2 NS) 1,000 ml @ 100 mls/hr 1X ONCE 11/06/16 13:00 11/06/16 22:59 DC 11/06/16 17:17 100 MLS/HR Potassium Chloride/Dextrose/ Sod Cl (KCl 20 Meq In D5W-NS) 1,000 ml @ 75 mls/hr [id number] 11/05/16 16:15 11/05/16 16:15 DC Potassium Chloride/Sodium Chloride 1,000 ml @ 75 mls/hr [id number] 11/05/16 17:00 11/07/16 12:10 DC 11/07/16 09:00 75 MLS/HR Potassium Chloride (KCl Oral Soln) 40 meq 1X ONCE 11/05/16 13:15 11/05/16 13:16 DC 11/05/16 13:49 40 MEQ Scopolamine (Transderm-Scop) 1 patch Q3DAYS 11/11/16 11:30 11/11/16 11:42 1 PATCH Sodium Chloride (Iv Sodium Chloride 0.9% 1000ml Bag) 1,000 ml @ 200 mls/hr Q5H 11/05/16 11:35 11/05/16 16:34 DC 11/05/16 12:25 200 MLS/HR Sodium Phosphate/ Dextrose 256.6667 ml @ 64.167 m... 1X ONCE 11/10/16 14:00 11/10/16 17:59 DC 11/10/16 13:49 64.167 MLS/HR Lab Laboratory Tests Test 11/12/16 16:36 11/12/16 21:23 11/13/16 04:20 11/13/16 07:15 Glucose (Fingerstick) 197mg/dL (70-99) 134mg/dL (70-99) 173mg/dL (70-99) Sodium Level 149mmol/L (136-145) Potassium Level 3.8mmol/L (3.5-5.1) Chloride Level 106mmol/L (98-107) Carbon Dioxide Level 36mmol/L (21-32) Anion Gap 7 (6-14) Blood Urea Nitrogen 37mg/dL (7-20) Creatinine 2.1mg/dL (0.6-1.0) Estimated GFR (Cockcroft-Gault) 22.4 Glucose Level 192mg/dL (70-99) Calcium Level 9.6mg/dL (8.5-10.1) Phosphorus Level 2.3mg/dL (2.6-4.7) Magnesium Level 2.0mg/dL (1.8-2.4) Albumin 2.9g/dL (3.4-5.0) Thyroid Stimulating Hormone (TSH) 1.761uIU/mL (0.358-3.74) Test 11/13/16 08:35 11/13/16 11:03 O2 Saturation 62% (92-99) Arterial Blood pH 7.35 (7.35-7.45) Arterial Blood pCO2 at Patient Temp 59mmHg (35-46) Arterial Blood pO2 at Patient Temp < 42mmHg (65-108) Arterial Blood HCO3 32mmol/L (21-28) Arterial Blood Base Excess 5mmol/L (-3-3) FiO2 35% Glucose (Fingerstick) 211mg/dL (70-99) ORALIA TAVERA MD Nov 13, 2016 16:25
[2016-11-13] MEDS ORDERED: ALTEPLASE 2 MG VIAL INT CAT ONE (16:30)
[2016-11-13 17:12] LABS: BILIRUBIN,URINE SMALL (NEG); GLUCOSE,URINE 100 mg/dL (NEG); NITRITE,URINE NEGATIVE (NEG); PH,URINE 5.5; PROTEIN,URINE 100 mg/dL (NEG-TRACE); UROBILINOGEN,URINE 0.2 mg/dL (0.2 mg/dL)
[2016-11-13 17:21] LABS: BACTERIA,URINE FEW /HPF (0-FEW); SQUAMOUS EPITHELIAL CELL,UR MOD /LPF; WBC,URINE OCC /HPF (0-4)
[2016-11-13] MEDS: POTASSIUM PHOSPHATE DIBASIC 13.6 MMOL in IV NORMAL SALINE 100ML 100 ML IV SCH ×3 (17:47→22:16)
[2016-11-13 19:00] VITALS: BP 165/55
[2016-11-13] MEDS ORDERED: LEVETIRACETAM 500 MG in IV NORMAL SALINE 100ML 100 ML IV SCH (21:00)
[2016-11-13 22:49] VITALS: BP 140/29
[2016-11-14 03:12] VITALS: BP 187/56
[2016-11-14] MEDS: HEPARIN PF for SUB-Q USE 5,000 UNIT/0.5 ML VIAL. SQ SCH ×3 (05:07→20:39)
[2016-11-14 06:44] LABS: ALBUMIN 2.6 g/dL (3.4-5.0); CREATININE 1.8 mg/dL (0.6-1.0); GFR 26.8; PHOSPHORUS 2.6 mg/dL (2.6-4.7); POTASSIUM 3.5 mmol/L (3.5-5.1)
[2016-11-14 07:00] VITALS: BP 146/40
--- NOTE | 2016-11-14 07:29 | PDOC ---
SUBJECTIVE ROS oAKI/ CKD III/IV Appears to be more Alert today CVS: no Orthopnea, no CP RESP: + SOB remains on BiPAP no HAYWOOD (not ambulated ) GI: no Nausea, no Vomiting : no Dysuria, n Urgency OBJECTIVE Vital Signs Vital Signs Date Time Temp Pulse Resp B/P Pulse Ox O2 Delivery O2 Flow Rate FiO2 11/14/16 03:29 98 BiPAP/CPAP 11/14/16 03:12 98.7 67 24 187/56 98.7 I & 0 Intake and Output 11/14/16 07:00 Intake Total 0 ml Output Total 951 ml Balance -951 ml Intake Oral 0 ml Output Urine Total 950 ml Stool Total 1 ml # Voids 1 PHYSICAL EXAM Physical Exam GEN: More Awake, Oriented x 0, In min resp distress, on Bipap EYES: Vision Unchanged, Conjunctiva Normal EN: No EN Drainage, Mucous Membranes dryish NECK: no JVD, no JVP, Supple, no Thyromegaly; thick neck CVS: S1S2, ? Murmur, No Gallop, No Rub,no Edema RESP: few Rales, occ Rhonchi,min Acc. Muscle Use GI: BS + ve, NO Bruit, Non Tender, Non Distended : no CVA tenderness, no Suprapubic Tenderness DIAGNOSIS/ASSESSMENT SHEYLA - ?better Creat today. UO is OK for now ^Na - Some free water deficiet, Start IVF / PPN for Hypotonic IVF - CXR noted to be WNL low Phos - resolveda fter IV K Phos; watch after starting PPN Resp Failure - on Bipap for now - CXR without CHF as reported Discussed Plan of Care with family ([email or web address]) at bedside Problems: COMMENT/RELEVANT DATA Meds Current Medications Medications (Trade) Dose Ordered Sig/Malcom Start Time Stop Time Status Last Admin Dose Admin Acetaminophen (Tylenol) 650 mg PRN Q6HRS PRN 11/05/16 16:15 11/11/16 21:51 650 MG Albuterol Sulfate 2.5 mg 2.5 mg PRN Q4HRS PRN 11/05/16 16:15 Albuterol/ Ipratropium (Duoneb) 3 ml RTQID 11/11/16 12:00 11/13/16 19:21 3 ML Alteplase, Recombinant 4 mg 4 mg 1X ONCE 11/13/16 16:30 11/13/16 16:31 DC 11/13/16 17:10 4 MG Amino Acids/ Glycerin/ Electrolytes (Procalamine) 1,000 ml @ 80 mls/hr [id number] 11/07/16 12:15 11/11/16 11:22 DC 11/11/16 02:20 80 MLS/HR Amlodipine Besylate (Norvasc) 5 mg DAILY 11/06/16 09:00 11/08/16 12:18 DC 11/06/16 09:28 5 MG Atorvastatin Calcium (Lipitor) 80 mg QHS 11/05/16 21:00 11/13/16 12:18 DC 11/11/16 21:51 80 MG Budesonide (Pulmicort) 0.5 mg RTBID 11/09/16 09:00 11/11/16 18:50 DC 11/11/16 09:32 0.5 MG Dextrose 12.5 gm PRN Q15MIN PRN 11/05/16 16:15 Digoxin (Lanoxin) 125 mcg DAILY 11/14/16 09:00 Diltiazem HCl (Cardizem) 10 mg 1X ONCE 11/13/16 13:00 11/13/16 13:01 DC 11/13/16 14:51 10 MG Diltiazem HCl 120 mg 120 mg DAILY 11/09/16 11:00 11/13/16 12:48 DC 11/11/16 08:57 120 MG Enoxaparin Sodium (Lovenox Per Pharmacy Prophylaxis Dosing) 1 each PRN DAILY PRN 11/06/16 13:00 UNV Fentanyl Citrate (Fentanyl 2ml Vial) 25 mcg PRN Q2HR PRN 11/07/16 20:00 11/13/16 14:47 25 MCG Furosemide (Lasix) 40 mg 1X ONCE 11/12/16 12:00 11/12/16 12:01 DC 11/12/16 12:41 40 MG Furosemide 20 mg 20 mg 1X ONCE 11/13/16 11:30 11/13/16 11:31 DC 11/13/16 17:46 20 MG Glipizide (Glucotrol) 5 mg DAILY 11/06/16 09:00 11/13/16 12:18 DC 11/11/16 08:57 5 MG Guaifenesin (Robitussin Dm) 10 ml PRN Q6HRS PRN 11/07/16 12:30 Haloperidol Lactate (Haldol) 1 mg PRN TID PRN 11/13/16 04:45 11/13/16 04:50 1 MG Heparin Sodium (Porcine) 5,000 unit Q8HRS 11/05/16 22:00 11/14/16 05:07 5,000 UNIT Hydralazine HCl (Apresoline) 10 mg PRN Q4HRS PRN 11/05/16 16:15 Insulin Aspart (Novolog) 0-9 UNITS TIDWMEALS 11/05/16 17:00 11/13/16 12:00 3 UNITS Labetalol HCl 10 mg 10 mg PRN Q2HR PRN 11/10/16 09:45 Lamotrigine (LaMICtal) 100 mg BID 11/05/16 21:00 11/13/16 12:18 DC 11/11/16 21:51 100 MG Levetiracetam (Keppra) 500 mg QHS 11/10/16 21:00 11/13/16 12:32 DC 11/11/16 21:51 500 MG Levetiracetam 500 mg/Sodium Chloride 105 ml @ 400 mls/hr HS 11/06/16 21:00 11/10/16 09:24 DC 11/09/16 21:28 400 MLS/HR Levetiracetam/ Sodium Chloride (Keppra/Iv Sodium Chloride 0.9% 100ml) 105 ml @ 400 mls/hr QHS 11/13/16 21:00 11/13/16 21:00 DC Magnesium Sulfate/ Dextrose (Magnesium Sulfate PREMIX 2GM) 50 ml @ 25 mls/hr PRN DAILY PRN 11/09/16 15:45 Nystatin (Nystop) 1 hong TID 11/09/16 21:00 11/13/16 20:21 1 HONG Ondansetron HCl 4 mg 4 mg PRN Q6HRS PRN 11/05/16 16:15 Oseltamivir Phosphate (Tamiflu) 30 mg BID 11/05/16 21:00 11/07/16 14:19 DC 11/06/16 09:27 30 MG Oseltamivir Phosphate 30 mg 30 mg DAILY 11/08/16 09:00 11/10/16 20:59 DC 11/10/16 08:50 30 MG Pantoprazole Sodium (Protonix Vial) 40 mg DAILYAC 11/13/16 13:00 11/13/16 14:55 40 MG Piperacillin Sod/ Tazobactam Sod 3.375 gm/Sodium Chloride 50 ml @ 100 mls/hr Q6HRS 11/06/16 19:00 11/07/16 14:21 DC 11/07/16 11:17 100 MLS/HR Piperacillin Sod/ Tazobactam Sod 1 each 1 each PRN DAILY PRN 11/06/16 18:15 11/08/16 12:53 DC Piperacillin Sod/ Tazobactam Sod/ Sodium Chloride (Zosyn/Iv Sodium Chloride 0.9% 50ml) 50 ml @ 100 mls/hr Q6HRS 11/07/16 18:00 11/11/16 18:50 DC 11/11/16 17:44 100 MLS/HR Potassium Chloride/Dextrose/ Sod Cl (KCl 20 Meq In D5W-1/2 NS) 1,000 ml @ 100 mls/hr 1X ONCE 11/06/16 13:00 11/06/16 22:59 DC 11/06/16 17:17 100 MLS/HR Potassium Chloride/Dextrose/ Sod Cl (KCl 20 Meq In D5W-NS) 1,000 ml @ 75 mls/hr [id number] 11/05/16 16:15 11/05/16 16:15 DC Potassium Chloride/Sodium Chloride 1,000 ml @ 75 mls/hr [id number] 11/05/16 17:00 11/07/16 12:10 DC 11/07/16 09:00 75 MLS/HR Potassium Phosphate/Sodium Chloride (Potassium Phosphate/Iv Sodium Chloride 0.9% 100ml) 104.5333 ml @ 52.267 m... Q2H 11/13/16 17:00 11/13/16 22:59 DC 11/13/16 22:16 52.267 MLS/HR Potassium Chloride (KCl Oral Soln) 40 meq 1X ONCE 11/05/16 13:15 11/05/16 13:16 DC 11/05/16 13:49 40 MEQ Scopolamine (Transderm-Scop) 1 patch Q3DAYS 11/11/16 11:30 11/11/16 11:42 1 PATCH Sodium Chloride (Iv Sodium Chloride 0.9% 1000ml Bag) 1,000 ml @ 200 mls/hr Q5H 11/05/16 11:35 11/05/16 16:34 DC 11/05/16 12:25 200 MLS/HR Sodium Phosphate/ Dextrose 256.6667 ml @ 64.167 m... 1X ONCE 11/10/16 14:00 11/10/16 17:59 DC 11/10/16 13:49 64.167 MLS/HR Lab Laboratory Tests Test 11/13/16 08:35 11/13/16 11:03 11/13/16 16:40 11/13/16 17:21 O2 Saturation 62% (92-99) Arterial Blood pH 7.35 (7.35-7.45) Arterial Blood pCO2 at Patient Temp 59mmHg (35-46) Arterial Blood pO2 at Patient Temp < 42mmHg (65-108) Arterial Blood HCO3 32mmol/L (21-28) Arterial Blood Base Excess 5mmol/L (-3-3) FiO2 35% Glucose (Fingerstick) 211mg/dL (70-99) 131mg/dL (70-99) Urine Collection Type Unknown Urine Color Yellow Urine Clarity Clear Urine pH 5.5 Urine Specific Dexter 1.015 Urine Protein 100mg/dL (NEG-TRACE) Urine Glucose (UA) 100mg/dL (NEG) Urine Ketones (Stick) Tracemg/dL (NEG) Urine Blood Moderate (NEG) Urine Nitrite Negative (NEG) Urine Bilirubin Small (NEG) Urine Urobilinogen Dipstick 0.2mg/dL (0.2 mg/dL) Urine Leukocyte Esterase Negative (NEG) Urine RBC 1-2/HPF (0-2) Urine WBC Occ/HPF (0-4) Urine Squamous Epithelial Cells Mod/LPF Urine Bacteria Few/HPF (0-FEW) Urine Hyaline Casts Few/HPF Urine Granular Casts Occasional/HPF Urine Mucus Mod/LPF Urine Random Sodium 36mmol/L (Not Estab.) Test 11/13/16 21:06 11/14/16 05:30 Glucose (Fingerstick) 121mg/dL (70-99) Sodium Level 152mmol/L (136-145) Potassium Level 3.5mmol/L (3.5-5.1) Chloride Level 107mmol/L (98-107) Carbon Dioxide Level 33mmol/L (21-32) Anion Gap 12 (6-14) Blood Urea Nitrogen 38mg/dL (7-20) Creatinine 1.8mg/dL (0.6-1.0) Estimated GFR (Cockcroft-Gault) 26.8 Glucose Level 151mg/dL (70-99) Calcium Level 9.0mg/dL (8.5-10.1) Phosphorus Level 2.6mg/dL (2.6-4.7) Magnesium Level 1.9mg/dL (1.8-2.4) Albumin 2.6g/dL (3.4-5.0) ORALIA TAVERA MD Nov 14, 2016 07:29
[2016-11-14] MEDS: INSULIN ASPART 300 UNITS/3 ML INSULN.PEN SQ SCH ×3 (08:00→17:00)
[2016-11-14 08:51] LABS: HCO3 ABG 32 mmol/L (21-28); PCO2 ABG 37 mmHg (35-46); PO2 ABG 83 mmHg (65-108); SAT O2 ABG 97 % (92-99)
[2016-11-14 08:52] LABS: PH ABG 7.55 (7.35-7.45)
[2016-11-14 08:53] LABS: FIO2 ABG 35
[2016-11-14] MEDS: DIGOXIN 500 MCG/2 ML AMPUL. IV SCH (09:00)
--- NOTE | 2016-11-14 09:07 | RAD ---
Portable chest, 11/14/2016: History: Shortness of breath, pulmonary edema Comparison is made to yesterday's study at 3:47 PM. A right PICC extends to the level of the atriocaval junction. The heart is mildly enlarged. The pulmonary vascularity is now within normal limits. There is a mild ongoing atelectasis/infiltrate in the left base. There is minimal persistent infiltrate or scarring in the right upper chest. No new pulmonary abnormality is seen. Blunting of the left lateral costophrenic angle is chronic and likely due to scarring. No definite pleural fluid is seen. IMPRESSION: 1. Cardiomegaly without vascular congestion. 2. Mild residual left basilar atelectasis/infiltrate.
[2016-11-14] MEDS: PANTOPRAZOLE IV PUSH 40 MG VIAL. IVP SCH (09:23)
[2016-11-14] MEDS: SCOPOLAMINE 1.5MG PATCH. TD SCH (09:23)
[2016-11-14] MEDS: NYSTATIN TOPICAL POWDER 15GM BOTTLE. TP SCH ×3 (09:25→20:33)
[2016-11-14] MEDS: LEVETIRACETAM 500 MG in IV NORMAL SALINE 100ML 100 ML IV SCH ×2 (09:56→20:33)
--- NOTE | 2016-11-14 10:32 | PDOC ---
PROGRESS NOTES Assessment Problems Medical Problems: (1) Aspiration pneumonia Status: Acute (2) Aspiration pneumonia Status: Acute (3) Hypoxia Status: Acute (4) Influenza Status: Acute (5) Influenza Status: Acute Metabolic encephalopathy, better. Respiratory failure, acute on chronic. Hypoxia. Influenza A New onset AFib with RVR. Aspiration pneumonia. Hyperglycemia. DM HTN HLD COPD CHF Obesity Plan Continue Keppra IV Objective Vital Signs Date Time Temp Pulse Resp B/P Pulse Ox O2 Delivery O2 Flow Rate FiO2 11/14/16 09:05 98 BiPAP/CPAP 11/14/16 07:00 98.7 72 26 146/40 35.0 98.7 Intake and Output 11/14/16 07:00 Intake Total 0 ml Output Total 951 ml Balance -951 ml Intake Oral 0 ml Output Urine Total 950 ml Stool Total 1 ml # Voids 1 PHYSICAL EXAM On BiPAP, eyes open, squeezes hands to command, voices "Hello." PERRL. EOMI. CN: no focal findings. Muscle tone: normal Muscle strength: moves all extremities spontaneously DTR: 1+ Plantar reflex: silent Gait: not examined in bed. Sensory exam: not tested Cerebellar: not tested Review of Relevant I have reviewed the following items lucy (where applicable) has been applied. Labs Laboratory Tests Test 11/12/16 10:58 11/12/16 12:00 11/12/16 12:20 11/12/16 16:36 Glucose (Fingerstick) 219mg/dL (70-99) 197mg/dL (70-99) O2 Saturation 95% (92-99) Arterial Blood pH 7.15 (7.35-7.45) Arterial Blood pCO2 at Patient Temp 136mmHg (35-46) Arterial Blood pO2 at Patient Temp 88mmHg (65-108) Arterial Blood HCO3 46mmol/L (21-28) Arterial Blood Base Excess 12mmol/L (-3-3) FiO2 99 White Blood Count 10.4x10^3/uL (4.0-11.0) Red Blood Count 3.59x10^6/uL (3.50-5.40) Hemoglobin 11.3g/dL (12.0-15.5) Hematocrit 34.4% (36.0-47.0) Mean Corpuscular Volume 96fL (79-100) Mean Corpuscular Hemoglobin 32pg (25-35) Mean Corpuscular Hemoglobin Concent 33g/dL (31-37) Red Cell Distribution Width 16.7% (11.5-14.5) Platelet Count 184x10^3/uL (140-400) Neutrophils (%) (Auto) 83% (31-73) Lymphocytes (%) (Auto) 8% (24-48) Monocytes (%) (Auto) 9% (0-9) Eosinophils (%) (Auto) 0% (0-3) Basophils (%) (Auto) 0% (0-3) Neutrophils # (Auto) 8.6x10^3uL (1.8-7.7) Lymphocytes # (Auto) 0.9x10^3/uL (1.0-4.8) Monocytes # (Auto) 0.9x10^3/uL (0.0-1.1) Eosinophils # (Auto) 0.0x10^3/uL (0.0-0.7) Basophils # (Auto) 0.0x10^3/uL (0.0-0.2) Segmented Neutrophils % 82% (35-66) Lymphocytes % 10% (24-48) Monocytes % 6% (0-10) Metamyelocytes % 2% (0-0) Platelet Estimate Adequate (ADEQUATE) Basophilic Stippling Present Stomatocytes Occ Sodium Level 146mmol/L (136-145) Potassium Level 4.8mmol/L (3.5-5.1) Chloride Level 104mmol/L (98-107) Carbon Dioxide Level 41mmol/L (21-32) Anion Gap 1 (6-14) Blood Urea Nitrogen 33mg/dL (7-20) Creatinine 1.9mg/dL (0.6-1.0) Estimated GFR (Cockcroft-Gault) 25.2 Glucose Level 254mg/dL (70-99) Lactic Acid Level 0.8mmol/L (0.4-2.0) Calcium Level 8.9mg/dL (8.5-10.1) Test 11/12/16 21:23 11/13/16 04:20 11/13/16 07:15 11/13/16 08:35 Glucose (Fingerstick) 134mg/dL (70-99) 173mg/dL (70-99) Sodium Level 149mmol/L (136-145) Potassium Level 3.8mmol/L (3.5-5.1) Chloride Level 106mmol/L (98-107) Carbon Dioxide Level 36mmol/L (21-32) Anion Gap 7 (6-14) Blood Urea Nitrogen 37mg/dL (7-20) Creatinine 2.1mg/dL (0.6-1.0) Estimated GFR (Cockcroft-Gault) 22.4 Glucose Level 192mg/dL (70-99) Calcium Level 9.6mg/dL (8.5-10.1) Phosphorus Level 2.3mg/dL (2.6-4.7) Magnesium Level 2.0mg/dL (1.8-2.4) Albumin 2.9g/dL (3.4-5.0) Thyroid Stimulating Hormone (TSH) 1.761uIU/mL (0.358-3.74) O2 Saturation 62% (92-99) Arterial Blood pH 7.35 (7.35-7.45) Arterial Blood pCO2 at Patient Temp 59mmHg (35-46) Arterial Blood pO2 at Patient Temp < 42mmHg (65-108) Arterial Blood HCO3 32mmol/L (21-28) Arterial Blood Base Excess 5mmol/L (-3-3) FiO2 35% Test 11/13/16 11:03 11/13/16 16:40 11/13/16 17:21 11/13/16 21:06 Glucose (Fingerstick) 211mg/dL (70-99) 131mg/dL (70-99) 121mg/dL (70-99) Urine Collection Type Unknown Urine Color Yellow Urine Clarity Clear Urine pH 5.5 Urine Specific [place] 1.015 Urine Protein 100mg/dL (NEG-TRACE) Urine Glucose (UA) 100mg/dL (NEG) Urine Ketones (Stick) Tracemg/dL (NEG) Urine Blood Moderate (NEG) Urine Nitrite Negative (NEG) Urine Bilirubin Small (NEG) Urine Urobilinogen Dipstick 0.2mg/dL (0.2 mg/dL) Urine Leukocyte Esterase Negative (NEG) Urine RBC 1-2/HPF (0-2) Urine WBC Occ/HPF (0-4) Urine Squamous Epithelial Cells Mod/LPF Urine Bacteria Few/HPF (0-FEW) Urine Hyaline Casts Few/HPF Urine Granular Casts Occasional/HPF Urine Mucus Mod/LPF Urine Random Sodium 36mmol/L (Not Estab.) Test 11/14/16 05:30 11/14/16 08:00 11/14/16 08:30 Sodium Level 152mmol/L (136-145) Potassium Level 3.5mmol/L (3.5-5.1) Chloride Level 107mmol/L (98-107) Carbon Dioxide Level 33mmol/L (21-32) Anion Gap 12 (6-14) Blood Urea Nitrogen 38mg/dL (7-20) Creatinine 1.8mg/dL (0.6-1.0) Estimated GFR (Cockcroft-Gault) 26.8 Glucose Level 151mg/dL (70-99) Calcium Level 9.0mg/dL (8.5-10.1) Phosphorus Level 2.6mg/dL (2.6-4.7) Magnesium Level 1.9mg/dL (1.8-2.4) Albumin 2.6g/dL (3.4-5.0) Glucose (Fingerstick) 142mg/dL (70-99) O2 Saturation 97% (92-99) Arterial Blood pH 7.55 (7.35-7.45) Arterial Blood pCO2 at Patient Temp 37mmHg (35-46) Arterial Blood pO2 at Patient Temp 83mmHg (65-108) Arterial Blood HCO3 32mmol/L (21-28) Arterial Blood Base Excess 9mmol/L (-3-3) FiO2 35 Laboratory Tests Test 11/13/16 11:03 11/13/16 16:40 11/13/16 17:21 11/13/16 21:06 Glucose (Fingerstick) 211mg/dL (70-99) 131mg/dL (70-99) 121mg/dL (70-99) Urine Collection Type Unknown Urine Color Yellow Urine Clarity Clear Urine pH 5.5 Urine Specific [place] 1.015 Urine Protein 100mg/dL (NEG-TRACE) Urine Glucose (UA) 100mg/dL (NEG) Urine Ketones (Stick) Tracemg/dL (NEG) Urine Blood Moderate (NEG) Urine Nitrite Negative (NEG) Urine Bilirubin Small (NEG) Urine Urobilinogen Dipstick 0.2mg/dL (0.2 mg/dL) Urine Leukocyte Esterase Negative (NEG) Urine RBC 1-2/HPF (0-2) Urine WBC Occ/HPF (0-4) Urine Squamous Epithelial Cells Mod/LPF Urine Bacteria Few/HPF (0-FEW) Urine Hyaline Casts Few/HPF Urine Granular Casts Occasional/HPF Urine Mucus Mod/LPF Urine Random Sodium 36mmol/L (Not Estab.) Test 11/14/16 05:30 11/14/16 08:00 11/14/16 08:30 Sodium Level 152mmol/L (136-145) Potassium Level 3.5mmol/L (3.5-5.1) Chloride Level 107mmol/L (98-107) Carbon Dioxide Level 33mmol/L (21-32) Anion Gap 12 (6-14) Blood Urea Nitrogen 38mg/dL (7-20) Creatinine 1.8mg/dL (0.6-1.0) Estimated GFR (Cockcroft-Gault) 26.8 Glucose Level 151mg/dL (70-99) Calcium Level 9.0mg/dL (8.5-10.1) Phosphorus Level 2.6mg/dL (2.6-4.7) Magnesium Level 1.9mg/dL (1.8-2.4) Albumin 2.6g/dL (3.4-5.0) Glucose (Fingerstick) 142mg/dL (70-99) O2 Saturation 97% (92-99) Arterial Blood pH 7.55 (7.35-7.45) Arterial Blood pCO2 at Patient Temp 37mmHg (35-46) Arterial Blood pO2 at Patient Temp 83mmHg (65-108) Arterial Blood HCO3 32mmol/L (21-28) Arterial Blood Base Excess 9mmol/L (-3-3) FiO2 35 Microbiology 11/05/16 Blood Culture - Final, Complete NO GROWTH AFTER 5 DAYS Medications Current Medications Sodium Chloride (Iv Sodium Chloride 0.9% 1000ml Bag) 1,000 ml @ 200 mls/hr Q5H IV Last administered on 11/05/16 12:25; Start 11/05/16 at 11:35; Stop at 16:34; Status DC Oseltamivir Phosphate 75 mg 75 mg DAILY PO Last administered on 11/05/16 12:24 ; Start 11/05/16 at 12:30; Stop 11/05/16 at 12:30; Status DC Piperacillin Sod/ Tazobactam Sod/ Sodium Chloride (Zosyn/Iv Sodium Chloride 0.9 % 50ml) 50 ml @ 100 mls/hr 1X ONCE IV Last administered on 11/05/16 12:39; Start 11/05/16 at 12:45; Stop 11/05/16 at 13:14; Status DC Oseltamivir Phosphate (Tamiflu) 30 mg BID PO Last administered on 11/06/16 09: 27; Start 11/05/16 at 21:00; Stop 11/07/16 at 14:19; Status DC Potassium Chloride (KCl Oral Soln) 40 meq 1X ONCE PO Last administered on 11/05 13:49; Start 11/05/16 at 13:15; Stop 11/05/16 at 13:16; Status DC Amlodipine Besylate (Norvasc) 5 mg DAILY PO Last administered on 11/06/16 09: 28; Start 11/06/16 at 09:00; Stop 11/08/16 at 12:18; Status DC Glipizide (Glucotrol) 5 mg DAILY PO Last administered on 11/11/16 08:57; Start 11/06/16 at 09:00; Stop 11/13/16 at 12:18; Status DC Lamotrigine (LaMICtal) 100 mg BID PO Last administered on 11/11/16 21:51; Start 11/05/16 at 21:00; Stop 11/13/16 at 12:18; Status DC Levetiracetam (Keppra) 250 mg HS PO Last administered on 11/05/16 20:19; Start 11/05/16 at 21:00; Stop 11/06/16 at 12:12; Status DC Atorvastatin Calcium (Lipitor) 80 mg QHS PO Last administered on 11/11/16 21: 51; Start 11/05/16 at 21:00; Stop 11/13/16 at 12:18; Status DC Acetaminophen (Tylenol) 650 mg PRN Q6HRS PRN PO MILD PAIN / TEMP Last administered on 11/11/16 21:51; Start 11/05/16 at 16:15 Ondansetron HCl 4 mg 4 mg PRN Q6HRS PRN IV NAUSEA/VOMITING; Start 11/05/16 at 16:15 Potassium Chloride/Dextrose/ Sod Cl (KCl 20 Meq In D5W-NS) 1,000 ml @ 75 mls/ hr [id number] IV ; Start 11/05/16 at 16:15; Stop 11/05/16 at 16:15; Status DC Insulin Aspart (Novolog) 0-9 UNITS TIDWMEALS SQ Last administered on 11/13/16 12:00; Start 11/05/16 at 17:00 Dextrose 12.5 gm PRN Q15MIN PRN IV SEE COMMENTS; Start 11/05/16 at 16:15 Heparin Sodium (Porcine) 5,000 unit Q8HRS SQ Last administered on 11/14/16 05: 07; Start 11/05/16 at 22:00 Hydralazine HCl (Apresoline) 10 mg PRN Q4HRS PRN IVP ELEVATED BP, SEE COMMENTS ; Start 11/05/16 at 16:15 Albuterol/ Ipratropium (Duoneb) 3 ml RTQID NEB Last administered on 11/11/16 09:32; Start 11/05/16 at 20:00; Stop 11/11/16 at 11:29; Status DC Albuterol Sulfate 2.5 mg 2.5 mg PRN Q4HRS PRN NEB SHORTNESS OF BREATH; Start at 16:15 Potassium Chloride/Sodium Chloride 1,000 ml @ 75 mls/hr [id number] IV Last administered on 11/07/16 09:00; Start 11/05/16 at 17:00; Stop 11/07/16 at 12:10 ; Status DC Levetiracetam 500 mg/Sodium Chloride 105 ml @ 400 mls/hr HS IV Last administered on 11/09/16 21:28; Start 11/06/16 at 21:00; Stop 11/10/16 at 09:24 ; Status DC Potassium Chloride/Dextrose/ Sod Cl (KCl 20 Meq In D5W-1/2 NS) 1,000 ml @ 100 mls/hr 1X ONCE IV Last administered on 11/06/16 17:17; Start 11/06/16 at 13: 00; Stop 11/06/16 at 22:59; Status DC Enoxaparin Sodium (Lovenox Per Pharmacy Prophylaxis Dosing) 1 each PRN DAILY PRN MC SEE COMMENTS; Start 11/06/16 at 13:00; Status UNV Piperacillin Sod/ Tazobactam Sod 1 each 1 each PRN DAILY PRN MC SEE COMMENTS; Start 11/06/16 at 18:15; Stop 11/08/16 at 12:53; Status DC Piperacillin Sod/ Tazobactam Sod 3.375 gm/Sodium Chloride 50 ml @ 100 mls/hr Q6HRS IV Last administered on 11/07/16 11:17; Start 11/06/16 at 19:00; Stop at 14:21; Status DC Amino Acids/ Glycerin/ Electrolytes (Procalamine) 1,000 ml @ 80 mls/hr [id number] IV Last administered on 11/11/16 02:20; Start 11/07/16 at 12:15; Stop at 11:22; Status DC Guaifenesin (Robitussin Dm) 10 ml PRN Q6HRS PRN PO COUGH; Start 11/07/16 at 12: 30 Oseltamivir Phosphate 30 mg 30 mg DAILY PO Last administered on 11/10/16 08:50 ; Start 11/08/16 at 09:00; Stop 11/10/16 at 20:59; Status DC Piperacillin Sod/ Tazobactam Sod/ Sodium Chloride (Zosyn/Iv Sodium Chloride 0.9 % 50ml) 50 ml @ 100 mls/hr Q6HRS IV Last administered on 11/11/16 17:44; Start 11/07/16 at 18:00; Stop 11/11/16 at 18:50; Status DC Fentanyl Citrate (Fentanyl 2ml Vial) 25 mcg PRN Q2HR PRN IV PAIN Last administered on 11/13/16 14:47; Start 11/07/16 at 20:00 Diltiazem HCl (Cardizem) 30 mg Q8HRS PO Last administered on 11/08/16 21:21; Start 11/08/16 at 12:00; Stop 11/09/16 at 10:39; Status DC Digoxin (Lanoxin) 500 mcg 1X ONCE IV Last administered on 11/08/16 12:28; Start 11/08/16 at 12:15; Stop 11/08/16 at 12:19; Status DC Digoxin (Lanoxin) 125 mcg DAILY PO Last administered on 11/11/16 08:58; Start 11/09/16 at 09:00; Stop 11/13/16 at 12:48; Status DC Budesonide (Pulmicort) 0.5 mg RTBID NEB Last administered on 11/11/16 09:32; Start 11/09/16 at 09:00; Stop 11/11/16 at 18:50; Status DC Diltiazem HCl 120 mg 120 mg DAILY PO Last administered on 11/11/16 08:57; Start 11/09/16 at 11:00; Stop 11/13/16 at 12:48; Status DC Magnesium Sulfate/ Dextrose (Magnesium Sulfate PREMIX 2GM) 50 ml @ 25 mls/hr PRN DAILY PRN IV for Mag < 1.7 on am labs; Start 11/09/16 at 15:45 Nystatin (Nystop) 1 hong TID TP Last administered on 11/14/16 09:25; Start at 21:00 Levetiracetam (Keppra) 500 mg QHS PO Last administered on 11/11/16 21:51; Start 11/10/16 at 21:00; Stop 11/13/16 at 12:32; Status DC Labetalol HCl 10 mg 10 mg PRN Q2HR PRN IVP HYPERTENSION, SEE COMMENTS; Start at 09:45 Sodium Phosphate/ Dextrose 256.6667 ml @ 64.167 m... 1X ONCE IV Last administered on 11/10/16 13:49; Start 11/10/16 at 14:00; Stop 11/10/16 at 17:59 ; Status DC Scopolamine (Transderm-Scop) 1 patch Q3DAYS TD Last administered on 11/14/16 09:23; Start 11/11/16 at 11:30 Furosemide (Lasix) 40 mg 1X ONCE IVP Last administered on 11/11/16 11:43; Start 11/11/16 at 11:30; Stop 11/11/16 at 11:31; Status DC Albuterol/ Ipratropium (Duoneb) 3 ml RTQID NEB Last administered on 11/13/16 19:21; Start 11/11/16 at 12:00 Furosemide (Lasix) 40 mg 1X ONCE IVP Last administered on 11/12/16 12:41; Start 11/12/16 at 12:00; Stop 11/12/16 at 12:01; Status DC Haloperidol Lactate 1 mg 1 mg PRN TID PRN IVP AGITATION Last administered on 04:50; Start 11/13/16 at 04:45 Levetiracetam/ Sodium Chloride (Keppra/Iv Sodium Chloride 0.9% 100ml) 105 ml @ 400 mls/hr Q12HR IV Last administered on 11/14/16 09:56; Start 11/13/16 at 10: 30 Furosemide 20 mg 20 mg 1X ONCE IVP Last administered on 11/13/16 17:46; Start 11/13/16 at 11:30; Stop 11/13/16 at 11:31; Status DC Levetiracetam/ Sodium Chloride (Keppra/Iv Sodium Chloride 0.9% 100ml) 105 ml @ 400 mls/hr QHS IV ; Start 11/13/16 at 21:00; Stop 11/13/16 at 21:00; Status DC Pantoprazole Sodium (Protonix Vial) 40 mg DAILYAC IVP Last administered on 11/14 09:23; Start 11/13/16 at 13:00 Diltiazem HCl (Cardizem) 10 mg 1X ONCE IVP Last administered on 11/13/16 14: 51; Start 11/13/16 at 13:00; Stop 11/13/16 at 13:01; Status DC Digoxin (Lanoxin) 125 mcg DAILY IV ; Start 11/14/16 at 09:00 Alteplase, Recombinant 4 mg 4 mg 1X ONCE INT CAT Last administered on 17:10; Start 11/13/16 at 16:30; Stop 11/13/16 at 16:31; Status DC Potassium Phosphate 13.6 mmol/Sodium Chloride 104.5333 ml @ 52.267 m... Q2H IV Last administered on 11/13/16 22:16; Start 11/13/16 at 17:00; Stop 11/13/16 at 22:59; Status DC Amino Acids/ Electrolytes (Clinimix E 2.75%-5% Solution) 1,000 ml @ 60 mls/hr [id number] IV ; Start 11/14/16 at 10:00 Active Scripts Active Glipizide 5 Mg Tablet 5 Mg PO DAILY Take one-half a tablet daily. Lasix (Furosemide) 40 Mg Tablet 40 Mg PO DAILY Reported Levofloxacin 250 Mg Tablet 250 Mg PO DAILY Amlodipine Besylate 5 Mg Tablet 5 Mg PO DAILY Keppra (Levetiracetam) 500 Mg Tablet 250 Mg PO HS Crestor (Rosuvastatin Calcium) 20 Mg Tablet 20 Mg PO HS Lamictal (Lamotrigine) 100 Mg Tablet 100 Mg PO BID Vitals/I & O Vital Sign - Last 24 Hours 11/13/16 11/13/16 11/13/16 11/13/16 10:56 11:00 11:24 14:47 Temp 99.0 99.0 Pulse 105 Resp 24 B/P 162/82 Pulse Ox 90 90 92 O2 Delivery BiPAP/CPAP BiPAP/CPAP BiPAP/CPAP BiPAP/CPAP 11/13/16 11/13/16 11/13/16 11/13/16 14:51 15:00 15:17 15:46 Temp 98.0 98.0 Pulse 81 81 Resp 24 24 B/P 147/94 147/94 Pulse Ox 96 95 96 O2 Delivery BiPAP/CPAP BiPAP/CPAP BiPAP/CPAP 11/13/16 11/13/16 11/13/16 11/13/16 17:14 19:00 19:22 19:52 Temp 98.0 98.0 Pulse 66 Resp 26 B/P 165/55 Pulse Ox 99 97 99 O2 Delivery BiPAP/CPAP BiPAP/CPAP BiPAP/CPAP Bi-pap 11/13/16 11/13/16 11/13/16 11/14/16 21:45 22:49 23:22 01:32 Temp 98.1 98.1 Pulse 66 Resp 24 B/P 140/29 Pulse Ox 99 97 97 97 O2 Delivery BiPAP/CPAP BiPAP/CPAP BiPAP/CPAP BiPAP/CPAP 11/14/16 11/14/16 11/14/16 11/14/16 03:12 03:29 07:00 08:00 Temp 98.7 98.7 98.7 98.7 Pulse 67 72 Resp 24 26 B/P 187/56 146/40 Pulse Ox 97 98 97 O2 Delivery BiPAP/CPAP BiPAP/CPAP BiPAP/CPAP Bi-pap O2 Flow Rate 35.0 11/14/16 11/14/16 11/14/16 08:21 08:33 09:05 Pulse Ox 98 98 98 O2 Delivery BiPAP/CPAP BiPAP/CPAP BiPAP/CPAP Intake and Output 11/13/16 11/13/16 11/14/16 15:00 23:00 07:00 Intake Total 0 ml 0 ml Output Total 101 ml 850 ml Balance -101 ml -[address] yesterday: There is no intracranial hemorrhage. Hypoattenuation within the periventricular white matter indicates moderate to severe chronic small vessel ischemic change. Prominence of the lateral ventricles and hemispheric sulci indicate moderate atrophy. The visualized paranasal sinuses appear clear. There are changes of bilateral cataract surgery. The temporal bones are unremarkable. The calvarium reveals no suspicious lesions. There are atherosclerotic calcifications of the internal carotid and vertebral arteries. IMPRESSION: 1. No acute intracranial findings. 2. Moderate to severe atrophy and chronic small vessel ischemic white matter change. ALBARO DUKE MD Nov 14, 2016 10:32
[2016-11-14 11:00] VITALS: BP 156/48
[2016-11-14] MEDS ORDERED: AA 3%/ELECTROLYTE-TPN SOLN/GLY 1,000 ML IV SCH (11:00)
[2016-11-14] MEDS: AA 2.75%/CALCIUM/LYTES/D5W 1,000 ML IV SCH ×2 (11:05→23:45)
[2016-11-14] MEDS: IPRATRPIUM/ALBUTEROL 0.5/2.5MG 3 ML NEBU. NEB SCH ×3 (12:24→19:46)
--- NOTE | 2016-11-14 13:27 | PDOC ---
PROGRESS NOTES Chief Complaint Chief Complaint 1. acute on chronic resp failure, home o2 2L 2. flu + 3. seizure disorder 4. htn 5. dm2 6. copd 7. h/o CHF 8. hld 9. hypokalemia 10 sheyla on ckd3 11. AMS, metabolic encephalopathy with flu,SHEYLA, VS. post ictal 12. Sepsis 13. Dysphagia 14, New onset atrial fib, intermittent RVR 15. ASPIRATION PNEUMONITIS History of Present Illness History of Present Illness Better today Less lethargic Remains on BIPAP ABG better today Still NPO PLAn: Follow pulmo recs ABG pradeep Interval CXR\NPO Start low dose procalamine Dw family at bedside and pulmo Vitals Vitals Vital Signs Date Time Temp Pulse Resp B/P Pulse Ox O2 Delivery O2 Flow Rate FiO2 11/14/16 12:15 94 BiPAP/CPAP 11/14/16 11:00 99.8 71 26 156/48 35.0 99.8 Physical Exam General: Alert, Cooperative, No acute distress Heart: Other (Rate in the 60s-70s with normal S1/S2, muffled heart sounds secondary to labored breathing and body habitus. Patient in Afib on telemetry) Lungs: Other (few rhonchi) Abdomen: Normal bowel sounds, Soft, No tenderness Extremities: No clubbing, No cyanosis, Other (mild chronic peripheral edema of upper and lower extremity) Skin: No rashes Labs LABS Laboratory Tests Test 11/13/16 16:40 11/13/16 17:21 11/13/16 21:06 11/14/16 05:30 Urine Collection Type Unknown Urine Color Yellow Urine Clarity Clear Urine pH 5.5 Urine Specific [place] 1.015 Urine Protein 100mg/dL (NEG-TRACE) Urine Glucose (UA) 100mg/dL (NEG) Urine Ketones (Stick) Tracemg/dL (NEG) Urine Blood Moderate (NEG) Urine Nitrite Negative (NEG) Urine Bilirubin Small (NEG) Urine Urobilinogen Dipstick 0.2mg/dL (0.2 mg/dL) Urine Leukocyte Esterase Negative (NEG) Urine RBC 1-2/HPF (0-2) Urine WBC Occ/HPF (0-4) Urine Squamous Epithelial Cells Mod/LPF Urine Bacteria Few/HPF (0-FEW) Urine Hyaline Casts Few/HPF Urine Granular Casts Occasional/HPF Urine Mucus Mod/LPF Urine Random Sodium 36mmol/L (Not Estab.) Glucose (Fingerstick) 131mg/dL (70-99) 121mg/dL (70-99) Sodium Level 152mmol/L (136-145) Potassium Level 3.5mmol/L (3.5-5.1) Chloride Level 107mmol/L (98-107) Carbon Dioxide Level 33mmol/L (21-32) Anion Gap 12 (6-14) Blood Urea Nitrogen 38mg/dL (7-20) Creatinine 1.8mg/dL (0.6-1.0) Estimated GFR (Cockcroft-Gault) 26.8 Glucose Level 151mg/dL (70-99) Calcium Level 9.0mg/dL (8.5-10.1) Phosphorus Level 2.6mg/dL (2.6-4.7) Magnesium Level 1.9mg/dL (1.8-2.4) Albumin 2.6g/dL (3.4-5.0) Test 11/14/16 08:00 11/14/16 08:30 11/14/16 11:56 Glucose (Fingerstick) 142mg/dL (70-99) 134mg/dL (70-99) O2 Saturation 97% (92-99) Arterial Blood pH 7.55 (7.35-7.45) Arterial Blood pCO2 at Patient Temp 37mmHg (35-46) Arterial Blood pO2 at Patient Temp 83mmHg (65-108) Arterial Blood HCO3 32mmol/L (21-28) Arterial Blood Base Excess 9mmol/L (-3-3) FiO2 35 Review of Systems Review of Systems limited on BIPAP Assessment and Plan Assessmemt and Plan Problems Medical Problems: (1) Aspiration pneumonia Status: Acute (2) Aspiration pneumonia Status: Acute (3) Hypoxia Status: Acute (4) Influenza Status: Acute (5) Influenza Status: Acute Problems: Comment Review of Relevant I have reviewed the following items lucy (where applicable) has been applied. Labs Laboratory Tests Test 11/12/16 16:36 11/12/16 21:23 11/13/16 04:20 11/13/16 07:15 Glucose (Fingerstick) 197mg/dL (70-99) 134mg/dL (70-99) 173mg/dL (70-99) Sodium Level 149mmol/L (136-145) Potassium Level 3.8mmol/L (3.5-5.1) Chloride Level 106mmol/L (98-107) Carbon Dioxide Level 36mmol/L (21-32) Anion Gap 7 (6-14) Blood Urea Nitrogen 37mg/dL (7-20) Creatinine 2.1mg/dL (0.6-1.0) Estimated GFR (Cockcroft-Gault) 22.4 Glucose Level 192mg/dL (70-99) Calcium Level 9.6mg/dL (8.5-10.1) Phosphorus Level 2.3mg/dL (2.6-4.7) Magnesium Level 2.0mg/dL (1.8-2.4) Albumin 2.9g/dL (3.4-5.0) Thyroid Stimulating Hormone (TSH) 1.761uIU/mL (0.358-3.74) Test 11/13/16 08:35 11/13/16 11:03 11/13/16 16:40 11/13/16 17:21 O2 Saturation 62% (92-99) Arterial Blood pH 7.35 (7.35-7.45) Arterial Blood pCO2 at Patient Temp 59mmHg (35-46) Arterial Blood pO2 at Patient Temp < 42mmHg (65-108) Arterial Blood HCO3 32mmol/L (21-28) Arterial Blood Base Excess 5mmol/L (-3-3) FiO2 35% Glucose (Fingerstick) 211mg/dL (70-99) 131mg/dL (70-99) Urine Collection Type Unknown Urine Color Yellow Urine Clarity Clear Urine pH 5.5 Urine Specific [place] 1.015 Urine Protein 100mg/dL (NEG-TRACE) Urine Glucose (UA) 100mg/dL (NEG) Urine Ketones (Stick) Tracemg/dL (NEG) Urine Blood Moderate (NEG) Urine Nitrite Negative (NEG) Urine Bilirubin Small (NEG) Urine Urobilinogen Dipstick 0.2mg/dL (0.2 mg/dL) Urine Leukocyte Esterase Negative (NEG) Urine RBC 1-2/HPF (0-2) Urine WBC Occ/HPF (0-4) Urine Squamous Epithelial Cells Mod/LPF Urine Bacteria Few/HPF (0-FEW) Urine Hyaline Casts Few/HPF Urine Granular Casts Occasional/HPF Urine Mucus Mod/LPF Urine Random Sodium 36mmol/L (Not Estab.) Test 11/13/16 21:06 11/14/16 05:30 11/14/16 08:00 11/14/16 08:30 Glucose (Fingerstick) 121mg/dL (70-99) 142mg/dL (70-99) Sodium Level 152mmol/L (136-145) Potassium Level 3.5mmol/L (3.5-5.1) Chloride Level 107mmol/L (98-107) Carbon Dioxide Level 33mmol/L (21-32) Anion Gap 12 (6-14) Blood Urea Nitrogen 38mg/dL (7-20) Creatinine 1.8mg/dL (0.6-1.0) Estimated GFR (Cockcroft-Gault) 26.8 Glucose Level 151mg/dL (70-99) Calcium Level 9.0mg/dL (8.5-10.1) Phosphorus Level 2.6mg/dL (2.6-4.7) Magnesium Level 1.9mg/dL (1.8-2.4) Albumin 2.6g/dL (3.4-5.0) O2 Saturation 97% (92-99) Arterial Blood pH 7.55 (7.35-7.45) Arterial Blood pCO2 at Patient Temp 37mmHg (35-46) Arterial Blood pO2 at Patient Temp 83mmHg (65-108) Arterial Blood HCO3 32mmol/L (21-28) Arterial Blood Base Excess 9mmol/L (-3-3) FiO2 35 Test 11/14/16 11:56 Glucose (Fingerstick) 134mg/dL (70-99) Laboratory Tests Test 11/13/16 16:40 11/13/16 17:21 11/13/16 21:06 11/14/16 05:30 Urine Collection Type Unknown Urine Color Yellow Urine Clarity Clear Urine pH 5.5 Urine Specific [place] 1.015 Urine Protein 100mg/dL (NEG-TRACE) Urine Glucose (UA) 100mg/dL (NEG) Urine Ketones (Stick) Tracemg/dL (NEG) Urine Blood Moderate (NEG) Urine Nitrite Negative (NEG) Urine Bilirubin Small (NEG) Urine Urobilinogen Dipstick 0.2mg/dL (0.2 mg/dL) Urine Leukocyte Esterase Negative (NEG) Urine RBC 1-2/HPF (0-2) Urine WBC Occ/HPF (0-4) Urine Squamous Epithelial Cells Mod/LPF Urine Bacteria Few/HPF (0-FEW) Urine Hyaline Casts Few/HPF Urine Granular Casts Occasional/HPF Urine Mucus Mod/LPF Urine Random Sodium 36mmol/L (Not Estab.) Glucose (Fingerstick) 131mg/dL (70-99) 121mg/dL (70-99) Sodium Level 152mmol/L (136-145) Potassium Level 3.5mmol/L (3.5-5.1) Chloride Level 107mmol/L (98-107) Carbon Dioxide Level 33mmol/L (21-32) Anion Gap 12 (6-14) Blood Urea Nitrogen 38mg/dL (7-20) Creatinine 1.8mg/dL (0.6-1.0) Estimated GFR (Cockcroft-Gault) 26.8 Glucose Level 151mg/dL (70-99) Calcium Level 9.0mg/dL (8.5-10.1) Phosphorus Level 2.6mg/dL (2.6-4.7) Magnesium Level 1.9mg/dL (1.8-2.4) Albumin 2.6g/dL (3.4-5.0) Test 11/14/16 08:00 11/14/16 08:30 11/14/16 11:56 Glucose (Fingerstick) 142mg/dL (70-99) 134mg/dL (70-99) O2 Saturation 97% (92-99) Arterial Blood pH 7.55 (7.35-7.45) Arterial Blood pCO2 at Patient Temp 37mmHg (35-46) Arterial Blood pO2 at Patient Temp 83mmHg (65-108) Arterial Blood HCO3 32mmol/L (21-28) Arterial Blood Base Excess 9mmol/L (-3-3) FiO2 35 Microbiology 11/13/16 Blood Culture - Preliminary, Resulted NO GROWTH AFTER 1 DAY Medications Current Medications Sodium Chloride (Iv Sodium Chloride 0.9% 1000ml Bag) 1,000 ml @ 200 mls/hr Q5H IV Last administered on 11/05/16t 12:25; Start 11/05/16 at 11:35; Stop at 16:34; Status DC Oseltamivir Phosphate 75 mg 75 mg DAILY PO Last administered on 11/05/16 12:24 ; Start 11/05/16 at 12:30; Stop 11/05/16 at 12:30; Status DC Piperacillin Sod/ Tazobactam Sod/ Sodium Chloride (Zosyn/Iv Sodium Chloride 0.9 % 50ml) 50 ml @ 100 mls/hr 1X ONCE IV Last administered on 11/05/16 12:39; Start 11/05/16 at 12:45; Stop 11/05/16 at 13:14; Status DC Oseltamivir Phosphate (Tamiflu) 30 mg BID PO Last administered on 11/06/16 09: 27; Start 11/05/16 at 21:00; Stop 11/07/16 at 14:19; Status DC Potassium Chloride (KCl Oral Soln) 40 meq 1X ONCE PO Last administered on 11/05 13:49; Start 11/05/16 at 13:15; Stop 11/05/16 at 13:16; Status DC Amlodipine Besylate (Norvasc) 5 mg DAILY PO Last administered on 11/06/16 09: 28; Start 11/06/16 at 09:00; Stop 11/08/16 at 12:18; Status DC Glipizide (Glucotrol) 5 mg DAILY PO Last administered on 11/11/16 08:57; Start 11/06/16 at 09:00; Stop 11/13/16 at 12:18; Status DC Lamotrigine (LaMICtal) 100 mg BID PO Last administered on 11/11/16 21:51; Start 11/05/16 at 21:00; Stop 11/13/16 at 12:18; Status DC Levetiracetam (Keppra) 250 mg HS PO Last administered on 11/05/16 20:19; Start 11/05/16 at 21:00; Stop 11/06/16 at 12:12; Status DC Atorvastatin Calcium (Lipitor) 80 mg QHS PO Last administered on 11/11/16 21: 51; Start 11/05/16 at 21:00; Stop 11/13/16 at 12:18; Status DC Acetaminophen (Tylenol) 650 mg PRN Q6HRS PRN PO MILD PAIN / TEMP Last administered on 11/11/16 21:51; Start 11/05/16 at 16:15 Ondansetron HCl 4 mg 4 mg PRN Q6HRS PRN IV NAUSEA/VOMITING; Start 11/05/16 at 16:15 Potassium Chloride/Dextrose/ Sod Cl (KCl 20 Meq In D5W-NS) 1,000 ml @ 75 mls/ hr [id number] IV ; Start 11/05/16 at 16:15; Stop 11/05/16 at 16:15; Status DC Insulin Aspart (Novolog) 0-9 UNITS TIDWMEALS SQ Last administered on 11/13/16 12:00; Start 11/05/16 at 17:00 Dextrose 12.5 gm PRN Q15MIN PRN IV SEE COMMENTS; Start 11/05/16 at 16:15 Heparin Sodium (Porcine) 5,000 unit Q8HRS SQ Last administered on 11/14/16 05: 07; Start 11/05/16 at 22:00 Hydralazine HCl (Apresoline) 10 mg PRN Q4HRS PRN IVP ELEVATED BP, SEE COMMENTS ; Start 11/05/16 at 16:15 Albuterol/ Ipratropium (Duoneb) 3 ml RTQID NEB Last administered on 11/11/16 09:32; Start 11/05/16 at 20:00; Stop 11/11/16 at 11:29; Status DC Albuterol Sulfate 2.5 mg 2.5 mg PRN Q4HRS PRN NEB SHORTNESS OF BREATH; Start at 16:15 Potassium Chloride/Sodium Chloride 1,000 ml @ 75 mls/hr [id number] IV Last administered on 11/07/16 09:00; Start 11/05/16 at 17:00; Stop 11/07/16 at 12:10 ; Status DC Levetiracetam 500 mg/Sodium Chloride 105 ml @ 400 mls/hr HS IV Last administered on 11/09/16 21:28; Start 11/06/16 at 21:00; Stop 11/10/16 at 09:24 ; Status DC Potassium Chloride/Dextrose/ Sod Cl (KCl 20 Meq In D5W-1/2 NS) 1,000 ml @ 100 mls/hr 1X ONCE IV Last administered on 11/06/16 17:17; Start 11/06/16 at 13: 00; Stop 11/06/16 at 22:59; Status DC Enoxaparin Sodium (Lovenox Per Pharmacy Prophylaxis Dosing) 1 each PRN DAILY PRN MC SEE COMMENTS; Start 11/06/16 at 13:00; Status UNV Piperacillin Sod/ Tazobactam Sod 1 each 1 each PRN DAILY PRN MC SEE COMMENTS; Start 11/06/16 at 18:15; Stop 11/08/16 at 12:53; Status DC Piperacillin Sod/ Tazobactam Sod 3.375 gm/Sodium Chloride 50 ml @ 100 mls/hr Q6HRS IV Last administered on 11/07/16 11:17; Start 11/06/16 at 19:00; Stop at 14:21; Status DC Amino Acids/ Glycerin/ Electrolytes (Procalamine) 1,000 ml @ 80 mls/hr [id number] IV Last administered on 11/11/16 02:20; Start 11/07/16 at 12:15; Stop at 11:22; Status DC Guaifenesin (Robitussin Dm) 10 ml PRN Q6HRS PRN PO COUGH; Start 11/07/16 at 12: 30 Oseltamivir Phosphate 30 mg 30 mg DAILY PO Last administered on 11/10/16 08:50 ; Start 11/08/16 at 09:00; Stop 11/10/16 at 20:59; Status DC Piperacillin Sod/ Tazobactam Sod/ Sodium Chloride (Zosyn/Iv Sodium Chloride 0.9 % 50ml) 50 ml @ 100 mls/hr Q6HRS IV Last administered on 11/11/16 17:44; Start 11/07/16 at 18:00; Stop 11/11/16 at 18:50; Status DC Fentanyl Citrate (Fentanyl 2ml Vial) 25 mcg PRN Q2HR PRN IV PAIN Last administered on 11/13/16 14:47; Start 11/07/16 at 20:00 Diltiazem HCl (Cardizem) 30 mg Q8HRS PO Last administered on 11/08/16 21:21; Start 11/08/16 at 12:00; Stop 11/09/16 at 10:39; Status DC Digoxin (Lanoxin) 500 mcg 1X ONCE IV Last administered on 11/08/16 12:28; Start 11/08/16 at 12:15; Stop 11/08/16 at 12:19; Status DC Digoxin (Lanoxin) 125 mcg DAILY PO Last administered on 11/11/16 08:58; Start 11/09/16 at 09:00; Stop 11/13/16 at 12:48; Status DC Budesonide (Pulmicort) 0.5 mg RTBID NEB Last administered on 11/11/16 09:32; Start 11/09/16 at 09:00; Stop 11/11/16 at 18:50; Status DC Diltiazem HCl 120 mg 120 mg DAILY PO Last administered on 11/11/16 08:57; Start 11/09/16 at 11:00; Stop 11/13/16 at 12:48; Status DC Magnesium Sulfate/ Dextrose (Magnesium Sulfate PREMIX 2GM) 50 ml @ 25 mls/hr PRN DAILY PRN IV for Mag < 1.7 on am labs; Start 11/09/16 at 15:45 Nystatin (Nystop) 1 hong TID TP Last administered on 11/14/16 09:25; Start at 21:00 Levetiracetam (Keppra) 500 mg QHS PO Last administered on 11/11/16 21:51; Start 11/10/16 at 21:00; Stop 11/13/16 at 12:32; Status DC Labetalol HCl 10 mg 10 mg PRN Q2HR PRN IVP HYPERTENSION, SEE COMMENTS; Start at 09:45 Sodium Phosphate/ Dextrose 256.6667 ml @ 64.167 m... 1X ONCE IV Last administered on 11/10/16 13:49; Start 11/10/16 at 14:00; Stop 11/10/16 at 17:59 ; Status DC Scopolamine (Transderm-Scop) 1 patch Q3DAYS TD Last administered on 11/14/16 09:23; Start 11/11/16 at 11:30 Furosemide (Lasix) 40 mg 1X ONCE IVP Last administered on 11/11/16 11:43; Start 11/11/16 at 11:30; Stop 11/11/16 at 11:31; Status DC Albuterol/ Ipratropium (Duoneb) 3 ml RTQID NEB Last administered on 11/14/16 12:24; Start 11/11/16 at 12:00 Furosemide (Lasix) 40 mg 1X ONCE IVP Last administered on 11/12/16 12:41; Start 11/12/16 at 12:00; Stop 11/12/16 at 12:01; Status DC Haloperidol Lactate 1 mg 1 mg PRN TID PRN IVP AGITATION Last administered on 04:50; Start 11/13/16 at 04:45 Levetiracetam/ Sodium Chloride (Keppra/Iv Sodium Chloride 0.9% 100ml) 105 ml @ 400 mls/hr Q12HR IV Last administered on 11/14/16 09:56; Start 11/13/16 at 10: 30 Furosemide 20 mg 20 mg 1X ONCE IVP Last administered on 11/13/16 17:46; Start 11/13/16 at 11:30; Stop 11/13/16 at 11:31; Status DC Levetiracetam/ Sodium Chloride (Keppra/Iv Sodium Chloride 0.9% 100ml) 105 ml @ 400 mls/hr QHS IV ; Start 11/13/16 at 21:00; Stop 11/13/16 at 21:00; Status DC Pantoprazole Sodium (Protonix Vial) 40 mg DAILYAC IVP Last administered on 11/14 09:23; Start 11/13/16 at 13:00 Diltiazem HCl (Cardizem) 10 mg 1X ONCE IVP Last administered on 11/13/16 14: 51; Start 11/13/16 at 13:00; Stop 11/13/16 at 13:01; Status DC Digoxin (Lanoxin) 125 mcg DAILY IV ; Start 11/14/16 at 09:00 Alteplase, Recombinant 4 mg 4 mg 1X ONCE INT CAT Last administered on 17:10; Start 11/13/16 at 16:30; Stop 11/13/16 at 16:31; Status DC Potassium Phosphate 13.6 mmol/Sodium Chloride 104.5333 ml @ 52.267 m... Q2H IV Last administered on 11/13/16 22:16; Start 11/13/16 at 17:00; Stop 11/13/16 at 22:59; Status DC Amino Acids/ Electrolytes 1,000 ml @ 80 mls/hr [id number] IV Last administered on 11/14/16t 11:05; Start 11/14/16 at 10:00 Amino Acids/ Glycerin/ Electrolytes (Procalamine) 1,000 ml @ 80 mls/hr [id number] IV ; Start 11/14/16 at 11:00; Status UNV Active Scripts Active Glipizide 5 Mg Tablet 5 Mg PO DAILY Take one-half a tablet daily. Lasix (Furosemide) 40 Mg Tablet 40 Mg PO DAILY Reported Levofloxacin 250 Mg Tablet 250 Mg PO DAILY Amlodipine Besylate 5 Mg Tablet 5 Mg PO DAILY Keppra (Levetiracetam) 500 Mg Tablet 250 Mg PO HS Crestor (Rosuvastatin Calcium) 20 Mg Tablet 20 Mg PO HS Lamictal (Lamotrigine) 100 Mg Tablet 100 Mg PO BID Vitals/I & O Vital Sign - Last 24 Hours 11/13/16 11/13/16 11/13/16 11/13/16 14:47 14:51 15:00 15:17 Temp 98.0 98.0 Pulse 81 81 Resp 24 24 24 B/P 147/94 147/94 Pulse Ox 96 95 O2 Delivery BiPAP/CPAP BiPAP/CPAP BiPAP/CPAP 11/13/16 11/13/16 11/13/16 11/13/16 15:46 17:14 19:00 19:22 Temp 98.0 98.0 Pulse 66 Resp 26 B/P 165/55 Pulse Ox 96 99 97 99 O2 Delivery BiPAP/CPAP BiPAP/CPAP BiPAP/CPAP BiPAP/CPAP 11/13/16 11/13/16 11/13/16 11/13/16 19:52 21:45 22:49 23:22 Temp 98.1 98.1 Pulse 66 Resp 24 B/P 140/29 Pulse Ox 99 97 97 O2 Delivery Bi-pap BiPAP/CPAP BiPAP/CPAP BiPAP/CPAP 11/14/16 11/14/16 11/14/16 11/14/16 01:32 03:12 03:29 07:00 Temp 98.7 98.7 98.7 98.7 Pulse 67 72 Resp 24 26 B/P 187/56 146/40 Pulse Ox 97 97 98 97 O2 Delivery BiPAP/CPAP BiPAP/CPAP BiPAP/CPAP BiPAP/CPAP O2 Flow Rate 35.0 11/14/16 11/14/16 11/14/16 11/14/16 08:00 08:21 08:33 09:05 Pulse Ox 98 98 98 O2 Delivery Bi-pap BiPAP/CPAP BiPAP/CPAP BiPAP/CPAP 11/14/16 11/14/16 11:00 12:15 Temp 99.8 99.8 Pulse 71 Resp 26 B/P 156/48 Pulse Ox 96 94 O2 Delivery BiPAP/CPAP BiPAP/CPAP O2 Flow Rate 35.0 Intake and Output 11/13/16 11/13/16 11/14/16 15:00 23:00 07:00 Intake Total 0 ml 0 ml Output Total 101 ml 850 ml Balance -101 ml -850 ml BALJEET RAMOS MD Nov 14, 2016 13:27
[2016-11-14 15:00] VITALS: BP 153/51
--- NOTE | 2016-11-14 15:07 | PDOC ---
PULMONARY PROGRESS NOTES Subjective clinically much better with BIPAP awake, following commands Vitals Vital Signs Date Time Temp Pulse Resp B/P Pulse Ox O2 Delivery O2 Flow Rate FiO2 11/14/16 12:15 94 BiPAP/CPAP 11/14/16 11:00 99.8 71 26 156/48 35.0 99.8 General: Alert, No acute distress Lungs: Clear Cardiovascular: S1, S2 Abdomen: Soft, Non-tender Neuro Exam: Alert, Oriented Extremities: Other Skin: Warm Labs Laboratory Tests Test 11/12/16 16:36 11/12/16 21:23 11/13/16 04:20 11/13/16 07:15 Glucose (Fingerstick) 197mg/dL (70-99) 134mg/dL (70-99) 173mg/dL (70-99) Sodium Level 149mmol/L (136-145) Potassium Level 3.8mmol/L (3.5-5.1) Chloride Level 106mmol/L (98-107) Carbon Dioxide Level 36mmol/L (21-32) Anion Gap 7 (6-14) Blood Urea Nitrogen 37mg/dL (7-20) Creatinine 2.1mg/dL (0.6-1.0) Estimated GFR (Cockcroft-Gault) 22.4 Glucose Level 192mg/dL (70-99) Calcium Level 9.6mg/dL (8.5-10.1) Phosphorus Level 2.3mg/dL (2.6-4.7) Magnesium Level 2.0mg/dL (1.8-2.4) Albumin 2.9g/dL (3.4-5.0) Thyroid Stimulating Hormone (TSH) 1.761uIU/mL (0.358-3.74) Test 11/13/16 08:35 11/13/16 11:03 11/13/16 16:40 11/13/16 17:21 O2 Saturation 62% (92-99) Arterial Blood pH 7.35 (7.35-7.45) Arterial Blood pCO2 at Patient Temp 59mmHg (35-46) Arterial Blood pO2 at Patient Temp < 42mmHg (65-108) Arterial Blood HCO3 32mmol/L (21-28) Arterial Blood Base Excess 5mmol/L (-3-3) FiO2 35% Glucose (Fingerstick) 211mg/dL (70-99) 131mg/dL (70-99) Urine Collection Type Unknown Urine Color Yellow Urine Clarity Clear Urine pH 5.5 Urine Specific [place] 1.015 Urine Protein 100mg/dL (NEG-TRACE) Urine Glucose (UA) 100mg/dL (NEG) Urine Ketones (Stick) Tracemg/dL (NEG) Urine Blood Moderate (NEG) Urine Nitrite Negative (NEG) Urine Bilirubin Small (NEG) Urine Urobilinogen Dipstick 0.2mg/dL (0.2 mg/dL) Urine Leukocyte Esterase Negative (NEG) Urine RBC 1-2/HPF (0-2) Urine WBC Occ/HPF (0-4) Urine Squamous Epithelial Cells Mod/LPF Urine Bacteria Few/HPF (0-FEW) Urine Hyaline Casts Few/HPF Urine Granular Casts Occasional/HPF Urine Mucus Mod/LPF Urine Random Sodium 36mmol/L (Not Estab.) Test 11/13/16 21:06 11/14/16 05:30 11/14/16 08:00 11/14/16 08:30 Glucose (Fingerstick) 121mg/dL (70-99) 142mg/dL (70-99) Sodium Level 152mmol/L (136-145) Potassium Level 3.5mmol/L (3.5-5.1) Chloride Level 107mmol/L (98-107) Carbon Dioxide Level 33mmol/L (21-32) Anion Gap 12 (6-14) Blood Urea Nitrogen 38mg/dL (7-20) Creatinine 1.8mg/dL (0.6-1.0) Estimated GFR (Cockcroft-Gault) 26.8 Glucose Level 151mg/dL (70-99) Calcium Level 9.0mg/dL (8.5-10.1) Phosphorus Level 2.6mg/dL (2.6-4.7) Magnesium Level 1.9mg/dL (1.8-2.4) Albumin 2.6g/dL (3.4-5.0) O2 Saturation 97% (92-99) Arterial Blood pH 7.55 (7.35-7.45) Arterial Blood pCO2 at Patient Temp 37mmHg (35-46) Arterial Blood pO2 at Patient Temp 83mmHg (65-108) Arterial Blood HCO3 32mmol/L (21-28) Arterial Blood Base Excess 9mmol/L (-3-3) FiO2 35 Test 11/14/16 11:56 Glucose (Fingerstick) 134mg/dL (70-99) Laboratory Tests Test 11/13/16 16:40 11/13/16 17:21 11/13/16 21:06 11/14/16 05:30 Urine Collection Type Unknown Urine Color Yellow Urine Clarity Clear Urine pH 5.5 Urine Specific [place] 1.015 Urine Protein 100mg/dL (NEG-TRACE) Urine Glucose (UA) 100mg/dL (NEG) Urine Ketones (Stick) Tracemg/dL (NEG) Urine Blood Moderate (NEG) Urine Nitrite Negative (NEG) Urine Bilirubin Small (NEG) Urine Urobilinogen Dipstick 0.2mg/dL (0.2 mg/dL) Urine Leukocyte Esterase Negative (NEG) Urine RBC 1-2/HPF (0-2) Urine WBC Occ/HPF (0-4) Urine Squamous Epithelial Cells Mod/LPF Urine Bacteria Few/HPF (0-FEW) Urine Hyaline Casts Few/HPF Urine Granular Casts Occasional/HPF Urine Mucus Mod/LPF Urine Random Sodium 36mmol/L (Not Estab.) Glucose (Fingerstick) 131mg/dL (70-99) 121mg/dL (70-99) Sodium Level 152mmol/L (136-145) Potassium Level 3.5mmol/L (3.5-5.1) Chloride Level 107mmol/L (98-107) Carbon Dioxide Level 33mmol/L (21-32) Anion Gap 12 (6-14) Blood Urea Nitrogen 38mg/dL (7-20) Creatinine 1.8mg/dL (0.6-1.0) Estimated GFR (Cockcroft-Gault) 26.8 Glucose Level 151mg/dL (70-99) Calcium Level 9.0mg/dL (8.5-10.1) Phosphorus Level 2.6mg/dL (2.6-4.7) Magnesium Level 1.9mg/dL (1.8-2.4) Albumin 2.6g/dL (3.4-5.0) Test 11/14/16 08:00 11/14/16 08:30 11/14/16 11:56 Glucose (Fingerstick) 142mg/dL (70-99) 134mg/dL (70-99) O2 Saturation 97% (92-99) Arterial Blood pH 7.55 (7.35-7.45) Arterial Blood pCO2 at Patient Temp 37mmHg (35-46) Arterial Blood pO2 at Patient Temp 83mmHg (65-108) Arterial Blood HCO3 32mmol/L (21-28) Arterial Blood Base Excess 9mmol/L (-3-3) FiO2 35 Medications Active Scripts Medications Dose Route/Sig Days Date Category Dose Instructions Levofloxacin 250 Mg Tablet 250 Mg PO DAILY 08/11/16 Reported Amlodipine Besylate 5 Mg Tablet 5 Mg PO DAILY 08/11/16 Reported Keppra (Levetiracetam) 500 Mg Tablet 250 Mg PO HS 08/08/16 Reported Glipizide 5 Mg Tablet 5 Mg PO DAILY 12/22/13 Rx Take one-half a tablet daily. Lasix (Furosemide) 40 Mg Tablet 40 Mg PO DAILY 12/22/13 Rx Crestor (Rosuvastatin Calcium) 20 Mg Tablet 20 Mg PO HS 10/24/13 Reported Lamictal (Lamotrigine) 100 Mg Tablet 100 Mg PO BID 10/24/13 Reported Comments cxr reviewed, Cardiomegaly, similar. Mild congestive heart failure. Superimposed pneumonia in the right upper lobe is not entirely excluded. Small bilateral pleural effusions Impression . 1. [id number] hypercapnic respiratory failure./multi-factorial 2. Aspiration pneumonia./?diastolic HF 3. Dysphagia. 4. Coronary artery disease. 5. Hypertension. 6. Depression. 7. Acute renal failure. 8. Hyperkalemia. 9. Acute metabolic toxic encephalopathy. 10. underlying DELANEY/OHS Plan . 1. Had a long discussion with family today. If she prefers to have pain meds for comfort , then we should not be chasing PCO2 with BIPAP. I will keep her comfortable. 2. Continue oxygen supplementation./ d/c BIPAP, over correction alkalosis 3. Nebulized treatments. 4. supportive care 5. DPOA to address goals of care later SHIMON DE LA CRUZ MD Nov 14, 2016 15:07
--- NOTE | 2016-11-14 16:46 | PDOC2 ---
PALLIATIVE CARE Palliative Care Note Palliative Care Spoke with patient. Reviewed medical condition. States she wants to keep "fighting." Spoke with daughter/DPOA. Reviewed hypercapnic respiratory failure issues with pCO2 low with use of BiPap and High without BiPap and use of medications for pain and SOB Use of BiPap short term usage for respiratory failure due to skin breakdown. Patient NPO--repeating swallow evaluation. Patient has said she does not want feeding tube. Family does not want to see her suffer but wants to continue with current treatment plan. Discussed LTAC and SNU. Daughter would be interested in those options. PRAFUL SLAUGHTER Nov 14, 2016 16:46
[2016-11-14 19:00] VITALS: BP 175/70
--- NOTE | 2016-11-14 20:01 | EKG ---
[facility] [address] [place] [address] Test Date: 2016-11-14 Test Time: 19:54:06 Pat Name: YADIRA RAUSCH Department: Room: 266 1 Gender: F [employer]ur[employer] Clerk: : [id number] Requested By: JUNG ABARCA Order Number: [id number] Reading MD: Jung Abarca Measurements Intervals [place] Rate: 69 P: AK: QRS: 29 QRSD: 84 T: 17 QT: 392 QTc: 422 Interpretive Statements ATRIAL FIBRILLATION ABNORMAL ECG Electronically Signed On 11-17-2016 20:09:56 [employer]IOR [employer]PERATIONS ANALYST by Jung Abarca
--- NOTE | 2016-11-14 21:24 | PDOC ---
Provider Note Provider Note Covering for Dr. Osorio. This patient was in atrial fibrillation for a short period of time and converted to sinus rhythm with Cardizem. Dr. Osorio thus signed off and she was moved to the floor without being monitored. There was a question of recurrence of the atrial fibrillation and she was transferred back to a monitored floor. She was in sinus rhythm once transferred though there was a very brief episode of probable atrial fibrillation. When I went to see her this evening she was in no distress. The bedside monitor showed a lot of artifact. There were no clear P waves. EKG was done and she is clearly now in atrial flutter with a controlled ventricular response. I will place her on sotalol in an attempt to maintain sinus rhythm. Since she is been in and out of sinus rhythm there is no need to place her on anticoagulation before placing her on sotalol. When Dr. Osorio returns he will make a decision as to whether this is appropriate. JUNG ABARCA MD Nov 14, 2016 21:24
[2016-11-14 23:00] VITALS: BP 168/68
[2016-11-15 03:00] VITALS: BP 154/54
[2016-11-15] MEDS: HEPARIN PF for SUB-Q USE 5,000 UNIT/0.5 ML VIAL. SQ SCH ×3 (06:12→22:00)
[2016-11-15 07:00] VITALS: BP 142/110
[2016-11-15] MEDS: IPRATRPIUM/ALBUTEROL 0.5/2.5MG 3 ML NEBU. NEB SCH ×4 (08:09→20:10)
[2016-11-15 08:21] LABS: ALBUMIN 2.3 g/dL (3.4-5.0); CALCIUM 8.8 mg/dL (8.5-10.1); CREATININE 1.5 mg/dL (0.6-1.0); GFR 33.1; PHOSPHORUS 8.1 mg/dL (2.6-4.7)
[2016-11-15 08:24] LABS: POTASSIUM 6.3 mmol/L (3.5-5.1)
[2016-11-15] MEDS: PANTOPRAZOLE IV PUSH 40 MG VIAL. IVP SCH (08:41)
[2016-11-15] MEDS: DIGOXIN 500 MCG/2 ML AMPUL. IV SCH (09:00)
[2016-11-15] MEDS: LEVETIRACETAM 500 MG in IV NORMAL SALINE 100ML 100 ML IV SCH ×2 (09:17→21:00)
[2016-11-15] MEDS: NYSTATIN TOPICAL POWDER 15GM BOTTLE. TP SCH ×3 (09:17→21:00)
[2016-11-15] MEDS: INSULIN ASPART 300 UNITS/3 ML INSULN.PEN SQ SCH ×3 (09:32→17:00)
--- NOTE | 2016-11-15 09:48 | PDOC ---
PROGRESS NOTES Assessment Problems Medical Problems: (1) Aspiration pneumonia Status: Acute (2) Aspiration pneumonia Status: Acute (3) Hypoxia Status: Acute (4) Influenza Status: Acute (5) Influenza Status: Acute Metabolic encephalopathy, better. Plan Continue Keppra IV Subjective feels better Objective Vital Signs Date Time Temp Pulse Resp B/P Pulse Ox O2 Delivery O2 Flow Rate FiO2 11/15/16 08:13 98 Nasal Cannula 5.0 11/15/16 03:00 98.0 68 154/54 98.0 11/14/16 15:00 36 Intake and Output 11/15/16 07:00 Intake Total 660 ml Output Total 750 ml Balance -90 ml Intake Oral 0 ml IV Total 660 ml Output Urine Total 750 ml # Bowel Movements 3 PHYSICAL EXAM Off BiPAP, eyes open, knows place and person PERRL. EOMI. CN: no focal findings. Muscle tone: normal Muscle strength: 3-4/5 DTR: 1+ Plantar reflex: silent Gait: not examined in bed. Sensory exam: not tested Cerebellar: not tested Review of Relevant I have reviewed the following items lucy (where applicable) has been applied. Labs Laboratory Tests Test 11/13/16 11:03 11/13/16 16:40 11/13/16 17:21 11/13/16 21:06 Glucose (Fingerstick) 211mg/dL (70-99) 131mg/dL (70-99) 121mg/dL (70-99) Urine Collection Type Unknown Urine Color Yellow Urine Clarity Clear Urine pH 5.5 Urine Specific Daisy 1.015 Urine Protein 100mg/dL (NEG-TRACE) Urine Glucose (UA) 100mg/dL (NEG) Urine Ketones (Stick) Tracemg/dL (NEG) Urine Blood Moderate (NEG) Urine Nitrite Negative (NEG) Urine Bilirubin Small (NEG) Urine Urobilinogen Dipstick 0.2mg/dL (0.2 mg/dL) Urine Leukocyte Esterase Negative (NEG) Urine RBC 1-2/HPF (0-2) Urine WBC Occ/HPF (0-4) Urine Squamous Epithelial Cells Mod/LPF Urine Bacteria Few/HPF (0-FEW) Urine Hyaline Casts Few/HPF Urine Granular Casts Occasional/HPF Urine Mucus Mod/LPF Urine Random Sodium 36mmol/L (Not Estab.) Test 11/14/16 05:30 11/14/16 08:00 11/14/16 08:30 11/14/16 11:56 Sodium Level 152mmol/L (136-145) Potassium Level 3.5mmol/L (3.5-5.1) Chloride Level 107mmol/L (98-107) Carbon Dioxide Level 33mmol/L (21-32) Anion Gap 12 (6-14) Blood Urea Nitrogen 38mg/dL (7-20) Creatinine 1.8mg/dL (0.6-1.0) Estimated GFR (Cockcroft-Gault) 26.8 Glucose Level 151mg/dL (70-99) Calcium Level 9.0mg/dL (8.5-10.1) Phosphorus Level 2.6mg/dL (2.6-4.7) Magnesium Level 1.9mg/dL (1.8-2.4) Albumin 2.6g/dL (3.4-5.0) Glucose (Fingerstick) 142mg/dL (70-99) 134mg/dL (70-99) O2 Saturation 97% (92-99) Arterial Blood pH 7.55 (7.35-7.45) Arterial Blood pCO2 at Patient Temp 37mmHg (35-46) Arterial Blood pO2 at Patient Temp 83mmHg (65-108) Arterial Blood HCO3 32mmol/L (21-28) Arterial Blood Base Excess 9mmol/L (-3-3) FiO2 35 Test 11/14/16 17:30 11/14/16 21:44 11/15/16 07:45 11/15/16 08:36 Glucose (Fingerstick) 137mg/dL (70-99) 145mg/dL (70-99) 195mg/dL (70-99) Sodium Level 139mmol/L (136-145) Potassium Level 6.3mmol/L (3.5-5.1) Chloride Level 101mmol/L (98-107) Carbon Dioxide Level 33mmol/L (21-32) Anion Gap 5 (6-14) Blood Urea Nitrogen 34mg/dL (7-20) Creatinine 1.5mg/dL (0.6-1.0) Estimated GFR (Cockcroft-Gault) 33.1 Glucose Level 553mg/dL (70-99) Calcium Level 8.8mg/dL (8.5-10.1) Phosphorus Level 8.1mg/dL (2.6-4.7) Albumin 2.3g/dL (3.4-5.0) Test 11/15/16 08:39 Glucose (Fingerstick) 191mg/dL (70-99) Laboratory Tests Test 11/14/16 11:56 11/14/16 17:30 11/14/16 21:44 11/15/16 07:45 Glucose (Fingerstick) 134mg/dL (70-99) 137mg/dL (70-99) 145mg/dL (70-99) Sodium Level 139mmol/L (136-145) Potassium Level 6.3mmol/L (3.5-5.1) Chloride Level 101mmol/L (98-107) Carbon Dioxide Level 33mmol/L (21-32) Anion Gap 5 (6-14) Blood Urea Nitrogen 34mg/dL (7-20) Creatinine 1.5mg/dL (0.6-1.0) Estimated GFR (Cockcroft-Gault) 33.1 Glucose Level 553mg/dL (70-99) Calcium Level 8.8mg/dL (8.5-10.1) Phosphorus Level 8.1mg/dL (2.6-4.7) Albumin 2.3g/dL (3.4-5.0) Test 11/15/16 08:36 11/15/16 08:39 Glucose (Fingerstick) 195mg/dL (70-99) 191mg/dL (70-99) Microbiology 11/13/16 Blood Culture - Preliminary, Resulted NO GROWTH AFTER 1 DAY Medications Current Medications Sodium Chloride (Iv Sodium Chloride 0.9% 1000ml Bag) 1,000 ml @ 200 mls/hr Q5H IV Last administered on 11/05/16 12:25; Start 11/05/16 at 11:35; Stop at 16:34; Status DC Oseltamivir Phosphate 75 mg 75 mg DAILY PO Last administered on 11/05/16t 12:24 ; Start 11/05/16 at 12:30; Stop 11/05/16 at 12:30; Status DC Piperacillin Sod/ Tazobactam Sod/ Sodium Chloride (Zosyn/Iv Sodium Chloride 0.9 % 50ml) 50 ml @ 100 mls/hr 1X ONCE IV Last administered on 11/05/16 12:39; Start 11/05/16 at 12:45; Stop 11/05/16 at 13:14; Status DC Oseltamivir Phosphate (Tamiflu) 30 mg BID PO Last administered on 11/06/16 09: 27; Start 11/05/16 at 21:00; Stop 11/07/16 at 14:19; Status DC Potassium Chloride (KCl Oral Soln) 40 meq 1X ONCE PO Last administered on 11/05 13:49; Start 11/05/16 at 13:15; Stop 11/05/16 at 13:16; Status DC Amlodipine Besylate (Norvasc) 5 mg DAILY PO Last administered on 11/06/16 09: 28; Start 11/06/16 at 09:00; Stop 11/08/16 at 12:18; Status DC Glipizide (Glucotrol) 5 mg DAILY PO Last administered on 11/11/16 08:57; Start 11/06/16 at 09:00; Stop 11/13/16 at 12:18; Status DC Lamotrigine (LaMICtal) 100 mg BID PO Last administered on 11/11/16 21:51; Start 11/05/16 at 21:00; Stop 11/13/16 at 12:18; Status DC Levetiracetam (Keppra) 250 mg HS PO Last administered on 11/05/16 20:19; Start 11/05/16 at 21:00; Stop 11/06/16 at 12:12; Status DC Atorvastatin Calcium (Lipitor) 80 mg QHS PO Last administered on 11/11/16 21: 51; Start 11/05/16 at 21:00; Stop 11/13/16 at 12:18; Status DC Acetaminophen (Tylenol) 650 mg PRN Q6HRS PRN PO MILD PAIN / TEMP Last administered on 11/11/16 21:51; Start 11/05/16 at 16:15 Ondansetron HCl 4 mg 4 mg PRN Q6HRS PRN IV NAUSEA/VOMITING; Start 11/05/16 at 16:15 Potassium Chloride/Dextrose/ Sod Cl (KCl 20 Meq In D5W-NS) 1,000 ml @ 75 mls/ hr [id number] IV ; Start 11/05/16 at 16:15; Stop 11/05/16 at 16:15; Status DC Insulin Aspart (Novolog) 0-9 UNITS TIDWMEALS SQ Last administered on 11/15/16 09:32; Start 11/05/16 at 17:00 Dextrose 12.5 gm PRN Q15MIN PRN IV SEE COMMENTS Last administered on 11/15/16 09:18; Start 11/05/16 at 16:15 Heparin Sodium (Porcine) 5,000 unit Q8HRS SQ Last administered on 11/15/16 06: 12; Start 11/05/16 at 22:00 Hydralazine HCl (Apresoline) 10 mg PRN Q4HRS PRN IVP ELEVATED BP, SEE COMMENTS ; Start 11/05/16 at 16:15 Albuterol/ Ipratropium (Duoneb) 3 ml RTQID NEB Last administered on 11/11/16 09:32; Start 11/05/16 at 20:00; Stop 11/11/16 at 11:29; Status DC Albuterol Sulfate 2.5 mg 2.5 mg PRN Q4HRS PRN NEB SHORTNESS OF BREATH; Start at 16:15 Potassium Chloride/Sodium Chloride 1,000 ml @ 75 mls/hr [id number] IV Last administered on 11/07/16 09:00; Start 11/05/16 at 17:00; Stop 11/07/16 at 12:10 ; Status DC Levetiracetam 500 mg/Sodium Chloride 105 ml @ 400 mls/hr HS IV Last administered on 11/09/16 21:28; Start 11/06/16 at 21:00; Stop 11/10/16 at 09:24 ; Status DC Potassium Chloride/Dextrose/ Sod Cl (KCl 20 Meq In D5W-1/2 NS) 1,000 ml @ 100 mls/hr 1X ONCE IV Last administered on 11/06/16 17:17; Start 11/06/16 at 13: 00; Stop 11/06/16 at 22:59; Status DC Enoxaparin Sodium (Lovenox Per Pharmacy Prophylaxis Dosing) 1 each PRN DAILY PRN MC SEE COMMENTS; Start 11/06/16 at 13:00; Status UNV Piperacillin Sod/ Tazobactam Sod 1 each 1 each PRN DAILY PRN MC SEE COMMENTS; Start 11/06/16 at 18:15; Stop 11/08/16 at 12:53; Status DC Piperacillin Sod/ Tazobactam Sod 3.375 gm/Sodium Chloride 50 ml @ 100 mls/hr Q6HRS IV Last administered on 11/07/16 11:17; Start 11/06/16 at 19:00; Stop at 14:21; Status DC Amino Acids/ Glycerin/ Electrolytes (Procalamine) 1,000 ml @ 80 mls/hr [id number] IV Last administered on 11/11/16 02:20; Start 11/07/16 at 12:15; Stop at 11:22; Status DC Guaifenesin (Robitussin Dm) 10 ml PRN Q6HRS PRN PO COUGH; Start 11/07/16 at 12: 30 Oseltamivir Phosphate 30 mg 30 mg DAILY PO Last administered on 11/10/16 08:50 ; Start 11/08/16 at 09:00; Stop 11/10/16 at 20:59; Status DC Piperacillin Sod/ Tazobactam Sod/ Sodium Chloride (Zosyn/Iv Sodium Chloride 0.9 % 50ml) 50 ml @ 100 mls/hr Q6HRS IV Last administered on 11/11/16 17:44; Start 11/07/16 at 18:00; Stop 11/11/16 at 18:50; Status DC Fentanyl Citrate (Fentanyl 2ml Vial) 25 mcg PRN Q2HR PRN IV PAIN Last administered on 11/13/16 14:47; Start 11/07/16 at 20:00 Diltiazem HCl (Cardizem) 30 mg Q8HRS PO Last administered on 11/08/16 21:21; Start 11/08/16 at 12:00; Stop 11/09/16 at 10:39; Status DC Digoxin (Lanoxin) 500 mcg 1X ONCE IV Last administered on 11/08/16 12:28; Start 11/08/16 at 12:15; Stop 11/08/16 at 12:19; Status DC Digoxin (Lanoxin) 125 mcg DAILY PO Last administered on 11/11/16 08:58; Start 11/09/16 at 09:00; Stop 11/13/16 at 12:48; Status DC Budesonide (Pulmicort) 0.5 mg RTBID NEB Last administered on 11/11/16 09:32; Start 11/09/16 at 09:00; Stop 11/11/16 at 18:50; Status DC Diltiazem HCl 120 mg 120 mg DAILY PO Last administered on 11/11/16 08:57; Start 11/09/16 at 11:00; Stop 11/13/16 at 12:48; Status DC Magnesium Sulfate/ Dextrose (Magnesium Sulfate PREMIX 2GM) 50 ml @ 25 mls/hr PRN DAILY PRN IV for Mag < 1.7 on am labs; Start 11/09/16 at 15:45 Nystatin (Nystop) 1 hong TID TP Last administered on 11/15/16 09:17; Start at 21:00 Levetiracetam (Keppra) 500 mg QHS PO Last administered on 11/11/16 21:51; Start 11/10/16 at 21:00; Stop 11/13/16 at 12:32; Status DC Labetalol HCl 10 mg 10 mg PRN Q2HR PRN IVP HYPERTENSION, SEE COMMENTS; Start at 09:45 Sodium Phosphate/ Dextrose 256.6667 ml @ 64.167 m... 1X ONCE IV Last administered on 11/10/16 13:49; Start 11/10/16 at 14:00; Stop 11/10/16 at 17:59 ; Status DC Scopolamine (Transderm-Scop) 1 patch Q3DAYS TD Last administered on 11/14/16 09:23; Start 11/11/16 at 11:30 Furosemide (Lasix) 40 mg 1X ONCE IVP Last administered on 11/11/16 11:43; Start 11/11/16 at 11:30; Stop 11/11/16 at 11:31; Status DC Albuterol/ Ipratropium (Duoneb) 3 ml RTQID NEB Last administered on 11/15/16 08:09; Start 11/11/16 at 12:00 Furosemide (Lasix) 40 mg 1X ONCE IVP Last administered on 11/12/16 12:41; Start 11/12/16 at 12:00; Stop 11/12/16 at 12:01; Status DC Haloperidol Lactate 1 mg 1 mg PRN TID PRN IVP AGITATION Last administered on 04:50; Start 11/13/16 at 04:45 Levetiracetam/ Sodium Chloride (Keppra/Iv Sodium Chloride 0.9% 100ml) 105 ml @ 400 mls/hr Q12HR IV Last administered on 11/15/16 09:17; Start 11/13/16 at 10: 30 Furosemide 20 mg 20 mg 1X ONCE IVP Last administered on 11/13/16 17:46; Start 11/13/16 at 11:30; Stop 11/13/16 at 11:31; Status DC Levetiracetam/ Sodium Chloride (Keppra/Iv Sodium Chloride 0.9% 100ml) 105 ml @ 400 mls/hr QHS IV ; Start 11/13/16 at 21:00; Stop 11/13/16 at 21:00; Status DC Pantoprazole Sodium (Protonix Vial) 40 mg DAILYAC IVP Last administered on 11/15 08:41; Start 11/13/16 at 13:00 Diltiazem HCl (Cardizem) 10 mg 1X ONCE IVP Last administered on 11/13/16 14: 51; Start 11/13/16 at 13:00; Stop 11/13/16 at 13:01; Status DC Digoxin (Lanoxin) 125 mcg DAILY IV ; Start 11/14/16 at 09:00 Alteplase, Recombinant 4 mg 4 mg 1X ONCE INT CAT Last administered on 17:10; Start 11/13/16 at 16:30; Stop 11/13/16 at 16:31; Status DC Potassium Phosphate 13.6 mmol/Sodium Chloride 104.5333 ml @ 52.267 m... Q2H IV Last administered on 11/13/16 22:16; Start 11/13/16 at 17:00; Stop 11/13/16 at 22:59; Status DC Amino Acids/ Electrolytes 1,000 ml @ 80 mls/hr [id number] IV Last administered on 11/14/16 23:45; Start 11/14/16 at 10:00 Amino Acids/ Glycerin/ Electrolytes (Procalamine) 1,000 ml @ 80 mls/hr [id number] IV ; Start 11/14/16 at 11:00; Status UNV Active Scripts Active Glipizide 5 Mg Tablet 5 Mg PO DAILY Take one-half a tablet daily. Lasix (Furosemide) 40 Mg Tablet 40 Mg PO DAILY Reported Levofloxacin 250 Mg Tablet 250 Mg PO DAILY Amlodipine Besylate 5 Mg Tablet 5 Mg PO DAILY Keppra (Levetiracetam) 500 Mg Tablet 250 Mg PO HS Crestor (Rosuvastatin Calcium) 20 Mg Tablet 20 Mg PO HS Lamictal (Lamotrigine) 100 Mg Tablet 100 Mg PO BID Vitals/I & O Vital Sign - Last 24 Hours 11/14/16 11/14/16 11/14/16 11/14/16 11:00 12:15 15:00 16:17 Temp 99.8 99.1 99.8 99.1 Pulse 71 67 Resp 26 36 B/P 156/48 153/51 Pulse Ox 96 94 98 O2 Delivery BiPAP/CPAP BiPAP/CPAP Nasal Cannula Nasal Cannula O2 Flow Rate 35.0 4.0 6.0 11/14/16 11/14/16 11/14/16 11/14/16 19:00 19:48 20:00 23:00 Temp 98.7 98.0 98.7 98.0 Pulse 68 73 B/P 175/70 168/68 Pulse Ox 98 98 98 O2 Delivery Nasal Cannula Nasal Cannula Nasal Cannula BiPAP/CPAP O2 Flow Rate 4.0 6.0 4.0 11/15/16 11/15/16 11/15/16 00:31 03:00 08:13 Temp 98.0 98.0 Pulse 68 B/P 154/54 Pulse Ox 99 95 98 O2 Delivery BiPAP/CPAP Nasal Cannula Nasal Cannula O2 Flow Rate 4.0 5.0 Intake and Output 11/14/16 11/14/16 11/15/16 15:00 23:00 07:00 Intake Total 0 ml 660 ml 0 ml Output Total 750 ml Balance 0 ml -90 ml 0 ml ABLARO DUKE MD Nov 15, 2016 09:48
[2016-11-15] MEDS ORDERED: SOTALOL 80 MG TABLET. PO SCH (10:00)
--- NOTE | 2016-11-15 10:01 | PDOC ---
PROGRESS NOTES Subjective Subjective Pt is laying comfortably in bed. Pt's only complaint is that her mouth is dry. Pt has no new complaints today. Pt denied chest pain, SOB, N, V, diaphoresis. Objective Objective Vital Signs Date Time Temp Pulse Resp B/P Pulse Ox O2 Delivery O2 Flow Rate FiO2 11/15/16 08:13 98 Nasal Cannula 5.0 11/15/16 03:00 98.0 68 154/54 98.0 11/14/16 15:00 36 Intake and Output 11/15/16 07:00 Intake Total 660 ml Output Total 750 ml Balance -90 ml Intake Oral 0 ml IV Total 660 ml Output Urine Total 750 ml # Bowel Movements 3 Physical Exam Physical Exam Heart - S1, S2, no murmur Assessment Assessment Problems Medical Problems: (1) Aspiration pneumonia Status: Acute (2) Aspiration pneumonia Status: Acute (3) Hypoxia Status: Acute (4) Influenza Status: Acute (5) Influenza Status: Acute Plan Plan of Care Possible A flutter Agree with current treatment Follow vitals B blockers Possible anticoagulation Comment Review of Relevant I have reviewed the following items lucy (where applicable) has been applied. Labs Laboratory Tests Test 11/13/16 11:03 11/13/16 16:40 11/13/16 17:21 11/13/16 21:06 Glucose (Fingerstick) 211mg/dL (70-99) 131mg/dL (70-99) 121mg/dL (70-99) Urine Collection Type Unknown Urine Color Yellow Urine Clarity Clear Urine pH 5.5 Urine Specific [place] 1.015 Urine Protein 100mg/dL (NEG-TRACE) Urine Glucose (UA) 100mg/dL (NEG) Urine Ketones (Stick) Tracemg/dL (NEG) Urine Blood Moderate (NEG) Urine Nitrite Negative (NEG) Urine Bilirubin Small (NEG) Urine Urobilinogen Dipstick 0.2mg/dL (0.2 mg/dL) Urine Leukocyte Esterase Negative (NEG) Urine RBC 1-2/HPF (0-2) Urine WBC Occ/HPF (0-4) Urine Squamous Epithelial Cells Mod/LPF Urine Bacteria Few/HPF (0-FEW) Urine Hyaline Casts Few/HPF Urine Granular Casts Occasional/HPF Urine Mucus Mod/LPF Urine Random Sodium 36mmol/L (Not Estab.) Test 11/14/16 05:30 11/14/16 08:00 11/14/16 08:30 11/14/16 11:56 Sodium Level 152mmol/L (136-145) Potassium Level 3.5mmol/L (3.5-5.1) Chloride Level 107mmol/L (98-107) Carbon Dioxide Level 33mmol/L (21-32) Anion Gap 12 (6-14) Blood Urea Nitrogen 38mg/dL (7-20) Creatinine 1.8mg/dL (0.6-1.0) Estimated GFR (Cockcroft-Gault) 26.8 Glucose Level 151mg/dL (70-99) Calcium Level 9.0mg/dL (8.5-10.1) Phosphorus Level 2.6mg/dL (2.6-4.7) Magnesium Level 1.9mg/dL (1.8-2.4) Albumin 2.6g/dL (3.4-5.0) Glucose (Fingerstick) 142mg/dL (70-99) 134mg/dL (70-99) O2 Saturation 97% (92-99) Arterial Blood pH 7.55 (7.35-7.45) Arterial Blood pCO2 at Patient Temp 37mmHg (35-46) Arterial Blood pO2 at Patient Temp 83mmHg (65-108) Arterial Blood HCO3 32mmol/L (21-28) Arterial Blood Base Excess 9mmol/L (-3-3) FiO2 35 Test 11/14/16 17:30 11/14/16 21:44 11/15/16 07:45 11/15/16 08:36 Glucose (Fingerstick) 137mg/dL (70-99) 145mg/dL (70-99) 195mg/dL (70-99) Sodium Level 139mmol/L (136-145) Potassium Level 6.3mmol/L (3.5-5.1) Chloride Level 101mmol/L (98-107) Carbon Dioxide Level 33mmol/L (21-32) Anion Gap 5 (6-14) Blood Urea Nitrogen 34mg/dL (7-20) Creatinine 1.5mg/dL (0.6-1.0) Estimated GFR (Cockcroft-Gault) 33.1 Glucose Level 553mg/dL (70-99) Calcium Level 8.8mg/dL (8.5-10.1) Phosphorus Level 8.1mg/dL (2.6-4.7) Albumin 2.3g/dL (3.4-5.0) Test 11/15/16 08:39 11/15/16 09:15 11/15/16 09:43 Glucose (Fingerstick) 191mg/dL (70-99) 181mg/dL (70-99) 245mg/dL (70-99) Laboratory Tests Test 11/14/16 11:56 11/14/16 17:30 11/14/16 21:44 11/15/16 07:45 Glucose (Fingerstick) 134mg/dL (70-99) 137mg/dL (70-99) 145mg/dL (70-99) Sodium Level 139mmol/L (136-145) Potassium Level 6.3mmol/L (3.5-5.1) Chloride Level 101mmol/L (98-107) Carbon Dioxide Level 33mmol/L (21-32) Anion Gap 5 (6-14) Blood Urea Nitrogen 34mg/dL (7-20) Creatinine 1.5mg/dL (0.6-1.0) Estimated GFR (Cockcroft-Gault) 33.1 Glucose Level 553mg/dL (70-99) Calcium Level 8.8mg/dL (8.5-10.1) Phosphorus Level 8.1mg/dL (2.6-4.7) Albumin 2.3g/dL (3.4-5.0) Test 11/15/16 08:36 11/15/16 08:39 11/15/16 09:15 11/15/16 09:43 Glucose (Fingerstick) 195mg/dL (70-99) 191mg/dL (70-99) 181mg/dL (70-99) 245mg/dL (70-99) Microbiology 11/13/16 Blood Culture - Preliminary, Resulted NO GROWTH AFTER 1 DAY Medications Current Medications Sodium Chloride (Iv Sodium Chloride 0.9% 1000ml Bag) 1,000 ml @ 200 mls/hr Q5H IV Last administered on 11/05/16t 12:25; Start 11/05/16 at 11:35; Stop at 16:34; Status DC Oseltamivir Phosphate 75 mg 75 mg DAILY PO Last administered on 11/05/16 12:24 ; Start 11/05/16 at 12:30; Stop 11/05/16 at 12:30; Status DC Piperacillin Sod/ Tazobactam Sod/ Sodium Chloride (Zosyn/Iv Sodium Chloride 0.9 % 50ml) 50 ml @ 100 mls/hr 1X ONCE IV Last administered on 11/05/16 12:39; Start 11/05/16 at 12:45; Stop 11/05/16 at 13:14; Status DC Oseltamivir Phosphate (Tamiflu) 30 mg BID PO Last administered on 11/06/16 09: 27; Start 11/05/16 at 21:00; Stop 11/07/16 at 14:19; Status DC Potassium Chloride (KCl Oral Soln) 40 meq 1X ONCE PO Last administered on 11/05 13:49; Start 11/05/16 at 13:15; Stop 11/05/16 at 13:16; Status DC Amlodipine Besylate (Norvasc) 5 mg DAILY PO Last administered on 11/06/16 09: 28; Start 11/06/16 at 09:00; Stop 11/08/16 at 12:18; Status DC Glipizide (Glucotrol) 5 mg DAILY PO Last administered on 11/11/16 08:57; Start 11/06/16 at 09:00; Stop 11/13/16 at 12:18; Status DC Lamotrigine (LaMICtal) 100 mg BID PO Last administered on 11/11/16 21:51; Start 11/05/16 at 21:00; Stop 11/13/16 at 12:18; Status DC Levetiracetam (Keppra) 250 mg HS PO Last administered on 11/05/16 20:19; Start 11/05/16 at 21:00; Stop 11/06/16 at 12:12; Status DC Atorvastatin Calcium (Lipitor) 80 mg QHS PO Last administered on 11/11/16 21: 51; Start 11/05/16 at 21:00; Stop 11/13/16 at 12:18; Status DC Acetaminophen (Tylenol) 650 mg PRN Q6HRS PRN PO MILD PAIN / TEMP Last administered on 11/11/16 21:51; Start 11/05/16 at 16:15 Ondansetron HCl 4 mg 4 mg PRN Q6HRS PRN IV NAUSEA/VOMITING; Start 11/05/16 at 16:15 Potassium Chloride/Dextrose/ Sod Cl (KCl 20 Meq In D5W-NS) 1,000 ml @ 75 mls/ hr [id number] IV ; Start 11/05/16 at 16:15; Stop 11/05/16 at 16:15; Status DC Insulin Aspart (Novolog) 0-9 UNITS TIDWMEALS SQ Last administered on 11/15/16 09:32; Start 11/05/16 at 17:00 Dextrose 12.5 gm PRN Q15MIN PRN IV SEE COMMENTS Last administered on 11/15/16 09:18; Start 11/05/16 at 16:15 Heparin Sodium (Porcine) 5,000 unit Q8HRS SQ Last administered on 11/15/16 06: 12; Start 11/05/16 at 22:00 Hydralazine HCl (Apresoline) 10 mg PRN Q4HRS PRN IVP ELEVATED BP, SEE COMMENTS ; Start 11/05/16 at 16:15 Albuterol/ Ipratropium (Duoneb) 3 ml RTQID NEB Last administered on 11/11/16 09:32; Start 11/05/16 at 20:00; Stop 11/11/16 at 11:29; Status DC Albuterol Sulfate 2.5 mg 2.5 mg PRN Q4HRS PRN NEB SHORTNESS OF BREATH; Start at 16:15 Potassium Chloride/Sodium Chloride 1,000 ml @ 75 mls/hr [id number] IV Last administered on 11/07/16 09:00; Start 11/05/16 at 17:00; Stop 11/07/16 at 12:10 ; Status DC Levetiracetam 500 mg/Sodium Chloride 105 ml @ 400 mls/hr HS IV Last administered on 11/09/16 21:28; Start 11/06/16 at 21:00; Stop 11/10/16 at 09:24 ; Status DC Potassium Chloride/Dextrose/ Sod Cl (KCl 20 Meq In D5W-1/2 NS) 1,000 ml @ 100 mls/hr 1X ONCE IV Last administered on 11/06/16 17:17; Start 11/06/16 at 13: 00; Stop 11/06/16 at 22:59; Status DC Enoxaparin Sodium (Lovenox Per Pharmacy Prophylaxis Dosing) 1 each PRN DAILY PRN MC SEE COMMENTS; Start 11/06/16 at 13:00; Status UNV Piperacillin Sod/ Tazobactam Sod 1 each 1 each PRN DAILY PRN MC SEE COMMENTS; Start 11/06/16 at 18:15; Stop 11/08/16 at 12:53; Status DC Piperacillin Sod/ Tazobactam Sod 3.375 gm/Sodium Chloride 50 ml @ 100 mls/hr Q6HRS IV Last administered on 11/07/16 11:17; Start 11/06/16 at 19:00; Stop at 14:21; Status DC Amino Acids/ Glycerin/ Electrolytes (Procalamine) 1,000 ml @ 80 mls/hr [id number] IV Last administered on 11/11/16 02:20; Start 11/07/16 at 12:15; Stop at 11:22; Status DC Guaifenesin (Robitussin Dm) 10 ml PRN Q6HRS PRN PO COUGH; Start 11/07/16 at 12: 30 Oseltamivir Phosphate 30 mg 30 mg DAILY PO Last administered on 11/10/16 08:50 ; Start 11/08/16 at 09:00; Stop 11/10/16 at 20:59; Status DC Piperacillin Sod/ Tazobactam Sod/ Sodium Chloride (Zosyn/Iv Sodium Chloride 0.9 % 50ml) 50 ml @ 100 mls/hr Q6HRS IV Last administered on 11/11/16 17:44; Start 11/07/16 at 18:00; Stop 11/11/16 at 18:50; Status DC Fentanyl Citrate (Fentanyl 2ml Vial) 25 mcg PRN Q2HR PRN IV PAIN Last administered on 11/13/16 14:47; Start 11/07/16 at 20:00 Diltiazem HCl (Cardizem) 30 mg Q8HRS PO Last administered on 11/08/16 21:21; Start 11/08/16 at 12:00; Stop 11/09/16 at 10:39; Status DC Digoxin (Lanoxin) 500 mcg 1X ONCE IV Last administered on 11/08/16 12:28; Start 11/08/16 at 12:15; Stop 11/08/16 at 12:19; Status DC Digoxin (Lanoxin) 125 mcg DAILY PO Last administered on 11/11/16 08:58; Start 11/09/16 at 09:00; Stop 11/13/16 at 12:48; Status DC Budesonide (Pulmicort) 0.5 mg RTBID NEB Last administered on 11/11/16 09:32; Start 11/09/16 at 09:00; Stop 11/11/16 at 18:50; Status DC Diltiazem HCl 120 mg 120 mg DAILY PO Last administered on 11/11/16 08:57; Start 11/09/16 at 11:00; Stop 11/13/16 at 12:48; Status DC Magnesium Sulfate/ Dextrose (Magnesium Sulfate PREMIX 2GM) 50 ml @ 25 mls/hr PRN DAILY PRN IV for Mag < 1.7 on am labs; Start 11/09/16 at 15:45 Nystatin (Nystop) 1 hong TID TP Last administered on 11/15/16 09:17; Start at 21:00 Levetiracetam (Keppra) 500 mg QHS PO Last administered on 11/11/16 21:51; Start 11/10/16 at 21:00; Stop 11/13/16 at 12:32; Status DC Labetalol HCl 10 mg 10 mg PRN Q2HR PRN IVP HYPERTENSION, SEE COMMENTS; Start at 09:45 Sodium Phosphate/ Dextrose 256.6667 ml @ 64.167 m... 1X ONCE IV Last administered on 11/10/16 13:49; Start 11/10/16 at 14:00; Stop 11/10/16 at 17:59 ; Status DC Scopolamine (Transderm-Scop) 1 patch Q3DAYS TD Last administered on 11/14/16 09:23; Start 11/11/16 at 11:30 Furosemide (Lasix) 40 mg 1X ONCE IVP Last administered on 11/11/16 11:43; Start 11/11/16 at 11:30; Stop 11/11/16 at 11:31; Status DC Albuterol/ Ipratropium (Duoneb) 3 ml RTQID NEB Last administered on 11/15/16 08:09; Start 11/11/16 at 12:00 Furosemide (Lasix) 40 mg 1X ONCE IVP Last administered on 11/12/16 12:41; Start 11/12/16 at 12:00; Stop 11/12/16 at 12:01; Status DC Haloperidol Lactate 1 mg 1 mg PRN TID PRN IVP AGITATION Last administered on 04:50; Start 11/13/16 at 04:45 Levetiracetam/ Sodium Chloride (Keppra/Iv Sodium Chloride 0.9% 100ml) 105 ml @ 400 mls/hr Q12HR IV Last administered on 11/15/16 09:17; Start 11/13/16 at 10: 30 Furosemide 20 mg 20 mg 1X ONCE IVP Last administered on 11/13/16 17:46; Start 11/13/16 at 11:30; Stop 11/13/16 at 11:31; Status DC Levetiracetam/ Sodium Chloride (Keppra/Iv Sodium Chloride 0.9% 100ml) 105 ml @ 400 mls/hr QHS IV ; Start 11/13/16 at 21:00; Stop 11/13/16 at 21:00; Status DC Pantoprazole Sodium (Protonix Vial) 40 mg DAILYAC IVP Last administered on 11/15 08:41; Start 11/13/16 at 13:00 Diltiazem HCl (Cardizem) 10 mg 1X ONCE IVP Last administered on 11/13/16 14: 51; Start 11/13/16 at 13:00; Stop 11/13/16 at 13:01; Status DC Digoxin (Lanoxin) 125 mcg DAILY IV ; Start 11/14/16 at 09:00 Alteplase, Recombinant 4 mg 4 mg 1X ONCE INT CAT Last administered on 17:10; Start 11/13/16 at 16:30; Stop 11/13/16 at 16:31; Status DC Potassium Phosphate 13.6 mmol/Sodium Chloride 104.5333 ml @ 52.267 m... Q2H IV Last administered on 11/13/16 22:16; Start 11/13/16 at 17:00; Stop 11/13/16 at 22:59; Status DC Amino Acids/ Electrolytes 1,000 ml @ 80 mls/hr [id number] IV Last administered on 11/14/16t 23:45; Start 11/14/16 at 10:00 Amino Acids/ Glycerin/ Electrolytes (Procalamine) 1,000 ml @ 80 mls/hr [id number] IV ; Start 11/14/16 at 11:00; Status UNV Active Scripts Active Glipizide 5 Mg Tablet 5 Mg PO DAILY Take one-half a tablet daily. Lasix (Furosemide) 40 Mg Tablet 40 Mg PO DAILY Reported Levofloxacin 250 Mg Tablet 250 Mg PO DAILY Amlodipine Besylate 5 Mg Tablet 5 Mg PO DAILY Keppra (Levetiracetam) 500 Mg Tablet 250 Mg PO HS Crestor (Rosuvastatin Calcium) 20 Mg Tablet 20 Mg PO HS Lamictal (Lamotrigine) 100 Mg Tablet 100 Mg PO BID Vitals/I & O Vital Sign - Last 24 Hours 11/14/16 11/14/16 11/14/16 11/14/16 11:00 12:15 15:00 16:17 Temp 99.8 99.1 99.8 99.1 Pulse 71 67 Resp 26 36 B/P 156/48 153/51 Pulse Ox 96 94 98 O2 Delivery BiPAP/CPAP BiPAP/CPAP Nasal Cannula Nasal Cannula O2 Flow Rate 35.0 4.0 6.0 11/14/16 11/14/16 11/14/16 11/14/16 19:00 19:48 20:00 23:00 Temp 98.7 98.0 98.7 98.0 Pulse 68 73 B/P 175/70 168/68 Pulse Ox 98 98 98 O2 Delivery Nasal Cannula Nasal Cannula Nasal Cannula BiPAP/CPAP O2 Flow Rate 4.0 6.0 4.0 11/15/16 11/15/16 11/15/16 00:31 03:00 08:13 Temp 98.0 98.0 Pulse 68 B/P 154/54 Pulse Ox 99 95 98 O2 Delivery BiPAP/CPAP Nasal Cannula Nasal Cannula O2 Flow Rate 4.0 5.0 Intake and Output 11/14/16 11/14/16 11/15/16 15:00 23:00 07:00 Intake Total 0 ml 660 ml 0 ml Output Total 750 ml Balance 0 ml -90 ml 0 ml WINTER WALL MD Nov 15, 2016 10:01
[2016-11-15 11:00] VITALS: BP 158/63
--- NOTE | 2016-11-15 11:40 | PDOC ---
SUBJECTIVE ROS SHEYLA doing much better today; More awake and alert CVS: no Orthopnea, no CP RESP: no SOB, no HAY[place]OD GI: no Nausea, no Vomiting : no Dysuria, no Urgency OBJECTIVE Vital Signs Vital Signs Date Time Temp Pulse Resp B/P Pulse Ox O2 Delivery O2 Flow Rate FiO2 11/15/16 11:23 99 Nasal Cannula 5.0 11/15/16 07:00 98.8 70 26 142/110 98.8 I & 0 Intake and Output 11/15/16 07:00 Intake Total 660 ml Output Total 750 ml Balance -90 ml Intake Oral 0 ml IV Total 660 ml Output Urine Total 750 ml # Bowel Movements 3 PHYSICAL EXAM Physical Exam GEN: More Awake, Oriented x 0, In min resp distress, off Bipap EYES: Vision Unchanged, Conjunctiva Normal EN: No EN Drainage, Mucous Membranes dryish NECK: no JVD, no JVP, Supple, no Thyromegaly; thick neck CVS: S1S2, ? Murmur, No Gallop, No Rub,no Edema RESP: few Rales, occ Rhonchi,min Acc. Muscle Use GI: BS + ve, NO Bruit, Non Tender, Non Distended : no CVA tenderness, no Suprapubic Tenderness DIAGNOSIS/ASSESSMENT SHEYLA - ?better Creat today. UO is OK for now ^Na - resolved ^Phos - suspect due to PPN and ^ FSBS - insulin given - recehc in am Resp Failure - resolved ^K - suspect due to PPN and ^ FSBS - insulin given - recehc pending - prn kayexalate Discussed Plan of Care with family (daughter) at bedside COMMENT/RELEVANT DATA Meds Current Medications Medications (Trade) Dose Ordered Sig/Malcom Start Time Stop Time Status Last Admin Dose Admin Acetaminophen (Tylenol) 650 mg PRN Q6HRS PRN 11/05/16 16:15 11/11/16 21:51 650 MG Albuterol Sulfate 2.5 mg 2.5 mg PRN Q4HRS PRN 11/05/16 16:15 Albuterol/ Ipratropium (Duoneb) 3 ml RTQID 11/11/16 12:00 11/15/16 11:23 3 ML Alteplase, Recombinant 4 mg 4 mg 1X ONCE 11/13/16 16:30 11/13/16 16:31 DC 11/13/16 17:10 4 MG Amino Acids/ Electrolytes 1,000 ml @ 80 mls/hr [id number] 11/14/16 10:00 11/14/16 23:45 80 MLS/HR Amino Acids/ Glycerin/ Electrolytes (Procalamine) 1,000 ml @ 80 mls/hr [id number] 11/14/16 11:00 UNV Amlodipine Besylate (Norvasc) 5 mg DAILY 11/06/16 09:00 11/08/16 12:18 DC 11/06/16 09:28 5 MG Atorvastatin Calcium (Lipitor) 80 mg QHS 11/05/16 21:00 11/13/16 12:18 DC 11/11/16 21:51 80 MG Budesonide (Pulmicort) 0.5 mg RTBID 11/09/16 09:00 11/11/16 18:50 DC 11/11/16 09:32 0.5 MG Dextrose 12.5 gm PRN Q15MIN PRN 11/05/16 16:15 11/15/16 09:18 25 GM Digoxin (Lanoxin) 125 mcg DAILY 11/14/16 09:00 Diltiazem HCl (Cardizem) 10 mg 1X ONCE 11/13/16 13:00 11/13/16 13:01 DC 11/13/16 14:51 10 MG Diltiazem HCl 120 mg 120 mg DAILY 11/09/16 11:00 11/13/16 12:48 DC 11/11/16 08:57 120 MG Enoxaparin Sodium (Lovenox Per Pharmacy Prophylaxis Dosing) 1 each PRN DAILY PRN 11/06/16 13:00 UNV Fentanyl Citrate (Fentanyl 2ml Vial) 25 mcg PRN Q2HR PRN 11/07/16 20:00 11/13/16 14:47 25 MCG Furosemide (Lasix) 40 mg 1X ONCE 11/12/16 12:00 11/12/16 12:01 DC 11/12/16 12:41 40 MG Furosemide 20 mg 20 mg 1X ONCE 11/13/16 11:30 11/13/16 11:31 DC 11/13/16 17:46 20 MG Glipizide (Glucotrol) 5 mg DAILY 11/06/16 09:00 11/13/16 12:18 DC 11/11/16 08:57 5 MG Guaifenesin (Robitussin Dm) 10 ml PRN Q6HRS PRN 11/07/16 12:30 Haloperidol Lactate (Haldol) 1 mg PRN TID PRN 11/13/16 04:45 11/13/16 04:50 1 MG Heparin Sodium (Porcine) 5,000 unit Q8HRS 11/05/16 22:00 11/15/16 06:12 5,000 UNIT Hydralazine HCl (Apresoline) 10 mg PRN Q4HRS PRN 11/05/16 16:15 Insulin Aspart (Novolog) 0-9 UNITS TIDWMEALS 11/05/16 17:00 11/15/16 09:32 9 UNITS Labetalol HCl 10 mg 10 mg PRN Q2HR PRN 11/10/16 09:45 Lamotrigine (LaMICtal) 100 mg BID 11/05/16 21:00 11/13/16 12:18 DC 11/11/16 21:51 100 MG Levetiracetam (Keppra) 500 mg QHS 11/10/16 21:00 11/13/16 12:32 DC 11/11/16 21:51 500 MG Levetiracetam 500 mg/Sodium Chloride 105 ml @ 400 mls/hr HS 11/06/16 21:00 11/10/16 09:24 DC 11/09/16 21:28 400 MLS/HR Levetiracetam/ Sodium Chloride (Keppra/Iv Sodium Chloride 0.9% 100ml) 105 ml @ 400 mls/hr QHS 11/13/16 21:00 11/13/16 21:00 DC Magnesium Sulfate/ Dextrose (Magnesium Sulfate PREMIX 2GM) 50 ml @ 25 mls/hr PRN DAILY PRN 11/09/16 15:45 Nystatin (Nystop) 1 hong TID 11/09/16 21:00 11/15/16 09:17 1 HONG Ondansetron HCl 4 mg 4 mg PRN Q6HRS PRN 11/05/16 16:15 Oseltamivir Phosphate (Tamiflu) 30 mg BID 11/05/16 21:00 11/07/16 14:19 DC 11/06/16 09:27 30 MG Oseltamivir Phosphate 30 mg 30 mg DAILY 11/08/16 09:00 11/10/16 20:59 DC 11/10/16 08:50 30 MG Pantoprazole Sodium (Protonix Vial) 40 mg DAILYAC 11/13/16 13:00 11/15/16 08:41 40 MG Piperacillin Sod/ Tazobactam Sod (Zosyn Per Pharmacy) 1 each PRN DAILY PRN 11/06/16 18:15 11/08/16 12:53 DC Piperacillin Sod/ Tazobactam Sod/ Sodium Chloride (Zosyn/Iv Sodium Chloride 0.9% 50ml) 50 ml @ 100 mls/hr Q6HRS 11/07/16 18:00 11/11/16 18:50 DC 11/11/16 17:44 100 MLS/HR Potassium Chloride/Dextrose/ Sod Cl (KCl 20 Meq In D5W-1/2 NS) 1,000 ml @ 100 mls/hr 1X ONCE 11/06/16 13:00 11/06/16 22:59 DC 11/06/16 17:17 100 MLS/HR Potassium Chloride/Dextrose/ Sod Cl (KCl 20 Meq In D5W-NS) 1,000 ml @ 75 mls/hr [id number] 11/05/16 16:15 11/05/16 16:15 DC Potassium Chloride/Sodium Chloride 1,000 ml @ 75 mls/hr [id number] 11/05/16 17:00 11/07/16 12:10 DC 11/07/16 09:00 75 MLS/HR Potassium Phosphate 13.6 mmol/Sodium Chloride 104.5333 ml @ 52.267 m... Q2H 11/13/16 17:00 11/13/16 22:59 DC 11/13/16 22:16 52.267 MLS/HR Potassium Chloride (KCl Oral Soln) 40 meq 1X ONCE 11/05/16 13:15 11/05/16 13:16 DC 11/05/16 13:49 40 MEQ Scopolamine (Transderm-Scop) 1 patch Q3DAYS 11/11/16 11:30 11/14/16 09:23 1 PATCH Sodium Chloride (Iv Sodium Chloride 0.9% 1000ml Bag) 1,000 ml @ 200 mls/hr Q5H 11/05/16 11:35 11/05/16 16:34 DC 11/05/16 12:25 200 MLS/HR Sodium Phosphate/ Dextrose 256.6667 ml @ 64.167 m... 1X ONCE 11/10/16 14:00 11/10/16 17:59 DC 11/10/16 13:49 64.167 MLS/HR Sotalol HCl (Betapace) 80 mg BID 11/15/16 10:00 Lab Laboratory Tests Test 11/14/16 11:56 11/14/16 17:30 11/14/16 21:44 11/15/16 07:45 Glucose (Fingerstick) 134mg/dL (70-99) 137mg/dL (70-99) 145mg/dL (70-99) Sodium Level 139mmol/L (136-145) Potassium Level 6.3mmol/L (3.5-5.1) Chloride Level 101mmol/L (98-107) Carbon Dioxide Level 33mmol/L (21-32) Anion Gap 5 (6-14) Blood Urea Nitrogen 34mg/dL (7-20) Creatinine 1.5mg/dL (0.6-1.0) Estimated GFR (Cockcroft-Gault) 33.1 Glucose Level 553mg/dL (70-99) Calcium Level 8.8mg/dL (8.5-10.1) Phosphorus Level 8.1mg/dL (2.6-4.7) Albumin 2.3g/dL (3.4-5.0) Test 11/15/16 08:36 11/15/16 08:39 11/15/16 09:15 11/15/16 09:43 Glucose (Fingerstick) 195mg/dL (70-99) 191mg/dL (70-99) 181mg/dL (70-99) 245mg/dL (70-99) ORALIA TAVERA MD Nov 15, 2016 11:40
--- NOTE | 2016-11-15 12:03 | PDOC ---
PULMONARY PROGRESS NOTES Subjective clinically much better,off BIPAP awake, following commands Vitals Vital Signs Date Time Temp Pulse Resp B/P Pulse Ox O2 Delivery O2 Flow Rate FiO2 11/15/16 11:23 99 Nasal Cannula 5.0 11/15/16 07:00 98.8 70 26 142/110 98.8 General: Alert, No acute distress Lungs: Clear Cardiovascular: S1, S2 Abdomen: Soft, Non-tender Neuro Exam: Alert, Oriented Extremities: Other Skin: Warm Labs Laboratory Tests Test 11/13/16 16:40 11/13/16 17:21 11/13/16 21:06 11/14/16 05:30 Urine Collection Type Unknown Urine Color Yellow Urine Clarity Clear Urine pH 5.5 Urine Specific [place] 1.015 Urine Protein 100mg/dL (NEG-TRACE) Urine Glucose (UA) 100mg/dL (NEG) Urine Ketones (Stick) Tracemg/dL (NEG) Urine Blood Moderate (NEG) Urine Nitrite Negative (NEG) Urine Bilirubin Small (NEG) Urine Urobilinogen Dipstick 0.2mg/dL (0.2 mg/dL) Urine Leukocyte Esterase Negative (NEG) Urine RBC 1-2/HPF (0-2) Urine WBC Occ/HPF (0-4) Urine Squamous Epithelial Cells Mod/LPF Urine Bacteria Few/HPF (0-FEW) Urine Hyaline Casts Few/HPF Urine Granular Casts Occasional/HPF Urine Mucus Mod/LPF Urine Random Sodium 36mmol/L (Not Estab.) Glucose (Fingerstick) 131mg/dL (70-99) 121mg/dL (70-99) Sodium Level 152mmol/L (136-145) Potassium Level 3.5mmol/L (3.5-5.1) Chloride Level 107mmol/L (98-107) Carbon Dioxide Level 33mmol/L (21-32) Anion Gap 12 (6-14) Blood Urea Nitrogen 38mg/dL (7-20) Creatinine 1.8mg/dL (0.6-1.0) Estimated GFR (Cockcroft-Gault) 26.8 Glucose Level 151mg/dL (70-99) Calcium Level 9.0mg/dL (8.5-10.1) Phosphorus Level 2.6mg/dL (2.6-4.7) Magnesium Level 1.9mg/dL (1.8-2.4) Albumin 2.6g/dL (3.4-5.0) Test 11/14/16 08:00 11/14/16 08:30 11/14/16 11:56 11/14/16 17:30 Glucose (Fingerstick) 142mg/dL (70-99) 134mg/dL (70-99) 137mg/dL (70-99) O2 Saturation 97% (92-99) Arterial Blood pH 7.55 (7.35-7.45) Arterial Blood pCO2 at Patient Temp 37mmHg (35-46) Arterial Blood pO2 at Patient Temp 83mmHg (65-108) Arterial Blood HCO3 32mmol/L (21-28) Arterial Blood Base Excess 9mmol/L (-3-3) FiO2 35 Test 11/14/16 21:44 11/15/16 07:45 11/15/16 08:36 11/15/16 08:39 Glucose (Fingerstick) 145mg/dL (70-99) 195mg/dL (70-99) 191mg/dL (70-99) Sodium Level 139mmol/L (136-145) Potassium Level 6.3mmol/L (3.5-5.1) Chloride Level 101mmol/L (98-107) Carbon Dioxide Level 33mmol/L (21-32) Anion Gap 5 (6-14) Blood Urea Nitrogen 34mg/dL (7-20) Creatinine 1.5mg/dL (0.6-1.0) Estimated GFR (Cockcroft-Gault) 33.1 Glucose Level 553mg/dL (70-99) Calcium Level 8.8mg/dL (8.5-10.1) Phosphorus Level 8.1mg/dL (2.6-4.7) Albumin 2.3g/dL (3.4-5.0) Test 11/15/16 09:15 11/15/16 09:43 Glucose (Fingerstick) 181mg/dL (70-99) 245mg/dL (70-99) Laboratory Tests Test 11/14/16 17:30 11/14/16 21:44 11/15/16 07:45 11/15/16 08:36 Glucose (Fingerstick) 137mg/dL (70-99) 145mg/dL (70-99) 195mg/dL (70-99) Sodium Level 139mmol/L (136-145) Potassium Level 6.3mmol/L (3.5-5.1) Chloride Level 101mmol/L (98-107) Carbon Dioxide Level 33mmol/L (21-32) Anion Gap 5 (6-14) Blood Urea Nitrogen 34mg/dL (7-20) Creatinine 1.5mg/dL (0.6-1.0) Estimated GFR (Cockcroft-Gault) 33.1 Glucose Level 553mg/dL (70-99) Calcium Level 8.8mg/dL (8.5-10.1) Phosphorus Level 8.1mg/dL (2.6-4.7) Albumin 2.3g/dL (3.4-5.0) Test 11/15/16 08:39 11/15/16 09:15 11/15/16 09:43 Glucose (Fingerstick) 191mg/dL (70-99) 181mg/dL (70-99) 245mg/dL (70-99) Medications Active Scripts Medications Dose Route/Sig Days Date Category Dose Instructions Levofloxacin 250 Mg Tablet 250 Mg PO DAILY 08/11/16 Reported Amlodipine Besylate 5 Mg Tablet 5 Mg PO DAILY 08/11/16 Reported Keppra (Levetiracetam) 500 Mg Tablet 250 Mg PO HS 08/08/16 Reported Glipizide 5 Mg Tablet 5 Mg PO DAILY 12/22/13 Rx Take one-half a tablet daily. Lasix (Furosemide) 40 Mg Tablet 40 Mg PO DAILY 12/22/13 Rx Crestor (Rosuvastatin Calcium) 20 Mg Tablet 20 Mg PO HS 10/24/13 Reported Lamictal (Lamotrigine) 100 Mg Tablet 100 Mg PO BID 10/24/13 Reported Comments cxr reviewed, Cardiomegaly, similar. Mild congestive heart failure. Superimposed pneumonia in the right upper lobe is not entirely excluded. Small bilateral pleural effusions Impression . 1. [id number] hypercapnic respiratory failure./multi-factorial 2. Aspiration pneumonia./?diastolic HF 3. Dysphagia. 4. Coronary artery disease. 5. Hypertension. 6. Depression. 7. Acute renal failure. 8. Hyperkalemia. 9. Acute metabolic toxic encephalopathy. 10. underlying DELANEY/OHS Plan . 1. Had a long discussion with family 11/14. Pt prefers to have pain meds for comfort,. I will keep her comfortable. no further BIPAP 2. Continue oxygen supplementation. 3. Nebulized treatments. 4. supportive care 5. Pt wants to go home today. ok by me SHIMON DE LA CRUZ MD Nov 15, 2016 12:03
--- NOTE | 2016-11-15 13:34 | PDOC ---
PROGRESS NOTES Chief Complaint Chief Complaint Acute on chronic respir failure ASSESSMENT AND PLAN: 1. Influenza A: Tamiflu x5d completed 2. Aspiration pneumonitis: recovering. remains NPO for now. 3. COPD (exacerbation): required BiPAP initially, has been on NC 2L (home regimen) - off BiPAP today 4. CHF: Chronic, (mild) diastolic, preserved EF 5. Sepsis: resolved 6. New onset atrial fib/flutter, intermittent RVR: currently rate controlled on digoxin. 7. SHEYLA on CKD: recovered to baseline creat ~1.587. Hypokalemia: coaunhbj56. DM2: fluctuating. on UTA627. HTN: oral meds on hold, but BPs well controlled 8. HLD: statin on hold 9. seizure disorder: on keppra IV 10. AMS: metabolic encephalopathy with flu/ SHEYLA vs post ictal. resolved 11. Dysphagia: observed to cough after sips of water. NPO for now until formal swallow eval on Friday. on PPN 12. Dispo: needs OT/PT eval. anticipate rehab placement . Vitals Vitals Vital Signs Date Time Temp Pulse Resp B/P Pulse Ox O2 Delivery O2 Flow Rate FiO2 11/15/16 12:20 76 158/63 11/15/16 11:23 99 Nasal Cannula 5.0 11/15/16 07:00 98.8 26 98.8 Physical Exam General: Alert, Cooperative, No acute distress Heart: Other (sl ishaan, distant sounds) Lungs: Clear Abdomen: Normal bowel sounds, Soft, No tenderness Extremities: No clubbing, No cyanosis, Other (mild chronic peripheral edema of upper and lower extremity) Skin: No rashes Labs LABS Laboratory Tests Test 11/14/16 17:30 11/14/16 21:44 11/15/16 07:45 11/15/16 08:36 Glucose (Fingerstick) 137mg/dL (70-99) 145mg/dL (70-99) 195mg/dL (70-99) Sodium Level 139mmol/L (136-145) Potassium Level 6.3mmol/L (3.5-5.1) Chloride Level 101mmol/L (98-107) Carbon Dioxide Level 33mmol/L (21-32) Anion Gap 5 (6-14) Blood Urea Nitrogen 34mg/dL (7-20) Creatinine 1.5mg/dL (0.6-1.0) Estimated GFR (Cockcroft-Gault) 33.1 Glucose Level 553mg/dL (70-99) Calcium Level 8.8mg/dL (8.5-10.1) Phosphorus Level 8.1mg/dL (2.6-4.7) Albumin 2.3g/dL (3.4-5.0) Test 11/15/16 08:39 11/15/16 09:15 11/15/16 09:43 11/15/16 12:09 Glucose (Fingerstick) 191mg/dL (70-99) 181mg/dL (70-99) 245mg/dL (70-99) 145mg/dL (70-99) Review of Systems Review of Systems breathing much improved. very tired. WILVER SCOTT MD Nov 15, 2016 13:34
[2016-11-15 15:00] VITALS: BP 178/66
[2016-11-15] MEDS: AA 2.75%/CALCIUM/LYTES/D5W 1,000 ML IV SCH (15:22)
[2016-11-15 16:22] LABS: CALCIUM 8.9 mg/dL (8.5-10.1); CREATININE 1.5 mg/dL (0.6-1.0); GFR 33.1; POTASSIUM 3.2 mmol/L (3.5-5.1)
[2016-11-15] MEDS: ASA/APAP/CAFFEINE 250/250/65MG TABLET. PO PRN ×2 (18:11→21:17)
[2016-11-15 19:17] VITALS: BP 145/60
--- NOTE | 2016-11-15 20:48 | CARD ---
APPROVED REPORT EXAM: Two-dimensional and M-mode echocardiogram with Doppler and color Doppler. Other Information Quality : Good INDICATION Atrial Flutter 2D DIMENSIONS RVDd2.8 (2.9-3.5cm)Left Atrium(2D)4.9 (1.6-4.0cm) IVSd1.1 (0.7-1.1cm)Aortic Root(2D)2.9 (2.0-3.7cm) LVDd5.8 (3.9-5.9cm)LVOT Diameter2.3 (1.8-2.4cm) PWd0.9 (0.7-1.1cm)LVDs4.5 (2.5-4.0cm) FS (%) 28.0 %SV73.6 ml LVEF(%)55.0 (>50%) Aortic Valve AoV Peak Ronnie.120.1cm/Ly Peak GR.5.8mmHg Mitral Valve MV E Hynawgvy591.8cm/sMV DECEL [id number] MV A Puerstqs67.5cm/sE/A Ratio1.8 TDI Medial E' P. V12.74cm/sE/Medial E'13.3 Tricuspid Valve TR P. Prdliqbc762kz/sRAP [id number] TR Peak Gr.[id number] LEFT VENTRICLE The left ventricle is mildly enlarged. There is normal left ventricular wall thickness. The Ejection Fraction is 55-60%. There is normal LV segmental wall motion. RIGHT VENTRICLE The right ventricle is normal size. The right ventricular systolic function is normal. ATRIA The left atrium is mildly dilated. The right atrium size is normal. The interatrial septum is intact with no evidence for an atrial septal defect or patent foramen ovale as noted on 2-D or Doppler imagi ng. AORTIC VALVE The aortic valve is calcified but opens well. Doppler and Color Flow revealed no significant aortic r egurgitation. There is no significant aortic valvular stenosis. MITRAL VALVE The mitral valve is moderately thickened but opens well. Mitral annular calcification is moderate. Th ere is no evidence of mitral valve prolapse. There is no mitral valve stenosis. Doppler and Color-sharda w revealed mild mitral regurgitation. TRICUSPID VALVE The tricuspid valve is normal in structure and function. Doppler and Color Flow revealed mild tricusp id regurgitation. There is moderate pulmonary hypertension. The PA pressure was estimated at 67 mmHg. There is no tricuspid valve stenosis. PULMONIC VALVE The pulmonary valve is normal in structure and function. Doppler and Color Flow revealed trace pulmon ic valvular regurgitation. There is no pulmonic valvular stenosis. GREAT VESSELS The aortic root is normal in size. The ascending aorta is normal in size. The IVC is dilated and akiko apses >50% with inspiration. PERICARDIAL EFFUSION There is no evidence of significant pericardial effusion. Critical Notification Critical Value: No <Conclusion> The left ventricle is mildly enlarged. There is normal left ventricular wall thickness. The Ejection Fraction is 55-60%. The diastolic function is normal There is no evidence of significant pericardial effusion. There is no mitral valve stenosis. Doppler and Color-flow revealed mild mitral regurgitation. The left atrium is mildly enlarged There is no aortic stenosis or regurgitation The right ventricle is of a normal size with normal systolic function Doppler and Color Flow revealed mild tricuspid regurgitation. There is moderate pulmonary hypertension. The PA pressure was estimated at 67 mmHg. Doppler and Color Flow revealed trace pulmonic valvular regurgitation.
[2016-11-15 22:37] VITALS: BP 151/71
[2016-11-16 03:14] VITALS: BP 155/68
[2016-11-16] MEDS: AA 4.25%/CALCIUM/LYTES/D5W 1,000 ML IV SCH ×2 (04:27→16:27)
[2016-11-16] MEDS: ASA/APAP/CAFFEINE 250/250/65MG TABLET. PO PRN ×2 (05:09→17:42)
[2016-11-16] MEDS: HEPARIN PF for SUB-Q USE 5,000 UNIT/0.5 ML VIAL. SQ SCH ×3 (05:34→21:03)
[2016-11-16] MEDS: IPRATRPIUM/ALBUTEROL 0.5/2.5MG 3 ML NEBU. NEB SCH ×4 (07:16→20:26)
[2016-11-16 07:18] VITALS: BP 162/69
[2016-11-16] MEDS: LEVETIRACETAM 500 MG in IV NORMAL SALINE 100ML 100 ML IV SCH ×2 (08:32→20:57)
[2016-11-16] MEDS: DIGOXIN 500 MCG/2 ML AMPUL. IV SCH (08:33)
[2016-11-16] MEDS: PANTOPRAZOLE IV PUSH 40 MG VIAL. IVP SCH (08:33)
[2016-11-16 08:36] LABS: ALBUMIN 2.6 g/dL (3.4-5.0); CALCIUM 8.8 mg/dL (8.5-10.1); CREATININE 1.4 mg/dL (0.6-1.0); GFR 35.8; PHOSPHORUS 4.7 mg/dL (2.6-4.7); POTASSIUM 3.6 mmol/L (3.5-5.1)
[2016-11-16] MEDS: NYSTATIN TOPICAL POWDER 15GM BOTTLE. TP SCH ×3 (08:36→20:57)
[2016-11-16] MEDS: INSULIN ASPART 300 UNITS/3 ML INSULN.PEN SQ SCH ×3 (08:39→17:00)
[2016-11-16 10:02] VITALS: BP 156/59
--- NOTE | 2016-11-16 14:26 | PDOC ---
PULMONARY PROGRESS NOTES Subjective clinically much better,off BIPAP awake, following commands Vitals Vital Signs Date Time Temp Pulse Resp B/P Pulse Ox O2 Delivery O2 Flow Rate FiO2 11/16/16 11:21 Nasal Cannula 5.0 11/16/16 10:02 97.7 61 16 156/59 97 97.7 General: Alert, No acute distress Lungs: Clear Cardiovascular: S1, S2 Abdomen: Soft, Non-tender Neuro Exam: Alert, Oriented Extremities: Other Skin: Warm Labs Laboratory Tests Test 11/14/16 17:30 11/14/16 21:44 11/15/16 07:45 11/15/16 08:36 Glucose (Fingerstick) 137mg/dL (70-99) 145mg/dL (70-99) 195mg/dL (70-99) Sodium Level 139mmol/L (136-145) Potassium Level 6.3mmol/L (3.5-5.1) Chloride Level 101mmol/L (98-107) Carbon Dioxide Level 33mmol/L (21-32) Anion Gap 5 (6-14) Blood Urea Nitrogen 34mg/dL (7-20) Creatinine 1.5mg/dL (0.6-1.0) Estimated GFR (Cockcroft-Gault) 33.1 Glucose Level 553mg/dL (70-99) Calcium Level 8.8mg/dL (8.5-10.1) Phosphorus Level 8.1mg/dL (2.6-4.7) Albumin 2.3g/dL (3.4-5.0) Test 11/15/16 08:39 11/15/16 09:15 11/15/16 09:43 11/15/16 12:09 Glucose (Fingerstick) 191mg/dL (70-99) 181mg/dL (70-99) 245mg/dL (70-99) 145mg/dL (70-99) Test 11/15/16 15:50 11/15/16 17:04 11/15/16 20:29 11/16/16 05:15 Sodium Level 150mmol/L (136-145) 146mmol/L (136-145) Potassium Level 3.2mmol/L (3.5-5.1) 3.6mmol/L (3.5-5.1) Chloride Level 108mmol/L (98-107) 106mmol/L (98-107) Carbon Dioxide Level 39mmol/L (21-32) 36mmol/L (21-32) Anion Gap 3 (6-14) 4 (6-14) Blood Urea Nitrogen 35mg/dL (7-20) 35mg/dL (7-20) Creatinine 1.5mg/dL (0.6-1.0) 1.4mg/dL (0.6-1.0) Estimated GFR (Cockcroft-Gault) 33.1 35.8 Glucose Level 127mg/dL (70-99) 188mg/dL (70-99) Calcium Level 8.9mg/dL (8.5-10.1) 8.8mg/dL (8.5-10.1) Glucose (Fingerstick) 122mg/dL (70-99) 152mg/dL (70-99) Phosphorus Level 4.7mg/dL (2.6-4.7) Albumin 2.6g/dL (3.4-5.0) Test 11/16/16 08:08 11/16/16 11:34 Glucose (Fingerstick) 182mg/dL (70-99) 157mg/dL (70-99) Laboratory Tests Test 11/15/16 15:50 11/15/16 17:04 11/15/16 20:29 11/16/16 05:15 Sodium Level 150mmol/L (136-145) 146mmol/L (136-145) Potassium Level 3.2mmol/L (3.5-5.1) 3.6mmol/L (3.5-5.1) Chloride Level 108mmol/L (98-107) 106mmol/L (98-107) Carbon Dioxide Level 39mmol/L (21-32) 36mmol/L (21-32) Anion Gap 3 (6-14) 4 (6-14) Blood Urea Nitrogen 35mg/dL (7-20) 35mg/dL (7-20) Creatinine 1.5mg/dL (0.6-1.0) 1.4mg/dL (0.6-1.0) Estimated GFR (Cockcroft-Gault) 33.1 35.8 Glucose Level 127mg/dL (70-99) 188mg/dL (70-99) Calcium Level 8.9mg/dL (8.5-10.1) 8.8mg/dL (8.5-10.1) Glucose (Fingerstick) 122mg/dL (70-99) 152mg/dL (70-99) Phosphorus Level 4.7mg/dL (2.6-4.7) Albumin 2.6g/dL (3.4-5.0) Test 11/16/16 08:08 11/16/16 11:34 Glucose (Fingerstick) 182mg/dL (70-99) 157mg/dL (70-99) Medications Active Scripts Medications Dose Route/Sig Days Date Category Dose Instructions Levofloxacin 250 Mg Tablet 250 Mg PO DAILY 08/11/16 Reported Amlodipine Besylate 5 Mg Tablet 5 Mg PO DAILY 08/11/16 Reported Keppra (Levetiracetam) 500 Mg Tablet 250 Mg PO HS 08/08/16 Reported Glipizide 5 Mg Tablet 5 Mg PO DAILY 12/22/13 Rx Take one-half a tablet daily. Lasix (Furosemide) 40 Mg Tablet 40 Mg PO DAILY 12/22/13 Rx Crestor (Rosuvastatin Calcium) 20 Mg Tablet 20 Mg PO HS 10/24/13 Reported Lamictal (Lamotrigine) 100 Mg Tablet 100 Mg PO BID 10/24/13 Reported Comments cxr reviewed, Cardiomegaly, similar. Mild congestive heart failure. Superimposed pneumonia in the right upper lobe is not entirely excluded. Small bilateral pleural effusions Impression . 1. Jntfu-vd-sjatary hypercapnic respiratory failure./multi-factorial 2. Aspiration pneumonia./?diastolic HF 3. Dysphagia. 4. Coronary artery disease. 5. Hypertension. 6. Depression. 7. Acute renal failure. 8. Hyperkalemia. 9. Acute metabolic toxic encephalopathy. 10. underlying DELANEY/OHS Plan . 1. Had a long discussion with family 11/14. Pt prefers to have pain meds for comfort,. I will keep her comfortable. no further BIPAP 2. Continue oxygen supplementation. 3. Nebulized treatments. 4. supportive care 5. Pt wants to go home ok by me SHIMON DE LA CRUZ MD Nov 16, 2016 14:26
[2016-11-16 14:38] VITALS: BP 147/65
--- NOTE | 2016-11-16 16:03 | PDOC ---
PROGRESS NOTES Subjective Subjective Pt has no new complaints and wants to go home but is so weak that she cannot get up by herself or even roll over on the bed without help. She is in Atrial Fluter Objective Objective Vital Signs Date Time Temp Pulse Resp B/P Pulse Ox O2 Delivery O2 Flow Rate FiO2 11/16/16 15:21 Nasal Cannula 5.0 11/16/16 14:38 97.8 66 16 147/65 95 97.8 Intake and Output 11/16/16 07:00 Intake Total 2077 ml Output Total 1200 ml Balance 877 ml Intake Oral 0 ml IV Total 2077 ml Output Urine Total 1200 ml Physical Exam Physical Exam Neck no JVD Lungs moving air better Heart irregular, no change Ext (+) edema Assessment Assessment Pt with chronic A Fib/Flutter and a controlled ventricular response. She is severely deconditioned and I would recommend for her to go somewhere for PT/OT until she is strong enough to be able to take care of herself. Going home with her grandson I think is a bad idea at this point in her condition. Problems Medical Problems: (1) Aspiration pneumonia Status: Acute (2) Aspiration pneumonia Status: Acute (3) Hypoxia Status: Acute (4) Influenza Status: Acute (5) Influenza Status: Acute Comment Review of Relevant I have reviewed the following items lucy (where applicable) has been applied. Labs Laboratory Tests Test 11/14/16 17:30 11/14/16 21:44 11/15/16 07:45 11/15/16 08:36 Glucose (Fingerstick) 137mg/dL (70-99) 145mg/dL (70-99) 195mg/dL (70-99) Sodium Level 139mmol/L (136-145) Potassium Level 6.3mmol/L (3.5-5.1) Chloride Level 101mmol/L (98-107) Carbon Dioxide Level 33mmol/L (21-32) Anion Gap 5 (6-14) Blood Urea Nitrogen 34mg/dL (7-20) Creatinine 1.5mg/dL (0.6-1.0) Estimated GFR (Cockcroft-Gault) 33.1 Glucose Level 553mg/dL (70-99) Calcium Level 8.8mg/dL (8.5-10.1) Phosphorus Level 8.1mg/dL (2.6-4.7) Albumin 2.3g/dL (3.4-5.0) Test 11/15/16 08:39 11/15/16 09:15 11/15/16 09:43 11/15/16 12:09 Glucose (Fingerstick) 191mg/dL (70-99) 181mg/dL (70-99) 245mg/dL (70-99) 145mg/dL (70-99) Test 11/15/16 15:50 11/15/16 17:04 11/15/16 20:29 11/16/16 05:15 Sodium Level 150mmol/L (136-145) 146mmol/L (136-145) Potassium Level 3.2mmol/L (3.5-5.1) 3.6mmol/L (3.5-5.1) Chloride Level 108mmol/L (98-107) 106mmol/L (98-107) Carbon Dioxide Level 39mmol/L (21-32) 36mmol/L (21-32) Anion Gap 3 (6-14) 4 (6-14) Blood Urea Nitrogen 35mg/dL (7-20) 35mg/dL (7-20) Creatinine 1.5mg/dL (0.6-1.0) 1.4mg/dL (0.6-1.0) Estimated GFR (Cockcroft-Gault) 33.1 35.8 Glucose Level 127mg/dL (70-99) 188mg/dL (70-99) Calcium Level 8.9mg/dL (8.5-10.1) 8.8mg/dL (8.5-10.1) Glucose (Fingerstick) 122mg/dL (70-99) 152mg/dL (70-99) Phosphorus Level 4.7mg/dL (2.6-4.7) Albumin 2.6g/dL (3.4-5.0) Test 11/16/16 08:08 11/16/16 11:34 Glucose (Fingerstick) 182mg/dL (70-99) 157mg/dL (70-99) Laboratory Tests Test 11/15/16 17:04 11/15/16 20:29 11/16/16 05:15 11/16/16 08:08 Glucose (Fingerstick) 122mg/dL (70-99) 152mg/dL (70-99) 182mg/dL (70-99) Sodium Level 146mmol/L (136-145) Potassium Level 3.6mmol/L (3.5-5.1) Chloride Level 106mmol/L (98-107) Carbon Dioxide Level 36mmol/L (21-32) Anion Gap 4 (6-14) Blood Urea Nitrogen 35mg/dL (7-20) Creatinine 1.4mg/dL (0.6-1.0) Estimated GFR (Cockcroft-Gault) 35.8 Glucose Level 188mg/dL (70-99) Calcium Level 8.8mg/dL (8.5-10.1) Phosphorus Level 4.7mg/dL (2.6-4.7) Albumin 2.6g/dL (3.4-5.0) Test 11/16/16 11:34 Glucose (Fingerstick) 157mg/dL (70-99) Microbiology 11/13/16 Blood Culture - Preliminary, Resulted NO GROWTH AFTER 3 DAYS Medications Current Medications Sodium Chloride (Iv Sodium Chloride 0.9% 1000ml Bag) 1,000 ml @ 200 mls/hr Q5H IV Last administered on 11/05/16 12:25; Start 11/05/16 at 11:35; Stop at 16:34; Status DC Oseltamivir Phosphate 75 mg 75 mg DAILY PO Last administered on 11/05/16 12:24 ; Start 11/05/16 at 12:30; Stop 11/05/16 at 12:30; Status DC Piperacillin Sod/ Tazobactam Sod/ Sodium Chloride (Zosyn/Iv Sodium Chloride 0.9 % 50ml) 50 ml @ 100 mls/hr 1X ONCE IV Last administered on 11/05/16 12:39; Start 11/05/16 at 12:45; Stop 11/05/16 at 13:14; Status DC Oseltamivir Phosphate (Tamiflu) 30 mg BID PO Last administered on 11/06/16 09: 27; Start 11/05/16 at 21:00; Stop 11/07/16 at 14:19; Status DC Potassium Chloride (KCl Oral Soln) 40 meq 1X ONCE PO Last administered on 11/05 13:49; Start 11/05/16 at 13:15; Stop 11/05/16 at 13:16; Status DC Amlodipine Besylate (Norvasc) 5 mg DAILY PO Last administered on 11/06/16 09: 28; Start 11/06/16 at 09:00; Stop 11/08/16 at 12:18; Status DC Glipizide (Glucotrol) 5 mg DAILY PO Last administered on 11/11/16 08:57; Start 11/06/16 at 09:00; Stop 11/13/16 at 12:18; Status DC Lamotrigine (LaMICtal) 100 mg BID PO Last administered on 11/11/16 21:51; Start 11/05/16 at 21:00; Stop 11/13/16 at 12:18; Status DC Levetiracetam (Keppra) 250 mg HS PO Last administered on 11/05/16 20:19; Start 11/05/16 at 21:00; Stop 11/06/16 at 12:12; Status DC Atorvastatin Calcium (Lipitor) 80 mg QHS PO Last administered on 11/11/16 21: 51; Start 11/05/16 at 21:00; Stop 11/13/16 at 12:18; Status DC Acetaminophen (Tylenol) 650 mg PRN Q6HRS PRN PO MILD PAIN / TEMP Last administered on 11/11/16 21:51; Start 11/05/16 at 16:15 Ondansetron HCl 4 mg 4 mg PRN Q6HRS PRN IV NAUSEA/VOMITING; Start 11/05/16 at 16:15 Potassium Chloride/Dextrose/ Sod Cl (KCl 20 Meq In D5W-NS) 1,000 ml @ 75 mls/ hr [id number] IV ; Start 11/05/16 at 16:15; Stop 11/05/16 at 16:15; Status DC Insulin Aspart (Novolog) 0-9 UNITS TIDWMEALS SQ Last administered on 11/16/16 08:39; Start 11/05/16 at 17:00 Dextrose 12.5 gm PRN Q15MIN PRN IV SEE COMMENTS Last administered on 11/15/16 09:18; Start 11/05/16 at 16:15 Heparin Sodium (Porcine) 5,000 unit Q8HRS SQ Last administered on 11/16/16 14: 48; Start 11/05/16 at 22:00 Hydralazine HCl (Apresoline) 10 mg PRN Q4HRS PRN IVP ELEVATED BP, SEE COMMENTS ; Start 11/05/16 at 16:15 Albuterol/ Ipratropium (Duoneb) 3 ml RTQID NEB Last administered on 11/11/16 09:32; Start 11/05/16 at 20:00; Stop 11/11/16 at 11:29; Status DC Albuterol Sulfate 2.5 mg 2.5 mg PRN Q4HRS PRN NEB SHORTNESS OF BREATH; Start at 16:15 Potassium Chloride/Sodium Chloride 1,000 ml @ 75 mls/hr [id number] IV Last administered on 11/07/16 09:00; Start 11/05/16 at 17:00; Stop 11/07/16 at 12:10 ; Status DC Levetiracetam 500 mg/Sodium Chloride 105 ml @ 400 mls/hr HS IV Last administered on 11/09/16 21:28; Start 11/06/16 at 21:00; Stop 11/10/16 at 09:24 ; Status DC Potassium Chloride/Dextrose/ Sod Cl (KCl 20 Meq In D5W-1/2 NS) 1,000 ml @ 100 mls/hr 1X ONCE IV Last administered on 11/06/16 17:17; Start 11/06/16 at 13: 00; Stop 11/06/16 at 22:59; Status DC Enoxaparin Sodium (Lovenox Per Pharmacy Prophylaxis Dosing) 1 each PRN DAILY PRN MC SEE COMMENTS; Start 11/06/16 at 13:00; Status UNV Piperacillin Sod/ Tazobactam Sod 1 each 1 each PRN DAILY PRN MC SEE COMMENTS; Start 11/06/16 at 18:15; Stop 11/08/16 at 12:53; Status DC Piperacillin Sod/ Tazobactam Sod 3.375 gm/Sodium Chloride 50 ml @ 100 mls/hr Q6HRS IV Last administered on 11/07/16 11:17; Start 11/06/16 at 19:00; Stop at 14:21; Status DC Amino Acids/ Glycerin/ Electrolytes (Procalamine) 1,000 ml @ 80 mls/hr [id number] IV Last administered on 11/11/16 02:20; Start 11/07/16 at 12:15; Stop at 11:22; Status DC Guaifenesin (Robitussin Dm) 10 ml PRN Q6HRS PRN PO COUGH; Start 11/07/16 at 12: 30 Oseltamivir Phosphate 30 mg 30 mg DAILY PO Last administered on 11/10/16 08:50 ; Start 11/08/16 at 09:00; Stop 11/10/16 at 20:59; Status DC Piperacillin Sod/ Tazobactam Sod/ Sodium Chloride (Zosyn/Iv Sodium Chloride 0.9 % 50ml) 50 ml @ 100 mls/hr Q6HRS IV Last administered on 11/11/16 17:44; Start 11/07/16 at 18:00; Stop 11/11/16 at 18:50; Status DC Fentanyl Citrate (Fentanyl 2ml Vial) 25 mcg PRN Q2HR PRN IV PAIN Last administered on 11/13/16 14:47; Start 11/07/16 at 20:00 Diltiazem HCl (Cardizem) 30 mg Q8HRS PO Last administered on 11/08/16 21:21; Start 11/08/16 at 12:00; Stop 11/09/16 at 10:39; Status DC Digoxin (Lanoxin) 500 mcg 1X ONCE IV Last administered on 11/08/16 12:28; Start 11/08/16 at 12:15; Stop 11/08/16 at 12:19; Status DC Digoxin (Lanoxin) 125 mcg DAILY PO Last administered on 11/11/16 08:58; Start 11/09/16 at 09:00; Stop 11/13/16 at 12:48; Status DC Budesonide (Pulmicort) 0.5 mg RTBID NEB Last administered on 11/11/16 09:32; Start 11/09/16 at 09:00; Stop 11/11/16 at 18:50; Status DC Diltiazem HCl 120 mg 120 mg DAILY PO Last administered on 11/11/16 08:57; Start 11/09/16 at 11:00; Stop 11/13/16 at 12:48; Status DC Magnesium Sulfate/ Dextrose (Magnesium Sulfate PREMIX 2GM) 50 ml @ 25 mls/hr PRN DAILY PRN IV for Mag < 1.7 on am labs; Start 11/09/16 at 15:45 Nystatin (Nystop) 1 hong TID TP Last administered on 11/16/16 14:45; Start at 21:00 Levetiracetam (Keppra) 500 mg QHS PO Last administered on 11/11/16 21:51; Start 11/10/16 at 21:00; Stop 11/13/16 at 12:32; Status DC Labetalol HCl 10 mg 10 mg PRN Q2HR PRN IVP HYPERTENSION, SEE COMMENTS; Start at 09:45 Sodium Phosphate/ Dextrose 256.6667 ml @ 64.167 m... 1X ONCE IV Last administered on 11/10/16 13:49; Start 11/10/16 at 14:00; Stop 11/10/16 at 17:59 ; Status DC Scopolamine (Transderm-Scop) 1 patch Q3DAYS TD Last administered on 11/14/16 09:23; Start 11/11/16 at 11:30 Furosemide (Lasix) 40 mg 1X ONCE IVP Last administered on 11/11/16 11:43; Start 11/11/16 at 11:30; Stop 11/11/16 at 11:31; Status DC Albuterol/ Ipratropium (Duoneb) 3 ml RTQID NEB Last administered on 11/16/16 15:20; Start 11/11/16 at 12:00 Furosemide (Lasix) 40 mg 1X ONCE IVP Last administered on 11/12/16 12:41; Start 11/12/16 at 12:00; Stop 11/12/16 at 12:01; Status DC Haloperidol Lactate 1 mg 1 mg PRN TID PRN IVP AGITATION Last administered on 04:50; Start 11/13/16 at 04:45 Levetiracetam/ Sodium Chloride (Keppra/Iv Sodium Chloride 0.9% 100ml) 105 ml @ 400 mls/hr Q12HR IV Last administered on 11/16/16 08:32; Start 11/13/16 at 10: 30 Furosemide 20 mg 20 mg 1X ONCE IVP Last administered on 11/13/16 17:46; Start 11/13/16 at 11:30; Stop 11/13/16 at 11:31; Status DC Levetiracetam/ Sodium Chloride (Keppra/Iv Sodium Chloride 0.9% 100ml) 105 ml @ 400 mls/hr QHS IV ; Start 11/13/16 at 21:00; Stop 11/13/16 at 21:00; Status DC Pantoprazole Sodium (Protonix Vial) 40 mg DAILYAC IVP Last administered on 11/16 08:33; Start 11/13/16 at 13:00 Diltiazem HCl (Cardizem) 10 mg 1X ONCE IVP Last administered on 11/13/16 14: 51; Start 11/13/16 at 13:00; Stop 11/13/16 at 13:01; Status DC Digoxin (Lanoxin) 125 mcg DAILY IV Last administered on 11/16/16 08:33; Start 11/14/16 at 09:00 Alteplase, Recombinant 4 mg 4 mg 1X ONCE INT CAT Last administered on 17:10; Start 11/13/16 at 16:30; Stop 11/13/16 at 16:31; Status DC Potassium Phosphate 13.6 mmol/Sodium Chloride 104.5333 ml @ 52.267 m... Q2H IV Last administered on 11/13/16 22:16; Start 11/13/16 at 17:00; Stop 11/13/16 at 22:59; Status DC Amino Acids/ Electrolytes 1,000 ml @ 80 mls/hr [id number] IV Last administered on 11/15/16 15:22; Start 11/14/16 at 10:00; Stop 11/16/16 at 03:34; Status DC Amino Acids/ Glycerin/ Electrolytes (Procalamine) 1,000 ml @ 80 mls/hr [id number] IV ; Start 11/14/16 at 11:00; Status UNV Sotalol HCl (Betapace) 80 mg BID PO Last administered on 11/15/16 12:20; Start 11/15/16 at 10:00; Stop 11/15/16 at 21:13; Status DC Acetaminophen/ Aspirin/Caffeine 1 tab 1 tab PRN Q6HRS PRN PO MIGRAINE HEADACHE Last administered on 11/16/16 05:09; Start 11/15/16 at 18:00 Amino Acids/ Electrolytes/ Dextrose (Clinimix E 4.25%-5% Solution) 1,000 ml @ 80 mls/hr [id number] IV Last administered on 11/16/16 04:27; Start 11/16/16 at 03 :34 Active Scripts Active Glipizide 5 Mg Tablet 5 Mg PO DAILY Take one-half a tablet daily. Lasix (Furosemide) 40 Mg Tablet 40 Mg PO DAILY Reported Levofloxacin 250 Mg Tablet 250 Mg PO DAILY Amlodipine Besylate 5 Mg Tablet 5 Mg PO DAILY Keppra (Levetiracetam) 500 Mg Tablet 250 Mg PO HS Crestor (Rosuvastatin Calcium) 20 Mg Tablet 20 Mg PO HS Lamictal (Lamotrigine) 100 Mg Tablet 100 Mg PO BID Vitals/I & O Vital Sign - Last 24 Hours 11/15/16 11/15/16 11/15/16 11/15/16 19:17 19:20 20:10 22:37 Temp 97.9 97.6 97.9 97.6 Pulse 69 69 Resp 16 16 B/P 145/60 151/71 Pulse Ox 97 93 95 O2 Delivery Nasal Cannula Nasal Cannula Nasal Cannula Nasal Cannula O2 Flow Rate 4.0 4.0 5.0 4.0 11/16/16 11/16/16 11/16/16 11/16/16 03:14 07:16 07:18 08:00 Temp 97.6 97.7 97.6 97.7 Pulse 73 69 Resp 16 B/P 155/68 162/69 Pulse Ox 97 90 95 O2 Delivery Nasal Cannula Nasal Cannula Nasal Cannula Nasal Cannula O2 Flow Rate 4.0 5.0 4.0 4.0 11/16/16 11/16/16 11/16/16 11/16/16 08:33 10:02 11:21 14:38 Temp 97.7 97.8 97.7 97.8 Pulse 69 61 66 Resp 16 16 B/P 162/69 156/59 147/65 Pulse Ox 97 95 O2 Delivery Nasal Cannula Nasal Cannula Nasal Cannula O2 Flow Rate 4.0 5.0 4.0 11/16/16 15:21 O2 Delivery Nasal Cannula O2 Flow Rate 5.0 Intake and Output 11/15/16 11/15/1617 15:00 23:00 07:00 Intake Total 960 ml 205 ml 912 ml Output Total 300 ml 900 ml Balance 960 ml -95 ml 12 ml WINTER WALL MD Nov 16, 2016 16:03
[2016-11-16 19:18] VITALS: BP 143/63
--- NOTE | 2016-11-16 20:00 | PDOC ---
PROGRESS NOTES Chief Complaint Chief Complaint Acute on chronic respir failure ASSESSMENT AND PLAN: 1. Influenza A: Tamiflu x5d completed 2. Aspiration pneumonitis: recovering. remains NPO for now. (see below) 3. COPD (exacerbation): required BiPAP initially, has been on NC 2L (home regimen) - off BiPAP for several days now 4. CHF: chronic, (mild) diastolic, preserved EF. no acute issues 5. Sepsis: resolved 6. New onset atrial fib/flutter, intermittent RVR: currently rate controlled on digoxin. Dr Osorio following 7. SHEYLA on CKD: recovered to baseline creat ~1.5 8. Hypokalemia: resolved 9. DM2: fluctuating. on ISS 10. HTN: oral meds on hold, but BPs well controlled 11. HLD: statin on hold (NPO) 12. seizure disorder: on keppra IV 13. AMS: metabolic encephalopathy with flu/ SHEYLA vs post ictal. resolved 14. Dysphagia: observed to cough after sips of water. NPO for now until formal swallow eval on Friday. on PPN 15. Dispo: needs OT/PT eval. anticipate rehab placement . Vitals Vitals Vital Signs Date Time Temp Pulse Resp B/P Pulse Ox O2 Delivery O2 Flow Rate FiO2 11/16/16 19:18 97.3 58 18 143/63 93 Nasal Cannula 5.0 97.3 Physical Exam General: Alert, Oriented X3, Cooperative, No acute distress Heart: Regular rate Lungs: Clear Abdomen: Normal bowel sounds, Soft, No tenderness Extremities: No clubbing, No cyanosis, Other (mild chronic peripheral edema of upper and lower extremity) Skin: No rashes Labs LABS Laboratory Tests Test 11/15/16 20:29 11/16/16 05:15 11/16/16 08:08 11/16/16 11:34 Glucose (Fingerstick) 152mg/dL (70-99) 182mg/dL (70-99) 157mg/dL (70-99) Sodium Level 146mmol/L (136-145) Potassium Level 3.6mmol/L (3.5-5.1) Chloride Level 106mmol/L (98-107) Carbon Dioxide Level 36mmol/L (21-32) Anion Gap 4 (6-14) Blood Urea Nitrogen 35mg/dL (7-20) Creatinine 1.4mg/dL (0.6-1.0) Estimated GFR (Cockcroft-Gault) 35.8 Glucose Level 188mg/dL (70-99) Calcium Level 8.8mg/dL (8.5-10.1) Phosphorus Level 4.7mg/dL (2.6-4.7) Albumin 2.6g/dL (3.4-5.0) Test 11/16/16 16:35 Glucose (Fingerstick) 153mg/dL (70-99) Review of Systems Review of Systems feels ok, tired of being in hospital WILVER SCOTT MD Nov 16, 2016 20:00
[2016-11-16 22:33] VITALS: BP 135/57
[2016-11-17] MEDS: HALOPERIDOL LACT 5 MG/ML VIAL. IVP PRN (02:33)
[2016-11-17 02:59] VITALS: BP 154/62
[2016-11-17] MEDS: ASA/APAP/CAFFEINE 250/250/65MG TABLET. PO PRN (03:34)
[2016-11-17] MEDS: AA 4.25%/CALCIUM/LYTES/D5W 1,000 ML IV SCH ×3 (04:34→21:10)
[2016-11-17] MEDS: FENTANYL PF 100 MCG/2 ML VIAL. IV PRN ×2 (05:02→13:10)
[2016-11-17] MEDS: HEPARIN PF for SUB-Q USE 5,000 UNIT/0.5 ML VIAL. SQ SCH ×3 (05:57→21:16)
[2016-11-17 07:00] VITALS: BP 146/63
--- NOTE | 2016-11-17 07:37 | RAD ---
Portable chest, 11/17/2016: History: Check PICC line Comparison is made to a study from 11/14/2016. The patient is rotated to the right. The right PICC extends to the level of the atriocaval junction. The heart is enlarged. The pulmonary vascularity is at the upper limits of normal. There is a persistent opacity in the left base obscuring the hemidiaphragm. A mild streaky right upper chest opacity is also unchanged. There is persistent blunting of the costophrenic angles compatible with scarring versus a small amount of pleural fluid. No new abnormality is seen. IMPRESSION: No significant change since 11/14/2016.
[2016-11-17] MEDS: IPRATRPIUM/ALBUTEROL 0.5/2.5MG 3 ML NEBU. NEB SCH ×4 (07:38→19:55)
[2016-11-17] MEDS: INSULIN ASPART 300 UNITS/3 ML INSULN.PEN SQ SCH ×3 (08:00→17:00)
[2016-11-17] MEDS: PANTOPRAZOLE IV PUSH 40 MG VIAL. IVP SCH (08:21)
[2016-11-17] MEDS: LEVETIRACETAM 500 MG in IV NORMAL SALINE 100ML 100 ML IV SCH ×2 (08:21→21:10)
[2016-11-17] MEDS: NYSTATIN TOPICAL POWDER 15GM BOTTLE. TP SCH ×3 (08:22→21:11)
[2016-11-17] MEDS: DIGOXIN 500 MCG/2 ML AMPUL. IV SCH (08:22)
[2016-11-17] MEDS: SCOPOLAMINE 1.5MG PATCH. TD SCH (08:22)
--- NOTE | 2016-11-17 09:39 | PDOC ---
PROGRESS NOTES Chief Complaint Chief Complaint Acute on chronic respir failure ASSESSMENT AND PLAN: 1. Influenza A: Tamiflu x5d completed 2. Aspiration pneumonitis: recovering. remains NPO for now. (see below) 3. COPD (exacerbation): required BiPAP initially, has been on NC 2L (home regimen) - off BiPAP for several days now 4. CHF: chronic, (mild) diastolic, preserved EF. no acute issues 5. Sepsis: resolved 6. New onset atrial fib/flutter, intermittent RVR: currently rate controlled on digoxin. Dr Osorio following 7. SHEYLA on CKD: recovered to baseline creat ~1.5 8. Hypokalemia: resolved 9. DM2: fluctuating. on ISS 10. HTN: oral meds on hold, but BPs well controlled 11. HLD: statin on hold (NPO) 12. seizure disorder: on keppra IV 13. AMS: metabolic encephalopathy with flu/ SHEYLA vs post ictal. resolved 14. Dysphagia: observed to cough after sips of water. NPO for now until formal swallow eval on Friday. on PPN 15. Dispo: needs OT/PT eval. anticipate rehab placement. transfer to floor . Vitals Vitals Vital Signs Date Time Temp Pulse Resp B/P Pulse Ox O2 Delivery O2 Flow Rate FiO2 11/17/16 08:22 71 146/63 11/17/16 07:56 Nasal Cannula 6.0 11/17/16 07:38 90 11/17/16 07:00 97.7 20 97.7 Physical Exam General: Alert, Oriented X3, Cooperative, No acute distress Heart: Regular rate Lungs: Clear Abdomen: Normal bowel sounds, Soft, No tenderness Extremities: No clubbing, No cyanosis, Other (mild chronic peripheral edema of upper and lower extremity) Skin: No rashes Labs LABS Laboratory Tests Test 11/16/16 11:34 11/16/16 16:35 11/16/16 20:53 11/17/16 08:19 Glucose (Fingerstick) 157mg/dL (70-99) 153mg/dL (70-99) 150mg/dL (70-99) 145mg/dL (70-99) Review of Systems Review of Systems confused last night, pt has no recollection. feels ok today WILVER SCOTT MD Nov 17, 2016 09:39
--- NOTE | 2016-11-17 10:08 | PDOC ---
PULMONARY PROGRESS NOTES Subjective clinically much better,off BIPAP awake, following commands Vitals Vital Signs Date Time Temp Pulse Resp B/P Pulse Ox O2 Delivery O2 Flow Rate FiO2 11/17/16 08:22 71 146/63 11/17/16 07:56 Nasal Cannula 6.0 11/17/16 07:38 90 11/17/16 07:00 97.7 20 97.7 General: Alert, No acute distress Lungs: Clear Cardiovascular: S1, S2 Abdomen: Soft, Non-tender Neuro Exam: Alert, Oriented Extremities: Other Skin: Warm Labs Laboratory Tests Test 11/15/16 12:09 11/15/16 15:50 11/15/16 17:04 11/15/16 20:29 Glucose (Fingerstick) 145mg/dL (70-99) 122mg/dL (70-99) 152mg/dL (70-99) Sodium Level 150mmol/L (136-145) Potassium Level 3.2mmol/L (3.5-5.1) Chloride Level 108mmol/L (98-107) Carbon Dioxide Level 39mmol/L (21-32) Anion Gap 3 (6-14) Blood Urea Nitrogen 35mg/dL (7-20) Creatinine 1.5mg/dL (0.6-1.0) Estimated GFR (Cockcroft-Gault) 33.1 Glucose Level 127mg/dL (70-99) Calcium Level 8.9mg/dL (8.5-10.1) Test 11/16/16 05:15 11/16/16 08:08 11/16/16 11:34 11/16/16 16:35 Sodium Level 146mmol/L (136-145) Potassium Level 3.6mmol/L (3.5-5.1) Chloride Level 106mmol/L (98-107) Carbon Dioxide Level 36mmol/L (21-32) Anion Gap 4 (6-14) Blood Urea Nitrogen 35mg/dL (7-20) Creatinine 1.4mg/dL (0.6-1.0) Estimated GFR (Cockcroft-Gault) 35.8 Glucose Level 188mg/dL (70-99) Calcium Level 8.8mg/dL (8.5-10.1) Phosphorus Level 4.7mg/dL (2.6-4.7) Albumin 2.6g/dL (3.4-5.0) Glucose (Fingerstick) 182mg/dL (70-99) 157mg/dL (70-99) 153mg/dL (70-99) Test 11/16/16 20:53 11/17/16 08:19 Glucose (Fingerstick) 150mg/dL (70-99) 145mg/dL (70-99) Laboratory Tests Test 11/16/16 11:34 11/16/16 16:35 11/16/16 20:53 11/17/16 08:19 Glucose (Fingerstick) 157mg/dL (70-99) 153mg/dL (70-99) 150mg/dL (70-99) 145mg/dL (70-99) Medications Active Scripts Medications Dose Route/Sig Days Date Category Dose Instructions Levofloxacin 250 Mg Tablet 250 Mg PO DAILY 08/11/16 Reported Amlodipine Besylate 5 Mg Tablet 5 Mg PO DAILY 08/11/16 Reported Keppra (Levetiracetam) 500 Mg Tablet 250 Mg PO HS 08/08/16 Reported Glipizide 5 Mg Tablet 5 Mg PO DAILY 12/22/13 Rx Take one-half a tablet daily. Lasix (Furosemide) 40 Mg Tablet 40 Mg PO DAILY 12/22/13 Rx Crestor (Rosuvastatin Calcium) 20 Mg Tablet 20 Mg PO HS 10/24/13 Reported Lamictal (Lamotrigine) 100 Mg Tablet 100 Mg PO BID 10/24/13 Reported Comments cxr reviewed, Cardiomegaly, similar. Mild congestive heart failure. Superimposed pneumonia in the right upper lobe is not entirely excluded. Small bilateral pleural effusions Impression . 1. Inbcg-ox-arxcvmp hypercapnic respiratory failure./multi-factorial 2. Aspiration pneumonia./?diastolic HF 3. Dysphagia. 4. Coronary artery disease. 5. Hypertension. 6. Depression. 7. Acute renal failure. 8. Hyperkalemia. 9. Acute metabolic toxic encephalopathy. 10. underlying DELANEY/OHS Plan . 1. Had a long discussion with family 11/14. Pt prefers to have pain meds for comfort,. I will keep her comfortable. no further BIPAP 2. Continue oxygen supplementation. 3. Nebulized treatments. 4. supportive care 5. Pt wants to go home ok by me SHIMON DE LA CRUZ MD Nov 17, 2016 10:08
[2016-11-17 11:12] VITALS: BP 133/63
[2016-11-17 15:00] VITALS: BP 151/67
[2016-11-17 19:00] VITALS: BP 141/55
--- NOTE | 2016-11-17 19:50 | PDOC ---
Provider Note Provider Note Covering for Dr. Osorio. She is in atrial fibrillation flutter with a controlled ventricular response. The question of anticoagulation was brought up. Dr. Osorio returns tomorrow and will decide. JUNG ABARCA MD Nov 17, 2016 19:50
[2016-11-17 23:00] VITALS: BP 155/67
--- NOTE | 2016-11-17 23:54 | PDOC ---
Provider Note Provider Note RENAL F/U : SANDRINE S : Doing Ok. No new c/o reported. O : VSS Afebrile. Alert Neck : Supple. Lungs : Non labored. CVS : RRR ABD : Portly, benign appearing. No distention. Ext. : No major edema. Labs reviewed. A/P: ARF : ATN. Cr better. Now 1.4 HYPERNATREMIA ; Na better. Down from 150 to 146. HYPOKALEMIA ; Better. Supportive care Labs I/Os ELIZABETH DELUCA MD Nov 17, 2016 23:54
[2016-11-18 03:00] VITALS: BP 158/56
[2016-11-18 05:42] LABS: HEMATOCRIT 34.3 % (36.0-47.0); HEMOGLOBIN 11.4 g/dL (12.0-15.5); RED BLOOD COUNT 3.64 x10^6/uL (3.50-5.40); RED CELL DISTRIBUTION WIDTH 16.4 % (11.5-14.5); WHITE BLOOD COUNT 7.7 x10^3/uL (4.0-11.0)
[2016-11-18] MEDS: HEPARIN PF for SUB-Q USE 5,000 UNIT/0.5 ML VIAL. SQ SCH ×3 (05:54→20:31)
[2016-11-18 06:02] LABS: CALCIUM 8.9 mg/dL (8.5-10.1); CREATININE 1.4 mg/dL (0.6-1.0); GFR 35.8
[2016-11-18] MEDS: IPRATRPIUM/ALBUTEROL 0.5/2.5MG 3 ML NEBU. NEB SCH ×4 (07:29→19:20)
[2016-11-18 07:31] VITALS: BP 120/72
[2016-11-18] MEDS: INSULIN ASPART 300 UNITS/3 ML INSULN.PEN SQ SCH ×3 (08:00→18:15)
[2016-11-18] MEDS: NYSTATIN TOPICAL POWDER 15GM BOTTLE. TP SCH ×3 (09:00→21:00)
[2016-11-18] MEDS ORDERED: LORAZEPAM INTENSOL 2 MG/ML ORAL.CONC. SL PRN (09:45)
--- NOTE | 2016-11-18 10:06 | PDOC ---
PROGRESS NOTES Subjective Subjective No new complaints today. Pt stated she wanted to go home. Pt did seem confused at times. She asked if I knew where her dog was. Pt denied chest pain , SOB, n, v, diaphoresis. Objective Objective Vital Signs Date Time Temp Pulse Resp B/P Pulse Ox O2 Delivery O2 Flow Rate FiO2 11/18/16 07:31 97.9 73 21 120/72 96 Nasal Cannula 6.0 97.9 Intake and Output 11/18/16 07:00 Intake Total 797 ml Output Total 800 ml Balance -3 ml Intake Oral 340 ml IV Total 457 ml Output Urine Total 800 ml # Bowel Movements 2 Physical Exam Physical Exam Irregular rhythm Assessment Assessment Problems Medical Problems: (1) Aspiration pneumonia Status: Acute (2) Aspiration pneumonia Status: Acute (3) Hypoxia Status: Acute (4) Influenza Status: Acute (5) Influenza Status: Acute (6) Respiratory failure Status: Acute Plan Plan of Care A flutter with a controlled ventricular response Agree with current treatment plan but I still recommend that the patient go to a facility where PT and OT can be done until she is stronger and could then be discharged to go home. I discussed this situation with the patient's family on Friday and they were in agreement. Comment Review of Relevant I have reviewed the following items lucy (where applicable) has been applied. Labs Laboratory Tests Test 11/16/16 11:34 11/16/16 16:35 11/16/16 20:53 11/17/16 08:19 Glucose (Fingerstick) 157mg/dL (70-99) 153mg/dL (70-99) 150mg/dL (70-99) 145mg/dL (70-99) Test 11/17/16 11:09 11/17/16 17:18 11/17/16 21:01 11/18/16 05:10 Glucose (Fingerstick) 149mg/dL (70-99) 172mg/dL (70-99) 192mg/dL (70-99) White Blood Count 7.7x10^3/uL (4.0-11.0) Red Blood Count 3.64x10^6/uL (3.50-5.40) Hemoglobin 11.4g/dL (12.0-15.5) Hematocrit 34.3% (36.0-47.0) Mean Corpuscular Volume 94fL (79-100) Mean Corpuscular Hemoglobin 31pg (25-35) Mean Corpuscular Hemoglobin Concent 33g/dL (31-37) Red Cell Distribution Width 16.4% (11.5-14.5) Platelet Count 234x10^3/uL (140-400) Sodium Level 147mmol/L (136-145) Potassium Level 4.0mmol/L (3.5-5.1) Chloride Level 106mmol/L (98-107) Carbon Dioxide Level 36mmol/L (21-32) Anion Gap 5 (6-14) Blood Urea Nitrogen 37mg/dL (7-20) Creatinine 1.4mg/dL (0.6-1.0) Estimated GFR (Cockcroft-Gault) 35.8 Glucose Level 200mg/dL (70-99) Calcium Level 8.9mg/dL (8.5-10.1) Test 11/18/16 08:22 Glucose (Fingerstick) 178mg/dL (70-99) Laboratory Tests Test 11/17/16 11:09 11/17/16 17:18 11/17/16 21:01 11/18/16 05:10 Glucose (Fingerstick) 149mg/dL (70-99) 172mg/dL (70-99) 192mg/dL (70-99) White Blood Count 7.7x10^3/uL (4.0-11.0) Red Blood Count 3.64x10^6/uL (3.50-5.40) Hemoglobin 11.4g/dL (12.0-15.5) Hematocrit 34.3% (36.0-47.0) Mean Corpuscular Volume 94fL (79-100) Mean Corpuscular Hemoglobin 31pg (25-35) Mean Corpuscular Hemoglobin Concent 33g/dL (31-37) Red Cell Distribution Width 16.4% (11.5-14.5) Platelet Count 234x10^3/uL (140-400) Sodium Level 147mmol/L (136-145) Potassium Level 4.0mmol/L (3.5-5.1) Chloride Level 106mmol/L (98-107) Carbon Dioxide Level 36mmol/L (21-32) Anion Gap 5 (6-14) Blood Urea Nitrogen 37mg/dL (7-20) Creatinine 1.4mg/dL (0.6-1.0) Estimated GFR (Cockcroft-Gault) 35.8 Glucose Level 200mg/dL (70-99) Calcium Level 8.9mg/dL (8.5-10.1) Test 11/18/16 08:22 Glucose (Fingerstick) 178mg/dL (70-99) Microbiology 11/13/16 Blood Culture - Preliminary, Resulted NO GROWTH AFTER 4 DAYS Medications Current Medications Sodium Chloride (Iv Sodium Chloride 0.9% 1000ml Bag) 1,000 ml @ 200 mls/hr Q5H IV Last administered on 11/05/16 12:25; Start 11/05/16 at 11:35; Stop at 16:34; Status DC Oseltamivir Phosphate 75 mg 75 mg DAILY PO Last administered on 11/05/16 12:24 ; Start 11/05/16 at 12:30; Stop 11/05/16 at 12:30; Status DC Piperacillin Sod/ Tazobactam Sod/ Sodium Chloride (Zosyn/Iv Sodium Chloride 0.9 % 50ml) 50 ml @ 100 mls/hr 1X ONCE IV Last administered on 11/05/16 12:39; Start 11/05/16 at 12:45; Stop 11/05/16 at 13:14; Status DC Oseltamivir Phosphate (Tamiflu) 30 mg BID PO Last administered on 11/06/16 09: 27; Start 11/05/16 at 21:00; Stop 11/07/16 at 14:19; Status DC Potassium Chloride (KCl Oral Soln) 40 meq 1X ONCE PO Last administered on 11/05 13:49; Start 11/05/16 at 13:15; Stop 11/05/16 at 13:16; Status DC Amlodipine Besylate (Norvasc) 5 mg DAILY PO Last administered on 11/06/16 09: 28; Start 11/06/16 at 09:00; Stop 11/08/16 at 12:18; Status DC Glipizide (Glucotrol) 5 mg DAILY PO Last administered on 11/11/16 08:57; Start 11/06/16 at 09:00; Stop 11/13/16 at 12:18; Status DC Lamotrigine (LaMICtal) 100 mg BID PO Last administered on 11/11/16 21:51; Start 11/05/16 at 21:00; Stop 11/13/16 at 12:18; Status DC Levetiracetam (Keppra) 250 mg HS PO Last administered on 11/05/16 20:19; Start 11/05/16 at 21:00; Stop 11/06/16 at 12:12; Status DC Atorvastatin Calcium (Lipitor) 80 mg QHS PO Last administered on 11/11/16 21: 51; Start 11/05/16 at 21:00; Stop 11/13/16 at 12:18; Status DC Acetaminophen (Tylenol) 650 mg PRN Q6HRS PRN PO MILD PAIN / TEMP Last administered on 11/11/16 21:51; Start 11/05/16 at 16:15 Ondansetron HCl 4 mg 4 mg PRN Q6HRS PRN IV NAUSEA/VOMITING; Start 11/05/16 at 16:15 Potassium Chloride/Dextrose/ Sod Cl (KCl 20 Meq In D5W-NS) 1,000 ml @ 75 mls/ hr [id number] IV ; Start 11/05/16 at 16:15; Stop 11/05/16 at 16:15; Status DC Insulin Aspart (Novolog) 0-9 UNITS TIDWMEALS SQ Last administered on 11/18/16 08:00; Start 11/05/16 at 17:00 Dextrose 12.5 gm PRN Q15MIN PRN IV SEE COMMENTS Last administered on 11/15/16 09:18; Start 11/05/16 at 16:15 Heparin Sodium (Porcine) 5,000 unit Q8HRS SQ Last administered on 11/18/16 05: 54; Start 11/05/16 at 22:00 Hydralazine HCl (Apresoline) 10 mg PRN Q4HRS PRN IVP ELEVATED BP, SEE COMMENTS ; Start 11/05/16 at 16:15 Albuterol/ Ipratropium (Duoneb) 3 ml RTQID NEB Last administered on 11/11/16 09:32; Start 11/05/16 at 20:00; Stop 11/11/16 at 11:29; Status DC Albuterol Sulfate 2.5 mg 2.5 mg PRN Q4HRS PRN NEB SHORTNESS OF BREATH; Start at 16:15 Potassium Chloride/Sodium Chloride 1,000 ml @ 75 mls/hr [id number] IV Last administered on 11/07/16 09:00; Start 11/05/16 at 17:00; Stop 11/07/16 at 12:10 ; Status DC Levetiracetam 500 mg/Sodium Chloride 105 ml @ 400 mls/hr HS IV Last administered on 11/09/16 21:28; Start 11/06/16 at 21:00; Stop 11/10/16 at 09:24 ; Status DC Potassium Chloride/Dextrose/ Sod Cl (KCl 20 Meq In D5W-1/2 NS) 1,000 ml @ 100 mls/hr 1X ONCE IV Last administered on 11/06/16 17:17; Start 11/06/16 at 13: 00; Stop 11/06/16 at 22:59; Status DC Enoxaparin Sodium (Lovenox Per Pharmacy Prophylaxis Dosing) 1 each PRN DAILY PRN MC SEE COMMENTS; Start 11/06/16 at 13:00; Status UNV Piperacillin Sod/ Tazobactam Sod 1 each 1 each PRN DAILY PRN MC SEE COMMENTS; Start 11/06/16 at 18:15; Stop 11/08/16 at 12:53; Status DC Piperacillin Sod/ Tazobactam Sod 3.375 gm/Sodium Chloride 50 ml @ 100 mls/hr Q6HRS IV Last administered on 11/07/16 11:17; Start 11/06/16 at 19:00; Stop at 14:21; Status DC Amino Acids/ Glycerin/ Electrolytes (Procalamine) 1,000 ml @ 80 mls/hr [id number] IV Last administered on 11/11/16 02:20; Start 11/07/16 at 12:15; Stop at 11:22; Status DC Guaifenesin (Robitussin Dm) 10 ml PRN Q6HRS PRN PO COUGH; Start 11/07/16 at 12: 30 Oseltamivir Phosphate 30 mg 30 mg DAILY PO Last administered on 11/10/16 08:50 ; Start 11/08/16 at 09:00; Stop 11/10/16 at 20:59; Status DC Piperacillin Sod/ Tazobactam Sod/ Sodium Chloride (Zosyn/Iv Sodium Chloride 0.9 % 50ml) 50 ml @ 100 mls/hr Q6HRS IV Last administered on 11/11/16 17:44; Start 11/07/16 at 18:00; Stop 11/11/16 at 18:50; Status DC Fentanyl Citrate (Fentanyl 2ml Vial) 25 mcg PRN Q2HR PRN IV PAIN Last administered on 11/17/16 13:10; Start 11/07/16 at 20:00 Diltiazem HCl (Cardizem) 30 mg Q8HRS PO Last administered on 11/08/16 21:21; Start 11/08/16 at 12:00; Stop 11/09/16 at 10:39; Status DC Digoxin (Lanoxin) 500 mcg 1X ONCE IV Last administered on 11/08/16 12:28; Start 11/08/16 at 12:15; Stop 11/08/16 at 12:19; Status DC Digoxin (Lanoxin) 125 mcg DAILY PO Last administered on 11/11/16 08:58; Start 11/09/16 at 09:00; Stop 11/13/16 at 12:48; Status DC Budesonide (Pulmicort) 0.5 mg RTBID NEB Last administered on 11/11/16 09:32; Start 11/09/16 at 09:00; Stop 11/11/16 at 18:50; Status DC Diltiazem HCl 120 mg 120 mg DAILY PO Last administered on 11/11/16 08:57; Start 11/09/16 at 11:00; Stop 11/13/16 at 12:48; Status DC Magnesium Sulfate/ Dextrose (Magnesium Sulfate PREMIX 2GM) 50 ml @ 25 mls/hr PRN DAILY PRN IV for Mag < 1.7 on am labs; Start 11/09/16 at 15:45 Nystatin (Nystop) 1 hong TID TP Last administered on 11/17/16 21:11; Start at 21:00 Levetiracetam (Keppra) 500 mg QHS PO Last administered on 11/11/16 21:51; Start 11/10/16 at 21:00; Stop 11/13/16 at 12:32; Status DC Labetalol HCl 10 mg 10 mg PRN Q2HR PRN IVP HYPERTENSION, SEE COMMENTS; Start at 09:45 Sodium Phosphate/ Dextrose 256.6667 ml @ 64.167 m... 1X ONCE IV Last administered on 11/10/16 13:49; Start 11/10/16 at 14:00; Stop 11/10/16 at 17:59 ; Status DC Scopolamine (Transderm-Scop) 1 patch Q3DAYS TD Last administered on 11/17/16 08:22; Start 11/11/16 at 11:30 Furosemide (Lasix) 40 mg 1X ONCE IVP Last administered on 11/11/16 11:43; Start 11/11/16 at 11:30; Stop 11/11/16 at 11:31; Status DC Albuterol/ Ipratropium (Duoneb) 3 ml RTQID NEB Last administered on 11/18/16 07:29; Start 11/11/16 at 12:00 Furosemide (Lasix) 40 mg 1X ONCE IVP Last administered on 11/12/16 12:41; Start 11/12/16 at 12:00; Stop 11/12/16 at 12:01; Status DC Haloperidol Lactate 1 mg 1 mg PRN TID PRN IVP AGITATION Last administered on 02:33; Start 11/13/16 at 04:45 Levetiracetam/ Sodium Chloride (Keppra/Iv Sodium Chloride 0.9% 100ml) 105 ml @ 400 mls/hr Q12HR IV Last administered on 11/17/16 21:10; Start 11/13/16 at 10: 30; Stop 11/18/16 at 09:44; Status DC Furosemide 20 mg 20 mg 1X ONCE IVP Last administered on 11/13/16 17:46; Start 11/13/16 at 11:30; Stop 11/13/16 at 11:31; Status DC Levetiracetam/ Sodium Chloride (Keppra/Iv Sodium Chloride 0.9% 100ml) 105 ml @ 400 mls/hr QHS IV ; Start 11/13/16 at 21:00; Stop 11/13/16 at 21:00; Status DC Pantoprazole Sodium (Protonix Vial) 40 mg DAILYAC IVP Last administered on 11/17 08:21; Start 11/13/16 at 13:00; Stop 11/18/16 at 09:44; Status DC Diltiazem HCl (Cardizem) 10 mg 1X ONCE IVP Last administered on 11/13/16 14: 51; Start 11/13/16 at 13:00; Stop 11/13/16 at 13:01; Status DC Digoxin (Lanoxin) 125 mcg DAILY IV Last administered on 11/17/16 08:22; Start 11/14/16 at 09:00; Stop 11/18/16 at 09:44; Status DC Alteplase, Recombinant 4 mg 4 mg 1X ONCE INT CAT Last administered on 17:10; Start 11/13/16 at 16:30; Stop 11/13/16 at 16:31; Status DC Potassium Phosphate 13.6 mmol/Sodium Chloride 104.5333 ml @ 52.267 m... Q2H IV Last administered on 11/13/16 22:16; Start 11/13/16 at 17:00; Stop 11/13/16 at 22:59; Status DC Amino Acids/ Electrolytes 1,000 ml @ 80 mls/hr [id number] IV Last administered on 11/15/16 15:22; Start 11/14/16 at 10:00; Stop 11/16/16 at 03:34; Status DC Amino Acids/ Glycerin/ Electrolytes (Procalamine) 1,000 ml @ 80 mls/hr [id number] IV ; Start 11/14/16 at 11:00; Status UNV Sotalol HCl (Betapace) 80 mg BID PO Last administered on 11/15/16 12:20; Start 11/15/16 at 10:00; Stop 11/15/16 at 21:13; Status DC Acetaminophen/ Aspirin/Caffeine 1 tab 1 tab PRN Q6HRS PRN PO MIGRAINE HEADACHE Last administered on 11/17/16 03:34; Start 11/15/16 at 18:00 Amino Acids/ Electrolytes/ Dextrose (Clinimix E 4.25%-5% Solution) 1,000 ml @ 80 mls/hr [id number] IV Last administered on 11/17/16 21:10; Start 11/16/16 at 03 :34; Stop 11/18/16 at 09:44; Status DC Lorazepam (Ativan Intensol) 2 mg PRN Q6HRS PRN SL ANXIETY / AGITATION; Start at 09:45 Active Scripts Active Glipizide 5 Mg Tablet 5 Mg PO DAILY Take one-half a tablet daily. Lasix (Furosemide) 40 Mg Tablet 40 Mg PO DAILY Reported Levofloxacin 250 Mg Tablet 250 Mg PO DAILY Amlodipine Besylate 5 Mg Tablet 5 Mg PO DAILY Keppra (Levetiracetam) 500 Mg Tablet 250 Mg PO HS Crestor (Rosuvastatin Calcium) 20 Mg Tablet 20 Mg PO HS Lamictal (Lamotrigine) 100 Mg Tablet 100 Mg PO BID Vitals/I & O Vital Sign - Last 24 Hours 11/17/16 11/17/16 11/17/16 11/17/16 11:12 12:35 13:10 13:45 Temp 98.2 98.2 Pulse 71 Resp 18 20 18 B/P 133/63 Pulse Ox 97 96 96 96 O2 Delivery Nasal Cannula Nasal Cannula Nasal Cannula Nasal Cannula O2 Flow Rate 6.0 5.0 5.0 5.0 11/17/16 11/17/16 11/17/16 11/17/16 15:00 16:30 19:00 19:57 Temp 98.5 96.3 98.5 96.3 Pulse 73 74 Resp 16 21 B/P 151/67 141/55 Pulse Ox 91 80 95 95 O2 Delivery Nasal Cannula Nasal Cannula Nasal Cannula Nasal Cannula O2 Flow Rate 5.0 5.0 6.0 5.0 11/17/16 11/17/16 11/18/16 11/18/16 20:00 23:00 03:00 07:30 Temp 98.2 97.5 98.2 97.5 Pulse 72 76 Resp 21 23 B/P 155/67 158/56 Pulse Ox 94 93 97 O2 Delivery Nasal Cannula Nasal Cannula Nasal Cannula Nasal Cannula O2 Flow Rate 6.0 6.0 6.0 5.0 11/18/16 07:31 Temp 97.9 97.9 Pulse 73 Resp 21 B/P 120/72 Pulse Ox 96 O2 Delivery Nasal Cannula O2 Flow Rate 6.0 Intake and Output 11/17/16 11/17/16 11/18/16 15:00 23:00 07:00 Intake Total 457 ml 340 ml Output Total 800 ml Balance -343 ml 340 ml WINTER WALL MD Nov 18, 2016 10:06
--- NOTE | 2016-11-18 10:23 | PDOC ---
PROGRESS NOTES Assessment Problems Medical Problems: (1) Aspiration pneumonia Status: Acute (2) Aspiration pneumonia Status: Acute (3) Hypoxia Status: Acute (4) Influenza Status: Acute (5) Influenza Status: Acute (6) Respiratory failure Status: Acute Metabolic encephalopathy, better. Dysphagia, better Plan Levetiracetam IV was stopped, will switch to PO Subjective wants to go home Objective Vital Signs Date Time Temp Pulse Resp B/P Pulse Ox O2 Delivery O2 Flow Rate FiO2 11/18/16 07:31 97.9 73 21 120/72 96 Nasal Cannula 6.0 97.9 Intake and Output 11/18/16 07:00 Intake Total 797 ml Output Total 800 ml Balance -3 ml Intake Oral 340 ml IV Total 457 ml Output Urine Total 800 ml # Bowel Movements 2 PHYSICAL EXAM Eyes open, knows place and person PERRL. EOMI. CN: no focal findings. Muscle tone: normal Muscle strength: 3-4/5 DTR: 1+ Plantar reflex: silent Gait: not examined in bed. Sensory exam: not tested Cerebellar: not tested Review of Relevant I have reviewed the following items lucy (where applicable) has been applied. Labs Laboratory Tests Test 11/16/16 11:34 11/16/16 16:35 11/16/16 20:53 11/17/16 08:19 Glucose (Fingerstick) 157mg/dL (70-99) 153mg/dL (70-99) 150mg/dL (70-99) 145mg/dL (70-99) Test 11/17/16 11:09 11/17/16 17:18 11/17/16 21:01 11/18/16 05:10 Glucose (Fingerstick) 149mg/dL (70-99) 172mg/dL (70-99) 192mg/dL (70-99) White Blood Count 7.7x10^3/uL (4.0-11.0) Red Blood Count 3.64x10^6/uL (3.50-5.40) Hemoglobin 11.4g/dL (12.0-15.5) Hematocrit 34.3% (36.0-47.0) Mean Corpuscular Volume 94fL (79-100) Mean Corpuscular Hemoglobin 31pg (25-35) Mean Corpuscular Hemoglobin Concent 33g/dL (31-37) Red Cell Distribution Width 16.4% (11.5-14.5) Platelet Count 234x10^3/uL (140-400) Sodium Level 147mmol/L (136-145) Potassium Level 4.0mmol/L (3.5-5.1) Chloride Level 106mmol/L (98-107) Carbon Dioxide Level 36mmol/L (21-32) Anion Gap 5 (6-14) Blood Urea Nitrogen 37mg/dL (7-20) Creatinine 1.4mg/dL (0.6-1.0) Estimated GFR (Cockcroft-Gault) 35.8 Glucose Level 200mg/dL (70-99) Calcium Level 8.9mg/dL (8.5-10.1) Test 11/18/16 08:22 Glucose (Fingerstick) 178mg/dL (70-99) Laboratory Tests Test 11/17/16 11:09 11/17/16 17:18 11/17/16 21:01 11/18/16 05:10 Glucose (Fingerstick) 149mg/dL (70-99) 172mg/dL (70-99) 192mg/dL (70-99) White Blood Count 7.7x10^3/uL (4.0-11.0) Red Blood Count 3.64x10^6/uL (3.50-5.40) Hemoglobin 11.4g/dL (12.0-15.5) Hematocrit 34.3% (36.0-47.0) Mean Corpuscular Volume 94fL (79-100) Mean Corpuscular Hemoglobin 31pg (25-35) Mean Corpuscular Hemoglobin Concent 33g/dL (31-37) Red Cell Distribution Width 16.4% (11.5-14.5) Platelet Count 234x10^3/uL (140-400) Sodium Level 147mmol/L (136-145) Potassium Level 4.0mmol/L (3.5-5.1) Chloride Level 106mmol/L (98-107) Carbon Dioxide Level 36mmol/L (21-32) Anion Gap 5 (6-14) Blood Urea Nitrogen 37mg/dL (7-20) Creatinine 1.4mg/dL (0.6-1.0) Estimated GFR (Cockcroft-Gault) 35.8 Glucose Level 200mg/dL (70-99) Calcium Level 8.9mg/dL (8.5-10.1) Test 11/18/16 08:22 Glucose (Fingerstick) 178mg/dL (70-99) Microbiology 11/13/16 Blood Culture - Preliminary, Resulted NO GROWTH AFTER 4 DAYS Medications Current Medications Sodium Chloride (Iv Sodium Chloride 0.9% 1000ml Bag) 1,000 ml @ 200 mls/hr Q5H IV Last administered on 11/05/16 12:25; Start 11/05/16 at 11:35; Stop at 16:34; Status DC Oseltamivir Phosphate 75 mg 75 mg DAILY PO Last administered on 11/05/16 12:24 ; Start 11/05/16 at 12:30; Stop 11/05/16 at 12:30; Status DC Piperacillin Sod/ Tazobactam Sod/ Sodium Chloride (Zosyn/Iv Sodium Chloride 0.9 % 50ml) 50 ml @ 100 mls/hr 1X ONCE IV Last administered on 11/05/16 12:39; Start 11/05/16 at 12:45; Stop 11/05/16 at 13:14; Status DC Oseltamivir Phosphate (Tamiflu) 30 mg BID PO Last administered on 11/06/16 09: 27; Start 11/05/16 at 21:00; Stop 11/07/16 at 14:19; Status DC Potassium Chloride (KCl Oral Soln) 40 meq 1X ONCE PO Last administered on 11/05 13:49; Start 11/05/16 at 13:15; Stop 11/05/16 at 13:16; Status DC Amlodipine Besylate (Norvasc) 5 mg DAILY PO Last administered on 11/06/16 09: 28; Start 11/06/16 at 09:00; Stop 11/08/16 at 12:18; Status DC Glipizide (Glucotrol) 5 mg DAILY PO Last administered on 11/11/16 08:57; Start 11/06/16 at 09:00; Stop 11/13/16 at 12:18; Status DC Lamotrigine (LaMICtal) 100 mg BID PO Last administered on 11/11/16 21:51; Start 11/05/16 at 21:00; Stop 11/13/16 at 12:18; Status DC Levetiracetam (Keppra) 250 mg HS PO Last administered on 11/05/16 20:19; Start 11/05/16 at 21:00; Stop 11/06/16 at 12:12; Status DC Atorvastatin Calcium (Lipitor) 80 mg QHS PO Last administered on 11/11/16 21: 51; Start 11/05/16 at 21:00; Stop 11/13/16 at 12:18; Status DC Acetaminophen (Tylenol) 650 mg PRN Q6HRS PRN PO MILD PAIN / TEMP Last administered on 11/11/16 21:51; Start 11/05/16 at 16:15 Ondansetron HCl 4 mg 4 mg PRN Q6HRS PRN IV NAUSEA/VOMITING; Start 11/05/16 at 16:15 Potassium Chloride/Dextrose/ Sod Cl (KCl 20 Meq In D5W-NS) 1,000 ml @ 75 mls/ hr [id number] IV ; Start 11/05/16 at 16:15; Stop 11/05/16 at 16:15; Status DC Insulin Aspart (Novolog) 0-9 UNITS TIDWMEALS SQ Last administered on 11/18/16 08:00; Start 11/05/16 at 17:00 Dextrose 12.5 gm PRN Q15MIN PRN IV SEE COMMENTS Last administered on 11/15/16 09:18; Start 11/05/16 at 16:15 Heparin Sodium (Porcine) 5,000 unit Q8HRS SQ Last administered on 11/18/16 05: 54; Start 11/05/16 at 22:00 Hydralazine HCl (Apresoline) 10 mg PRN Q4HRS PRN IVP ELEVATED BP, SEE COMMENTS ; Start 11/05/16 at 16:15 Albuterol/ Ipratropium (Duoneb) 3 ml RTQID NEB Last administered on 11/11/16 09:32; Start 11/05/16 at 20:00; Stop 11/11/16 at 11:29; Status DC Albuterol Sulfate 2.5 mg 2.5 mg PRN Q4HRS PRN NEB SHORTNESS OF BREATH; Start at 16:15 Potassium Chloride/Sodium Chloride 1,000 ml @ 75 mls/hr [id number] IV Last administered on 11/07/16 09:00; Start 11/05/16 at 17:00; Stop 11/07/16 at 12:10 ; Status DC Levetiracetam 500 mg/Sodium Chloride 105 ml @ 400 mls/hr HS IV Last administered on 11/09/16 21:28; Start 11/06/16 at 21:00; Stop 11/10/16 at 09:24 ; Status DC Potassium Chloride/Dextrose/ Sod Cl (KCl 20 Meq In D5W-1/2 NS) 1,000 ml @ 100 mls/hr 1X ONCE IV Last administered on 11/06/16 17:17; Start 11/06/16 at 13: 00; Stop 11/06/16 at 22:59; Status DC Enoxaparin Sodium (Lovenox Per Pharmacy Prophylaxis Dosing) 1 each PRN DAILY PRN MC SEE COMMENTS; Start 11/06/16 at 13:00; Status UNV Piperacillin Sod/ Tazobactam Sod 1 each 1 each PRN DAILY PRN MC SEE COMMENTS; Start 11/06/16 at 18:15; Stop 11/08/16 at 12:53; Status DC Piperacillin Sod/ Tazobactam Sod 3.375 gm/Sodium Chloride 50 ml @ 100 mls/hr Q6HRS IV Last administered on 11/07/16 11:17; Start 11/06/16 at 19:00; Stop at 14:21; Status DC Amino Acids/ Glycerin/ Electrolytes (Procalamine) 1,000 ml @ 80 mls/hr [id number] IV Last administered on 11/11/16 02:20; Start 11/07/16 at 12:15; Stop at 11:22; Status DC Guaifenesin (Robitussin Dm) 10 ml PRN Q6HRS PRN PO COUGH; Start 11/07/16 at 12: 30 Oseltamivir Phosphate 30 mg 30 mg DAILY PO Last administered on 11/10/16 08:50 ; Start 11/08/16 at 09:00; Stop 11/10/16 at 20:59; Status DC Piperacillin Sod/ Tazobactam Sod/ Sodium Chloride (Zosyn/Iv Sodium Chloride 0.9 % 50ml) 50 ml @ 100 mls/hr Q6HRS IV Last administered on 11/11/16 17:44; Start 11/07/16 at 18:00; Stop 11/11/16 at 18:50; Status DC Fentanyl Citrate (Fentanyl 2ml Vial) 25 mcg PRN Q2HR PRN IV PAIN Last administered on 11/17/16 13:10; Start 11/07/16 at 20:00 Diltiazem HCl (Cardizem) 30 mg Q8HRS PO Last administered on 11/08/16 21:21; Start 11/08/16 at 12:00; Stop 11/09/16 at 10:39; Status DC Digoxin (Lanoxin) 500 mcg 1X ONCE IV Last administered on 11/08/16 12:28; Start 11/08/16 at 12:15; Stop 11/08/16 at 12:19; Status DC Digoxin (Lanoxin) 125 mcg DAILY PO Last administered on 11/11/16 08:58; Start 11/09/16 at 09:00; Stop 11/13/16 at 12:48; Status DC Budesonide (Pulmicort) 0.5 mg RTBID NEB Last administered on 11/11/16 09:32; Start 11/09/16 at 09:00; Stop 11/11/16 at 18:50; Status DC Diltiazem HCl 120 mg 120 mg DAILY PO Last administered on 11/11/16 08:57; Start 11/09/16 at 11:00; Stop 11/13/16 at 12:48; Status DC Magnesium Sulfate/ Dextrose (Magnesium Sulfate PREMIX 2GM) 50 ml @ 25 mls/hr PRN DAILY PRN IV for Mag < 1.7 on am labs; Start 11/09/16 at 15:45 Nystatin (Nystop) 1 hong TID TP Last administered on 11/17/16 21:11; Start at 21:00 Levetiracetam (Keppra) 500 mg QHS PO Last administered on 11/11/16 21:51; Start 11/10/16 at 21:00; Stop 11/13/16 at 12:32; Status DC Labetalol HCl 10 mg 10 mg PRN Q2HR PRN IVP HYPERTENSION, SEE COMMENTS; Start at 09:45 Sodium Phosphate/ Dextrose 256.6667 ml @ 64.167 m... 1X ONCE IV Last administered on 11/10/16 13:49; Start 11/10/16 at 14:00; Stop 11/10/16 at 17:59 ; Status DC Scopolamine (Transderm-Scop) 1 patch Q3DAYS TD Last administered on 11/17/16 08:22; Start 11/11/16 at 11:30 Furosemide (Lasix) 40 mg 1X ONCE IVP Last administered on 11/11/16 11:43; Start 11/11/16 at 11:30; Stop 11/11/16 at 11:31; Status DC Albuterol/ Ipratropium (Duoneb) 3 ml RTQID NEB Last administered on 11/18/16 07:29; Start 11/11/16 at 12:00 Furosemide (Lasix) 40 mg 1X ONCE IVP Last administered on 11/12/16 12:41; Start 11/12/16 at 12:00; Stop 11/12/16 at 12:01; Status DC Haloperidol Lactate 1 mg 1 mg PRN TID PRN IVP AGITATION Last administered on 02:33; Start 11/13/16 at 04:45 Levetiracetam/ Sodium Chloride (Keppra/Iv Sodium Chloride 0.9% 100ml) 105 ml @ 400 mls/hr Q12HR IV Last administered on 11/17/16 21:10; Start 11/13/16 at 10: 30; Stop 11/18/16 at 09:44; Status DC Furosemide 20 mg 20 mg 1X ONCE IVP Last administered on 11/13/16 17:46; Start 11/13/16 at 11:30; Stop 11/13/16 at 11:31; Status DC Levetiracetam/ Sodium Chloride (Keppra/Iv Sodium Chloride 0.9% 100ml) 105 ml @ 400 mls/hr QHS IV ; Start 11/13/16 at 21:00; Stop 11/13/16 at 21:00; Status DC Pantoprazole Sodium (Protonix Vial) 40 mg DAILYAC IVP Last administered on 11/17 08:21; Start 11/13/16 at 13:00; Stop 11/18/16 at 09:44; Status DC Diltiazem HCl (Cardizem) 10 mg 1X ONCE IVP Last administered on 11/13/16 14: 51; Start 11/13/16 at 13:00; Stop 11/13/16 at 13:01; Status DC Digoxin (Lanoxin) 125 mcg DAILY IV Last administered on 11/17/16 08:22; Start 11/14/16 at 09:00; Stop 11/18/16 at 09:44; Status DC Alteplase, Recombinant 4 mg 4 mg 1X ONCE INT CAT Last administered on 17:10; Start 11/13/16 at 16:30; Stop 11/13/16 at 16:31; Status DC Potassium Phosphate 13.6 mmol/Sodium Chloride 104.5333 ml @ 52.267 m... Q2H IV Last administered on 11/13/16 22:16; Start 11/13/16 at 17:00; Stop 11/13/16 at 22:59; Status DC Amino Acids/ Electrolytes 1,000 ml @ 80 mls/hr [id number] IV Last administered on 11/15/16 15:22; Start 11/14/16 at 10:00; Stop 11/16/16 at 03:34; Status DC Amino Acids/ Glycerin/ Electrolytes (Procalamine) 1,000 ml @ 80 mls/hr [id number] IV ; Start 11/14/16 at 11:00; Status UNV Sotalol HCl (Betapace) 80 mg BID PO Last administered on 11/15/16 12:20; Start 11/15/16 at 10:00; Stop 11/15/16 at 21:13; Status DC Acetaminophen/ Aspirin/Caffeine 1 tab 1 tab PRN Q6HRS PRN PO MIGRAINE HEADACHE Last administered on 11/17/16 03:34; Start 11/15/16 at 18:00 Amino Acids/ Electrolytes/ Dextrose (Clinimix E 4.25%-5% Solution) 1,000 ml @ 80 mls/hr [id number] IV Last administered on 11/17/16 21:10; Start 11/16/16 at 03 :34; Stop 11/18/16 at 09:44; Status DC Lorazepam (Ativan Intensol) 2 mg PRN Q6HRS PRN SL ANXIETY / AGITATION; Start at 09:45 Active Scripts Active Glipizide 5 Mg Tablet 5 Mg PO DAILY Take one-half a tablet daily. Lasix (Furosemide) 40 Mg Tablet 40 Mg PO DAILY Reported Levofloxacin 250 Mg Tablet 250 Mg PO DAILY Amlodipine Besylate 5 Mg Tablet 5 Mg PO DAILY Keppra (Levetiracetam) 500 Mg Tablet 250 Mg PO HS Crestor (Rosuvastatin Calcium) 20 Mg Tablet 20 Mg PO HS Lamictal (Lamotrigine) 100 Mg Tablet 100 Mg PO BID Vitals/I & O Vital Sign - Last 24 Hours 11/17/16 11/17/16 11/17/16 11/17/16 11:12 12:35 13:10 13:45 Temp 98.2 98.2 Pulse 71 Resp 18 18 B/P 133/63 Pulse Ox 97 96 96 96 O2 Delivery Nasal Cannula Nasal Cannula Nasal Cannula Nasal Cannula O2 Flow Rate 6.0 5.0 5.0 5.0 11/17/16 11/17/16 11/17/16 11/17/16 15:00 16:30 19:00 19:57 Temp 98.5 96.3 98.5 96.3 Pulse 73 74 Resp 16 21 B/P 151/67 141/55 Pulse Ox 91 80 95 95 O2 Delivery Nasal Cannula Nasal Cannula Nasal Cannula Nasal Cannula O2 Flow Rate 5.0 5.0 6.0 5.0 11/17/16 11/17/16 11/18/16 11/18/16 20:00 23:00 03:00 07:30 Temp 98.2 97.5 98.2 97.5 Pulse 72 76 Resp 21 23 B/P 155/67 158/56 Pulse Ox 94 93 97 O2 Delivery Nasal Cannula Nasal Cannula Nasal Cannula Nasal Cannula O2 Flow Rate 6.0 6.0 6.0 5.0 11/18/16 07:31 Temp 97.9 97.9 Pulse 73 Resp 21 B/P 120/72 Pulse Ox 96 O2 Delivery Nasal Cannula O2 Flow Rate 6.0 Intake and Output 11/17/16 11/17/16 11/18/16 15:00 23:00 07:00 Intake Total 457 ml 340 ml Output Total 800 ml Balance -343 ml 340 ml ALBARO DUKE MD Nov 18, 2016 10:23
--- NOTE | 2016-11-18 11:08 | PDOC ---
PULMONARY PROGRESS NOTES Subjective confused today Vitals Vital Signs Date Time Temp Pulse Resp B/P Pulse Ox O2 Delivery O2 Flow Rate FiO2 11/18/16 08:10 Nasal Cannula 6.0 11/18/16 07:31 97.9 73 21 120/72 96 97.9 General: Alert, No acute distress Lungs: Clear Cardiovascular: S1, S2 Abdomen: Soft, Non-tender Neuro Exam: Alert, Oriented Extremities: Other Skin: Warm Labs Laboratory Tests Test 11/16/16 11:34 11/16/16 16:35 11/16/16 20:53 11/17/16 08:19 Glucose (Fingerstick) 157mg/dL (70-99) 153mg/dL (70-99) 150mg/dL (70-99) 145mg/dL (70-99) Test 11/17/16 11:09 11/17/16 17:18 11/17/16 21:01 11/18/16 05:10 Glucose (Fingerstick) 149mg/dL (70-99) 172mg/dL (70-99) 192mg/dL (70-99) White Blood Count 7.7x10^3/uL (4.0-11.0) Red Blood Count 3.64x10^6/uL (3.50-5.40) Hemoglobin 11.4g/dL (12.0-15.5) Hematocrit 34.3% (36.0-47.0) Mean Corpuscular Volume 94fL (79-100) Mean Corpuscular Hemoglobin 31pg (25-35) Mean Corpuscular Hemoglobin Concent 33g/dL (31-37) Red Cell Distribution Width 16.4% (11.5-14.5) Platelet Count 234x10^3/uL (140-400) Sodium Level 147mmol/L (136-145) Potassium Level 4.0mmol/L (3.5-5.1) Chloride Level 106mmol/L (98-107) Carbon Dioxide Level 36mmol/L (21-32) Anion Gap 5 (6-14) Blood Urea Nitrogen 37mg/dL (7-20) Creatinine 1.4mg/dL (0.6-1.0) Estimated GFR (Cockcroft-Gault) 35.8 Glucose Level 200mg/dL (70-99) Calcium Level 8.9mg/dL (8.5-10.1) Test 11/18/16 08:22 Glucose (Fingerstick) 178mg/dL (70-99) Laboratory Tests Test 11/17/16 11:09 11/17/16 17:18 11/17/16 21:01 11/18/16 05:10 Glucose (Fingerstick) 149mg/dL (70-99) 172mg/dL (70-99) 192mg/dL (70-99) White Blood Count 7.7x10^3/uL (4.0-11.0) Red Blood Count 3.64x10^6/uL (3.50-5.40) Hemoglobin 11.4g/dL (12.0-15.5) Hematocrit 34.3% (36.0-47.0) Mean Corpuscular Volume 94fL (79-100) Mean Corpuscular Hemoglobin 31pg (25-35) Mean Corpuscular Hemoglobin Concent 33g/dL (31-37) Red Cell Distribution Width 16.4% (11.5-14.5) Platelet Count 234x10^3/uL (140-400) Sodium Level 147mmol/L (136-145) Potassium Level 4.0mmol/L (3.5-5.1) Chloride Level 106mmol/L (98-107) Carbon Dioxide Level 36mmol/L (21-32) Anion Gap 5 (6-14) Blood Urea Nitrogen 37mg/dL (7-20) Creatinine 1.4mg/dL (0.6-1.0) Estimated GFR (Cockcroft-Gault) 35.8 Glucose Level 200mg/dL (70-99) Calcium Level 8.9mg/dL (8.5-10.1) Test 11/18/16 08:22 Glucose (Fingerstick) 178mg/dL (70-99) Medications Active Scripts Medications Dose Route/Sig Days Date Category Dose Instructions Levofloxacin 250 Mg Tablet 250 Mg PO DAILY 08/11/16 Reported Amlodipine Besylate 5 Mg Tablet 5 Mg PO DAILY 08/11/16 Reported Keppra (Levetiracetam) 500 Mg Tablet 250 Mg PO HS 08/08/16 Reported Glipizide 5 Mg Tablet 5 Mg PO DAILY 12/22/13 Rx Take one-half a tablet daily. Lasix (Furosemide) 40 Mg Tablet 40 Mg PO DAILY 12/22/13 Rx Crestor (Rosuvastatin Calcium) 20 Mg Tablet 20 Mg PO HS 10/24/13 Reported Lamictal (Lamotrigine) 100 Mg Tablet 100 Mg PO BID 10/24/13 Reported Comments cxr reviewed, Cardiomegaly, similar. Mild congestive heart failure. Superimposed pneumonia in the right upper lobe is not entirely excluded. Small bilateral pleural effusions Impression . 1. [id number] hypercapnic respiratory failure./multi-factorial 2. Aspiration pneumonia./?diastolic HF 3. Dysphagia. 4. Coronary artery disease. 5. Hypertension. 6. Depression. 7. Acute renal failure. 8. Hyperkalemia. 9. Acute metabolic toxic encephalopathy. 10. underlying DELANEY/OHS Plan . 1. Had a long discussion with family 11/14. Pt prefers to have pain meds for comfort,. I will keep her comfortable. off BIPAP 2. Continue oxygen supplementation. 3. Nebulized treatments. 4. supportive care 5. no further recommendations SHIMON DE LA CRUZ MD Nov 18, 2016 11:08
--- NOTE | 2016-11-18 11:19 | PDOC ---
Renal-Progress Notes Subjective Notes Notes NONE History of Present Illness Hx of present illness NO CHANGE Vitals Vitals Vital Signs Date Time Temp Pulse Resp B/P Pulse Ox O2 Delivery O2 Flow Rate FiO2 11/18/16 08:10 Nasal Cannula 6.0 11/18/16 07:31 97.9 73 21 120/72 96 97.9 Weight Weight [ ] I.O. Intake and Output Intake and Output 11/18/16 06:59 Intake Total 797 ml Output Total 800 ml Balance -3 ml Intake Oral 340 ml IV Total 457 ml Output Urine Total 800 ml # Bowel Movements 2 Labs Labs Laboratory Tests Test 11/17/16 17:18 11/17/16 21:01 11/18/16 05:10 11/18/16 08:22 Glucose (Fingerstick) 172mg/dL (70-99) 192mg/dL (70-99) 178mg/dL (70-99) White Blood Count 7.7x10^3/uL (4.0-11.0) Red Blood Count 3.64x10^6/uL (3.50-5.40) Hemoglobin 11.4g/dL (12.0-15.5) Hematocrit 34.3% (36.0-47.0) Mean Corpuscular Volume 94fL (79-100) Mean Corpuscular Hemoglobin 31pg (25-35) Mean Corpuscular Hemoglobin Concent 33g/dL (31-37) Red Cell Distribution Width 16.4% (11.5-14.5) Platelet Count 234x10^3/uL (140-400) Sodium Level 147mmol/L (136-145) Potassium Level 4.0mmol/L (3.5-5.1) Chloride Level 106mmol/L (98-107) Carbon Dioxide Level 36mmol/L (21-32) Anion Gap 5 (6-14) Blood Urea Nitrogen 37mg/dL (7-20) Creatinine 1.4mg/dL (0.6-1.0) Estimated GFR (Cockcroft-Gault) 35.8 Glucose Level 200mg/dL (70-99) Calcium Level 8.9mg/dL (8.5-10.1) Micro Micro Microbiology 11/13/16 Blood Culture - Final, Complete NO GROWTH AFTER 5 DAYS Review of Systems Constitutional: yes: no symptom reported Physical Exam General Appearance: no apparent distress Skin: warm Heart: S1S2, RRR Abdomen: soft, bowel sounds present Genitourinary: bladder flat Extremities: pulses present Neurology: alert Musculoskeletal: Osteoarthritis Assessment Assessment IMP SHEYLA-BETTER WITH CR 2.9 TO 1.7 CKD STAGE 3 - CR OF 1.4-1.7 AT BASELINE SEIZURE ASP PNEUMONIA HYPERNATREMIA PLAN CONT PPN CONT ANTIBIOTICS WILL FOLLOW PALLIATIVE/COMFORT CARE WOULD BE APPROPRIATE SCOT MARCELINO MD Nov 18, 2016 11:19
[2016-11-18 11:21] VITALS: BP 107/62
[2016-11-18] MEDS: LEVETIRACETAM 500 MG TABLET PO SCH ×2 (12:46→20:28)
--- NOTE | 2016-11-18 14:35 | PDOC ---
PROGRESS NOTES Chief Complaint Chief Complaint Acute on chronic respir failure ASSESSMENT AND PLAN: 1. Influenza A: Tamiflu x5d completed 2. Aspiration pneumonitis: recovering. remains NPO for now. (see below) 3. COPD (exacerbation): required BiPAP initially, has been on NC 2L (home regimen) - off BiPAP for several days now 4. CHF: chronic, (mild) diastolic, preserved EF. no acute issues 5. Sepsis: resolved 6. New onset atrial fib/flutter, intermittent RVR: currently rate controlled on digoxin. Dr Osorio following 7. HSEYLA on CKD: recovered to baseline creat ~1.5 8. Hypokalemia: resolved 9. DM2: fluctuating. on ISS 10. HTN: oral meds on hold, but BPs well controlled 11. HLD: statin on hold (NPO) 12. seizure disorder: on keppra IV 13. AMS: metabolic encephalopathy with flu/ SHEYLA vs post ictal. resolved 14. Dysphagia: observed to cough after sips of water. NPO for now until formal swallow eval on Friday. on PPN 15. Dispo: needs OT/PT eval. anticipate rehab placement. transfer to floor . History of Present Illness History of Present Illness lethargic, SOA No more bIPAP as per pulmo note Wants just comfort BUt does not want hospice PLAN SHift IV keppra and digoxin to PO PAssed dysphagia diet 1 and honey thickened DNR Start intensol PO prn Dw SW - dtr wants SNU but active med tx COnt IV prolamanine for now Vitals Vitals Vital Signs Date Time Temp Pulse Resp B/P Pulse Ox O2 Delivery O2 Flow Rate FiO2 11/18/16 11:25 95 Nasal Cannula 5.0 11/18/16 11:21 98.3 73 20 107/62 98.3 Physical Exam General: Alert, Oriented X3, Cooperative, No acute distress Heart: Regular rate Lungs: Clear Abdomen: Normal bowel sounds, Soft, No tenderness Extremities: No clubbing, No cyanosis, Other (mild chronic peripheral edema of upper and lower extremity) Skin: No rashes Labs LABS Laboratory Tests Test 11/17/16 17:18 11/17/16 21:01 11/18/16 05:10 11/18/16 08:22 Glucose (Fingerstick) 172mg/dL (70-99) 192mg/dL (70-99) 178mg/dL (70-99) White Blood Count 7.7x10^3/uL (4.0-11.0) Red Blood Count 3.64x10^6/uL (3.50-5.40) Hemoglobin 11.4g/dL (12.0-15.5) Hematocrit 34.3% (36.0-47.0) Mean Corpuscular Volume 94fL (79-100) Mean Corpuscular Hemoglobin 31pg (25-35) Mean Corpuscular Hemoglobin Concent 33g/dL (31-37) Red Cell Distribution Width 16.4% (11.5-14.5) Platelet Count 234x10^3/uL (140-400) Sodium Level 147mmol/L (136-145) Potassium Level 4.0mmol/L (3.5-5.1) Chloride Level 106mmol/L (98-107) Carbon Dioxide Level 36mmol/L (21-32) Anion Gap 5 (6-14) Blood Urea Nitrogen 37mg/dL (7-20) Creatinine 1.4mg/dL (0.6-1.0) Estimated GFR (Cockcroft-Gault) 35.8 Glucose Level 200mg/dL (70-99) Calcium Level 8.9mg/dL (8.5-10.1) Test 11/18/16 11:29 Glucose (Fingerstick) 173mg/dL (70-99) Review of Systems Review of Systems lethargic Assessment and Plan Assessmemt and Plan Problems Medical Problems: (1) Aspiration pneumonia Status: Acute (2) Aspiration pneumonia Status: Acute (3) Hypoxia Status: Acute (4) Influenza Status: Acute (5) Influenza Status: Acute (6) Respiratory failure Status: Acute Problems: Comment Review of Relevant I have reviewed the following items lucy (where applicable) has been applied. Labs Laboratory Tests Test 11/16/16 16:35 11/16/16 20:53 11/17/16 08:19 11/17/16 11:09 Glucose (Fingerstick) 153mg/dL (70-99) 150mg/dL (70-99) 145mg/dL (70-99) 149mg/dL (70-99) Test 11/17/16 17:18 11/17/16 21:01 11/18/16 05:10 11/18/16 08:22 Glucose (Fingerstick) 172mg/dL (70-99) 192mg/dL (70-99) 178mg/dL (70-99) White Blood Count 7.7x10^3/uL (4.0-11.0) Red Blood Count 3.64x10^6/uL (3.50-5.40) Hemoglobin 11.4g/dL (12.0-15.5) Hematocrit 34.3% (36.0-47.0) Mean Corpuscular Volume 94fL (79-100) Mean Corpuscular Hemoglobin 31pg (25-35) Mean Corpuscular Hemoglobin Concent 33g/dL (31-37) Red Cell Distribution Width 16.4% (11.5-14.5) Platelet Count 234x10^3/uL (140-400) Sodium Level 147mmol/L (136-145) Potassium Level 4.0mmol/L (3.5-5.1) Chloride Level 106mmol/L (98-107) Carbon Dioxide Level 36mmol/L (21-32) Anion Gap 5 (6-14) Blood Urea Nitrogen 37mg/dL (7-20) Creatinine 1.4mg/dL (0.6-1.0) Estimated GFR (Cockcroft-Gault) 35.8 Glucose Level 200mg/dL (70-99) Calcium Level 8.9mg/dL (8.5-10.1) Test 11/18/16 11:29 Glucose (Fingerstick) 173mg/dL (70-99) Laboratory Tests Test 11/17/16 17:18 11/17/16 21:01 11/18/16 05:10 11/18/16 08:22 Glucose (Fingerstick) 172mg/dL (70-99) 192mg/dL (70-99) 178mg/dL (70-99) White Blood Count 7.7x10^3/uL (4.0-11.0) Red Blood Count 3.64x10^6/uL (3.50-5.40) Hemoglobin 11.4g/dL (12.0-15.5) Hematocrit 34.3% (36.0-47.0) Mean Corpuscular Volume 94fL (79-100) Mean Corpuscular Hemoglobin 31pg (25-35) Mean Corpuscular Hemoglobin Concent 33g/dL (31-37) Red Cell Distribution Width 16.4% (11.5-14.5) Platelet Count 234x10^3/uL (140-400) Sodium Level 147mmol/L (136-145) Potassium Level 4.0mmol/L (3.5-5.1) Chloride Level 106mmol/L (98-107) Carbon Dioxide Level 36mmol/L (21-32) Anion Gap 5 (6-14) Blood Urea Nitrogen 37mg/dL (7-20) Creatinine 1.4mg/dL (0.6-1.0) Estimated GFR (Cockcroft-Gault) 35.8 Glucose Level 200mg/dL (70-99) Calcium Level 8.9mg/dL (8.5-10.1) Test 11/18/16 11:29 Glucose (Fingerstick) 173mg/dL (70-99) Microbiology 11/13/16 Blood Culture - Final, Complete NO GROWTH AFTER 5 DAYS Medications Current Medications Sodium Chloride (Iv Sodium Chloride 0.9% 1000ml Bag) 1,000 ml @ 200 mls/hr Q5H IV Last administered on 11/05/16 12:25; Start 11/05/16 at 11:35; Stop at 16:34; Status DC Oseltamivir Phosphate 75 mg 75 mg DAILY PO Last administered on 11/05/16 12:24 ; Start 11/05/16 at 12:30; Stop 11/05/16 at 12:30; Status DC Piperacillin Sod/ Tazobactam Sod/ Sodium Chloride (Zosyn/Iv Sodium Chloride 0.9 % 50ml) 50 ml @ 100 mls/hr 1X ONCE IV Last administered on 11/05/16 12:39; Start 11/05/16 at 12:45; Stop 11/05/16 at 13:14; Status DC Oseltamivir Phosphate (Tamiflu) 30 mg BID PO Last administered on 11/06/16 09: 27; Start 11/05/16 at 21:00; Stop 11/07/16 at 14:19; Status DC Potassium Chloride (KCl Oral Soln) 40 meq 1X ONCE PO Last administered on 11/05 13:49; Start 11/05/16 at 13:15; Stop 11/05/16 at 13:16; Status DC Amlodipine Besylate (Norvasc) 5 mg DAILY PO Last administered on 11/06/16 09: 28; Start 11/06/16 at 09:00; Stop 11/08/16 at 12:18; Status DC Glipizide (Glucotrol) 5 mg DAILY PO Last administered on 11/11/16 08:57; Start 11/06/16 at 09:00; Stop 11/13/16 at 12:18; Status DC Lamotrigine (LaMICtal) 100 mg BID PO Last administered on 11/11/16 21:51; Start 11/05/16 at 21:00; Stop 11/13/16 at 12:18; Status DC Levetiracetam (Keppra) 250 mg HS PO Last administered on 11/05/16 20:19; Start 11/05/16 at 21:00; Stop 11/06/16 at 12:12; Status DC Atorvastatin Calcium (Lipitor) 80 mg QHS PO Last administered on 11/11/16 21: 51; Start 11/05/16 at 21:00; Stop 11/13/16 at 12:18; Status DC Acetaminophen (Tylenol) 650 mg PRN Q6HRS PRN PO MILD PAIN / TEMP Last administered on 11/11/16 21:51; Start 11/05/16 at 16:15 Ondansetron HCl 4 mg 4 mg PRN Q6HRS PRN IV NAUSEA/VOMITING; Start 11/05/16 at 16:15 Potassium Chloride/Dextrose/ Sod Cl (KCl 20 Meq In D5W-NS) 1,000 ml @ 75 mls/ hr [id number] IV ; Start 11/05/16 at 16:15; Stop 11/05/16 at 16:15; Status DC Insulin Aspart (Novolog) 0-9 UNITS TIDWMEALS SQ Last administered on 11/18/16 12:49; Start 11/05/16 at 17:00 Dextrose 12.5 gm PRN Q15MIN PRN IV SEE COMMENTS Last administered on 11/15/16 09:18; Start 11/05/16 at 16:15 Heparin Sodium (Porcine) 5,000 unit Q8HRS SQ Last administered on 11/18/16 05: 54; Start 11/05/16 at 22:00 Hydralazine HCl (Apresoline) 10 mg PRN Q4HRS PRN IVP ELEVATED BP, SEE COMMENTS ; Start 11/05/16 at 16:15 Albuterol/ Ipratropium (Duoneb) 3 ml RTQID NEB Last administered on 11/11/16 09:32; Start 11/05/16 at 20:00; Stop 11/11/16 at 11:29; Status DC Albuterol Sulfate 2.5 mg 2.5 mg PRN Q4HRS PRN NEB SHORTNESS OF BREATH; Start at 16:15 Potassium Chloride/Sodium Chloride 1,000 ml @ 75 mls/hr [id number] IV Last administered on 11/07/16 09:00; Start 11/05/16 at 17:00; Stop 11/07/16 at 12:10 ; Status DC Levetiracetam 500 mg/Sodium Chloride 105 ml @ 400 mls/hr HS IV Last administered on 11/09/16 21:28; Start 11/06/16 at 21:00; Stop 11/10/16 at 09:24 ; Status DC Potassium Chloride/Dextrose/ Sod Cl (KCl 20 Meq In D5W-1/2 NS) 1,000 ml @ 100 mls/hr 1X ONCE IV Last administered on 11/06/16 17:17; Start 11/06/16 at 13: 00; Stop 11/06/16 at 22:59; Status DC Enoxaparin Sodium (Lovenox Per Pharmacy Prophylaxis Dosing) 1 each PRN DAILY PRN MC SEE COMMENTS; Start 11/06/16 at 13:00; Status UNV Piperacillin Sod/ Tazobactam Sod 1 each 1 each PRN DAILY PRN MC SEE COMMENTS; Start 11/06/16 at 18:15; Stop 11/08/16 at 12:53; Status DC Piperacillin Sod/ Tazobactam Sod 3.375 gm/Sodium Chloride 50 ml @ 100 mls/hr Q6HRS IV Last administered on 11/07/16 11:17; Start 11/06/16 at 19:00; Stop at 14:21; Status DC Amino Acids/ Glycerin/ Electrolytes (Procalamine) 1,000 ml @ 80 mls/hr [id number] IV Last administered on 11/11/16 02:20; Start 11/07/16 at 12:15; Stop at 11:22; Status DC Guaifenesin (Robitussin Dm) 10 ml PRN Q6HRS PRN PO COUGH; Start 11/07/16 at 12: 30 Oseltamivir Phosphate 30 mg 30 mg DAILY PO Last administered on 11/10/16 08:50 ; Start 11/08/16 at 09:00; Stop 11/10/16 at 20:59; Status DC Piperacillin Sod/ Tazobactam Sod/ Sodium Chloride (Zosyn/Iv Sodium Chloride 0.9 % 50ml) 50 ml @ 100 mls/hr Q6HRS IV Last administered on 11/11/16 17:44; Start 11/07/16 at 18:00; Stop 11/11/16 at 18:50; Status DC Fentanyl Citrate (Fentanyl 2ml Vial) 25 mcg PRN Q2HR PRN IV PAIN Last administered on 11/17/16 13:10; Start 11/07/16 at 20:00 Diltiazem HCl (Cardizem) 30 mg Q8HRS PO Last administered on 11/08/16 21:21; Start 11/08/16 at 12:00; Stop 11/09/16 at 10:39; Status DC Digoxin (Lanoxin) 500 mcg 1X ONCE IV Last administered on 11/08/16 12:28; Start 11/08/16 at 12:15; Stop 11/08/16 at 12:19; Status DC Digoxin (Lanoxin) 125 mcg DAILY PO Last administered on 11/11/16 08:58; Start 11/09/16 at 09:00; Stop 11/13/16 at 12:48; Status DC Budesonide (Pulmicort) 0.5 mg RTBID NEB Last administered on 11/11/16 09:32; Start 11/09/16 at 09:00; Stop 11/11/16 at 18:50; Status DC Diltiazem HCl 120 mg 120 mg DAILY PO Last administered on 11/11/16 08:57; Start 11/09/16 at 11:00; Stop 11/13/16 at 12:48; Status DC Magnesium Sulfate/ Dextrose (Magnesium Sulfate PREMIX 2GM) 50 ml @ 25 mls/hr PRN DAILY PRN IV for Mag < 1.7 on am labs; Start 11/09/16 at 15:45 Nystatin (Nystop) 1 hong TID TP Last administered on 11/17/16 21:11; Start at 21:00 Levetiracetam (Keppra) 500 mg QHS PO Last administered on 11/11/16 21:51; Start 11/10/16 at 21:00; Stop 11/13/16 at 12:32; Status DC Labetalol HCl 10 mg 10 mg PRN Q2HR PRN IVP HYPERTENSION, SEE COMMENTS; Start at 09:45 Sodium Phosphate/ Dextrose 256.6667 ml @ 64.167 m... 1X ONCE IV Last administered on 11/10/16 13:49; Start 11/10/16 at 14:00; Stop 11/10/16 at 17:59 ; Status DC Scopolamine (Transderm-Scop) 1 patch Q3DAYS TD Last administered on 11/17/16 08:22; Start 11/11/16 at 11:30 Furosemide (Lasix) 40 mg 1X ONCE IVP Last administered on 11/11/16 11:43; Start 11/11/16 at 11:30; Stop 11/11/16 at 11:31; Status DC Albuterol/ Ipratropium (Duoneb) 3 ml RTQID NEB Last administered on 11/18/16 11:24; Start 11/11/16 at 12:00 Furosemide (Lasix) 40 mg 1X ONCE IVP Last administered on 11/12/16 12:41; Start 11/12/16 at 12:00; Stop 11/12/16 at 12:01; Status DC Haloperidol Lactate 1 mg 1 mg PRN TID PRN IVP AGITATION Last administered on 02:33; Start 11/13/16 at 04:45 Levetiracetam/ Sodium Chloride (Keppra/Iv Sodium Chloride 0.9% 100ml) 105 ml @ 400 mls/hr Q12HR IV Last administered on 11/17/16 21:10; Start 11/13/16 at 10: 30; Stop 11/18/16 at 09:44; Status DC Furosemide 20 mg 20 mg 1X ONCE IVP Last administered on 11/13/16 17:46; Start 11/13/16 at 11:30; Stop 11/13/16 at 11:31; Status DC Levetiracetam/ Sodium Chloride (Keppra/Iv Sodium Chloride 0.9% 100ml) 105 ml @ 400 mls/hr QHS IV ; Start 11/13/16 at 21:00; Stop 11/13/16 at 21:00; Status DC Pantoprazole Sodium (Protonix Vial) 40 mg DAILYAC IVP Last administered on 11/17 08:21; Start 11/13/16 at 13:00; Stop 11/18/16 at 09:44; Status DC Diltiazem HCl (Cardizem) 10 mg 1X ONCE IVP Last administered on 11/13/16 14: 51; Start 11/13/16 at 13:00; Stop 11/13/16 at 13:01; Status DC Digoxin (Lanoxin) 125 mcg DAILY IV Last administered on 11/17/16 08:22; Start 11/14/16 at 09:00; Stop 11/18/16 at 09:44; Status DC Alteplase, Recombinant 4 mg 4 mg 1X ONCE INT CAT Last administered on 17:10; Start 11/13/16 at 16:30; Stop 11/13/16 at 16:31; Status DC Potassium Phosphate 13.6 mmol/Sodium Chloride 104.5333 ml @ 52.267 m... Q2H IV Last administered on 11/13/16 22:16; Start 11/13/16 at 17:00; Stop 11/13/16 at 22:59; Status DC Amino Acids/ Electrolytes 1,000 ml @ 80 mls/hr [id number] IV Last administered on 11/15/16 15:22; Start 11/14/16 at 10:00; Stop 11/16/16 at 03:34; Status DC Amino Acids/ Glycerin/ Electrolytes (Procalamine) 1,000 ml @ 80 mls/hr [id number] IV ; Start 11/14/16 at 11:00; Status UNV Sotalol HCl (Betapace) 80 mg BID PO Last administered on 11/15/16 12:20; Start 11/15/16 at 10:00; Stop 11/15/16 at 21:13; Status DC Acetaminophen/ Aspirin/Caffeine 1 tab 1 tab PRN Q6HRS PRN PO MIGRAINE HEADACHE Last administered on 11/17/16 03:34; Start 11/15/16 at 18:00 Amino Acids/ Electrolytes/ Dextrose (Clinimix E 4.25%-5% Solution) 1,000 ml @ 80 mls/hr [id number] IV Last administered on 11/17/16 21:10; Start 11/16/16 at 03 :34; Stop 11/18/16 at 09:44; Status DC Lorazepam (Ativan Intensol) 2 mg PRN Q6HRS PRN SL ANXIETY / AGITATION; Start at 09:45 Levetiracetam (Keppra) 500 mg BID PO Last administered on 11/18/16 12:46; Start 11/18/16 at 11:00 Active Scripts Active Glipizide 5 Mg Tablet 5 Mg PO DAILY Take one-half a tablet daily. Lasix (Furosemide) 40 Mg Tablet 40 Mg PO DAILY Reported Levofloxacin 250 Mg Tablet 250 Mg PO DAILY Amlodipine Besylate 5 Mg Tablet 5 Mg PO DAILY Keppra (Levetiracetam) 500 Mg Tablet 250 Mg PO HS Crestor (Rosuvastatin Calcium) 20 Mg Tablet 20 Mg PO HS Lamictal (Lamotrigine) 100 Mg Tablet 100 Mg PO BID Vitals/I & O Vital Sign - Last 24 Hours 11/17/16 11/17/16 11/17/16 11/17/16 15:00 16:30 19:00 19:57 Temp 98.5 96.3 98.5 96.3 Pulse 73 74 Resp 21 B/P 151/67 141/55 Pulse Ox 91 80 95 95 O2 Delivery Nasal Cannula Nasal Cannula Nasal Cannula Nasal Cannula O2 Flow Rate 5.0 5.0 6.0 5.0 11/17/16 11/17/16 11/18/16 11/18/16 20:00 23:00 03:00 07:30 Temp 98.2 97.5 98.2 97.5 Pulse 72 76 Resp 23 B/P 155/67 158/56 Pulse Ox 94 93 97 O2 Delivery Nasal Cannula Nasal Cannula Nasal Cannula Nasal Cannula O2 Flow Rate 6.0 6.0 6.0 5.0 11/18/16 11/18/16 11/18/16 11/18/16 07:31 08:00 08:10 11:21 Temp 97.9 98.3 97.9 98.3 Pulse 73 73 Resp 21 20 B/P 120/72 107/62 Pulse Ox 96 95 O2 Delivery Nasal Cannula Nasal Cannula Nasal Cannula Nasal Cannula O2 Flow Rate 6.0 5.0 6.0 6.0 11/18/16 11:25 Pulse Ox 95 O2 Delivery Nasal Cannula O2 Flow Rate 5.0 Intake and Output 11/17/16 11/17/16 11/18/16 15:00 23:00 07:00 Intake Total 457 ml 340 ml Output Total 800 ml Balance -343 ml 340 ml BALJEET RAMOS MD Nov 18, 2016 14:35
[2016-11-18 15:06] VITALS: BP 157/59
[2016-11-18] MEDS: AA 4.25%/CALCIUM/LYTES/D5W 1,000 ML IV SCH (15:26)
[2016-11-18] MEDS: DIGOXIN 125 MCG TABLET PO SCH (15:43)
[2016-11-18 19:52] VITALS: BP 133/60
[2016-11-18] MEDS: ACETAMINOPHEN 325 MG TABLET. PO PRN (20:28)
[2016-11-18 23:32] VITALS: BP 168/60
[2016-11-19 03:00] VITALS: BP 157/88
[2016-11-19] MEDS: AA 4.25%/CALCIUM/LYTES/D5W 1,000 ML IV SCH ×2 (05:56→20:17)
[2016-11-19] MEDS: HEPARIN PF for SUB-Q USE 5,000 UNIT/0.5 ML VIAL. SQ SCH ×3 (05:59→21:05)
[2016-11-19 07:00] VITALS: BP 175/61
[2016-11-19] MEDS: IPRATRPIUM/ALBUTEROL 0.5/2.5MG 3 ML NEBU. NEB SCH ×4 (07:50→19:47)
[2016-11-19] MEDS: LEVETIRACETAM 500 MG TABLET PO SCH ×2 (08:23→20:58)
[2016-11-19] MEDS: NYSTATIN TOPICAL POWDER 15GM BOTTLE. TP SCH ×3 (08:27→20:58)
[2016-11-19] MEDS: DIGOXIN 125 MCG TABLET PO SCH (08:27)
[2016-11-19] MEDS: INSULIN ASPART 300 UNITS/3 ML INSULN.PEN SQ SCH ×3 (08:38→17:00)
--- NOTE | 2016-11-19 10:04 | PDOC ---
PULMONARY PROGRESS NOTES Subjective confused today Vitals Vital Signs Date Time Temp Pulse Resp B/P Pulse Ox O2 Delivery O2 Flow Rate FiO2 11/19/16 08:27 72 11/19/16 07:50 90 Nasal Cannula 4.0 11/19/16 07:00 98.0 24 175/61 98.0 General: Alert, No acute distress Lungs: Clear Cardiovascular: S1, S2 Abdomen: Soft, Non-tender Neuro Exam: Alert, Oriented Extremities: Other Skin: Warm Labs Laboratory Tests Test 11/17/16 11:09 11/17/16 17:18 11/17/16 21:01 11/18/16 05:10 Glucose (Fingerstick) 149mg/dL (70-99) 172mg/dL (70-99) 192mg/dL (70-99) White Blood Count 7.7x10^3/uL (4.0-11.0) Red Blood Count 3.64x10^6/uL (3.50-5.40) Hemoglobin 11.4g/dL (12.0-15.5) Hematocrit 34.3% (36.0-47.0) Mean Corpuscular Volume 94fL (79-100) Mean Corpuscular Hemoglobin 31pg (25-35) Mean Corpuscular Hemoglobin Concent 33g/dL (31-37) Red Cell Distribution Width 16.4% (11.5-14.5) Platelet Count 234x10^3/uL (140-400) Sodium Level 147mmol/L (136-145) Potassium Level 4.0mmol/L (3.5-5.1) Chloride Level 106mmol/L (98-107) Carbon Dioxide Level 36mmol/L (21-32) Anion Gap 5 (6-14) Blood Urea Nitrogen 37mg/dL (7-20) Creatinine 1.4mg/dL (0.6-1.0) Estimated GFR (Cockcroft-Gault) 35.8 Glucose Level 200mg/dL (70-99) Calcium Level 8.9mg/dL (8.5-10.1) Test 11/18/16 08:22 11/18/16 11:29 11/18/16 16:39 11/18/16 21:19 Glucose (Fingerstick) 178mg/dL (70-99) 173mg/dL (70-99) 151mg/dL (70-99) 165mg/dL (70-99) Test 11/19/16 07:19 Glucose (Fingerstick) 269mg/dL (70-99) Laboratory Tests Test 11/18/16 11:29 11/18/16 16:39 11/18/16 21:19 11/19/16 07:19 Glucose (Fingerstick) 173mg/dL (70-99) 151mg/dL (70-99) 165mg/dL (70-99) 269mg/dL (70-99) Medications Active Scripts Medications Dose Route/Sig Days Date Category Dose Instructions Levofloxacin 250 Mg Tablet 250 Mg PO DAILY 08/11/16 Reported Amlodipine Besylate 5 Mg Tablet 5 Mg PO DAILY 08/11/16 Reported Keppra (Levetiracetam) 500 Mg Tablet 250 Mg PO HS 08/08/16 Reported Glipizide 5 Mg Tablet 5 Mg PO DAILY 12/22/13 Rx Take one-half a tablet daily. Lasix (Furosemide) 40 Mg Tablet 40 Mg PO DAILY 12/22/13 Rx Crestor (Rosuvastatin Calcium) 20 Mg Tablet 20 Mg PO HS 10/24/13 Reported Lamictal (Lamotrigine) 100 Mg Tablet 100 Mg PO BID 10/24/13 Reported Comments cxr reviewed, Cardiomegaly, similar. Mild congestive heart failure. Superimposed pneumonia in the right upper lobe is not entirely excluded. Small bilateral pleural effusions Impression . 1. [id number] hypercapnic respiratory failure./multi-factorial 2. Aspiration pneumonia./?diastolic HF 3. Dysphagia. 4. Coronary artery disease. 5. Hypertension. 6. Depression. 7. Acute renal failure. 8. Hyperkalemia. 9. Acute metabolic toxic encephalopathy. 10. underlying DELANEY/OHS Plan . 1. Had a long discussion with family 11/14. Pt prefers to have pain meds for comfort,. I will keep her comfortable. off BIPAP 2. Continue oxygen supplementation. 3. Nebulized treatments. 4. supportive care 5. no further recommendations SUPA KURTZ MD Nov 19, 2016 10:04
--- NOTE | 2016-11-19 10:38 | PDOC ---
PROGRESS NOTES Subjective Subjective No new complaints today. Pt denied chest pain, SOB, N, V, diaphoresis. Objective Objective Vital Signs Date Time Temp Pulse Resp B/P Pulse Ox O2 Delivery O2 Flow Rate FiO2 11/19/16 10:19 Nasal Cannula 4.0 11/19/16 08:27 72 11/19/16 07:50 90 11/19/16 07:00 98.0 24 175/61 98.0 Intake and Output 11/19/16 07:00 Intake Total 780 ml Output Total 1000 ml Balance -220 ml Intake Oral 780 ml Output Urine Total 1000 ml Physical Exam Physical Exam No change in cardiac exam Assessment Assessment Problems Medical Problems: (1) Aspiration pneumonia Status: Acute (2) Aspiration pneumonia Status: Acute (3) Hypoxia Status: Acute (4) Influenza Status: Acute (5) Influenza Status: Acute (6) Respiratory failure Status: Acute Plan Plan of Care A flutter with controlled ventricular response Agree with current treatment plan Family has decided on placement. Insurance needs to see that pt is participating in PT Comment Review of Relevant I have reviewed the following items lucy (where applicable) has been applied. Labs Laboratory Tests Test 11/17/16 11:09 11/17/16 17:18 11/17/16 21:01 11/18/16 05:10 Glucose (Fingerstick) 149mg/dL (70-99) 172mg/dL (70-99) 192mg/dL (70-99) White Blood Count 7.7x10^3/uL (4.0-11.0) Red Blood Count 3.64x10^6/uL (3.50-5.40) Hemoglobin 11.4g/dL (12.0-15.5) Hematocrit 34.3% (36.0-47.0) Mean Corpuscular Volume 94fL (79-100) Mean Corpuscular Hemoglobin 31pg (25-35) Mean Corpuscular Hemoglobin Concent 33g/dL (31-37) Red Cell Distribution Width 16.4% (11.5-14.5) Platelet Count 234x10^3/uL (140-400) Sodium Level 147mmol/L (136-145) Potassium Level 4.0mmol/L (3.5-5.1) Chloride Level 106mmol/L (98-107) Carbon Dioxide Level 36mmol/L (21-32) Anion Gap 5 (6-14) Blood Urea Nitrogen 37mg/dL (7-20) Creatinine 1.4mg/dL (0.6-1.0) Estimated GFR (Cockcroft-Gault) 35.8 Glucose Level 200mg/dL (70-99) Calcium Level 8.9mg/dL (8.5-10.1) Test 11/18/16 08:22 11/18/16 11:29 11/18/16 16:39 11/18/16 21:19 Glucose (Fingerstick) 178mg/dL (70-99) 173mg/dL (70-99) 151mg/dL (70-99) 165mg/dL (70-99) Test 11/19/16 07:19 Glucose (Fingerstick) 269mg/dL (70-99) Laboratory Tests Test 11/18/16 11:29 11/18/16 16:39 11/18/16 21:19 11/19/16 07:19 Glucose (Fingerstick) 173mg/dL (70-99) 151mg/dL (70-99) 165mg/dL (70-99) 269mg/dL (70-99) Microbiology 11/13/16 Blood Culture - Final, Complete NO GROWTH AFTER 5 DAYS Medications Current Medications Sodium Chloride (Iv Sodium Chloride 0.9% 1000ml Bag) 1,000 ml @ 200 mls/hr Q5H IV Last administered on 11/05/16 12:25; Start 11/05/16 at 11:35; Stop at 16:34; Status DC Oseltamivir Phosphate 75 mg 75 mg DAILY PO Last administered on 11/05/16 12:24 ; Start 11/05/16 at 12:30; Stop 11/05/16 at 12:30; Status DC Piperacillin Sod/ Tazobactam Sod/ Sodium Chloride (Zosyn/Iv Sodium Chloride 0.9 % 50ml) 50 ml @ 100 mls/hr 1X ONCE IV Last administered on 11/05/16 12:39; Start 11/05/16 at 12:45; Stop 11/05/16 at 13:14; Status DC Oseltamivir Phosphate (Tamiflu) 30 mg BID PO Last administered on 11/06/16 09: 27; Start 11/05/16 at 21:00; Stop 11/07/16 at 14:19; Status DC Potassium Chloride (KCl Oral Soln) 40 meq 1X ONCE PO Last administered on 11/05 13:49; Start 11/05/16 at 13:15; Stop 11/05/16 at 13:16; Status DC Amlodipine Besylate (Norvasc) 5 mg DAILY PO Last administered on 11/06/16 09: 28; Start 11/06/16 at 09:00; Stop 11/08/16 at 12:18; Status DC Glipizide (Glucotrol) 5 mg DAILY PO Last administered on 11/11/16 08:57; Start 11/06/16 at 09:00; Stop 11/13/16 at 12:18; Status DC Lamotrigine (LaMICtal) 100 mg BID PO Last administered on 11/11/16 21:51; Start 11/05/16 at 21:00; Stop 11/13/16 at 12:18; Status DC Levetiracetam (Keppra) 250 mg HS PO Last administered on 11/05/16 20:19; Start 11/05/16 at 21:00; Stop 11/06/16 at 12:12; Status DC Atorvastatin Calcium (Lipitor) 80 mg QHS PO Last administered on 11/11/16 21: 51; Start 11/05/16 at 21:00; Stop 11/13/16 at 12:18; Status DC Acetaminophen (Tylenol) 650 mg PRN Q6HRS PRN PO MILD PAIN / TEMP Last administered on 11/18/16 20:28; Start 11/05/16 at 16:15 Ondansetron HCl 4 mg 4 mg PRN Q6HRS PRN IV NAUSEA/VOMITING; Start 11/05/16 at 16:15 Potassium Chloride/Dextrose/ Sod Cl (KCl 20 Meq In D5W-NS) 1,000 ml @ 75 mls/ hr [id number] IV ; Start 11/05/16 at 16:15; Stop 11/05/16 at 16:15; Status DC Insulin Aspart (Novolog) 0-9 UNITS TIDWMEALS SQ Last administered on 11/19/16 08:38; Start 11/05/16 at 17:00 Dextrose 12.5 gm PRN Q15MIN PRN IV SEE COMMENTS Last administered on 11/15/16 09:18; Start 11/05/16 at 16:15 Heparin Sodium (Porcine) 5,000 unit Q8HRS SQ Last administered on 11/18/16 20: 31; Start 11/05/16 at 22:00 Hydralazine HCl (Apresoline) 10 mg PRN Q4HRS PRN IVP ELEVATED BP, SEE COMMENTS ; Start 11/05/16 at 16:15 Albuterol/ Ipratropium (Duoneb) 3 ml RTQID NEB Last administered on 11/11/16 09:32; Start 11/05/16 at 20:00; Stop 11/11/16 at 11:29; Status DC Albuterol Sulfate 2.5 mg 2.5 mg PRN Q4HRS PRN NEB SHORTNESS OF BREATH; Start at 16:15 Potassium Chloride/Sodium Chloride 1,000 ml @ 75 mls/hr [id number] IV Last administered on 11/07/16 09:00; Start 11/05/16 at 17:00; Stop 11/07/16 at 12:10 ; Status DC Levetiracetam 500 mg/Sodium Chloride 105 ml @ 400 mls/hr HS IV Last administered on 11/09/16 21:28; Start 11/06/16 at 21:00; Stop 11/10/16 at 09:24 ; Status DC Potassium Chloride/Dextrose/ Sod Cl (KCl 20 Meq In D5W-1/2 NS) 1,000 ml @ 100 mls/hr 1X ONCE IV Last administered on 11/06/16 17:17; Start 11/06/16 at 13: 00; Stop 11/06/16 at 22:59; Status DC Enoxaparin Sodium (Lovenox Per Pharmacy Prophylaxis Dosing) 1 each PRN DAILY PRN MC SEE COMMENTS; Start 11/06/16 at 13:00; Status UNV Piperacillin Sod/ Tazobactam Sod 1 each 1 each PRN DAILY PRN MC SEE COMMENTS; Start 11/06/16 at 18:15; Stop 11/08/16 at 12:53; Status DC Piperacillin Sod/ Tazobactam Sod 3.375 gm/Sodium Chloride 50 ml @ 100 mls/hr Q6HRS IV Last administered on 11/07/16 11:17; Start 11/06/16 at 19:00; Stop at 14:21; Status DC Amino Acids/ Glycerin/ Electrolytes (Procalamine) 1,000 ml @ 80 mls/hr [id number] IV Last administered on 11/11/16 02:20; Start 11/07/16 at 12:15; Stop at 11:22; Status DC Guaifenesin (Robitussin Dm) 10 ml PRN Q6HRS PRN PO COUGH; Start 11/07/16 at 12: 30 Oseltamivir Phosphate 30 mg 30 mg DAILY PO Last administered on 11/10/16 08:50 ; Start 11/08/16 at 09:00; Stop 11/10/16 at 20:59; Status DC Piperacillin Sod/ Tazobactam Sod/ Sodium Chloride (Zosyn/Iv Sodium Chloride 0.9 % 50ml) 50 ml @ 100 mls/hr Q6HRS IV Last administered on 11/11/16 17:44; Start 11/07/16 at 18:00; Stop 11/11/16 at 18:50; Status DC Fentanyl Citrate (Fentanyl 2ml Vial) 25 mcg PRN Q2HR PRN IV PAIN Last administered on 11/17/16 13:10; Start 11/07/16 at 20:00 Diltiazem HCl (Cardizem) 30 mg Q8HRS PO Last administered on 11/08/16 21:21; Start 11/08/16 at 12:00; Stop 11/09/16 at 10:39; Status DC Digoxin (Lanoxin) 500 mcg 1X ONCE IV Last administered on 11/08/16 12:28; Start 11/08/16 at 12:15; Stop 11/08/16 at 12:19; Status DC Digoxin (Lanoxin) 125 mcg DAILY PO Last administered on 11/11/16 08:58; Start 11/09/16 at 09:00; Stop 11/13/16 at 12:48; Status DC Budesonide (Pulmicort) 0.5 mg RTBID NEB Last administered on 11/11/16 09:32; Start 11/09/16 at 09:00; Stop 11/11/16 at 18:50; Status DC Diltiazem HCl 120 mg 120 mg DAILY PO Last administered on 11/11/16 08:57; Start 11/09/16 at 11:00; Stop 11/13/16 at 12:48; Status DC Magnesium Sulfate/ Dextrose (Magnesium Sulfate PREMIX 2GM) 50 ml @ 25 mls/hr PRN DAILY PRN IV for Mag < 1.7 on am labs; Start 11/09/16 at 15:45 Nystatin (Nystop) 1 hong TID TP Last administered on 11/18/16 15:29; Start at 21:00 Levetiracetam (Keppra) 500 mg QHS PO Last administered on 11/11/16 21:51; Start 11/10/16 at 21:00; Stop 11/13/16 at 12:32; Status DC Labetalol HCl 10 mg 10 mg PRN Q2HR PRN IVP HYPERTENSION, SEE COMMENTS; Start at 09:45 Sodium Phosphate/ Dextrose 256.6667 ml @ 64.167 m... 1X ONCE IV Last administered on 11/10/16 13:49; Start 11/10/16 at 14:00; Stop 11/10/16 at 17:59 ; Status DC Scopolamine (Transderm-Scop) 1 patch Q3DAYS TD Last administered on 11/17/16 08:22; Start 11/11/16 at 11:30 Furosemide (Lasix) 40 mg 1X ONCE IVP Last administered on 11/11/16 11:43; Start 11/11/16 at 11:30; Stop 11/11/16 at 11:31; Status DC Albuterol/ Ipratropium (Duoneb) 3 ml RTQID NEB Last administered on 11/19/16 07:50; Start 11/11/16 at 12:00 Furosemide (Lasix) 40 mg 1X ONCE IVP Last administered on 11/12/16 12:41; Start 11/12/16 at 12:00; Stop 11/12/16 at 12:01; Status DC Haloperidol Lactate 1 mg 1 mg PRN TID PRN IVP AGITATION Last administered on 02:33; Start 11/13/16 at 04:45 Levetiracetam/ Sodium Chloride (Keppra/Iv Sodium Chloride 0.9% 100ml) 105 ml @ 400 mls/hr Q12HR IV Last administered on 11/17/16 21:10; Start 11/13/16 at 10: 30; Stop 11/18/16 at 09:44; Status DC Furosemide 20 mg 20 mg 1X ONCE IVP Last administered on 11/13/16 17:46; Start 11/13/16 at 11:30; Stop 11/13/16 at 11:31; Status DC Levetiracetam/ Sodium Chloride (Keppra/Iv Sodium Chloride 0.9% 100ml) 105 ml @ 400 mls/hr QHS IV ; Start 11/13/16 at 21:00; Stop 11/13/16 at 21:00; Status DC Pantoprazole Sodium (Protonix Vial) 40 mg DAILYAC IVP Last administered on 11/17 08:21; Start 11/13/16 at 13:00; Stop 11/18/16 at 09:44; Status DC Diltiazem HCl (Cardizem) 10 mg 1X ONCE IVP Last administered on 11/13/16 14: 51; Start 11/13/16 at 13:00; Stop 11/13/16 at 13:01; Status DC Digoxin (Lanoxin) 125 mcg DAILY IV Last administered on 11/17/16 08:22; Start 11/14/16 at 09:00; Stop 11/18/16 at 09:44; Status DC Alteplase, Recombinant 4 mg 4 mg 1X ONCE INT CAT Last administered on 17:10; Start 11/13/16 at 16:30; Stop 11/13/16 at 16:31; Status DC Potassium Phosphate 13.6 mmol/Sodium Chloride 104.5333 ml @ 52.267 m... Q2H IV Last administered on 11/13/16 22:16; Start 11/13/16 at 17:00; Stop 11/13/16 at 22:59; Status DC Amino Acids/ Electrolytes 1,000 ml @ 80 mls/hr [id number] IV Last administered on 11/15/16 15:22; Start 11/14/16 at 10:00; Stop 11/16/16 at 03:34; Status DC Amino Acids/ Glycerin/ Electrolytes (Procalamine) 1,000 ml @ 80 mls/hr [id number] IV ; Start 11/14/16 at 11:00; Status UNV Sotalol HCl (Betapace) 80 mg BID PO Last administered on 11/15/16 12:20; Start 11/15/16 at 10:00; Stop 11/15/16 at 21:13; Status DC Acetaminophen/ Aspirin/Caffeine 1 tab 1 tab PRN Q6HRS PRN PO MIGRAINE HEADACHE Last administered on 11/17/16 03:34; Start 11/15/16 at 18:00 Amino Acids/ Electrolytes/ Dextrose (Clinimix E 4.25%-5% Solution) 1,000 ml @ 80 mls/hr [id number] IV Last administered on 11/17/16 21:10; Start 11/16/16 at 03 :34; Stop 11/18/16 at 09:44; Status DC Lorazepam (Ativan Intensol) 2 mg PRN Q6HRS PRN SL ANXIETY / AGITATION; Start at 09:45 Levetiracetam (Keppra) 500 mg BID PO Last administered on 11/19/16 08:23; Start 11/18/16 at 11:00 Digoxin 125 mcg 125 mcg DAILY PO Last administered on 11/19/16 08:27; Start at 15:00 Amino Acids/ Electrolytes/ Dextrose (Clinimix E 4.25%-5% Solution) 1,000 ml @ 80 mls/hr [id number] IV Last administered on 11/19/16 05:56; Start 11/18/16 at 14 :45 Active Scripts Active Glipizide 5 Mg Tablet 5 Mg PO DAILY Take one-half a tablet daily. Lasix (Furosemide) 40 Mg Tablet 40 Mg PO DAILY Reported Levofloxacin 250 Mg Tablet 250 Mg PO DAILY Amlodipine Besylate 5 Mg Tablet 5 Mg PO DAILY Keppra (Levetiracetam) 500 Mg Tablet 250 Mg PO HS Crestor (Rosuvastatin Calcium) 20 Mg Tablet 20 Mg PO HS Lamictal (Lamotrigine) 100 Mg Tablet 100 Mg PO BID Vitals/I & O Vital Sign - Last 24 Hours 11/18/16 11/18/16 11/18/16 11/18/16 11:21 11:25 15:06 15:37 Temp 98.3 98.1 98.3 98.1 Pulse 73 73 Resp 20 19 B/P 107/62 157/59 Pulse Ox 95 95 98 O2 Delivery Nasal Cannula Nasal Cannula Nasal Cannula Nasal Cannula O2 Flow Rate 6.0 5.0 6.0 5.0 11/18/16 11/18/16 11/18/16 11/18/16 15:43 19:20 19:52 20:00 Temp 98.3 98.3 Pulse 66 73 Resp 20 B/P 133/60 Pulse Ox 94 91 O2 Delivery Nasal Cannula Nasal Cannula Nasal Cannula O2 Flow Rate 5.0 6.0 6.0 11/18/16 11/19/16 11/19/16 11/19/16 23:32 03:00 07:00 07:50 Temp 98.1 97.9 98.0 98.1 97.9 98.0 Pulse 72 73 71 Resp 20 20 24 B/P 168/60 157/88 175/61 Pulse Ox 90 94 90 90 O2 Delivery Nasal Cannula Room Air Nasal Cannula Nasal Cannula O2 Flow Rate 6.0 6.0 4.0 11/19/16 11/19/16 08:27 10:19 Pulse 72 O2 Delivery Nasal Cannula O2 Flow Rate 4.0 Intake and Output 11/18/16 11/18/16 11/19/16 15:00 23:00 07:00 Intake Total 380 ml 400 ml Output Total 1000 ml Balance -620 ml 400 ml WINTER WALL MD Nov 19, 2016 10:38
[2016-11-19 11:00] VITALS: BP 159/66
--- NOTE | 2016-11-19 11:11 | PDOC3 ---
Discharge Summary Visit Information Date of Admission: Nov 05, 2016 Date of Discharge: Nov 19, 2016 Admitting Diagnosis Comment: 1. Influenza A: Tamiflu x5d completed 2. Aspiration pneumonitis: recovering. remains NPO for now. (see below) 3. COPD (exacerbation): required BiPAP initially, has been on NC 2L (home regimen) - off BiPAP for several days now 4. CHF: chronic, (mild) diastolic, preserved EF. no acute issues 5. Sepsis: resolved 6. New onset atrial fib/flutter, intermittent RVR: currently rate controlled on digoxin. Dr Osorio following 7. SHELYA on CKD: recovered to baseline creat ~1.5 8. Hypokalemia: resolved 9. DM2: fluctuating. on ISS 10. HTN: oral meds on hold, but BPs well controlled 11. HLD: statin on hold (NPO) 12. seizure disorder: on keppra IV 13. AMS: metabolic encephalopathy with flu/ SHEYLA vs post ictal. resolved 14. Dysphagia: observed to cough after sips of water. NPO for now until formal swallow eval on Friday. on PPN 15. Dispo: needs OT/PT eval. anticipate rehab placement. transfer to floor Final Diagnosis Problems Medical Problems: (1) Acute respiratory failure Status: Acute (2) Aspiration pneumonia Status: Acute (3) Aspiration pneumonia Status: Acute (4) Hypoxia Status: Acute (5) Influenza Status: Acute (6) Influenza Status: Acute (7) Respiratory failure Status: Acute Brief Hospital Course Allergies Allergies Coded Allergies Type Severity Reaction Last Updated Verified neomycin Allergy Intermediate 08/07/16 Yes morphine Adverse Reaction Severe 08/07/16 Yes Vital Signs Vital Signs Date Time Temp Pulse Resp B/P Pulse Ox O2 Delivery O2 Flow Rate FiO2 11/19/16 10:19 Nasal Cannula 4.0 11/19/16 08:27 72 11/19/16 07:50 90 11/19/16 07:00 98.0 24 175/61 98.0 Lab Results Laboratory Tests Test 11/17/16 11:09 11/17/16 17:18 11/17/16 21:01 11/18/16 05:10 Glucose (Fingerstick) 149mg/dL (70-99) 172mg/dL (70-99) 192mg/dL (70-99) White Blood Count 7.7x10^3/uL (4.0-11.0) Red Blood Count 3.64x10^6/uL (3.50-5.40) Hemoglobin 11.4g/dL (12.0-15.5) Hematocrit 34.3% (36.0-47.0) Mean Corpuscular Volume 94fL (79-100) Mean Corpuscular Hemoglobin 31pg (25-35) Mean Corpuscular Hemoglobin Concent 33g/dL (31-37) Red Cell Distribution Width 16.4% (11.5-14.5) Platelet Count 234x10^3/uL (140-400) Sodium Level 147mmol/L (136-145) Potassium Level 4.0mmol/L (3.5-5.1) Chloride Level 106mmol/L (98-107) Carbon Dioxide Level 36mmol/L (21-32) Anion Gap 5 (6-14) Blood Urea Nitrogen 37mg/dL (7-20) Creatinine 1.4mg/dL (0.6-1.0) Estimated GFR (Cockcroft-Gault) 35.8 Glucose Level 200mg/dL (70-99) Calcium Level 8.9mg/dL (8.5-10.1) Test 11/18/16 08:22 11/18/16 11:29 11/18/16 16:39 11/18/16 21:19 Glucose (Fingerstick) 178mg/dL (70-99) 173mg/dL (70-99) 151mg/dL (70-99) 165mg/dL (70-99) Test 11/19/16 07:19 Glucose (Fingerstick) 269mg/dL (70-99) Laboratory Tests Test 11/18/16 11:29 11/18/16 16:39 11/18/16 21:19 11/19/16 07:19 Glucose (Fingerstick) 173mg/dL (70-99) 151mg/dL (70-99) 165mg/dL (70-99) 269mg/dL (70-99) Brief Hospital Course Ms. Manuel is a 86 old female admitted for respi failure from FLU, aspiration pneumonitis, had hypoxemia and hypercarbia needing BIPAP with pulmo on board. Hx CHF on lasix, course remakable for worsening respi issues, needing NPO, TICKET SPECULATOR eval, then now dysphagia diet, Getting procalamine but unable to cont at SNU, Multiple meets with fam members and pt, PT DOES NOT want to be on hospice, familiar with it bec of her hsuband. So they decided on active aggressive tx in SNU, But did agree to DNR and DNI DisPo: SNU Proc: BIpap Consults: pulmo DNR dc 34 mins Discharge Information Condition at Discharge: Stable Disposition/Orders: Other (snu) Scheduled Amlodipine Besylate (Amlodipine Besylate) 5 MG PO DAILY (Reported) Furosemide (Lasix) 40 MG PO DAILY Glipizide (Glipizide) 5 MG PO DAILY Lamotrigine (Lamictal) 100 MG PO BID (Reported) Levetiracetam (Keppra) 250 MG PO HS (Reported) Levofloxacin (Levofloxacin) 250 MG PO DAILY (Reported) Rosuvastatin Calcium (Crestor) 20 MG PO HS (Reported) BALJEET RAMOS MD Nov 19, 2016 11:11
--- NOTE | 2016-11-19 11:13 | PDOC ---
Renal-Progress Notes Subjective Notes Notes NONE History of Present Illness Hx of present illness NO CHANGE Vitals Vitals Vital Signs Date Time Temp Pulse Resp B/P Pulse Ox O2 Delivery O2 Flow Rate FiO2 11/19/16 10:19 Nasal Cannula 4.0 11/19/16 08:27 72 11/19/16 07:50 90 11/19/16 07:00 98.0 24 175/61 98.0 Weight Weight [ ] I.O. Intake and Output Intake and Output 11/19/16 07:00 Intake Total 780 ml Output Total 1000 ml Balance -220 ml Intake Oral 780 ml Output Urine Total 1000 ml Labs Labs Laboratory Tests Test 11/18/16 11:29 11/18/16 16:39 11/18/16 21:19 11/19/16 07:19 Glucose (Fingerstick) 173mg/dL (70-99) 151mg/dL (70-99) 165mg/dL (70-99) 269mg/dL (70-99) Micro Micro Microbiology 11/13/16 Blood Culture - Final, Complete NO GROWTH AFTER 5 DAYS Review of Systems Constitutional: yes: no symptom reported Physical Exam General Appearance: no apparent distress Skin: warm Heart: S1S2, RRR Abdomen: soft, bowel sounds present Genitourinary: bladder flat Extremities: pulses present Neurology: alert Musculoskeletal: Osteoarthritis Assessment Assessment IMP SHEYLA-BETTER WITH CR 2.9 TO 1.7 CKD STAGE 3 - CR OF 1.4-1.7 AT BASELINE SEIZURE ASP PNEUMONIA HYPERNATREMIA PLAN CONT PPN CONT ANTIBIOTICS WILL FOLLOW PALLIATIVE/COMFORT CARE WOULD BE APPROPRIATE PLACEMENT PENDING SCOT MARCELINO MD Nov 19, 2016 11:13
[2016-11-19 15:00] VITALS: BP 152/74
[2016-11-19 19:15] VITALS: BP 151/51
[2016-11-19 23:34] VITALS: BP 167/56
[2016-11-20 03:21] VITALS: BP 146/73
[2016-11-20] MEDS: AA 4.25%/CALCIUM/LYTES/D5W 1,000 ML IV SCH (04:15)
[2016-11-20] MEDS: ACETAMINOPHEN 325 MG TABLET. PO PRN (05:53)
[2016-11-20] MEDS: HEPARIN PF for SUB-Q USE 5,000 UNIT/0.5 ML VIAL. SQ SCH (05:57)
[2016-11-20] MEDS: IPRATRPIUM/ALBUTEROL 0.5/2.5MG 3 ML NEBU. NEB SCH ×2 (07:39→12:13)
[2016-11-20 07:45] VITALS: BP 123/60
[2016-11-20] MEDS: NYSTATIN TOPICAL POWDER 15GM BOTTLE. TP SCH (09:00)
[2016-11-20] MEDS: SCOPOLAMINE 1.5MG PATCH. TD SCH (09:10)
[2016-11-20] MEDS: ASA/APAP/CAFFEINE 250/250/65MG TABLET. PO PRN (09:10)
[2016-11-20] MEDS: LEVETIRACETAM 500 MG TABLET PO SCH (09:10)
[2016-11-20] MEDS: DIGOXIN 125 MCG TABLET PO SCH (09:11)
[2016-11-20] MEDS: INSULIN ASPART 300 UNITS/3 ML INSULN.PEN SQ SCH ×2 (09:23→12:19)
[2016-11-20 11:00] VITALS: BP 132/63
--- NOTE | 2016-11-20 11:10 | PDOC ---
Provider Note Provider Note dc summ done, MAR done, Pt did not dc yesterday - will dc pradeep marc and case BALJEET RAMOS MD Nov 20, 2016 11:10
--- NOTE | 2016-11-20 17:05 | PDOC ---
PROGRESS NOTES Assessment Assessment Metabolic encephalopathy. Respiratory failure, acute on chronic. Hypoxia. Influenza A New onset AFib with RVR. Aspiration pneumonia. Hyperglycemia. DM HTN HLD COPD CHF Obesity RECOMMENDATIONS/PLAN: Continue Keppra. Continue medical treatment. OT/PT. PAST MEDICAL AND SURGICAL HISTORY: Please see H&P ALLERGY: Unknown MEDICATIONS: Refer to MAR REVIEW OF SYSTEMS: Constitutional: No malnutrition, weight loss, cachexia. Head: No traumatic brain or head injury. Skin: No edema, or rash. Ear: No infection, tinnitus. Eyes: No vision loss, or diplopia. Nose: No bleeding or purulent discharges. Hearing: No hearing decrease. Neck: No injury. Cardiac: New onset AFib, HTN, HLD Pulmonary: COPD. GI: No GI Ulcer, GI bleeding Urinary/genital: UTI. Endocrine: Diabetes Mellitus, obesity. Skeletomuscular: generalized weakness. Neurological: see HP. Psychiatric: Denies drug use/abuse. Otherwise, not [id number] review of systems. PHYSICAL EXAMINATION: General appearance in subacute distress. HEENT: Normocephalic and nontraumatic. Eyes, nose, ears, and throat are unremarkable. Hearing decrease. Neck is supple. No lymphadenopathy. No Crepitus. Cardiovascular: S1, S2, irregular rate and rhythm. Pulmonary: breathing sounds decreased to auscultation bilaterally. Abdomen: Bowel sounds are positive. Extremities: edema noted. No restriction of range of motion NEUROLOGICAL EXAMINATION: Awake. Able to follow a few commands. Not oriented to time, place and person. PERRL. EOMI but very slow. CN: no acute focal findings. Muscle tone: decreased Muscle strength: 3+ UE, 3- LE DTR: 1+ UE, 0 at knee Plantar reflex: Neutral response bilaterally Gait: Unable to walk. Sensory exam: Showed response to stimuli. Not able to access cerebellar signs due to unable to follow commands. Unable to perform F-T-N test. Objective Objective Vital Signs Date Time Temp Pulse Resp B/P Pulse Ox O2 Delivery O2 Flow Rate FiO2 11/20/16 12:16 90 Nasal Cannula 4.0 11/20/16 11:00 97.7 71 20 132/63 97.7 Intake and Output 11/20/16 07:00 Intake Total 1100 ml Output Total 1100 ml Balance 0 ml Intake Oral 100 ml IV Total 1000 ml Output Urine Total 1100 ml Vitals Signs Vitals VS - Last 72 Hours, by Label Date Time Temp Pulse Resp B/P Pulse Ox O2 Delivery O2 Flow Rate FiO2 11/20/16 12:16 90 Nasal Cannula 4.0 11/20/16 11:00 97.7 71 20 132/63 94 Nasal Cannula 6.0 97.7 11/20/16 09:11 71 123/60 11/20/16 08:00 Nasal Cannula 5.0 11/20/16 07:45 97.9 71 24 123/60 94 Nasal Cannula 6.0 97.9 11/20/16 07:39 92 Nasal Cannula 4.0 11/20/16 03:21 97.9 70 24 146/73 90 Nasal Cannula 6.0 97.9 11/19/16 23:47 95 Nasal Cannula 6.0 11/19/16 23:34 98.2 71 28 167/56 84 Nasal Cannula 4.0 98.2 11/19/16 20:00 Nasal Cannula 6.0 11/19/16 19:50 96 Nasal Cannula 4.0 11/19/16 19:15 98.1 72 22 151/51 93 Nasal Cannula 6.0 98.1 11/19/16 15:12 Nasal Cannula 4.0 11/19/16 15:00 98.0 72 20 152/74 96 Nasal Cannula 6.0 98.0 11/19/16 11:37 98 Nasal Cannula 5.0 11/19/16 11:00 98.0 72 30 159/66 84 Nasal Cannula 6.0 98.0 11/19/16 10:19 Nasal Cannula 4.0 11/19/16 08:27 72 11/19/16 08:00 Nasal Cannula 5.0 11/19/16 07:50 90 Nasal Cannula 4.0 11/19/16 07:00 98.0 71 24 175/61 90 Nasal Cannula 6.0 98.0 Laboratory Laboratory Laboratory Tests Test 11/19/16 17:03 11/19/16 20:39 11/20/16 08:07 11/20/16 11:57 Glucose (Fingerstick) 150mg/dL (70-99) 210mg/dL (70-99) 197mg/dL (70-99) 169mg/dL (70-99) Microbiology 11/13/16 Blood Culture - Final, Complete NO GROWTH AFTER 5 DAYS Comment Review of Relevant I have reviewed the following items lucy (where applicable) has been applied. JOSSELYN TURK MD Nov 20, 2016 17:05
== END 2016-11-20 13:20 | DRG 871 ==
LOC: ER 11:21 → 5 SOUTH 12:23 → CVICU 11-13 15:21 → 6 SOUTH 11-17 11:45
PROVIDERS: ADMIT Internal Medicine; ATTEND Internal Medicine
PROC: 5A09357 Assistance with Respiratory Ventilation, Less than 24 Consecutive Hours, Continuous Positive Airway Pressure (ICD-10-PCS; 2016-11-12)
PROC: 02HV33Z Insertion of Infusion Device into Superior Vena Cava, Percutaneous Approach (ICD-10-PCS; principal; 2016-11-13)
DX: A41.9 Sepsis, unspecified organism (principal); J69.0 Pneumonitis due to inhalation of food and vomit; G92 Toxic encephalopathy; J96.21 Acute and chronic respiratory failure with hypoxia; J96.22 Acute and chronic respiratory failure with hypercapnia; N17.0 Acute kidney failure with tubular necrosis; E87.0 Hyperosmolality and hypernatremia; I48.92 Unspecified atrial flutter; J44.1 Chronic obstructive pulmonary disease with (acute) exacerbation; N18.4 Chronic kidney disease, stage 4 (severe); I50.32 Chronic diastolic (congestive) heart failure; I13.0 Hypertensive heart and chronic kidney disease with heart failure and stage 1 through stage 4 chronic kidney disease, or unspecified chronic kidney disease; Z66 Do not resuscitate; Z51.5 Encounter for palliative care; E11.22 Type 2 diabetes mellitus with diabetic chronic kidney disease; E11.65 Type 2 diabetes mellitus with hyperglycemia; J10.1 Influenza due to other identified influenza virus with other respiratory manifestations; E66.9 Obesity, unspecified; E78.00 Pure hypercholesterolemia, unspecified; E78.5 Hyperlipidemia, unspecified; E87.5 Hyperkalemia; E87.6 Hypokalemia; F32.9 Major depressive disorder, single episode, unspecified; G40.909 Epilepsy, unspecified, not intractable, without status epilepticus; I25.10 Atherosclerotic heart disease of native coronary artery without angina pectoris; I48.2 Chronic atrial fibrillation; Z96.659 Presence of unspecified artificial knee joint; M19.90 Unspecified osteoarthritis, unspecified site; K21.9 Gastro-esophageal reflux disease without esophagitis; R13.10 Dysphagia, unspecified; Z82.49 Family history of ischemic heart disease and other diseases of the circulatory system; Z87.891 Personal history of nicotine dependence; Z85.3 Personal history of malignant neoplasm of breast; Z90.49 Acquired absence of other specified parts of digestive tract; Z87.440 Personal history of urinary (tract) infections; Z90.710 Acquired absence of both cervix and uterus; Z88.1 Allergy status to other antibiotic agents; Z88.5 Allergy status to narcotic agent
CPT/HCPCS: 36415; 36600; 70450; 71010; 76770; 80048; 80053; 80069; 81001; 82553; 82805; 82947; 83605; 83735; 84300; 84443; 85007; 85018; 85027; 85610; 85730; 87040; 87804; 93005; 93306; 94250; 94640; 94660; 94760; 96365; C9113; G0238; J1160; J1630; J1815; J1940; J1953; J2543; J2997; J3010; J3490; J7030; J7042; J7620; 92526; 92610; 97110; 97530; 99285-25